=== PATIENT | male | born 1940 | race Caucasian/White ===

== ENCOUNTER 2017-09-05 21:36 | Inpatient (IN) | payer MEDICARE, MEDICAID ==
[2017-09-05] MEDS ORDERED: Haloperidol Lactate 5 mg/mL 1mL Vial IM STA (21:40)
[2017-09-05] MEDS ORDERED: Haloperidol Lactate 5 mg/mL 1mL Vial ONE (21:43)
--- NOTE | 2017-09-05 21:59 | ED Physician Chart ---
ED Chief Complaint/HPI - Patient Information Date Seen:: 09/05/17 Time Seen:: 21:56 Chief Complaint:: ABDOMINAL PAIN History of Present Illness:: THIS IS A 76 YO MALE INTERMEDIATE PATIENT SENT HIM FOR A EVALUATION BECAUSE OF ELEVATED WHITE CELL COUNT AND RESTLESSNESS. HE IS DEMENTED AND CHRONICALLY ILL. Allergies:: Allergies Allergy/AdvReac Type Severity Reaction Status Date / Time No Known Allergies Allergy Verified 09/05/17 21:58 Vitals:: Vital Signs - 8 hr 09/05/17 21:40 Temp 97.6 F RR 20 Historian:: EMS, Medical Records Review:: Nurse's Note Reviewed, Transfer documents Reviewed ED Review of Systems - Review of Systems General/Constitutional: No fever, No chills, No weight loss, No weakness, No diaphoresis, No edema, No loss of appetite, Other (THIS PATIENT IS UNABLE TO GIVE A REVIEW OF SYSYTEMS) Skin: No skin lesions, No rash, No bruising Head: No headache, No light-headedness Eyes: No loss of vision, No pain, No diplopia ENT: No earache, No nasal drainage, No sore throat, No tinnitus Neck: No neck pain, No swelling, No thyromegaly, No stiffness, No mass noted Cardio Vascular: No chest pain, No palpitations, No PND, No orthopnea, No edema Pulmonary: No SOB, No cough, No sputum, No wheezing GI: No nausea, No vomiting, No diarrhea, No pain, No melena, No hematochezia, No constipation, No hematemesis G/U: No dysuria, No frequency, No hematuria Musculoskeletal: No bone or joint pain, No back pain, No muscle pain Endocrine: No polyuria, No polydipsia Psychiatric: No prior psych history, No depression, No anxiety, No suicidal ideation Hematopoietic: No bruising, No lymphadenopathy Allergic/Immuno: No urticaria, No angioedema Neurological: No syncope, No focal symptoms, No weakness, No paresthesia, No headache, No seizure, No dizziness, No confusion, No vertigo ED Past Medical History - Past Medical History Obtainable: Yes Past Medical History: CVA/TIA, Arthritis, Dementia Family History: None Social History: Non Smoker, No Alcohol, No Drug Use, Care Facility Surgical History: PEG/GTube Psychiatricy History: Dementia ED Physical Exam - Physical Examination General/Constitutional: Awake, Well-developed, well-nourished, Alert, No distress, GCS 15, Non-toxic appearing, Ambulatory Other Gen/Cons comments:: DEMENTED RESTLESS AND UNCOOPERATIVE Head: Atraumatic Eyes: Lids, conjuctiva normal, PERRL, EOMI Skin: Nl inspection, No rash, No skin lesions, No ecchymosis, Well hydrated, No lymphadenopathy ENMT: External ears, nose nl, Nasal exam nl, Lips, teeth, gums nl Neck: Nontender, Full ROM w/o pain, No JVD, No nuchal rigidity, No bruit, No mass, No stridor Respiratory: Nl effort/Exclusion, Clear to Auscultation, No Wheeze/Rhonchi/Rales Cardio Vascular: RRR, No murmur, gallop, rubs, NL S1 S2 GI: No tenderness/rebounding/guarding, No organomegaly, No hernia, Normal BS's, Nondistended, No mass/bruits, No McBurney tenderness : No CVA tenderness Extremities: No tenderness or effusion, Full ROM, normal strength in all extremities, No edema, Normal digits & nails Neuro/Psych: Alert/oriented, DTR's symmetric, Normal sensory exam, Normal motor strength, Judgement/insight normal, Mood normal, Normal gait, No focal deficits Misc: Normal back, No paraspinal tenderness ED Labs/Radiology/EKG Results - Radiology Results Results: CHEST X-RAY= NAD - EKG Interpretations EKG Time:: 10:15 Rate & Rhythm: RATE =93, SINUS [place]: LEFT AXIS ED Assessment - Assessment General Assessment: ELECTROLYTE IMBALANCE ELEVATED WHITE COUNT DEMENTIA ED Septic Shock - . Is Septic Shock (SBP<90, OR Lactate>4 mmol\L) present?: No - <6hrs of presentation: Vital Signs: Vital Signs - 8 hr 09/05/17 21:40 Temp 97.6 F RR 20 ED Reassessment (Disposition) - Reassessment Reassessment Condition:: Unchanged - Diagnosis Diagnosis:: ELECTROLYTE IMBALANCE ELEVATED WHITE COUNT DEMENTIA SPASTIC PARALYSIS - Patient Disposition Discharge/Transfer:: Acute Care w/in this hosp Admitting Medical Physician:: Brian Asencio Condition at Disposition:: Improved ED Discharge Plan - Patient Disposition Admit/Discharge/Transfer: Acute Care w/in this hosp Condition at Disposition: Improved
[2017-09-05 22:28] LABS: % BASOPHILS 0.9 % (0.0-2.0); % EOSINOPHILS 0.1 % (0.0-5.0); % LYMPHOCYTES 15.3 % (20.0-50.0); % MONOCYTES 3.8 % (2.0-10.0); % NEUTROPHILS 79.9 % (40.0-80.0); BASOPHILE ABSOLUTE 0.1 Th/cumm (0-0.2); HEMATOCRIT 41.9 % (41.0-60); HEMOGLOBIN 13.9 gm/dL (12-16); LYMPHOCYTE ABSOLUTE 1.9 Th/cmm (1.5-3.0); MEAN CELL VOLUME 94.3 fl (80-99); MEAN CORPUSCULAR HEMOGLOBIN 31.2 pg (27.0-31.0); MEAN CORPUSCULAR HGB CONC 33.1 pg (28.0-36.0); MONOCYTE ABSOLUTE 0.5 Th/cmm (0.3-1.0); NEUTROPHILE ABSOLUTE 9.9 Th/cmm (1.8-8.0); PLATELET COUNT 317 Th/cmm (150-400); RED BLOOD COUNT 4.44 Mil/cmm (3.80-5.80); RED CELL DISTRIBUTION WIDTH 13.4 % (11.5-20.0)
[2017-09-05] MEDS ORDERED: Sodium Chloride 0.9% 1,000 ML IV ONE (22:29)
[2017-09-05 22:44] LABS: INR 1.06 (0.5-1.4)
[2017-09-05 22:48] LABS: ALBUMIN 3.9 gm/dL (4.2-5.5); ALKALINE PHOSPHATASE 56 U/L (34-104); ANION GAP 12.8 (7.0-16.0); BILIRUBIN,TOTAL 0.3 mg/dL (0.3-1.0); BUN - UREA NITROGEN 50 mg/dL (7-25); CALCIUM SERUM 10.8 mg/dL (8.6-10.3); CARBON DIOXIDE 31.9 mEq/L (21.0-31.0); CHLORIDE 111 mEq/L (98-107); CREATININE - SERUM 1.2 mg/dL (0.7-1.3); GLUCOSE 102 mg/dL (70-105); POTASSIUM SERUM 3.7 mEq/L (3.5-5.1); SGOT 29 U/L (13-39); SGPT/ALT 22 U/L (7-52); SODIUM SERUM 152 mEq/L (136-145); TOTAL PROTEIN,SERUM 7.7 gm/dL (6.0-8.3)
[2017-09-05] MEDS ORDERED: Sodium Chloride 0.45% 500 ML IV ONE (23:06)
[2017-09-05 23:12] LABS: WHITE BLOOD COUNT 12.4 Th/cmm (4.8-10.8)
[2017-09-05] MEDS ORDERED: Maalox 30 mL Cup PO PRN (23:32)
[2017-09-05] MEDS ORDERED: Ipratropium Neb 0.5 mg/2.5 mL UD IH PRN (23:32)
[2017-09-05] MEDS ORDERED: Albuterol Nebulizer 2.5mg/3mL HHN PRN (23:32)
[2017-09-06] MEDS: D5-0.45NS 1,000 ML IV SCH ×2 (02:20→20:40)
[2017-09-06] MEDS ORDERED: Pneumococcal Vaccine 0.5 mL Vial IM ONE (04:13)
--- NOTE | 2017-09-06 09:34 | Diagnostic Imaging Report ---
Chest x-ray single view History: Pneumonia Comparison: 09/05/2017 The heart size is normal. No focal pulmonary parenchymal processes. No hilar or mediastinal abnormalities. COPD changes are noted. Impression: No acute abnormalities.
--- NOTE | 2017-09-06 09:36 | Diagnostic Imaging Report ---
Chest x-ray single view History: Cough Comparison: None The heart size is normal. No focal pulmonary parenchymal processes. No hilar or mediastinal abnormalities. COPD changes are noted. The aortic arch calcified Impression: No acute abnormalities in COPD changes
[2017-09-06] MEDS: Ferrous Sulfate 300 MG/5 ML UDC GT SCH ×2 (10:32→18:23)
[2017-09-06 11:10] LABS: ANION GAP 13.6 (7.0-16.0); BUN - UREA NITROGEN 46 mg/dL (7-25); CALCIUM SERUM 10.4 mg/dL (8.6-10.3); CARBON DIOXIDE 27.9 mEq/L (21.0-31.0); CHLORIDE 113 mEq/L (98-107); CREATININE - SERUM 1.1 mg/dL (0.7-1.3); GLUCOSE 105 mg/dL (70-105); MAGNESIUM 2.8 mg/dL (1.9-2.7); PHOSPHOROUS 2.7 mg/dL (2.5-5.0); POTASSIUM SERUM 4.5 mEq/L (3.5-5.1); SODIUM SERUM 150 mEq/L (136-145)
[2017-09-06 13:24] LABS: % BASOPHILS 0.4 % (0.0-2.0); % EOSINOPHILS 1.7 % (0.0-5.0); % MONOCYTES 5.5 % (2.0-10.0); % NEUTROPHILS 83.4 % (40.0-80.0); BASOPHILE ABSOLUTE 0.1 Th/cumm (0-0.2); EOSINOPHILE ABSOLUTE 0.2 Th/cmm (0.1-0.4); HEMOGLOBIN 14.8 gm/dL (12-16); LYMPHOCYTE ABSOLUTE 1.3 Th/cmm (1.5-3.0); MEAN CELL VOLUME 98.6 fl (80-99); MEAN CORPUSCULAR HEMOGLOBIN 30.9 pg (27.0-31.0); MEAN CORPUSCULAR HGB CONC 31.4 pg (28.0-36.0); MEAN PLATELET VOLUME 10.2 fl; MONOCYTE ABSOLUTE 0.8 Th/cmm (0.3-1.0); NEUTROPHILE ABSOLUTE 11.5 Th/cmm (1.8-8.0); RED BLOOD COUNT 4.78 Mil/cmm (3.80-5.80); RED CELL DISTRIBUTION WIDTH 14.5 % (11.5-20.0); WHITE BLOOD COUNT 13.9 Th/cmm (4.8-10.8)
[2017-09-06 13:25] LABS: HEMATOCRIT 47.1 % (41.0-60); PLATELET COUNT 249 Th/cmm (150-400)
--- NOTE | 2017-09-06 14:27 | Internal Medicine Prog Note ---
Internal Medicine Subjective - Subjective Service Date: 09/06/17 ([facility] [id number]) Internal Medicine Objective - Results Result Diagrams: 09/06/17 13:19 09/06/17 10:48 Recent Labs: Laboratory Last Values WBC 13.9 Th/cmm (4.8-10.8) H 09/06/17 13:19 RBC 4.78 Mil/cmm (3.80-5.80) 09/06/17 13:19 Hgb 14.8 gm/dL (12-16) 09/06/17 13:19 Hct 47.1 % (41.0-60) D 09/06/17 13:19 MCV 98.6 fl (80-99) 09/06/17 13:19 MCH 30.9 pg (27.0-31.0) 09/06/17 13:19 MCHC Differential 31.4 pg (28.0-36.0) 09/06/17 13:19 RDW 14.5 % (11.5-20.0) 09/06/17 13:19 Plt Count 249 Th/cmm (150-400) D 09/06/17 13:19 MPV 10.2 fl 09/06/17 13:19 Neutrophils % 83.4 % (40.0-80.0) H 09/06/17 13:19 Lymphocytes % 9.0 % (20.0-50.0) L 09/06/17 13:19 Monocytes % 5.5 % (2.0-10.0) 09/06/17 13:19 Eosinophils % 1.7 % (0.0-5.0) 09/06/17 13:19 Basophils % 0.4 % (0.0-2.0) 09/06/17 13:19 PT 11.0 SECONDS (9.5-11.5) 09/05/17 22:15 INR 1.06 (0.5-1.4) 09/05/17 22:15 PTT (Actin FS) 25.9 SECONDS (26.0-38.0) L 09/05/17 22:15 Sodium 150 mEq/L (136-145) H 09/06/17 10:48 Potassium 4.5 mEq/L (3.5-5.1) 09/06/17 10:48 Chloride 113 mEq/L (98-107) H 09/06/17 10:48 Carbon Dioxide 27.9 mEq/L (21.0-31.0) 09/06/17 10:48 Anion Gap 13.6 (7.0-16.0) 09/06/17 10:48 BUN 46 mg/dL (7-25) H 09/06/17 10:48 Creatinine 1.1 mg/dL (0.7-1.3) 09/06/17 10:48 Est GFR ( Amer) TNP 09/06/17 10:48 Est GFR (Non-Af Amer) TNP 09/06/17 10:48 BUN/Creatinine Ratio 41.8 09/06/17 10:48 Glucose 105 mg/dL (70-105) 09/06/17 10:48 Whole Bld Lactic Acid 1.36 mmol/L (0.60-1.99) 09/05/17 22:15 Calcium 10.4 mg/dL (8.6-10.3) H 09/06/17 10:48 Phosphorus 2.7 mg/dL (2.5-5.0) 09/06/17 10:48 Magnesium 2.8 mg/dL (1.9-2.7) H 09/06/17 10:48 Total Bilirubin 0.3 mg/dL (0.3-1.0) 09/05/17 22:15 AST 29 U/L (13-39) 09/05/17 22:15 ALT 22 U/L (7-52) 09/05/17 22:15 Alkaline Phosphatase 56 U/L (34-104) 09/05/17 22:15 Ammonia 104 umol/L (16-53) H 09/06/17 10:48 Troponin I 0.01 ng/mL (0.01-0.05) 09/05/17 22:15 Total Protein 7.7 gm/dL (6.0-8.3) 09/05/17 22:15 Albumin 3.9 gm/dL (4.2-5.5) L 09/05/17 22:15 Globulin 3.8 gm/dL 09/05/17 22:15 Albumin/Globulin Ratio 1.0 (1.0-1.8) 09/05/17 22:15 TSH 2.18 uIU/ml (0.34-5.60) 09/05/17 22:15 Valproic Acid 80.6 ug/mL (50.0-100.0) 09/05/17 22:15 - Physical Exam Vitals and I&O: Vital Signs Temp 97.4 F 09/06/17 08:08 Pulse 70 09/06/17 08:08 Resp 17 09/06/17 08:08 BP 97/47 09/06/17 08:08 Pulse Ox 94 09/06/17 08:08 Intake & Output 09/05/17 09/06/17 09/06/17 18:59 06:59 18:59 Intake Total 300 Balance 300 Weight (lbs) 126 lb 126 lb Intake: Oral 300 Other: # Voids 3 Weight Source Bedscale Bedscale Active Medications: Current Medications Acetaminophen (Tylenol 650mg/20.3ml Suspension) 650 mg GT Q4H PRN PRN Reason: Pain or Fever >101 Stop: 11/05/17 00:11 Al Hydrox/Mg Hydrox/Simethicone (Maalox) 30 ml PO Q6H PRN PRN Reason: Dyspepsia Stop: 11/04/17 23:31 Albuterol Sulfate (Albuterol 2.5mg/3ml Neb Ud) 2.5 mg HHN Q2HRT PRN PRN Reason: Shortness of Breath or Wheeze Stop: 11/04/17 23:31 Ascorbic Acid (Vitamin C) 500 mg GT DAILY ISAIAH Stop: 11/05/17 08:59 Last Admin: 09/06/17 10:32 Dose: 500 mg Docusate Sodium (Colace) 100 mg PO DAILY ISAIAH Stop: 11/05/17 08:59 Last Admin: 09/06/17 10:33 Dose: 100 mg Donepezil HCl (Aricept) 10 mg GT HS ISAIAH Stop: 11/05/17 20:59 Ferrous Sulfate (Iron) 330 mg GT BID ISAIAH Stop: 11/05/17 08:59 Last Admin: 09/06/17 10:32 Dose: 330 mg Heparin Sodium (Porcine) (Heparin) 5,000 units SUBQ Q12HR ISAIAH Stop: 11/05/17 08:59 Last Admin: 09/06/17 10:28 Dose: 5,000 units Ceftriaxone Sodium 1 gm/ (Sodium Chloride) 50 mls @ 100 mls/hr IV Q24HR ISAIAH Stop: 11/06/17 00:00 Dextrose/Sodium Chloride (D5-0.45ns) 1,000 mls @ 80 mls/hr IV .[id number] [facility] Stop: 11/04/17 23:44 Last Admin: 09/06/17 02:20 Dose: 80 mls/hr Ipratropium [place] (Atrovent Neb 0.5mg/2.5ml) 0.5 mg IH Q2HRT PRN PRN Reason: Shortness of Breath or Wheeze Stop: 11/04/17 23:31 Ondansetron HCl (Zofran) 4 mg IV Q8H PRN PRN Reason: Nausea / Vomiting Stop: 11/04/17 23:31 Tamsulosin HCl (Flomax) 0.4 mg GT DAILY [facility] Stop: 11/05/17 08:59 Last Admin: 09/06/17 10:33 Dose: 0.4 mg Valproate Sodium (Depakene) 750 mg PO Q12HR ISAIAH PRN Reason: Protocol Stop: 11/04/17 23:44 Last Admin: 09/06/17 10:31 Dose: 750 mg Nutritional Asmnt/Malnutr-PDOC - Dietary Evaluation Malnutrition Findings (Please click <Entered> for more info): Nutritional Asmnt/Malnutrition Start: 09/06/17 11: 16 Text: Status: Complete Freq: Document 09/06/17 11:16 JODI (Rec: 09/06/17 11:24 JODI [place]- [email or web address]) Nutritional Asmnt/Malnutrition Patient General Information Nutritional Screening High Risk Diagnosis Possible Sepsis (RFV) Pertinent Medical Hx/Surgical Hx no H&P completed as of 09/06/17 @ 1100 Subjective Information Pt asleep in bed at time of visit Current Diet Order/ Nutrition Support Novasource Renal @75ml/hr Pertinent Medications Maalox, vit C, D51/2NS@80ml/hr (326kcals/day), colace, Fe, heparin, zofran Pertinent Labs 09/05: Na 152, K 3.7, Cl 111, CO2 31.9, BUN 50, Cr 1.2, Ca 10.8, Glucose 102 Nutritional Hx/Data Height 5 ft 5 in Height (Calculated Centimeters) 165.1 Current Weight (lbs) 126 lb Weight (Calculated Kilograms) 57.2 Weight (Calculated Grams) 26767.6 Body Mass Index (BMI) 20.9 Weight Status Approriate GI Symptoms Last BM none noted Cultural/Ethnic/Mandaen Belief unknown Usual diet at home unknown Skin Integrity/Comment: sheeba score 13 Estimated Nutritional Goals BEE in Kcals: Using Current wt Calories/Kcals/Kg 30-35kcals/kg Kcals Calculated 1710-1995kcals/day Protein: Using Current wt Protein g/k.3-1.5g/kg Protein Calculated 74-86g/day Fluid: ml per MD Nutritional Problem 1. Problem Problem Increased nutrient needs related to Etiology increased nutrient demand as evidenced by Signs/Symptoms: possible sepsis Intervention/Recommendation Comments Recommend Novasource Renal @ 40ml/hr to provide 1920kcals, 87g protein and 691ml free water Expected Outcomes/Goals Expected Outcomes/Goals Tolerate TF
--- NOTE | 2017-09-06 23:54 | History & Physical ---
ADMIT DATE: 09/06/2017 CHIEF COMPLAINT: Abdominal pain. HISTORY OF PRESENT ILLNESS: This is a 76-year-old male who is a resident of [facility], who is brought here to [facility] due to 1 day history of abdominal pain. The patient's WBC is also noted to be elevated. For this reason, the patient is now admitted to the med-surg unit. PAST MEDICAL HISTORY: CVA, arthritis and dementia. PAST SURGICAL HISTORY: PEG. FAMILY HISTORY: Noncontributory. SOCIAL HISTORY: The patient [facility] a [facility] MEDICATIONS: Please see medication reconciliation. REVIEW OF SYSTEMS: Unable to obtain due to the patient's mental status. PHYSICAL EXAMINATION: GENERAL: This is an elderly male, awake, not really interactive, in no apparent distress. VITAL SIGNS: Temperature 97.4, heart rate 70, blood pressure 97/47, respirations 17, and O2 94%. HEENT: Head is normocephalic and atraumatic. NECK: Supple. No mass. LUNGS: Clear bilaterally ____. ABDOMEN: Soft and nontender. LABORATORY DATA: WBC 13.9, H and H 14.8 and 47.1, platelet of 249. Sodium 150, potassium 4.5, chloride 113, BUN 46, creatinine 1.1. Ammonia level of 104. DIAGNOSTIC STUDIES: The patient had a chest x-ray done. Impression is no acute abnormalities. ASSESSMENT: Hypotension, generalized weakness, possible sepsis, abdominal pain, dementia, leukocytosis, acute renal insufficiency, history of cerebrovascular accident and arthritis. PLAN: The patient to be admitted to the med-surg unit. Keep the patient on IV fluids for hydration. We will get a CT of the abdomen and pelvis. Keep the patient on empiric IV antibiotics of Rocephin 1 gram IV q.24 hours. Also get IV fluids for hydration. We will continue to monitor this patient. [facility]# [id number]
[2017-09-07] MEDS: cefTRIAXone 1 GM in Sodium Chloride 0.9% 50 ML IV SCH (00:11)
[2017-09-07] MEDS: Ferrous Sulfate 300 MG/5 ML UDC GT SCH ×2 (09:35→18:13)
[2017-09-07 09:36] LABS: % BASOPHILS 0.6 % (0.0-2.0); % LYMPHOCYTES 9.5 % (20.0-50.0); % MONOCYTES 7.8 % (2.0-10.0); % NEUTROPHILS 78.1 % (40.0-80.0); BASOPHILE ABSOLUTE 0.1 Th/cumm (0-0.2); EOSINOPHILE ABSOLUTE 0.4 Th/cmm (0.1-0.4); HEMOGLOBIN 12.9 gm/dL (12-16); LYMPHOCYTE ABSOLUTE 0.9 Th/cmm (1.5-3.0); MEAN CELL VOLUME 95.6 fl (80-99); MEAN CORPUSCULAR HEMOGLOBIN 31.2 pg (27.0-31.0); MEAN CORPUSCULAR HGB CONC 32.6 pg (28.0-36.0); MEAN PLATELET VOLUME 9.8 fl; MONOCYTE ABSOLUTE 0.8 Th/cmm (0.3-1.0); NEUTROPHILE ABSOLUTE 7.5 Th/cmm (1.8-8.0); PLATELET COUNT 227 Th/cmm (150-400); RED BLOOD COUNT 4.14 Mil/cmm (3.80-5.80); RED CELL DISTRIBUTION WIDTH 13.7 % (11.5-20.0); WHITE BLOOD COUNT 9.7 Th/cmm (4.8-10.8)
[2017-09-07 09:39] LABS: HEMATOCRIT 39.6 % (41.0-60)
[2017-09-07 09:55] LABS: BUN - UREA NITROGEN 40 mg/dL (7-25); CALCIUM SERUM 9.6 mg/dL (8.6-10.3); CHLORIDE 114 mEq/L (98-107); CREATININE - SERUM 0.9 mg/dL (0.7-1.3); GLUCOSE 100 mg/dL (70-105); SODIUM SERUM 149 mEq/L (136-145)
--- NOTE | 2017-09-07 15:18 | Internal Medicine Prog Note ---
Internal Medicine Subjective - Subjective Service Date: 09/07/17 Patient seen and examined:: with staff Patient is:: awake, verbal, agitated, confused Per staff patient has:: agitated, combative, tolerating meds Internal Medicine Objective - Results Result Diagrams: 09/07/17 09:09/07/17: Recent Labs: Laboratory Last Values WBC 9.7 Th/cmm (4.8-10.8) 09/07/17: RBC 4.14 Mil/cmm (3.80-5.80) 09/07/17: Hgb 12.9 gm/dL (12-16) 09/07/17: Hct 39.6 % (41.0-60) L D 09/07/17: MCV 95.6 fl (80-99) 09/07/17: MCH 31.2 pg (27.0-31.0) H 09/07/17 MCHC Differential 32.6 pg (28.0-36.0) 09/07/17: RDW 13.7 % (11.5-20.0) 09/07/17: Plt Count 227 Th/cmm (150-400) 09/07/17: MPV 9.8 fl 09/07/17: Neutrophils % 78.1 % (40.0-80.0) 09/07/17: Lymphocytes % 9.5 % (20.0-50.0) L 09/07/17: Monocytes % 7.8 % (2.0-10.0) 09/07/17: Eosinophils % 4.0 % (0.0-5.0) 09/07/17: Basophils % 0.6 % (0.0-2.0) 09/07/17: PT 11.0 SECONDS (9.5-11.5) 09/05/17 22:15 INR 1.06 (0.5-1.4) 09/05/17 22:15 PTT (Actin FS) 25.9 SECONDS (26.0-38.0) L 09/05/17 22:15 Sodium 149 mEq/L (136-145) H 09/07/17:28 Potassium 4.0 mEq/L (3.5-5.1) 09/07/17 09:28 Chloride 114 mEq/L (98-107) H 09/07/17 09:28 Carbon Dioxide 31.0 mEq/L (21.0-31.0) 09/07/17 09:28 Anion Gap 8.0 (7.0-16.0) 09/07/17 09:28 BUN 40 mg/dL (7-25) H 09/07/17 09:28 Creatinine 0.9 mg/dL (0.7-1.3) 09/07/17 09:28 Est GFR ( Amer) TNP 09/07/17 09:28 Est GFR (Non-Af Amer) TNP 09/07/17 09:28 BUN/Creatinine Ratio 44.4 09/07/17 09:28 Glucose 100 mg/dL (70-105) 09/07/17 09:28 Whole Bld Lactic Acid 1.36 mmol/L (0.60-1.99) 09/05/17 22:15 Calcium 9.6 mg/dL (8.6-10.3) 09/07/17 09:28 Phosphorus 2.7 mg/dL (2.5-5.0) 09/06/17 10:48 Magnesium 2.8 mg/dL (1.9-2.7) H 09/06/17 10:48 Total Bilirubin 0.3 mg/dL (0.3-1.0) 09/05/17 22:15 AST 29 U/L (13-39) 09/05/17 22:15 ALT 22 U/L (7-52) 09/05/17 22:15 Alkaline Phosphatase 56 U/L (34-104) 09/05/17 22:15 Ammonia 104 umol/L (16-53) H 09/06/17 10:48 Troponin I 0.01 ng/mL (0.01-0.05) 09/05/17 22:15 B-Natriuretic Peptide 44.1 pg/mL (5.0-100.0) 09/06/17 13:19 Total Protein 7.7 gm/dL (6.0-8.3) 09/05/17 22:15 Albumin 3.9 gm/dL (4.2-5.5) L 03/23/18 22:15 Globulin 3.8 gm/dL 09/05/17 22:15 Albumin/Globulin Ratio 1.0 (1.0-1.8) 09/05/17 22:15 TSH 2.18 uIU/ml (0.34-5.60) 09/05/17 22:15 Valproic Acid 80.6 ug/mL (50.0-100.0) 09/05/17 22:15 - Physical Exam Vitals and I&O: Vital Signs Temp 98.2 F 09/07/17 08:00 Pulse 100 09/07/17 08:00 Resp 20 09/07/17 08:00 BP 148/79 09/07/17 08:00 Pulse Ox 96 09/07/17 08:00 Intake & Output 09/06/17 09/07/17 09/07/17 18:59 06:59 18:59 Intake Total 1000 50 Balance 1000 50 Weight (lbs) 126 lb 126 lb Intake: Intake, IV Amount 1000 50 D5-0.45NS 1,000 ml @ 80 1000 mls/hr IV .[id number] [facility] Rx #:[id number] cefTRIAXone 1 gm In 50 Sodium Chloride 0.9% 50 ml @ 100 mls/hr IV Q24HR [facility] Rx#:[id number] Other: Weight Source Bedscale Bedscale Active Medications: Current Medications Acetaminophen (Tylenol 650mg/20.3ml Suspension) 650 mg GT Q4H PRN PRN Reason: Pain or Fever >101 Stop: 11/05/17 00:11 Al Hydrox/Mg Hydrox/Simethicone (Maalox) 30 ml PO Q6H PRN PRN Reason: Dyspepsia Stop: 11/04/17 23:31 Albuterol Sulfate (Albuterol 2.5mg/3ml Neb Ud) 2.5 mg HHN Q2HRT PRN PRN Reason: Shortness of Breath or Wheeze Stop: 11/04/17 23:31 Ascorbic Acid (Vitamin C) 500 mg GT DAILY [facility] Stop: 11/05/17 08:59 Last Admin: 09/07/17 09:37 Dose: 500 mg Docusate Sodium (Colace) 100 mg PO DAILY ISAIAH Stop: 11/05/17 08:59 Last Admin: 09/07/17 09:37 Dose: 100 mg Donepezil HCl (Aricept) 10 mg GT HS [facility] Stop: 11/05/17 20:59 Last Admin: 09/06/17 22:07 Dose: 10 mg Ferrous Sulfate (Iron) 330 mg GT BID [facility] Stop: 11/05/17 08:59 Last Admin: 09/07/17 09:35 Dose: 330 mg Heparin Sodium (Porcine) (Heparin) 5,000 units SUBQ Q12HR [facility]AIA[facility] Stop: 11/05/17 08:59 Last Admin: 09/07/17 09:36 Dose: 5,000 units Ceftriaxone Sodium 1 gm/ (Sodium Chloride) 50 mls @ 100 mls/hr IV Q24HR [facility] Stop: 11/06/17 00:00 Last Infusion: 09/07/17 00:41 Dose: Infused Dextrose/Sodium Chloride (D5-0.45ns) 1,000 mls @ 80 mls/hr IV .[id number] [facility] Stop: 11/04/17 23:44 Last Admin: 09/06/17 20:40 Dose: 80 mls/hr Ipratropium [place] (Atrovent Neb 0.5mg/2.5ml) 0.5 mg IH Q2HRT PRN PRN Reason: Shortness of Breath or Wheeze Stop: 11/04/17 23:31 Lorazepam (Ativan) 0.5 mg GT Q6HR PRN; Protocol PRN Reason: Agitation Stop: 11/06/17 11:24 Ondansetron HCl (Zofran) 4 mg IV Q8H PRN PRN Reason: Nausea / Vomiting Stop: 11/04/17 23:31 Tamsulosin HCl (Flomax) 0.4 mg GT DAILY [facility] Stop: 11/05/17 08:59 Last Admin: 09/07/17 09:37 Dose: 0.4 mg Valproate Sodium (Depakene) 750 mg PO Q12HR ISAIAH PRN Reason: Protocol Stop: 11/04/17 23:44 Last Admin: 09/07/17 09:37 Dose: 750 mg General: weak, alert HEENT: NC/AT, PERRLA Neck: Supple Lungs: CTAB Cardiovascular: RRR, Normal S1, Normal S2 Abdomen: soft, non-tender, non-distended, positive bowel sound Extremities: excoriation Neurological: alert, unable to follow command Internal Medicine Assmt/Plan - Assessment Assessment: hypotension-improved generalized weakness abdominal pain possible sepsis leukocytosis - Plan Plan: continue ivf for hydration empiric ivabx follow up labs in am continue current plan of care Nutritional Asmnt/Malnutr-PDOC - Dietary Evaluation Malnutrition Findings (Please click <Entered> for more info): Nutritional Asmnt/Malnutrition Start: 09/06/17 11: 16 Text: Status: Complete Freq: Document 09/06/17 11:16 JODI (Rec: 09/06/17 11:24 VICTORINOVLADISLAV RICKETTSN- FNS1) Nutritional Asmnt/Malnutrition Patient General Information Nutritional Screening High Risk Diagnosis Possible Sepsis (RFV) Pertinent Medical Hx/Surgical Hx no H&P completed as of 09/06/17 @ 1100 Subjective Information Pt asleep in bed at time of visit Current Diet Order/ Nutrition Support Novasource Renal @75ml/hr Pertinent Medications Maalox, vit C, D51/2NS@80ml/hr (326kcals/day), colace, Fe, heparin, zofran Pertinent Labs 09/05: Na 152, K 3.7, Cl 111, CO2 31.9, BUN 50, Cr 1.2, Ca 10.8, Glucose 102 Nutritional Hx/Data Height 5 ft 5 in Height (Calculated Centimeters) 165.1 Current Weight (lbs) 126 lb Weight (Calculated Kilograms) 57.2 Weight (Calculated Grams) 65788.6 Body Mass Index (BMI) 20.9 Weight Status Approriate GI Symptoms Last BM none noted Cultural/Ethnic/Sabianism Belief unknown Usual diet at home unknown Skin Integrity/Comment: sheeba score 13 Estimated Nutritional Goals BEE in Kcals: Using Current wt Calories/Kcals/Kg 30-35kcals/kg Kcals Calculated 1710-1995kcals/day Protein: Using Current wt Protein g/k.3-1.5g/kg Protein Calculated 74-86g/day Fluid: ml per MD Nutritional Problem 1. Problem Problem Increased nutrient needs related to Etiology increased nutrient demand as evidenced by Signs/Symptoms: possible sepsis Intervention/Recommendation Comments Recommend Novasource Renal @ 40ml/hr to provide 1920kcals, 87g protein and 691ml free water Expected Outcomes/Goals Expected Outcomes/Goals Tolerate TF
[2017-09-08] MEDS: cefTRIAXone 1 GM in Sodium Chloride 0.9% 50 ML IV SCH (00:09)
[2017-09-08] MEDS: D5-0.45NS 1,000 ML IV SCH ×2 (01:58→14:48)
[2017-09-08 07:25] LABS: % BASOPHILS 0.1 % (0.0-2.0); % EOSINOPHILS 7.2 % (0.0-5.0); % MONOCYTES 11.8 % (2.0-10.0); % NEUTROPHILS 69.9 % (40.0-80.0); EOSINOPHILE ABSOLUTE 0.7 Th/cmm (0.1-0.4); HEMATOCRIT 35.4 % (41.0-60); HEMOGLOBIN 11.8 gm/dL (12-16); MEAN CELL VOLUME 95.8 fl (80-99); MEAN CORPUSCULAR HGB CONC 33.5 pg (28.0-36.0); MEAN PLATELET VOLUME 9.7 fl; MONOCYTE ABSOLUTE 1.1 Th/cmm (0.3-1.0); NEUTROPHILE ABSOLUTE 6.5 Th/cmm (1.8-8.0); PLATELET COUNT 203 Th/cmm (150-400); RED CELL DISTRIBUTION WIDTH 13.7 % (11.5-20.0); WHITE BLOOD COUNT 9.3 Th/cmm (4.8-10.8)
[2017-09-08 07:51] LABS: ANION GAP 8.3 (7.0-16.0); BUN - UREA NITROGEN 34 mg/dL (7-25); CALCIUM SERUM 9.2 mg/dL (8.6-10.3); CARBON DIOXIDE 30.4 mEq/L (21.0-31.0); CHLORIDE 115 mEq/L (98-107); CREATININE - SERUM 0.8 mg/dL (0.7-1.3); GLUCOSE 92 mg/dL (70-105); POTASSIUM SERUM 3.7 mEq/L (3.5-5.1); SODIUM SERUM 150 mEq/L (136-145)
[2017-09-08] MEDS: Ferrous Sulfate 300 MG/5 ML UDC GT SCH ×2 (09:35→17:17)
--- NOTE | 2017-09-08 12:51 | Internal Medicine Prog Note ---
Internal Medicine Subjective - Subjective Service Date: 09/08/17 Patient is:: awake, verbal, agitated, confused Per staff patient has:: agitated, combative, tolerating meds Internal Medicine Objective - Results Result Diagrams: 09/08/17 06:50 09/08/17 06:50 Recent Labs: Laboratory Last Values WBC 9.3 Th/cmm (4.8-10.8) 09/08/17 06:50 RBC 3.70 Mil/cmm (3.80-5.80) L 09/08/17 06:50 Hgb 11.8 gm/dL (12-16) L 09/08/17 06:50 Hct 35.4 % (41.0-60) L 09/08/17 06:50 MCV 95.8 fl (80-99) 09/08/17 06:50 MCH 32.0 pg (27.0-31.0) H 09/08/17 06:50 MCHC Differential 33.5 pg (28.0-36.0) 09/08/17 06:50 RDW 13.7 % (11.5-20.0) 09/08/17 06:50 Plt Count 203 Th/cmm (150-400) 09/08/17 06:50 MPV 9.7 fl 09/08/17 06:50 Neutrophils % 69.9 % (40.0-80.0) 09/08/17 06:50 Lymphocytes % 11.0 % (20.0-50.0) L 09/08/17 06:50 Monocytes % 11.8 % (2.0-10.0) H 09/08/17 06:50 Eosinophils % 7.2 % (0.0-5.0) H 09/08/17 06:50 Basophils % 0.1 % (0.0-2.0) 09/08/17 06:50 PT 11.0 SECONDS (9.5-11.5) 09/05/17 22:15 INR 1.06 (0.5-1.4) 09/05/17 22:15 PTT (Actin FS) 25.9 SECONDS (26.0-38.0) L 09/05/17 22:15 Sodium 150 mEq/L (136-145) H 09/08/17 06:50 Potassium 3.7 mEq/L (3.5-5.1) 09/08/17 06:50 Chloride 115 mEq/L (98-107) H 09/08/17 06:50 Carbon Dioxide 30.4 mEq/L (21.0-31.0) 09/08/17 06:50 Anion Gap 8.3 (7.0-16.0) 09/08/17 06:50 BUN 34 mg/dL (7-25) H 09/08/17 06:50 Creatinine 0.8 mg/dL (0.7-1.3) 09/08/17 06:50 Est GFR ( Amer) TNP 09/08/17 06:50 Est GFR (Non-Af Amer) TNP 09/08/17 06:50 BUN/Creatinine Ratio 42.5 09/08/17 06:50 Glucose 92 mg/dL (70-105) 09/08/17 06:50 Whole Bld Lactic Acid 1.36 mmol/L (0.60-1.99) 09/05/17 22:15 Calcium 9.2 mg/dL (8.6-10.3) 09/08/17 06:50 Phosphorus 2.7 mg/dL (2.5-5.0) 09/06/17 10:48 Magnesium 2.8 mg/dL (1.9-2.7) H 09/06/17 10:48 Total Bilirubin 0.3 mg/dL (0.3-1.0) 09/05/17 22:15 AST 29 U/L (13-39) 09/05/17 22:15 ALT 22 U/L (7-52) 09/05/17 22:15 Alkaline Phosphatase 56 U/L (34-104) 09/05/17 22:15 Ammonia 104 umol/L (16-53) H 09/06/17 10:48 Troponin I 0.01 ng/mL (0.01-0.05) 09/05/17 22:15 B-Natriuretic Peptide 44.1 pg/mL (5.0-100.0) 09/06/17 13:19 Total Protein 7.7 gm/dL (6.0-8.3) 09/05/17 22:15 Albumin 3.9 gm/dL (4.2-5.5) L 09/05/17 22:15 Globulin 3.8 gm/dL 09/05/17 22:15 Albumin/Globulin Ratio 1.0 (1.0-1.8) 09/05/17 22:15 TSH 2.18 uIU/ml (0.34-5.60) 09/05/17 22:15 Valproic Acid 80.6 ug/mL (50.0-100.0) 09/05/17 22:15 HIV 1&2 Antibody Screen NEGATIVE (NEG) 09/08/17 06:50 - Physical Exam Vitals and I&O: Vital Signs Temp 97.9 F 09/08/17 08:00 Pulse 89 09/08/17 08:00 Resp 20 09/08/17 08:00 BP 106/69 09/08/17 08:00 Pulse Ox 98 09/08/17 08:00 Intake & Output 09/07/17 09/08/17 09/08/17 18:59 06:59 18:59 Intake Total 2150 200 Balance 2150 200 Weight (lbs) 126 lb 126 lb Intake: Intake, IV Amount 1000 D5-0.45NS 1,000 ml @ 80 1000 mls/hr IV .[id number] [facility] Rx #:[id number] Oral 100 Tube Feeding 900 100 Blood Product 200 Other 50 Other: # Voids 3 3 # Bowel Movements 1 Weight Source Bedscale Bedscale Active Medications: Current Medications Acetaminophen (Tylenol 650mg/20.3ml Suspension) 650 mg GT Q4H PRN PRN Reason: Pain or Fever >101 Stop: 11/05/17 00:11 Al Hydrox/Mg Hydrox/Simethicone (Maalox) 30 ml PO Q6H PRN PRN Reason: Dyspepsia Stop: 11/04/17 23:31 Albuterol Sulfate (Albuterol 2.5mg/3ml Neb Ud) 2.5 mg HHN Q2HRT PRN PRN Reason: Shortness of Breath or Wheeze Stop: 11/04/17 23:31 Ascorbic Acid (Vitamin C) 500 mg GT DAILY [facility] Stop: 11/05/17 08:59 Last Admin: 09/08/17 09:36 Dose: 500 mg Docusate Sodium (Colace) 100 mg PO DAILY [facility] Stop: 11/05/17 08:59 Last Admin: 09/08/17 09:35 Dose: 100 mg Donepezil HCl (Aricept) 10 mg GT HS [facility] Stop: 11/05/17 20:59 Last Admin: 09/07/17 21:35 Dose: 10 mg Ferrous Sulfate (Iron) 330 mg GT BID [facility] Stop: 11/05/17 08:59 Last Admin: 09/08/17 09:35 Dose: 330 mg Heparin Sodium (Porcine) (Heparin) 5,000 units SUBQ Q12HR [facility] Stop: 11/05/17 08:59 Last Admin: 09/08/17 09:37 Dose: 5,000 units Ceftriaxone Sodium 1 gm/ (Sodium Chloride) 50 mls @ 100 mls/hr IV Q24HR [facility] Stop: 11/06/17 00:00 Last Admin: 09/08/17 00:09 Dose: 100 mls/hr Dextrose/Sodium Chloride (D5-0.45ns) 1,000 mls @ 80 mls/hr IV .[id number] [facility] Stop: 11/04/17 23:44 Last Admin: 09/08/17 01:58 Dose: 80 mls/hr Ipratropium [place] (Atrovent Neb 0.5mg/2.5ml) 0.5 mg IH Q2HRT PRN PRN Reason: Shortness of Breath or Wheeze Stop: 11/04/17 23:31 Lorazepam (Ativan) 0.5 mg GT Q6HR PRN; Protocol PRN Reason: Agitation Stop: 11/06/17 11:24 Last Admin: 09/08/17 01:30 Dose: 0.5 mg Ondansetron HCl (Zofran) 4 mg IV Q8H PRN PRN Reason: Nausea / Vomiting Stop: 11/04/17 23:31 Tamsulosin HCl (Flomax) 0.4 mg GT DAILY [facility] Stop: 11/05/17 08:59 Last Admin: 09/08/17 09:36 Dose: 0.4 mg Valproate Sodium (Depakene) 750 mg PO Q12HR [facility] PRN Reason: Protocol Stop: 11/04/17 23:44 Last Admin: 09/08/17 09:35 Dose: 750 mg General: weak, alert HEENT: NC/AT, PERRLA Neck: Supple Lungs: CTAB Cardiovascular: RRR, Normal S1, Normal S2 Abdomen: soft, non-tender, non-distended, positive bowel sound Extremities: excoriation Neurological: alert, unable to follow command Internal Medicine Assmt/Plan - Assessment Assessment: hypotension-improved generalized weakness abdominal pain possible sepsis leukocytosis - Plan Plan: continue ivf for hydration empiric ivabx follow up labs in am continue current plan of care Nutritional Asmnt/Malnutr-PDOC - Dietary Evaluation Malnutrition Findings (Please click <Entered> for more info): Nutritional Asmnt/Malnutrition Start: 09/06/17 11: 16 Text: Status: Complete Freq: Document 09/06/17 11:16 KENDALTOMI (Rec: 09/06/17 11:24 JODI AUSTIN- [email or web address]) Nutritional Asmnt/Malnutrition Patient General Information Nutritional Screening High Risk Diagnosis Possible Sepsis (RFV) Pertinent Medical Hx/Surgical Hx no H&P completed as of 09/06/17 @ 1100 Subjective Information Pt asleep in bed at time of visit Current Diet Order/ Nutrition Support Novasource Renal @75ml/hr Pertinent Medications Maalox, vit C, D51/2NS@80ml/hr (326kcals/day), colace, Fe, heparin, zofran Pertinent Labs 09/05: Na 152, K 3.7, Cl 111, CO2 31.9, BUN 50, Cr 1.2, Ca 10.8, Glucose 102 Nutritional Hx/Data Height 5 ft 5 in Height (Calculated Centimeters) 165.1 Current Weight (lbs) 126 lb Weight (Calculated Kilograms) 57.2 Weight (Calculated Grams) 68223.6 Body Mass Index (BMI) 20.9 Weight Status Approriate GI Symptoms Last BM none noted Cultural/Ethnic/Worship Belief unknown Usual diet at home unknown Skin Integrity/Comment: sheeba score 13 Estimated Nutritional Goals BEE in Kcals: Using Current wt Calories/Kcals/Kg 30-35kcals/kg Kcals Calculated 1710-1995kcals/day Protein: Using Current wt Protein g/k.3-1.5g/kg Protein Calculated 74-86g/day Fluid: ml per MD Nutritional Problem 1. Problem Problem Increased nutrient needs related to Etiology increased nutrient demand as evidenced by Signs/Symptoms: possible sepsis Intervention/Recommendation Comments Recommend Novasource Renal @ 40ml/hr to provide 1920kcals, 87g protein and 691ml free water Expected Outcomes/Goals Expected Outcomes/Goals Tolerate TF
[2017-09-09] MEDS: cefTRIAXone 1 GM in Sodium Chloride 0.9% 50 ML IV SCH (00:06)
[2017-09-09 07:08] LABS: HEP B CORE AB TOTAL Positive (Negative); HEP B SURFACE AB QL Reactive; HEP B SURFACE AG QL Negative (Negative); HEP C ANTIBODY 0.2 s/co ratio (0.0-0.9)
[2017-09-09 08:11] LABS: FOLIC ACID >20.0 ng/mL (>3.0)
[2017-09-09] MEDS: Ferrous Sulfate 300 MG/5 ML UDC GT SCH (08:23)
[2017-09-09 10:50] LABS: % EOSINOPHILS 10.7 % (0.0-5.0); % LYMPHOCYTES 11.9 % (20.0-50.0); % MONOCYTES 11.8 % (2.0-10.0); % NEUTROPHILS 65.6 % (40.0-80.0); EOSINOPHILE ABSOLUTE 0.7 Th/cmm (0.1-0.4); HEMATOCRIT 39.3 % (41.0-60); HEMOGLOBIN 13.1 gm/dL (12-16); LYMPHOCYTE ABSOLUTE 0.8 Th/cmm (1.5-3.0); MEAN CELL VOLUME 95.2 fl (80-99); MEAN CORPUSCULAR HEMOGLOBIN 31.8 pg (27.0-31.0); MEAN CORPUSCULAR HGB CONC 33.4 pg (28.0-36.0); MEAN PLATELET VOLUME 10.6 fl; MONOCYTE ABSOLUTE 0.8 Th/cmm (0.3-1.0); NEUTROPHILE ABSOLUTE 4.4 Th/cmm (1.8-8.0); PLATELET COUNT 222 Th/cmm (150-400); RED BLOOD COUNT 4.13 Mil/cmm (3.80-5.80); RED CELL DISTRIBUTION WIDTH 13.5 % (11.5-20.0); WHITE BLOOD COUNT 6.7 Th/cmm (4.8-10.8)
[2017-09-09 11:01] LABS: ANION GAP 10.2 (7.0-16.0); BUN - UREA NITROGEN 26 mg/dL (7-25); CALCIUM SERUM 9.4 mg/dL (8.6-10.3); CARBON DIOXIDE 23.3 mEq/L (21.0-31.0); CHLORIDE 117 mEq/L (98-107); CREATININE - SERUM 0.7 mg/dL (0.7-1.3); GLUCOSE 93 mg/dL (70-105); POTASSIUM SERUM 3.5 mEq/L (3.5-5.1); SODIUM SERUM 147 mEq/L (136-145)
--- NOTE | 2017-09-09 13:01 | Internal Medicine Prog Note ---
Internal Medicine Subjective - Subjective Service Date: 09/09/17 (dc summary dictated [id number]) Patient is:: awake, verbal, agitated, confused Per staff patient has:: agitated, combative, tolerating meds Internal Medicine Objective - Results Result Diagrams: 09/09/17 10:20 09/09/17 10:20 Recent Labs: Laboratory Last Values WBC 6.7 Th/cmm (4.8-10.8) 09/09/17 10:20 RBC 4.13 Mil/cmm (3.80-5.80) 09/09/17 10:20 Hgb 13.1 gm/dL (12-16) 09/09/17 10:20 Hct 39.3 % (41.0-60) L 09/09/17 10:20 MCV 95.2 fl (80-99) 09/09/17 10:20 MCH 31.8 pg (27.0-31.0) H 09/09/17 10:20 MCHC Differential 33.4 pg (28.0-36.0) 09/09/17 10:20 RDW 13.5 % (11.5-20.0) 09/09/17 10:20 Plt Count 222 Th/cmm (150-400) 09/09/17 10:20 MPV 10.6 fl 09/09/17 10:20 Neutrophils % 65.6 % (40.0-80.0) 09/09/17 10:20 Lymphocytes % 11.9 % (20.0-50.0) L 09/09/17 10:20 Monocytes % 11.8 % (2.0-10.0) H 09/09/17 10:20 Eosinophils % 10.7 % (0.0-5.0) H 09/09/17 10:20 Basophils % 0.0 % (0.0-2.0) 09/09/17 10:20 PT 11.0 SECONDS (9.5-11.5) 09/05/17 22:15 INR 1.06 (0.5-1.4) 09/05/17 22:15 PTT (Actin FS) 25.9 SECONDS (26.0-38.0) L 09/05/17 22:15 Sodium 147 mEq/L (136-145) H 09/09/17 10:20 Potassium 3.5 mEq/L (3.5-5.1) 09/09/17 10:20 Chloride 117 mEq/L (98-107) H 09/09/17 10:20 Carbon Dioxide 23.3 mEq/L (21.0-31.0) 09/09/17 10:20 Anion Gap 10.2 (7.0-16.0) 09/09/17 10:20 BUN 26 mg/dL (7-25) H 09/09/17 10:20 Creatinine 0.7 mg/dL (0.7-1.3) 09/09/17 10:20 Est GFR ( Amer) TNP 09/09/17 10:20 Est GFR (Non-Af Amer) TNP 09/09/17 10:20 BUN/Creatinine Ratio 37.1 09/09/17 10:20 Glucose 93 mg/dL (70-105) 09/09/17 10:20 Whole Bld Lactic Acid 1.36 mmol/L (0.60-1.99) 09/05/17 22:15 Calcium 9.4 mg/dL (8.6-10.3) 09/09/17 10:20 Phosphorus 2.7 mg/dL (2.5-5.0) 09/06/17 10:48 Magnesium 2.8 mg/dL (1.9-2.7) H 09/06/17 10:48 Total Bilirubin 0.3 mg/dL (0.3-1.0) 09/05/17 22:15 AST 29 U/L (13-39) 09/05/17 22:15 ALT 22 U/L (7-52) 09/05/17 22:15 Alkaline Phosphatase 56 U/L (34-104) 09/05/17 22:15 Ammonia 104 umol/L (16-53) H 09/06/17 10:48 Troponin I 0.01 ng/mL (0.01-0.05) 09/05/17 22:15 B-Natriuretic Peptide 44.1 pg/mL (5.0-100.0) 09/06/17 13:19 Total Protein 7.7 gm/dL (6.0-8.3) 09/05/17 22:15 Albumin 3.9 gm/dL (4.2-5.5) L 09/05/17 22:15 Globulin 3.8 gm/dL 09/05/17 22:15 Albumin/Globulin Ratio 1.0 (1.0-1.8) 09/05/17 22:15 Vitamin B12 1402 pg/mL (232-1245) H 09/05/17 22:15 Folic Acid >20.0 ng/mL (>3.0) 09/05/17 22:15 TSH 2.18 uIU/ml (0.34-5.60) 09/05/17 22:15 Valproic Acid 80.6 ug/mL (50.0-100.0) 09/05/17 22:15 Hep Bs Antigen Negative (Negative) 09/08/17 06:50 Hep Bs Antibody Reactive 09/08/17 06:50 Hep B Core Total Ab Positive (Negative) H 09/08/17 06:50 Hepatitis C Antibody 0.2 s/co ratio (0.0-0.9) 09/08/17 06:50 HIV 1&2 Antibody Screen NEGATIVE (NEG) 09/08/17 06:50 - Physical Exam Vitals and I&O: Vital Signs Temp 97.3 F 09/09/17 04:00 Pulse 87 09/09/17 11:27 Resp 18 09/09/17 11:27 BP 146/94 09/09/17 04:00 Pulse Ox 96 09/09/17 11:27 Intake & Output 09/08/17 09/09/17 09/09/17 18:59 06:59 18:59 Intake Total 1000 1600 Balance 1000 1600 Weight (lbs) 126 lb Intake: Intake, IV Amount 1000 D5-0.45NS 1,000 ml @ 80 1000 mls/hr IV .[id number] [facility] Rx #:[id number] Oral 900 Albumin 700 Other: # Voids 4 # Bowel Movements 1 Weight Source Bedscale Active Medications: Current Medications Acetaminophen (Tylenol 650mg/20.3ml Suspension) 650 mg GT Q4H PRN PRN Reason: Pain or Fever >101 Stop: 11/05/17 00:11 Al Hydrox/Mg Hydrox/Simethicone (Maalox) 30 ml PO Q6H PRN PRN Reason: Dyspepsia Stop: 11/04/17 23:31 Albuterol Sulfate (Albuterol 2.5mg/3ml Neb Ud) 2.5 mg HHN Q2HRT PRN PRN Reason: Shortness of Breath or Wheeze Stop: 11/04/17 23:31 Ascorbic Acid (Vitamin C) 500 mg GT DAILY [facility] Stop: 11/05/17 08:59 Last Admin: 09/09/17 08:23 Dose: 500 mg Docusate Sodium (Colace) 100 mg PO DAILY [facility] Stop: 11/05/17 08:59 Last Admin: 09/09/17 08:23 Dose: 100 mg Donepezil HCl (Aricept) 10 mg GT HS [facility] Stop: 11/05/17 20:59 Last Admin: 09/08/17 20:51 Dose: 10 mg Ferrous Sulfate (Iron) 330 mg GT BID [facility] Stop: 11/05/17 08:59 Last Admin: 09/09/17 08:23 Dose: 330 mg Heparin Sodium (Porcine) (Heparin) 5,000 units SUBQ Q12HR [facility] Stop: 11/05/17 08:59 Last Admin: 09/09/17 08:22 Dose: 5,000 units Ceftriaxone Sodium 1 gm/ (Sodium Chloride) 50 mls @ 100 mls/hr IV Q24HR [facility] Stop: 11/06/17 00:00 Last Admin: 09/09/17 00:06 Dose: 100 mls/hr Dextrose/Sodium Chloride (D5-0.45ns) 1,000 mls @ 80 mls/hr IV .[id number] [facility] Stop: 11/04/17 23:44 Last Admin: 09/08/17 14:48 Dose: 80 mls/hr Ipratropium [place] (Atrovent Neb 0.5mg/2.5ml) 0.5 mg IH Q2HRT PRN PRN Reason: Shortness of Breath or Wheeze Stop: 11/04/17 23:31 Lorazepam (Ativan) 0.5 mg GT Q6HR PRN; Protocol PRN Reason: Agitation Stop: 11/06/17 11:24 Last Admin: 09/09/17 05:22 Dose: 0.5 mg Ondansetron HCl (Zofran) 4 mg IV Q8H PRN PRN Reason: Nausea / Vomiting Stop: 11/04/17 23:31 Tamsulosin HCl (Flomax) 0.4 mg GT DAILY [facility] Stop: 11/05/17 08:59 Last Admin: 09/09/17 08:23 Dose: 0.4 mg Valproate Sodium (Depakene) 750 mg PO Q12HR [facility] PRN Reason: Protocol Stop: 11/04/17 23:44 Last Admin: 09/09/17 08:23 Dose: 750 mg General: weak, alert HEENT: NC/AT, PERRLA Neck: Supple Lungs: CTAB Cardiovascular: RRR, Normal S1, Normal S2 Abdomen: soft, non-tender, non-distended, positive bowel sound Extremities: excoriation Neurological: alert, unable to follow command Internal Medicine Assmt/Plan - Assessment Assessment: hypotension-improved generalized weakness abdominal pain possible sepsis leukocytosis - Plan Plan: continue ivf for hydration empiric ivabx follow up labs in am continue current plan of care Nutritional Asmnt/Malnutr-PDOC - Dietary Evaluation Malnutrition Findings (Please click <Entered> for more info): Nutritional Asmnt/Malnutrition Start: 09/06/17 11: 16 Text: Status: Complete Freq: Document 09/06/17 11:16 JODI (Rec: 09/06/17 11:24 JODI AUSTIN- FNS1) Nutritional Asmnt/Malnutrition Patient General Information Nutritional Screening High Risk Diagnosis Possible Sepsis (RFV) Pertinent Medical Hx/Surgical Hx no H&P completed as of 09/06/17 @ 1100 Subjective Information Pt asleep in bed at time of visit Current Diet Order/ Nutrition Support Novasource Renal @75ml/hr Pertinent Medications Maalox, vit C, D51/2NS@80ml/hr (326kcals/day), colace, Fe, heparin, zofran Pertinent Labs 09/05: Na 152, K 3.7, Cl 111, CO2 31.9, BUN 50, Cr 1.2, Ca 10.8, Glucose 102 Nutritional Hx/Data Height 5 ft 5 in Height (Calculated Centimeters) 165.1 Current Weight (lbs) 126 lb Weight (Calculated Kilograms) 57.2 Weight (Calculated Grams) 99009.6 Body Mass Index (BMI) 20.9 Weight Status Approriate GI Symptoms Last BM none noted Cultural/Ethnic/Taoism Belief unknown Usual diet at home unknown Skin Integrity/Comment: sheeba score 13 Estimated Nutritional Goals BEE in Kcals: Using Current wt Calories/Kcals/Kg 30-35kcals/kg Kcals Calculated 1710-1995kcals/day Protein: Using Current wt Protein g/k.3-1.5g/kg Protein Calculated 74-86g/day Fluid: ml per MD Nutritional Problem 1. Problem Problem Increased nutrient needs related to Etiology increased nutrient demand as evidenced by Signs/Symptoms: possible sepsis Intervention/Recommendation Comments Recommend Novasource Renal @ 40ml/hr to provide 1920kcals, 87g protein and 691ml free water Expected Outcomes/Goals Expected Outcomes/Goals Tolerate TF
--- NOTE | 2017-09-09 16:25 | Consultation ---
DATE OF CONSULTATION: 09/09/2017 PSYCHIATRIC CONSULTATION CHIEF COMPLAINT: Psychotic illness. HISTORY OF PRESENT ILLNESS: The patient is a 76-year-old male with multiple medical problems, a resident of [facility], has a history of schizoaffective disorder, mental retardation, possible dementia, was admitted. Currently on the medical floor, has a history of CVA and arthritis, was found to have WBC elevated. The patient has been restless, talking to himself, having some agitation, keep moving constantly in bed. Speech is irrelevant to topic. The patient appears to be confused. PAST PSYCHIATRIC HISTORY: Schizoaffective disorder and retardation and dementia, not otherwise specified. PAST MEDICAL HISTORY: As per H and P. PSYCHOSOCIAL HISTORY: The patient resides at [facility] and he requires complete care. MENTAL STATUS EXAMINATION: The patient appears to be his stated age. The patient is still restless, was squirming in bed, moving constantly, talking to himself, actively hallucinating, has some episodes of agitation and restlessness. His insight is poor and judgment is impaired. ASSESSMENT: Dementia, rule out psychosis and the ____ medical problems. PLAN: At this time, would continue Aricept and Depakote and use Seroquel 12.5 mg p.o. b.i.d., hold if sedated. We will follow closely while in the hospital. Thank you for the consultation. JOB# [id number]
--- NOTE | 2017-09-09 16:43 | Discharge Summary ---
DATE OF DISCHARGE: 09/09/2017 DATE OF DISCHARGE: 09/09/2017. DISCHARGE DIAGNOSES: 1. Hypotension, resolved. 2. Generalized weakness. 3. Possible sepsis. 4. Abdominal pain, which has resolved. 5. Dementia. 6. Leukocytosis. 7. Acute renal insufficiency. 8. History of cerebrovascular accident and arthritis. HISTORY OF PRESENT ILLNESS: A 76-year-old male who is a resident of [facility], was brought to [facility] due to 1-day history of abdominal pain. The patient's WBC was also noted to be elevated. For this reason, the patient was admitted. PHYSICAL EXAMINATION: GENERAL: Elderly male, awake, confused, in no apparent distress. VITAL SIGNS: Stable. HEENT: Normocephalic and atraumatic. NECK: Supple. No mass. LUNGS: Clear bilaterally. HEART: Regular rate and rhythm. ABDOMEN: Soft and nontender. HOSPITAL COURSE: During the hospital stay, the patient was admitted to the telemetry unit. The patient had a chest x-ray done; impression is no acute abnormalities. The patient was on IV fluids for hydration. The patient was scheduled to have a CT of the abdomen and pelvis; however, the patient refused to have the procedure done. The patient was on empiric IV antibiotics of Rocephin 1 gram IV q. 24 hours as well as IV fluids for hydration. The patient did not complain of any abdominal pain. For this reason, the patient is stable for discharge. CONDITION UPON DISCHARGE: Fair. DISPOSITION: [facility]. JOB# [id number]
== END 2017-09-09 16:00 | DRG 872 ==
LOC: ER 21:36 → MSI 23:30
PROVIDERS: ADMIT Internal Medicine; ATTEND Internal Medicine
DX: A41.9 Sepsis, unspecified organism (principal); F03.90 Unspecified dementia, unspecified severity, without behavioral disturbance, psychotic disturbance, mood disturbance, and anxiety; G83.9 Paralytic syndrome, unspecified; F25.9 Schizoaffective disorder, unspecified; N28.9 Disorder of kidney and ureter, unspecified; M19.90 Unspecified osteoarthritis, unspecified site; F29 Unspecified psychosis not due to a substance or known physiological condition; R45.1 Restlessness and agitation; Z86.73 Personal history of transient ischemic attack (TIA), and cerebral infarction without residual deficits; Z93.1 Gastrostomy status; Z23 Encounter for immunization
CPT/HCPCS: 36415-UA; 71045-TC; 80048-TC; 80053-TC; 80164-TC; 82140-TC; 82607-90; 82746-90; 83605; 83735-TC; 83880-TC; 84100-TC; 84443-TC; 84484-TC; 85025-TC; 85610-TC; 85730-TC; 86703-TC; 86704-90; 86706-90; 86803-90; 87340-90; 93005; 94760; J0696; J1630; J1644; J2060; Z7610

== ENCOUNTER 2017-09-29 15:35 | Inpatient (IN) | payer MEDICARE, MEDICAID ==
--- NOTE | 2017-09-29 16:51 | ED Physician Chart ---
ED Chief Complaint/HPI - Patient Information Date Seen:: 09/29/17 Time Seen:: 16:20 Chief Complaint:: Fever History of Present Illness:: onset x 2 days of fever, poor oral intake, and weakness; no report of trauma, H/ As, S/T, neck pain, cough, C/P, SOB, Abd. Pain, A/N/V/D/C, chills, or urinary s/ s Allergies:: Allergies Allergy/AdvReac Type Severity Reaction Status Date / Time No Known Allergies Allergy Verified 09/05/17 21:58 Vitals:: Vital Signs - 8 hr 09/29/17 16:20 Temp 99.8 F HR 85 RR 18 BP 104/69 O2 Sat % 92 Historian:: Patient, EMS Review:: Nurse's Note Reviewed, Old Chart Reviewed, EMS run form Reviewed ED Review of Systems - Review of Systems General/Constitutional: Fever, No chills, No weight loss, Weakness, No diaphoresis, No edema, No loss of appetite Skin: No skin lesions, No rash, No bruising Head: No headache, No light-headedness Eyes: No loss of vision, No pain, No diplopia ENT: No earache, No nasal drainage, No sore throat, No tinnitus Neck: No neck pain, No swelling, No thyromegaly, No stiffness, No mass noted Cardio Vascular: No chest pain, No palpitations, No PND, No orthopnea, No edema Pulmonary: No SOB, Cough, No sputum, No wheezing GI: No nausea, No vomiting, No diarrhea, No pain, No melena, No hematochezia, No constipation, No hematemesis G/U: No dysuria, No frequency, No hematuria, No nacturia Musculoskeletal: No bone or joint pain, No back pain, No muscle pain Endocrine: No polyuria, No polydipsia Psychiatric: No prior psych history, No depression, No anxiety, No suicidal ideation, No homicidal ideation, No auditory hallucination, No visual hallucination Hematopoietic: No bruising, No lymphadenopathy Allergic/Immuno: No urticaria, No angioedema Neurological: No syncope, No focal symptoms, Weakness, No paresthesia, No headache, No seizure, No dizziness, Confusion, No vertigo ED Past Medical History - Past Medical History Obtainable: Yes Past Medical History: Asthma/COPD, ESRD, Seizures, Arthritis, Dementia Family History: Diabetes Melitus, HTN Social History: Non Smoker, No Alcohol, No Drug Use, Single, Care Facility Surgical History: PEG/GTube Psychiatricy History: Dementia Medication: Reviewed Family Medical History - Family Member Mother History Unknown: Yes Ethnicity: Unknown Hx Family Cancer: (unable to assess) Hx Family Coronary Artery Disease: (unable to assess) ED Physical Exam - Physical Examination General/Constitutional: Awake, Well-developed, well-nourished, Alert, No distress, GCS 15, Non-toxic appearing, Ambulatory Head: Atraumatic Eyes: Lids, conjuctiva normal, PERRL, EOMI Skin: Nl inspection, No rash, No skin lesions, No ecchymosis, Well hydrated, No lymphadenopathy ENMT: External ears, nose nl, TM canals nl, Nasal exam nl, Lips, teeth, gums nl , Oropharynx nl, Tonsils nl Neck: Nontender, Full ROM w/o pain, No JVD, No nuchal rigidity, No bruit, No mass, No stridor Respiratory: Nl effort/Exclusion, Clear to Auscultation, No Wheeze/Rhonchi/Rales Cardio Vascular: RRR, No murmur, gallop, rubs, NL S1 S2, Carotid/Femoral/Distal pulses equal bilaterally GI: No tenderness/rebounding/guarding, No organomegaly, No hernia, Normal BS's, Nondistended, No mass/bruits, No McBurney tenderness : No CVA tenderness Extremities: No tenderness or effusion, Full ROM, normal strength in all extremities, No edema, Normal digits & nails Neuro/Psych: DTR's symmetric, Normal sensory exam, Normal motor strength, Judgement/insight normal, Mood normal, Normal gait, No focal deficits Other Neuro/Psych comments:: Disoriented and Confused Misc: Normal back, No paraspinal tenderness ED Labs/Radiology/EKG Results - Lab Results Comments:: WBC: 11.4; BUN: 88; LA: 4.2 - Radiology Results Comments:: CXR: + Infiltrate - EKG Interpretations EKG Time:: 17:04 Rate & Rhythm: 94; ST Comments:: non-specific st-t changes ED Septic Shock - . Is Septic Shock (SBP<90, OR Lactate>4 mmol\L) present?: No - <6hrs of presentation: Vital Signs: Vital Signs - 8 hr 09/29/ 16:20 Temp 99.8 F HR 85 RR 18 BP 104/69 O2 Sat % 92 ED Reassessment (Disposition) - Reassessment Reassessment Condition:: Improved - Diagnosis Diagnosis:: Dx: Fever; Weakness; Sepsis; PNA; Dehydration; Leukocytosis - Aftercare/Follow up Instructions Aftercare/Follow-Up Instructions:: Counseled pt regarding lab results/diagnosis & need follow up, Counseled pt & family regarding lab results/diagnosis & need follow up - Patient Disposition Discharge/Transfer:: Acute Care w/in this hosp Accepting Physician:: Dr. Asencio Time Called:: 1814 Time Responded:: 18:15 Admitted to:: Telemetry Spoke to:: Dr. Asencio Admitting Medical Physician:: Dr. Asencio Condition at Disposition:: Stable, Improved
[2017-09-29 17:54] LABS: HEMOGLOBIN 12.6 gm/dL (12-16); WHITE BLOOD COUNT 11.4 Th/cmm (4.8-10.8)
[2017-09-29 17:56] LABS: INR 1.18 (0.5-1.4); PROTHROMBIN TIME (TEST) 12.4 SECONDS (9.5-11.5)
[2017-09-29 17:59] LABS: HEMATOCRIT 39.1 % (41.0-60); MEAN CELL VOLUME 95.3 fl (80-99)
[2017-09-29 18:00] LABS: ALB/GLOB RATIO 0.6 (1.0-1.8); ALBUMIN 2.9 gm/dL (4.2-5.5); ALKALINE PHOSPHATASE 80 U/L (34-104); BILIRUBIN,TOTAL 0.2 mg/dL (0.3-1.0); CALCIUM SERUM 9.2 mg/dL (8.6-10.3); CARBON DIOXIDE 31.4 mEq/L (21.0-31.0); CHLORIDE 126 mEq/L (98-107); CREATININE - SERUM 1.9 mg/dL (0.7-1.3); CREATININE KINASE 1042 U/L (30-223); GLUCOSE 123 mg/dL (70-105); MANUAL DIFF REQUIRED? YES; MEAN CORPUSCULAR HEMOGLOBIN 30.6 pg (27.0-31.0); MEAN CORPUSCULAR HGB CONC 32.1 pg (28.0-36.0); MEAN PLATELET VOLUME 12.4 fl; PLATELET COUNT 248 Th/cmm (150-400); POTASSIUM SERUM 4.4 mEq/L (3.5-5.1); RED CELL DISTRIBUTION WIDTH 14.3 % (11.5-20.0); SGOT 116 U/L (13-39); SGPT/ALT 84 U/L (7-52); TOTAL PROTEIN,SERUM 7.9 gm/dL (6.0-8.3)
[2017-09-29 18:08] LABS: BUN - UREA NITROGEN 88 mg/dL (7-25); SODIUM SERUM 167 mEq/L (136-145)
[2017-09-29 19:01] LABS: BASOPHIL 0 % (0-3); LYMPHOCYTE 16 % (20-50); MONOCYTE 3 % (2-10); NEUTROPHILS 70 % (40-80); TOTAL CELLS COUNTED 100
[2017-09-29 19:02] LABS: BAND NEUTROPHILE 10 % (0-10); EOSINOPHIL 1 % (0-5)
[2017-09-29] MEDS ORDERED: Levofloxacin 500mg/100mL 500 MG/100 ML BAG IV ONE ×2 (19:07→20:13)
[2017-09-29] MEDS ORDERED: Sodium Chloride 0.9% 1,000 ML IV ONE (19:08)
[2017-09-29] MEDS ORDERED: Fleet Enema 135 mL RC PRN (21:51)
[2017-09-29] MEDS ORDERED: guaiFENesin 200 MG/10 ML UDC PO PRN (21:53)
[2017-09-29] MEDS: Dextrose 5% 1,000 ML IV SCH (22:51)
[2017-09-30 05:32] LABS: % LYMPHOCYTES 13.9 % (20.0-50.0); % MONOCYTES 3.1 % (2.0-10.0); HEMATOCRIT 35.4 % (41.0-60); HEMOGLOBIN 11.3 gm/dL (12-16); LYMPHOCYTE ABSOLUTE 1.2 Th/cmm (1.5-3.0); MEAN CELL VOLUME 95.9 fl (80-99); MEAN CORPUSCULAR HEMOGLOBIN 30.7 pg (27.0-31.0); MEAN PLATELET VOLUME 10.2 fl; MONOCYTE ABSOLUTE 0.3 Th/cmm (0.3-1.0); NEUTROPHILE ABSOLUTE 7.1 Th/cmm (1.8-8.0); RED BLOOD COUNT 3.69 Mil/cmm (3.80-5.80); RED CELL DISTRIBUTION WIDTH 14.3 % (11.5-20.0); WHITE BLOOD COUNT 8.6 Th/cmm (4.8-10.8)
[2017-09-30 05:50] LABS: ANION GAP 8.9 (7.0-16.0); CALCIUM SERUM 8.9 mg/dL (8.6-10.3); CARBON DIOXIDE 34.3 mEq/L (21.0-31.0); CHLORIDE 129 mEq/L (98-107); CREATININE - SERUM 1.9 mg/dL (0.7-1.3); GLUCOSE 113 mg/dL (70-105); POTASSIUM SERUM 4.2 mEq/L (3.5-5.1)
[2017-09-30] MEDS ORDERED: Piperacillin Sodium/Tazobact 2.25 gm Vial IV ONE (05:54)
[2017-09-30 06:03] LABS: SODIUM SERUM 168 mEq/L (136-145)
[2017-09-30 06:04] LABS: BUN - UREA NITROGEN 91 mg/dL (7-25)
[2017-09-30] MEDS: Piperacillin Sodium/Tazobact 2.25 GM in Sodium Chloride 0.9% 100 ML IV SCH ×3 (06:11→20:43)
[2017-09-30 06:53] LABS: PLATELET COUNT 193 Th/cmm (150-400)
--- NOTE | 2017-09-30 07:55 | Diagnostic Imaging Report ---
CHEST X-RAY: AP view INDICATION: pain COMPARISON: 09/06/2017 FINDINGS: There are developing bilateral interstitial infiltrates are seen most confluent along the right upper lung zone. No pleural effusions. Heart size is borderline prominent. Degenerative changes of the spine are noted. IMPRESSION: Developing multifocal infiltrates most pronounced along the right upper lobe. Clinical correlation and follow-up is recommended.
[2017-09-30] MEDS: Albuterol Nebulizer 2.5mg/3mL HHN SCH ×4 (08:20→19:21)
[2017-09-30] MEDS: Ipratropium Neb 0.5 mg/2.5 mL UD IH SCH ×4 (08:20→19:21)
[2017-09-30] MEDS ORDERED: VTE Chemical Prophylaxis Screen/Admission MC PRN (08:30)
[2017-09-30] MEDS: Ferrous Sulfate 300 MG/5 ML UDC GT SCH ×2 (09:14→18:48)
--- NOTE | 2017-09-30 09:18 | Diagnostic Imaging Report ---
Portable chest x-ray HISTORY: Pneumonia Compared with the prior exam of September 29, 2017, there remains generalized accentuation of the interstitial lung markings particularly on the right side. Somewhat more focal infiltrate noted in the right upper lobe. Changes may be associated with a chronic component. However, pneumonia cannot be excluded. Clinical correlation is needed. IMPRESSION: 1. Allowing for differences in radiographic technique, no significant change in pulmonary status. Generalized accentuation of the interstitial markings cortically in the right lung with more focal infiltrate in the right upper lobe. Findings may be chronic. However, pneumonia cannot be excluded. Clinical correlation is needed.
[2017-09-30] MEDS ORDERED: Probiotic Screen MC PRN (12:15)
--- NOTE | 2017-09-30 13:28 | Internal Medicine Prog Note ---
Internal Medicine Subjective - Subjective Service Date: 09/30/17 ([facility] [id number] dictated) Internal Medicine Objective - Results Result Diagrams: 09/30/17 05:00 09/30/17 05:00 Recent Labs: Laboratory Last Values WBC 8.6 Th/cmm (4.8-10.8) 09/30/17 05:00 RBC 3.69 Mil/cmm (3.80-5.80) L 09/30/17 05:00 Hgb 11.3 gm/dL (12-16) L 09/30/17 05:00 Hct 35.4 % (41.0-60) L 09/30/17 05:00 MCV 95.9 fl (80-99) 09/30/17 05:00 MCH 30.7 pg (27.0-31.0) 09/30/17 05:00 MCHC Differential 32.0 pg (28.0-36.0) 09/30/17 05:00 RDW 14.3 % (11.5-20.0) 09/30/17 05:00 Plt Count 193 Th/cmm (150-400) D 09/30/17 05:00 MPV 10.2 fl 09/30/17 05:00 Neutrophils % 83.0 % (40.0-80.0) H 09/30/17 05:00 Band Neutrophils % 10 % (0-10) 09/29/17 17:30 Lymphocytes % 13.9 % (20.0-50.0) L 09/30/17 05:00 Monocytes % 3.1 % (2.0-10.0) 09/30/17 05:00 Eosinophils % 0.0 % (0.0-5.0) 09/30/17 05:00 Basophils % 0.0 % (0.0-2.0) 09/30/17 05:00 Neutrophils (Manual) 70 % (40-80) 09/29/17 17:30 Lymphocytes 16 % (20-50) L 09/29/17 17:30 Monocytes 3 % (2-10) 09/29/17 17:30 Eosinophils 1 % (0-5) 09/29/17 17:30 Basophils 0 % (0-3) 09/29/17 17:30 PT 12.4 SECONDS (9.5-11.5) H 09/29/17 17:30 INR 1.18 (0.5-1.4) 09/29/17 17:30 PTT (Actin FS) 26.6 SECONDS (26.0-38.0) 09/29/17 17:30 Sodium 168 mEq/L (136-145) H* 09/30/17 05:00 Potassium 4.2 mEq/L (3.5-5.1) 09/30/17 05:00 Chloride 129 mEq/L (98-107) H 09/30/17 05:00 Carbon Dioxide 34.3 mEq/L (21.0-31.0) H 09/30/17 05:00 Anion Gap 8.9 (7.0-16.0) 09/30/17 05:00 BUN 91 mg/dL (7-25) H* 09/30/17 05:00 Creatinine 1.9 mg/dL (0.7-1.3) H 09/30/17 05:00 Est GFR ( Amer) TNP 09/30/17 05:00 Est GFR (Non-Af Amer) TNP 09/30/17 05:00 BUN/Creatinine Ratio 47.9 09/30/17 05:00 Glucose 113 mg/dL (70-105) H 09/30/17 05:00 Whole Bld Lactic Acid 3.84 mmol/L (0.60-1.99) H* 09/29/17 19:30 Calcium 8.9 mg/dL (8.6-10.3) 09/30/17 05:00 Total Bilirubin 0.2 mg/dL (0.3-1.0) L 09/29/17 17:30 AST 116 U/L (13-39) H 09/29/17 17:30 ALT 84 U/L (7-52) H 09/29/17 17:30 Alkaline Phosphatase 80 U/L (34-104) 09/29/17 17:30 Ammonia 25 umol/L (16-53) 09/30/17 05:00 Creatine Kinase 1042 U/L (30-223) H 09/29/17 17:30 CK-MB (CK-2) 2.0 ng/mL (0.6-6.3) 09/29/17 17:30 Troponin I 0.04 ng/mL (0.01-0.05) 09/29/17 17:30 B-Natriuretic Peptide 419.0 pg/mL (5.0-100.0) H 09/30/17 05:00 Total Protein 7.9 gm/dL (6.0-8.3) 09/29/17 17:30 Albumin 2.9 gm/dL (4.2-5.5) L 09/29/17 17:30 Globulin 5.0 gm/dL 09/29/17 17:30 Albumin/Globulin Ratio 0.6 (1.0-1.8) L 09/29/17 17:30 TSH 3.93 uIU/ml (0.34-5.60) 09/30/17 05:00 - Physical Exam Vitals and I&O: Vital Signs Temp 96.1 F 09/30/17 11:52 Pulse 77 09/30/17 12:05 Resp 20 09/30/17 12:05 BP 92/43 09/30/17 11:52 Pulse Ox 96 09/30/17 12:05 Intake & Output 09/29/17 09/30/17 09/30/17 18:59 06:59 18:59 Intake Total 900 Balance 900 Weight (lbs) 120 lb Intake: Oral 900 Other: # Voids 2 # Bowel Movements 1 Stool Characteristics Soft Brown Weight Source Bedscale Active Medications: Current Medications Acetaminophen (Tylenol) 650 mg PO Q4H PRN PRN Reason: Pain Or Fever above 101 Stop: 11/28/17 21:52 Albuterol Sulfate (Albuterol 2.5mg/3ml Neb Ud) 2.5 mg HHN QIDRT [facility] Stop: 11/29/17 06:59 Last Admin: 09/30/17 12:03 Dose: 2.5 mg Ascorbic Acid (Vitamin C) 500 mg GT DAILY [facility] Stop: 11/29/17 08:59 Last Admin: 09/30/17 09:14 Dose: 500 mg Bisacodyl (Dulcolax 10 Mg Supp) 10 mg RC DAILY PRN PRN Reason: IF MOM NOT EFFECTIVE Stop: 11/28/17 21:50 Docusate Sodium (Colace) 100 mg PO BID [facility] Stop: 11/29/17 08:59 Last Admin: 09/30/17 09:14 Dose: 100 mg Donepezil HCl (Aricept) 10 mg GT HS [facility] Stop: 11/29/17 20:59 Ferrous Sulfate (Iron) 330 mg GT BID [facility] Stop: 11/29/17 08:59 Last Admin: 09/30/17 09:14 Dose: 330 mg Guaifenesin (Robitussin) 200 mg PO Q4HR PRN PRN Reason: Cough or Congestion Stop: 11/28/17 21:52 Heparin Sodium (Porcine) (Heparin) 5,000 units SUBQ Q12HR [facility] Stop: 11/29/17 08:59 Last Admin: 09/30/17 09:15 Dose: 5,000 units Dextrose (D5w) 1,000 mls @ 100 mls/hr IV .Q10H [facility] Stop: 11/28/17 21:52 Last Admin: 09/29/17 22:51 Dose: 100 mls/hr Piperacillin Sod/Tazobactam (Sod 2.25 gm/ Sodium Chloride) 100 mls @ 100 mls/ hr IV Q8HR [facility] Stop: 11/29/17 04:59 Last Admin: 09/30/17 06:11 Dose: 100 mls/hr Vancomycin HCl 1 gm/ Sodium (Chloride) 250 mls @ 165 mls/hr IV Q36H [facility] Stop: 11/29/17 21:59 Ipratropium [place] (Atrovent Neb 0.5mg/2.5ml) 0.5 mg IH QIDRT [facility] Stop: 11/29/17 06:59 Last Admin: 09/30/17 12:03 Dose: 0.5 mg Lactobacillus Rhamnosus (Culturelle 15b) 1 each GT DAILY [facility] Stop: 11/30/17 08:59 Miscellaneous (Vte Chemical Prophylaxis Screen/ Admission) 1 ea PRN PRN PRN Reason: PROTOCOL Stop: 11/29/17 08:29 Miscellaneous (Vancomycin Iv Per Pharmacy) 1 ea PRN PRN PRN Reason: PROTOCOL Stop: 11/29/17 10:28 Miscellaneous (Probiotic Screen) 1 ea PRN PRN PRN Reason: PROTOCOL Stop: 11/29/17 12:14 Ondansetron HCl (Zofran) 4 mg IV Q8H PRN PRN Reason: Nausea / Vomiting Stop: 11/28/17 21:52 Sodium Phosphate (Fleet Enema) 135 ml RC DAILY PRN PRN Reason: IF DULCOLAX INEFFECTIVE Stop: 11/28/17 21:50 Tamsulosin HCl (Flomax) 0.4 mg GT DAILY [facility] Stop: 11/29/17 08:59 Last Admin: 09/30/17 09:14 Dose: 0.4 mg Valproate Sodium (Depakene) 750 mg GT BID [facility] PRN Reason: Protocol Stop: 11/29/17 08:59 Last Admin: 09/30/17 09:14 Dose: 750 mg Internal Medicine Assmt/Plan - Assessment Assessment: Lactic acidosis, sepsis Acute febrile illness Acute dehydration Acute renal failure Congestion
--- NOTE | 2017-09-30 15:45 | History & Physical ---
ADMIT DATE: 09/30/2017 CHIEF COMPLAINT: Febrile. HISTORY OF PRESENT ILLNESS: This is a 76-year-old male who is a resident of [facility] who has a 2-day history of fever and poor oral intake associated with generalized weakness. The patient was recently admitted to this hospital on 09/06/2017 for abdominal pain. PAST MEDICAL HISTORY: CVA, arthritis, dementia. PAST SURGICAL HISTORY: PEG. FAMILY HISTORY: Noncontributory. SOCIAL HISTORY: The patient is a retirement resident at [facility], requiring 24-hour nursing care. MEDICATIONS: Please see medication reconciliation. REVIEW OF SYSTEMS: Unable to obtain due to patient's mental status. PHYSICAL EXAMINATION: GENERAL: Elderly male, appears thin, in no apparent distress. VITAL SIGNS: Temperature 96.1, heart rate 93, blood pressure 92/43, respirations 20, O2 of 96%. HEENT: Head; normocephalic, atraumatic. NECK: Supple. No mass. LUNGS: Scattered rhonchi. CARDIOVASCULAR: Regular rate and rhythm. ABDOMEN: Soft, nontender. LABORATORY DATA: WBC 8.6, H and H 11.3 and 35.4, platelet of 193. Sodium 168, potassium 4.2, chloride 129, carbon dioxide 34.3, BUN 91, creatinine 1.9. BNP of 419. The patient had a chest x-ray done and the impression is allowing for differences in radiographic technique. No significant change in pulmonary status, generalized accentuation of the interstitial markings cortically and the right lung with more focal infiltrate in the right upper lobe. Findings may be chronic; however, pneumonia cannot be excluded. Clinical correlation is needed. ASSESSMENT: Lactic acidosis, sepsis, acute febrile illness, acute dehydration, acute renal insufficiency, protein-calorie malnutrition, anemia, history of CVA and arthritis. PLAN: The patient to be admitted to the telemetry unit. We will get patient aggressive IV fluids for hydration. We will monitor the patient's BUN and creatinine. We will wait for patient's urine culture. Keep patient on IV antibiotics of vancomycin and Zosyn. We will get followup labs for tomorrow morning. We will continue to monitor this patient. JOB# [id number]
[2017-09-30] MEDS: Dextrose 5% 1,000 ML IV SCH (16:26)
[2017-09-30] MEDS ORDERED: Sodium Chloride 0.9% 250 ML IV ONE (18:00)
[2017-09-30] MEDS ORDERED: Norepinephrine 4 mg/4mL Vial IV ONE (20:13)
[2017-09-30] MEDS ORDERED: Albuterol Nebulizer 2.5mg/3mL HHN PRN (23:53)
[2017-10-01] MEDS: Dextrose 5% 1,000 ML IV SCH ×2 (01:49→19:00)
[2017-10-01 02:22] LABS: pH 7.44 (7.35-7.45)
[2017-10-01 02:23] LABS: ALLEN TEST Positive
[2017-10-01] MEDS: Piperacillin Sodium/Tazobact 2.25 GM in Sodium Chloride 0.9% 100 ML IV SCH ×3 (05:32→21:19)
[2017-10-01 05:37] LABS: % BASOPHILS 0.1 % (0.0-2.0); % EOSINOPHILS 0.9 % (0.0-5.0); % LYMPHOCYTES 11.9 % (20.0-50.0); % MONOCYTES 2.5 % (2.0-10.0); % NEUTROPHILS 84.6 % (40.0-80.0); EOSINOPHILE ABSOLUTE 0.1 Th/cmm (0.1-0.4); HEMATOCRIT 36.1 % (41.0-60); HEMOGLOBIN 11.1 gm/dL (12-16); MEAN CELL VOLUME 96.8 fl (80-99); MEAN CORPUSCULAR HEMOGLOBIN 29.9 pg (27.0-31.0); MEAN CORPUSCULAR HGB CONC 30.9 pg (28.0-36.0); MEAN PLATELET VOLUME 12.4 fl; MONOCYTE ABSOLUTE 0.2 Th/cmm (0.3-1.0); NEUTROPHILE ABSOLUTE 6.8 Th/cmm (1.8-8.0); PLATELET COUNT 194 Th/cmm (150-400); RED BLOOD COUNT 3.73 Mil/cmm (3.80-5.80); RED CELL DISTRIBUTION WIDTH 14.9 % (11.5-20.0); WHITE BLOOD COUNT 8.1 Th/cmm (4.8-10.8)
[2017-10-01] MEDS ORDERED: Norepinephrine 4 mg/4mL Vial IV ONE (05:47)
[2017-10-01 05:52] LABS: ANION GAP 11.9 (7.0-16.0); CALCIUM SERUM 8.8 mg/dL (8.6-10.3); CHLORIDE 129 mEq/L (98-107); CREATININE - SERUM 1.8 mg/dL (0.7-1.3); GLUCOSE 117 mg/dL (70-105); POTASSIUM SERUM 3.9 mEq/L (3.5-5.1)
[2017-10-01 06:52] LABS: SODIUM SERUM 166 mEq/L (136-145)
[2017-10-01 06:53] LABS: BUN - UREA NITROGEN 81 mg/dL (7-25)
[2017-10-01 07:08] LABS: FOLIC ACID >20.0 ng/mL (>3.0)
[2017-10-01] MEDS: Ipratropium Neb 0.5 mg/2.5 mL UD IH SCH ×4 (08:09→19:07)
[2017-10-01] MEDS: Albuterol Nebulizer 2.5mg/3mL HHN SCH ×4 (08:10→19:07)
--- NOTE | 2017-10-01 08:47 | Diagnostic Imaging Report ---
Portable chest x-ray HISTORY: Pneumonia Compared to prior exam of September 30, 2017, there remains hazy interstitial changes throughout the right lung. Persistent focal infiltrate noted in the right upper lobe. IMPRESSION: 1. No change in the pulmonary status as described above.
[2017-10-01] MEDS: Lactobacillus Rhamnosus GG 15 Billion CFU CAP.SPRINK GT SCH (10:44)
[2017-10-01] MEDS: Ferrous Sulfate 300 MG/5 ML UDC GT SCH ×2 (10:44→17:09)
--- NOTE | 2017-10-01 12:28 | Internal Medicine Prog Note ---
<Precious Garcia - Last Filed: 10/01/17 12:25> Internal Medicine Subjective - Subjective Service Date: 10/01/17 (on bipap ) Patient seen and examined:: with staff Patient is:: awake Per staff patient has:: tolerating meds Internal Medicine Objective - Results Result Diagrams: 10/01/17 05:16 10/01/17 05:16 Recent Labs: Laboratory Last Values WBC 8.1 Th/cmm (4.8-10.8) 10/01/17 05:16 RBC 3.73 Mil/cmm (3.80-5.80) L 10/01/17 05:16 Hgb 11.1 gm/dL (12-16) L 10/01/17 05:16 Hct 36.1 % (41.0-60) L 10/01/17 05:16 MCV 96.8 fl (80-99) 10/01/17 05:16 MCH 29.9 pg (27.0-31.0) 10/01/17 05:16 MCHC Differential 30.9 pg (28.0-36.0) 10/01/17 05:16 RDW 14.9 % (11.5-20.0) 10/01/17 05:16 Plt Count 194 Th/cmm (150-400) 10/01/17 05:16 MPV 12.4 fl 10/01/17 05:16 Neutrophils % 84.6 % (40.0-80.0) H 10/01/17 05:16 Band Neutrophils % 10 % (0-10) 09/29/17 17:30 Lymphocytes % 11.9 % (20.0-50.0) L 10/01/17 05:16 Monocytes % 2.5 % (2.0-10.0) 10/01/17 05:16 Eosinophils % 0.9 % (0.0-5.0) 10/01/17 05:16 Basophils % 0.1 % (0.0-2.0) 10/01/17 05:16 Neutrophils (Manual) 70 % (40-80) 09/29/17 17:30 Lymphocytes 16 % (20-50) L 09/29/17 17:30 Monocytes 3 % (2-10) 09/29/17 17:30 Eosinophils 1 % (0-5) 09/29/17 17:30 Basophils 0 % (0-3) 09/29/17 17:30 PT 12.4 SECONDS (9.5-11.5) H 09/29/17 17:30 INR 1.18 (0.5-1.4) 09/29/17 17:30 PTT (Actin FS) 26.6 SECONDS (26.0-38.0) 09/29/17 17:30 Specimen Source Arterial 10/01/17 00:15 Sample Site LEFT BRACHIAL 10/01/17 00:15 pH 7.44 (7.35-7.45) 10/01/17 00:15 pCO2 46.0 mmHg (35.0-45.0) H 10/01/17 00:15 pO2 80.0 mmHg (80.0-100.0) 10/01/17 00:15 HCO3 29.7 mEq/L (20.0-26.0) H 10/01/17 00:15 Base Excess 6.1 mEq/L (-3.0-3.0) H 10/01/17 00:15 O2 Saturation 96.0 % (92.0-100.0) 10/01/17 00:15 Naresh Test Positive 10/01/17 00:15 Vent Rate 12 10/01/17 00:15 Inspired O2 50 10/01/17 00:15 Tidal Volume NA 10/01/17 00:15 PEEP 6 10/01/17 00:15 Pressure (ins/psv/peep) 10 10/01/17 00:15 Critical Value SC 10/01/17 00:15 Sodium 166 mEq/L (136-145) H* 10/01/17 05:16 Potassium 3.9 mEq/L (3.5-5.1) 10/01/17 05:16 Chloride 129 mEq/L (98-107) H 10/01/17 05:16 Carbon Dioxide 29.0 mEq/L (21.0-31.0) 10/01/17 05:16 Anion Gap 11.9 (7.0-16.0) 10/01/17 05:16 BUN 81 mg/dL (7-25) H* 10/01/17 05:16 Creatinine 1.8 mg/dL (0.7-1.3) H 10/01/17 05:16 Est GFR ( Amer) TNP 10/01/17 05:16 Est GFR (Non-Af Amer) TNP 10/01/17 05:16 BUN/Creatinine Ratio 45.0 10/01/17 05:16 Glucose 117 mg/dL (70-105) H 10/01/17 05:16 Whole Bld Lactic Acid 3.84 mmol/L (0.60-1.99) H* 09/29/17 19:30 Calcium 8.8 mg/dL (8.6-10.3) 10/01/17 05:16 Total Bilirubin 0.2 mg/dL (0.3-1.0) L 09/29/17 17:30 AST 116 U/L (13-39) H 09/29/17 17:30 ALT 84 U/L (7-52) H 09/29/17 17:30 Alkaline Phosphatase 80 U/L (34-104) 09/29/17 17:30 Ammonia 25 umol/L (16-53) 09/30/17 05:00 Creatine Kinase 1042 U/L (30-223) H 09/29/17 17:30 CK-MB (CK-2) 2.0 ng/mL (0.6-6.3) 09/29/17 17:30 Troponin I 0.04 ng/mL (0.01-0.05) 09/29/17 17:30 B-Natriuretic Peptide 218.0 pg/mL (5.0-100.0) H 10/01/17 05:16 Total Protein 7.9 gm/dL (6.0-8.3) 09/29/17 17:30 Albumin 2.9 gm/dL (4.2-5.5) L 09/29/17 17:30 Globulin 5.0 gm/dL 09/29/17 17:30 Albumin/Globulin Ratio 0.6 (1.0-1.8) L 09/29/17 17:30 Vitamin B12 >1999 pg/mL (232-1245) H 09/30/17 05:00 Folic Acid >20.0 ng/mL (>3.0) 09/30/17 05:00 TSH 3.93 uIU/ml (0.34-5.60) 09/30/17 05:00 - Physical Exam Vitals and I&O: Vital Signs Temp 98.0 F 10/01/17 04:00 Pulse 85 10/01/17 07:14 Resp 28 10/01/17 09:00 BP 123/70 10/01/17 07:14 Pulse Ox 99 10/01/17 09:00 Intake & Output 09/30/17 10/01/17 10/01/17 18:59 06:59 18:59 Intake Total 1200 3414.000 Output Total 400 Balance 1200 3014.000 Weight (lbs) 126 lb 9.6 oz Intake: Intake, IV Amount 1200 1664.000 Dextrose 5% 1,000 ml @ 1000 1310.000 100 mls/hr IV .Q10H [facility] Rx#:[id number] Norepinephrine 4 mg In 254.000 Dextrose 5% 250 ml @ 5 MCG/MIN 19.05 mls/hr IV TITR PRN Rx#:[id number] Piperacillin Sodium/ 200 100 Tazobact 2.25 gm In Sodium Chloride 0.9% 100 ml @ 100 mls/hr IV Q8HR [facility] Rx#:[id number] Tube Feeding 1350 Other 400 Output: Urine 400 Other: # Voids 2 # Bowel Movements 2 Stool Characteristics Soft Soft Brown Brown Weight Source Bedscale Active Medications: Current Medications Acetaminophen (Tylenol) 650 mg PO Q4H PRN PRN Reason: Pain Or Fever above 101 Stop: 11/28/17 21:52 Last Admin: 09/30/17 20:43 Dose: 650 mg Albuterol Sulfate (Albuterol 2.5mg/3ml Neb Ud) 2.5 mg HHN QIDRT [facility] Stop: 11/29/17 06:59 Last Admin: 10/01/17 08:10 Dose: 2.5 mg Albuterol Sulfate (Albuterol 2.5mg/3ml Neb Ud) 2.5 mg HHN Q2HRT PRN PRN Reason: Congestion Stop: 11/29/17 23:52 Ascorbic Acid (Vitamin C) 500 mg GT DAILY [facility] Stop: 11/29/17 08:59 Last Admin: 10/01/17 10:44 Dose: 500 mg Bisacodyl (Dulcolax 10 Mg Supp) 10 mg RC DAILY PRN PRN Reason: IF MOM NOT EFFECTIVE Stop: 11/28/17 21:50 Docusate Sodium (Colace) 100 mg PO BID [facility] Stop: 11/29/17 08:59 Last Admin: 09/30/17 18:48 Dose: 100 mg Donepezil HCl (Aricept) 10 mg GT HS [facility] Stop: 11/29/17 20:59 Last Admin: 09/30/17 21:49 Dose: 10 mg Ferrous Sulfate (Iron) 330 mg GT BID [facility] Stop: 11/29/17 08:59 Last Admin: 10/01/17 10:44 Dose: 330 mg Guaifenesin (Robitussin) 200 mg PO Q4HR PRN PRN Reason: Cough or Congestion Stop: 11/28/17 21:52 Heparin Sodium (Porcine) (Heparin) 5,000 units SUBQ Q12HR [facility] Stop: 11/29/17 08:59 Last Admin: 10/01/17 10:45 Dose: 5,000 units Dextrose (D5w) 1,000 mls @ 100 mls/hr IV .Q10H [facility] Stop: 11/28/17 21:52 Last Infusion: 10/01/17 05:32 Dose: 100 mls/hr Piperacillin Sod/Tazobactam (Sod 2.25 gm/ Sodium Chloride) 100 mls @ 100 mls/ hr IV Q8HR [facility] Stop: 11/29/17 04:59 Last Admin: 10/01/17 05:32 Dose: 100 mls/hr Vancomycin HCl 1 gm/ Sodium (Chloride) 250 mls @ 165 mls/hr IV Q36H [facility] Stop: 11/29/17 21:59 Last Admin: 09/30/17 21:49 Dose: 165 mls/hr Norepinephrine Bitartrate 4 mg (/ Dextrose) 254 mls @ 19.05 mls/hr IV TITR PRN ; Protocol; 5 MCG/MIN PRN Reason: BP MAINTENANCE (PER PROTOCOL) Stop: 11/29/17 19:54 Last Admin: 10/01/17 05:48 Dose: 2 mcg/min, 7.62 mls/hr Ipratropium Damar (Atrovent Neb 0.5mg/2.5ml) 0.5 mg IH QIDRT [facility] Stop: 11/29/17 06:59 Last Admin: 10/01/17 08:09 Dose: 0.5 mg Lactobacillus Rhamnosus (Culturelle 15b) 1 each GT DAILY [facility] Stop: 11/30/17 08:59 Last Admin: 10/01/17 10:44 Dose: 1 each Miscellaneous (Vte Chemical Prophylaxis Screen/ Admission) 1 ea PRN PRN PRN Reason: PROTOCOL Stop: 11/29/17 08:29 Miscellaneous (Vancomycin Iv Per Pharmacy) 1 ea PRN PRN PRN Reason: PROTOCOL Stop: 11/29/17 10:28 Miscellaneous (Probiotic Screen) 1 ea PRN PRN PRN Reason: PROTOCOL Stop: 11/29/17 12:14 Ondansetron HCl (Zofran) 4 mg IV Q8H PRN PRN Reason: Nausea / Vomiting Stop: 11/28/17 21:52 Sodium Phosphate (Fleet Enema) 135 ml RC DAILY PRN PRN Reason: IF DULCOLAX INEFFECTIVE Stop: 11/28/17 21:50 Tamsulosin HCl (Flomax) 0.4 mg GT DAILY [facility] Stop: 11/29/17 08:59 Last Admin: 10/01/17 10:44 Dose: 0.4 mg Valproate Sodium (Depakene) 750 mg GT BID [facility] PRN Reason: Protocol Stop: 11/29/17 08:59 Last Admin: 10/01/17 10:44 Dose: 750 mg General: weak, other (confused) HEENT: NC/AT Lungs: congested Cardiovascular: without murmur Abdomen: soft, non-tender, non-distended, positive bowel sound Extremities: excoriation Neurological: unable to follow command - Procedures Procedures: Procedures Procedure Code Date ASSISTANCE WITH RESPIRATORY VENTILATION, <24 HRS, CPAP 3B16723 09/29/17 POS AIRWAY PRESSURE CPAP 40854 09/29/17 Internal Medicine Assmt/Plan - Assessment Assessment: Lactic acidosis, sepsis Acute febrile illness Acute dehydration Acute renal failure Congestion - Plan Plan: continue with bipap continue with ivantibiotic respiratory treatments ivf for hydration continue current plan of care Nutritional Asmnt/Malnutr-PDOC - Dietary Evaluation Malnutrition Findings (Please click <Entered> for more info): Nutritional Asmnt/Malnutrition Start: 09/30/17 14: 22 Text: Status: Complete Freq: Document 09/30/17 14:22 RONEN (Rec: 09/30/17 14:42 RONEN [email or web address]) Nutritional Asmnt/Malnutrition Patient General Information Nutritional Screening High Risk Diagnosis sepsis, fever Pertinent Medical Hx/Surgical Hx asthma/COPD, ESRD, seizrues, arthritis, dementia, PEG/Gtube Subjective Information Consult received for redness on buttocks and wound on knee. Pt seen lying in bed at time of visit. Spoke with nurse, pt is getting bolus feeding. Clarified with RN about feeding regimen. Current Diet Order/ Nutrition Support Fibersource bolus feeding 250ml x 5 daily Pertinent Medications vit C, D5w, colace, iron, culturelle, piperacillin, vancomycin Pertinent Labs 09/30 Na 168, K 4.2, Cl 129, BUN 91, Cr 1.9, glucose 113 Nutritional Hx/Data Height 5 ft 9 in Height (Calculated Centimeters) 175.3 Current Weight (lbs) 120 lb Weight (Calculated Kilograms) 54.4 Weight (Calculated Grams) 75889.1 [place] Body Weight 160 Body Mass Index (BMI) 17.7 Weight Status Underweight GI Symptoms GI Symptoms None Last BM 09/30 Difficult in: None Skin Integrity/Comment: bruise to knee, pressure area to buttocks Estimated Nutritional Goals BEE in Kcals: Using Current wt Calories/Kcals/Kg 30-35 Kcals Calculated 7176-9110 Protein: Using Current wt Protein g/k-1.2 monitor renal labs Protein Calculated 56-67 Fluid: ml per MD Nutritional Problem 2. Problem Problem increased nutrition needs ( calorie and protein) Etiology increased metabolic demand Signs/Symptoms: dx of sepsis 1. Problem Problem altered nutrition related labs Etiology hx of ESRD Signs/Symptoms: Na 168, Cl 129, BUN 91, Cr 1.9 Intervention/Recommendation Comments 1. Recommend bolus feeding Fibersource HN 250ml x 5 daily . It provides 1250ml, 1500kcal , 67g protein, 1012ml free water, meeting 100% of nutritional needs. RN Matilda made aware. 2. Monitor TF tolerance, wt weekly, skin integrity and labs. 3. F/U as high risk in 2-3 days, 10/02-10/03 Expected Outcomes/Goals Expected Outcomes/Goals 1. Pt to meet at least 75% of nutritional needs via nutrition support with tolerance 2. Wt stability, skin to remain intact, labs to approach WNL. <Brian Asencio - Last Filed: 10/01/17 12:52> Internal Medicine Objective - Results Result Diagrams: 10/01/17 05:16 10/01/17 05:16 Recent Labs: Laboratory Last Values WBC 8.1 Th/cmm (4.8-10.8) 10/01/17 05:16 RBC 3.73 Mil/cmm (3.80-5.80) L 10/01/17 05:16 Hgb 11.1 gm/dL (12-16) L 10/01/17 05:16 Hct 36.1 % (41.0-60) L 10/01/17 05:16 MCV 96.8 fl (80-99) 10/01/17 05:16 MCH 29.9 pg (27.0-31.0) 10/01/17 05:16 MCHC Differential 30.9 pg (28.0-36.0) 10/01/17 05:16 RDW 14.9 % (11.5-20.0) 10/01/17 05:16 Plt Count 194 Th/cmm (150-400) 10/01/17 05:16 MPV 12.4 fl 10/01/17 05:16 Neutrophils % 84.6 % (40.0-80.0) H 10/01/17 05:16 Band Neutrophils % 10 % (0-10) 09/29/17 17:30 Lymphocytes % 11.9 % (20.0-50.0) L 10/01/17 05:16 Monocytes % 2.5 % (2.0-10.0) 10/01/17 05:16 Eosinophils % 0.9 % (0.0-5.0) 10/01/17 05:16 Basophils % 0.1 % (0.0-2.0) 10/01/17 05:16 Neutrophils (Manual) 70 % (40-80) 09/29/17 17:30 Lymphocytes 16 % (20-50) L 09/29/17 17:30 Monocytes 3 % (2-10) 09/29/17 17:30 Eosinophils 1 % (0-5) 09/29/17 17:30 Basophils 0 % (0-3) 09/29/17 17:30 PT 12.4 SECONDS (9.5-11.5) H 09/29/17 17:30 INR 1.18 (0.5-1.4) 09/29/17 17:30 PTT (Actin FS) 26.6 SECONDS (26.0-38.0) 09/29/17 17:30 Specimen Source Arterial 10/01/17 00:15 Sample Site LEFT BRACHIAL 10/01/17 00:15 pH 7.44 (7.35-7.45) 10/01/17 00:15 pCO2 46.0 mmHg (35.0-45.0) H 10/01/17 00:15 pO2 80.0 mmHg (80.0-100.0) 10/01/17 00:15 HCO3 29.7 mEq/L (20.0-26.0) H 10/01/17 00:15 Base Excess 6.1 mEq/L (-3.0-3.0) H 10/01/17 00:15 O2 Saturation 96.0 % (92.0-100.0) 10/01/17 00:15 Naresh Test Positive 10/01/17 00:15 Vent Rate 12 10/01/17 00:15 Inspired O2 50 10/01/17 00:15 Tidal Volume NA 10/01/17 00:15 PEEP 6 10/01/17 00:15 Pressure (ins/psv/peep) 10 10/01/17 00:15 Critical Value SC 10/01/17 00:15 Sodium 166 mEq/L (136-145) H* 10/01/17 05:16 Potassium 3.9 mEq/L (3.5-5.1) 10/01/17 05:16 Chloride 129 mEq/L (98-107) H 10/01/17 05:16 Carbon Dioxide 29.0 mEq/L (21.0-31.0) 10/01/17 05:16 Anion Gap 11.9 (7.0-16.0) 10/01/17 05:16 BUN 81 mg/dL (7-25) H* 10/01/17 05:16 Creatinine 1.8 mg/dL (0.7-1.3) H 10/01/17 05:16 Est GFR ( Amer) TNP 10/01/17 05:16 Est GFR (Non-Af Amer) TNP 10/01/17 05:16 BUN/Creatinine Ratio 45.0 10/01/17 05:16 Glucose 117 mg/dL (70-105) H 10/01/17 05:16 Whole Bld Lactic Acid 3.84 mmol/L (0.60-1.99) H* 09/29/17 19:30 Calcium 8.8 mg/dL (8.6-10.3) 10/01/17 05:16 Total Bilirubin 0.2 mg/dL (0.3-1.0) L 09/29/17 17:30 AST 116 U/L (13-39) H 09/29/17 17:30 ALT 84 U/L (7-52) H 09/29/17 17:30 Alkaline Phosphatase 80 U/L (34-104) 09/29/17 17:30 Ammonia 25 umol/L (16-53) 09/30/17 05:00 Creatine Kinase 1042 U/L (30-223) H 09/29/17 17:30 CK-MB (CK-2) 2.0 ng/mL (0.6-6.3) 09/29/17 17:30 Troponin I 0.04 ng/mL (0.01-0.05) 09/29/17 17:30 B-Natriuretic Peptide 218.0 pg/mL (5.0-100.0) H 10/01/17 05:16 Total Protein 7.9 gm/dL (6.0-8.3) 09/29/17 17:30 Albumin 2.9 gm/dL (4.2-5.5) L 09/29/17 17:30 Globulin 5.0 gm/dL 09/29/17 17:30 Albumin/Globulin Ratio 0.6 (1.0-1.8) L 09/29/17 17:30 Vitamin B12 >1999 pg/mL (232-1245) H 09/30/17 05:00 Folic Acid >20.0 ng/mL (>3.0) 09/30/17 05:00 TSH 3.93 uIU/ml (0.34-5.60) 09/30/17 05:00 - Physical Exam Vitals and I&O: Vital Signs Temp 98.0 F 10/01/17 04:00 Pulse 85 10/01/17 07:14 Resp 28 10/01/17 09:00 BP 123/70 10/01/17 07:14 Pulse Ox 99 10/01/17 09:00 Intake & Output 09/30/17 10/01/17 10/01/17 18:59 06:59 18:59 Intake Total 1200 3414.000 Output Total 400 Balance 1200 3014.000 Weight (lbs) 57.425 kg Intake: Intake, IV Amount 1200 1664.000 Dextrose 5% 1,000 ml @ 1000 1310.000 100 mls/hr IV .Q10H [facility] Rx#:[id number] Norepinephrine 4 mg In 254.000 Dextrose 5% 250 ml @ 5 MCG/MIN 19.05 mls/hr IV TITR PRN Rx#:[id number] Piperacillin Sodium/ 200 100 Tazobact 2.25 gm In Sodium Chloride 0.9% 100 ml @ 100 mls/hr IV Q8HR [facility] Rx#:[id number] Tube Feeding 1350 Other 400 Output: Urine 400 Other: # Voids 2 # Bowel Movements 2 Stool Characteristics Soft Soft Brown Brown Weight Source Bedscale Active Medications: Current Medications Acetaminophen (Tylenol) 650 mg PO Q4H PRN PRN Reason: Pain Or Fever above 101 Stop: 11/28/17 21:52 Last Admin: 09/30/17 20:43 Dose: 650 mg Albuterol Sulfate (Albuterol 2.5mg/3ml Neb Ud) 2.5 mg HHN QIDRT [facility] Stop: 11/29/17 06:59 Last Admin: 10/01/17 08:10 Dose: 2.5 mg Albuterol Sulfate (Albuterol 2.5mg/3ml Neb Ud) 2.5 mg HHN Q2HRT PRN PRN Reason: Congestion Stop: 11/29/17 23:52 Ascorbic Acid (Vitamin C) 500 mg GT DAILY [facility] Stop: 11/29/17 08:59 Last Admin: 10/01/17 10:44 Dose: 500 mg Bisacodyl (Dulcolax 10 Mg Supp) 10 mg RC DAILY PRN PRN Reason: IF MOM NOT EFFECTIVE Stop: 11/28/17 21:50 Docusate Sodium (Colace) 100 mg PO BID [facility] Stop: 11/29/17 08:59 Last Admin: 09/30/17 18:48 Dose: 100 mg Donepezil HCl (Aricept) 10 mg GT HS [facility] Stop: 11/29/17 20:59 Last Admin: 09/30/17 21:49 Dose: 10 mg Ferrous Sulfate (Iron) 330 mg GT BID [facility] Stop: 11/29/17 08:59 Last Admin: 10/01/17 10:44 Dose: 330 mg Guaifenesin (Robitussin) 200 mg PO Q4HR PRN PRN Reason: Cough or Congestion Stop: 11/28/17 21:52 Heparin Sodium (Porcine) (Heparin) 5,000 units SUBQ Q12HR [facility] Stop: 11/29/17 08:59 Last Admin: 10/01/17 10:45 Dose: 5,000 units Dextrose (D5w) 1,000 mls @ 100 mls/hr IV .Q10H [facility] Stop: 11/28/17 21:52 Last Infusion: 10/01/17 05:32 Dose: 100 mls/hr Piperacillin Sod/Tazobactam (Sod 2.25 gm/ Sodium Chloride) 100 mls @ 100 mls/ hr IV Q8HR [facility] Stop: 11/29/17 04:59 Last Admin: 10/01/17 05:32 Dose: 100 mls/hr Vancomycin HCl 1 gm/ Sodium (Chloride) 250 mls @ 165 mls/hr IV Q36H [facility] Stop: 11/29/17 21:59 Last Admin: 09/30/17 21:49 Dose: 165 mls/hr Norepinephrine Bitartrate 4 mg (/ Dextrose) 254 mls @ 19.05 mls/hr IV TITR PRN ; Protocol; 5 MCG/MIN PRN Reason: BP MAINTENANCE (PER PROTOCOL) Stop: 11/29/17 19:54 Last Admin: 10/01/17 05:48 Dose: 2 mcg/min, 7.62 mls/hr Ipratropium Damar (Atrovent Neb 0.5mg/2.5ml) 0.5 mg IH QIDRT [facility] Stop: 11/29/17 06:59 Last Admin: 10/01/17 08:09 Dose: 0.5 mg Lactobacillus Rhamnosus (Culturelle 15b) 1 each GT DAILY [facility] Stop: 11/30/17 08:59 Last Admin: 10/01/17 10:44 Dose: 1 each Miscellaneous (Vte Chemical Prophylaxis Screen/ Admission) 1 ea MC PRN PRN PRN Reason: PROTOCOL Stop: 11/29/17 08:29 Miscellaneous (Vancomycin Iv Per Pharmacy) 1 ea MC PRN PRN PRN Reason: PROTOCOL Stop: 11/29/17 10:28 Miscellaneous (Probiotic Screen) 1 ea PRN PRN PRN Reason: PROTOCOL Stop: 11/29/17 12:14 Ondansetron HCl (Zofran) 4 mg IV Q8H PRN PRN Reason: Nausea / Vomiting Stop: 11/28/17 21:52 Sodium Phosphate (Fleet Enema) 135 ml RC DAILY PRN PRN Reason: IF DULCOLAX INEFFECTIVE Stop: 11/28/17 21:50 Tamsulosin HCl (Flomax) 0.4 mg GT DAILY [facility] Stop: 11/29/17 08:59 Last Admin: 10/01/17 10:44 Dose: 0.4 mg Valproate Sodium (Depakene) 750 mg GT BID [facility] PRN Reason: Protocol Stop: 11/29/17 08:59 Last Admin: 10/01/17 10:44 Dose: 750 mg - Procedures Procedures: Procedures Procedure Code Date ASSISTANCE WITH RESPIRATORY VENTILATION, <24 HRS, CPAP [id number] 09/29/17 POS AIRWAY PRESSURE CPAP 56393 09/29/17 Internal Medicine Assmt/Plan - Plan Plan: stable offf levophed cont on iv abx and bronchodilator tx dw rn Nutritional Asmnt/Malnutr-PDOC - Dietary Evaluation Malnutrition Findings (Please click <Entered> for more info): Nutritional Asmnt/Malnutrition Start: 09/30/17 14: 22 Text: Status: Complete Freq: Document 09/30/17 14:22 RONEN (Rec: 09/30/17 14:42 RONEN [email or web address]) Nutritional Asmnt/Malnutrition Patient General Information Nutritional Screening High Risk Diagnosis sepsis, fever Pertinent Medical Hx/Surgical Hx asthma/COPD, ESRD, seizrues, arthritis, dementia, PEG/Gtube Subjective Information Consult received for redness on buttocks and wound on knee. Pt seen lying in bed at time of visit. Spoke with nurse, pt is getting bolus feeding. Clarified with RN about feeding regimen. Current Diet Order/ Nutrition Support Fibersource bolus feeding 250ml x 5 daily Pertinent Medications vit C, D5w, colace, iron, culturelle, piperacillin, vancomycin Pertinent Labs 09/30 Na 168, K 4.2, Cl 129, BUN 91, Cr 1.9, glucose 113 Nutritional Hx/Data Height 1.75 m Height (Calculated Centimeters) 175.3 Current Weight (lbs) 54.431 kg Weight (Calculated Kilograms) 54.4 Weight (Calculated Grams) 46472.1 [place] Body Weight 160 Body Mass Index (BMI) 17.7 Weight Status Underweight GI Symptoms GI Symptoms None Last BM 09/30 Difficult in: None Skin Integrity/Comment: bruise to knee, pressure area to buttocks Estimated Nutritional Goals BEE in Kcals: Using Current wt Calories/Kcals/Kg 30-35 Kcals Calculated 1822-4734 Protein: Using Current wt Protein g/k-1.2 monitor renal labs Protein Calculated 56-67 Fluid: ml per MD Nutritional Problem 2. Problem Problem increased nutrition needs ( calorie and protein) Etiology increased metabolic demand Signs/Symptoms: dx of sepsis 1. Problem Problem altered nutrition related labs Etiology hx of ESRD Signs/Symptoms: Na 168, Cl 129, BUN 91, Cr 1.9 Intervention/Recommendation Comments 1. Recommend bolus feeding Fibersource HN 250ml x 5 daily . It provides 1250ml, 1500kcal , 67g protein, 1012ml free water, meeting 100% of nutritional needs. AVRIL Grey made aware. 2. Monitor TF tolerance, wt weekly, skin integrity and labs. 3. F/U as high risk in 2-3 days, 10/02-10/03 Expected Outcomes/Goals Expected Outcomes/Goals 1. Pt to meet at least 75% of nutritional needs via nutrition support with tolerance 2. Wt stability, skin to remain intact, labs to approach WNL.
--- NOTE | 2017-10-01 22:24 | Consultation ---
DATE OF CONSULTATION: 10/01/[address] Asencio, for this consultation. HISTORY OF PRESENT ILLNESS: This is a 76-year-old male who was admitted with congestion, shortness of breath, fever, poor [facility] intake from [facility], has history of CVA and dementia. The patient required to be on BiPAP secondary to desaturations, appears to be doing okay with it, comfortable. Still confused and agitated at times. No other history can be obtained at this time. SOCIAL HISTORY: intermediate resident. Smoking history is not available. PHYSICAL EXAMINATION: GENERAL: On the BiPAP, not in acute distress. VITAL SIGNS: His temperature is 98.0, T-max 101.0, pulse is 85, respirations 29, blood pressure is 123/70, and saturation 98%. HEENT: Atraumatic, normocephalic. Pupils react to light and accommodation. Ears, nose and throat are normal. NECK: Supple. No JVD. CHEST: There are decreased breath sounds in bases, rhonchi bilaterally. HEART: Regular rate and rhythm. ABDOMEN: Soft. EXTREMITIES: No edema. LABORATORY DATA: WBC is 8.1, hemoglobin 11.1, hematocrit 36.1, and platelets 194. ABGs: pH 7.44, pCO2 46, pO2 80, bicarbonate is 29, saturation is 96%. Sodium is 166, potassium 3.9, BUN is 81, and creatinine 1.8. Chest x-ray showed bilateral infiltrates. IMPRESSION: This is a 76-year-old male with; 1. Respiratory failure. 2. ____. 3. Dysphagia. 4. Weakness. 5. Possible aspiration. 6. Dehydration. PLAN: 1. Continue with the BiPAP. 2. IV hydration. 3. IV fluids. 4. Antibiotics. 5. Follow up chest x-ray and ABGs. Hopefully, we can get off the BiPAP soon. We will follow the patient with you. JOB# [id number]
[2017-10-02] MEDS: Piperacillin Sodium/Tazobact 2.25 GM in Sodium Chloride 0.9% 100 ML IV SCH ×3 (04:29→20:50)
[2017-10-02 04:53] LABS: EOSINOPHILE ABSOLUTE 0.1 Th/cmm (0.1-0.4); LYMPHOCYTE ABSOLUTE 0.7 Th/cmm (1.5-3.0); MONOCYTE ABSOLUTE 0.2 Th/cmm (0.3-1.0); RED CELL DISTRIBUTION WIDTH 14.9 % (11.5-20.0)
[2017-10-02 05:04] LABS: ANION GAP 10.6 (7.0-16.0); BUN - UREA NITROGEN 64 mg/dL (7-25); CALCIUM SERUM 8.6 mg/dL (8.6-10.3); CARBON DIOXIDE 27.9 mEq/L (21.0-31.0); CHLORIDE 126 mEq/L (98-107); CREATININE - SERUM 1.5 mg/dL (0.7-1.3); GLUCOSE 125 mg/dL (70-105); POTASSIUM SERUM 3.5 mEq/L (3.5-5.1)
[2017-10-02 05:05] LABS: % BASOPHILS 0.2 % (0.0-2.0); % EOSINOPHILS 0.9 % (0.0-5.0); % LYMPHOCYTES 7.6 % (20.0-50.0); % MONOCYTES 1.7 % (2.0-10.0); % NEUTROPHILS 89.6 % (40.0-80.0); HEMATOCRIT 31.3 % (41.0-60); HEMOGLOBIN 10.1 gm/dL (12-16); MEAN CELL VOLUME 95.6 fl (80-99); MEAN CORPUSCULAR HEMOGLOBIN 30.8 pg (27.0-31.0); MEAN CORPUSCULAR HGB CONC 32.2 pg (28.0-36.0); NEUTROPHILE ABSOLUTE 7.9 Th/cmm (1.8-8.0); PLATELET COUNT 186 Th/cmm (150-400); RED BLOOD COUNT 3.27 Mil/cmm (3.80-5.80); WHITE BLOOD COUNT 8.9 Th/cmm (4.8-10.8)
[2017-10-02 05:26] LABS: SODIUM SERUM 161 mEq/L (136-145)
[2017-10-02] MEDS: Albuterol Nebulizer 2.5mg/3mL HHN SCH ×4 (07:00→19:05)
[2017-10-02] MEDS: Ipratropium Neb 0.5 mg/2.5 mL UD IH SCH ×4 (07:00→19:05)
[2017-10-02] MEDS: Ferrous Sulfate 300 MG/5 ML UDC GT SCH ×2 (08:21→16:58)
[2017-10-02] MEDS: Lactobacillus Rhamnosus GG 15 Billion CFU CAP.SPRINK GT SCH (08:21)
--- NOTE | 2017-10-02 13:39 | Internal Medicine Prog Note ---
Internal Medicine Subjective - Subjective Service Date: 10/02/17 Patient seen and examined:: with staff Patient is:: awake Per staff patient has:: tolerating meds Internal Medicine Objective - Results Result Diagrams: 10/02/17 03:15 10/02/17 03:15 Recent Labs: Laboratory Last Values WBC 8.9 Th/cmm (4.8-10.8) 10/02/17 03:15 RBC 3.27 Mil/cmm (3.80-5.80) L 10/02/17 03:15 Hgb 10.1 gm/dL (12-16) L 10/02/17 03:15 Hct 31.3 % (41.0-60) L 10/02/17 03:15 MCV 95.6 fl (80-99) 10/02/17 03:15 MCH 30.8 pg (27.0-31.0) 10/02/17 03:15 MCHC Differential 32.2 pg (28.0-36.0) 10/02/17 03:15 RDW 14.9 % (11.5-20.0) 10/02/17 03:15 Plt Count 186 Th/cmm (150-400) 10/02/17 03:15 MPV 13.0 fl 10/02/17 03:15 Neutrophils % 89.6 % (40.0-80.0) H 10/02/17 03:15 Band Neutrophils % 10 % (0-10) 09/29/17 17:30 Lymphocytes % 7.6 % (20.0-50.0) L 10/02/17 03:15 Monocytes % 1.7 % (2.0-10.0) L 10/02/17 03:15 Eosinophils % 0.9 % (0.0-5.0) 10/02/17 03:15 Basophils % 0.2 % (0.0-2.0) 10/02/17 03:15 Neutrophils (Manual) 70 % (40-80) 09/29/17 17:30 Lymphocytes 16 % (20-50) L 09/29/17 17:30 Monocytes 3 % (2-10) 09/29/17 17:30 Eosinophils 1 % (0-5) 09/29/17 17:30 Basophils 0 % (0-3) 09/29/17 17:30 PT 12.4 SECONDS (9.5-11.5) H 09/29/17 17:30 INR 1.18 (0.5-1.4) 09/29/17 17:30 PTT (Actin FS) 26.6 SECONDS (26.0-38.0) 09/29/17 17:30 Specimen Source Arterial 10/01/17 00:15 Sample Site LEFT BRACHIAL 10/01/17 00:15 pH 7.44 (7.35-7.45) 10/01/17 00:15 pCO2 46.0 mmHg (35.0-45.0) H 10/01/17 00:15 pO2 80.0 mmHg (80.0-100.0) 10/01/17 00:15 HCO3 29.7 mEq/L (20.0-26.0) H 10/01/17 00:15 Base Excess 6.1 mEq/L (-3.0-3.0) H 10/01/17 00:15 O2 Saturation 96.0 % (92.0-100.0) 10/01/17 00:15 Naresh Test Positive 10/01/17 00:15 Vent Rate 12 10/01/17 00:15 Inspired O2 50 10/01/17 00:15 Tidal Volume NA 10/01/17 00:15 PEEP 6 10/01/17 00:15 Pressure (ins/psv/peep) 10 10/01/17 00:15 Critical Value SC 10/01/17 00:15 Sodium 161 mEq/L (136-145) H* 10/02/17 03:15 Potassium 3.5 mEq/L (3.5-5.1) 10/02/17 03:15 Chloride 126 mEq/L (98-107) H 10/02/17 03:15 Carbon Dioxide 27.9 mEq/L (21.0-31.0) 10/02/17 03:15 Anion Gap 10.6 (7.0-16.0) 10/02/17 03:15 BUN 64 mg/dL (7-25) H 10/02/17 03:15 Creatinine 1.5 mg/dL (0.7-1.3) H 10/02/17 03:15 Est GFR ( Amer) TNP 10/02/17 03:15 Est GFR (Non-Af Amer) TNP 10/02/17 03:15 BUN/Creatinine Ratio 42.7 10/02/17 03:15 Glucose 125 mg/dL (70-105) H 10/02/17 03:15 Whole Bld Lactic Acid 3.84 mmol/L (0.60-1.99) H* 09/29/17 19:30 Calcium 8.6 mg/dL (8.6-10.3) 10/02/17 03:15 Total Bilirubin 0.2 mg/dL (0.3-1.0) L 09/29/17 17:30 AST 116 U/L (13-39) H 09/29/17 17:30 ALT 84 U/L (7-52) H 09/29/17 17:30 Alkaline Phosphatase 80 U/L (34-104) 09/29/17 17:30 Ammonia 25 umol/L (16-53) 09/30/17 05:00 Creatine Kinase 1042 U/L (30-223) H 09/29/17 17:30 CK-MB (CK-2) 2.0 ng/mL (0.6-6.3) 09/29/17 17:30 Troponin I 0.04 ng/mL (0.01-0.05) 09/29/17 17:30 B-Natriuretic Peptide 218.0 pg/mL (5.0-100.0) H 10/01/17 05:16 Total Protein 7.9 gm/dL (6.0-8.3) 09/29/17 17:30 Albumin 2.9 gm/dL (4.2-5.5) L 09/29/17 17:30 Globulin 5.0 gm/dL 09/29/17 17:30 Albumin/Globulin Ratio 0.6 (1.0-1.8) L 09/29/17 17:30 Vitamin B12 >1999 pg/mL (232-1245) H 09/30/17 05:00 Folic Acid >20.0 ng/mL (>3.0) 09/30/17 05:00 TSH 3.93 uIU/ml (0.34-5.60) 09/30/17 05:00 Vancomycin Trough 12.1 ug/mL (5-10) H 10/02/17 09:00 - Physical Exam Vitals and I&O: Vital Signs Temp 98 F 10/02/17 12:00 Pulse 87 10/02/17 13:00 Resp 20 10/02/17 13:00 BP 101/47 10/02/17 13:00 Pulse Ox 98 10/02/17 13:00 Intake & Output 10/01/17 10/02/17 10/02/17 18:59 06:59 18:59 Intake Total 9072.360 7879 Output Total 550 550 Balance 695.097 800 Weight (lbs) 126 lb 126 lb Intake: Intake, IV Amount 745.097 200 Dextrose 5% 1,000 ml @ 628.333 100 mls/hr IV .Q10H [facility] Rx#:[id number] Norepinephrine 4 mg In 16.764 Dextrose 5% 250 ml @ 5 MCG/MIN 19.05 mls/hr IV TITR PRN Rx#:[id number] Piperacillin Sodium/ 100 200 Tazobact 2.25 gm In Sodium Chloride 0.9% 100 ml @ 100 mls/hr IV Q8HR [facility] Rx#:[id number] Tube Feeding 500 600 Other 550 Output: Urine 550 550 Other: # Bowel Movements 2 2 Stool Characteristics Soft Soft Soft Brown Brown Brown Weight Source Bedscale Bedscale Active Medications: Current Medications Acetaminophen (Tylenol) 650 mg PO Q4H PRN PRN Reason: Pain Or Fever above 101 Stop: 11/28/17 21:52 Last Admin: 09/30/17 20:43 Dose: 650 mg Albuterol Sulfate (Albuterol 2.5mg/3ml Neb Ud) 2.5 mg HHN QIDRT [facility] Stop: 11/29/17 06:59 Last Admin: 10/02/17 07:00 Dose: 2.5 mg Albuterol Sulfate (Albuterol 2.5mg/3ml Neb Ud) 2.5 mg HHN Q2HRT PRN PRN Reason: Congestion Stop: 11/29/17 23:52 Ascorbic Acid (Vitamin C) 500 mg GT DAILY [facility] Stop: 11/29/17 08:59 Last Admin: 10/02/17 08:21 Dose: 500 mg Bisacodyl (Dulcolax 10 Mg Supp) 10 mg RC DAILY PRN PRN Reason: IF MOM NOT EFFECTIVE Stop: 11/28/17 21:50 Docusate Sodium (Colace) 100 mg PO BID [facility] Stop: 11/29/17 08:59 Last Admin: 10/02/17 08:21 Dose: 100 mg Donepezil HCl (Aricept) 10 mg GT HS [facility] Stop: 11/29/17 20:59 Last Admin: 10/01/17 21:20 Dose: 10 mg Ferrous Sulfate (Iron) 330 mg GT BID [facility] Stop: 11/29/17 08:59 Last Admin: 10/02/17 08:21 Dose: 330 mg Guaifenesin (Robitussin) 200 mg PO Q4HR PRN PRN Reason: Cough or Congestion Stop: 11/28/17 21:52 Heparin Sodium (Porcine) (Heparin) 5,000 units SUBQ Q12HR [facility] Stop: 11/29/17 08:59 Last Admin: 10/02/17 08:23 Dose: 5,000 units Dextrose (D5w) 1,000 mls @ 100 mls/hr IV .Q10H [facility] Stop: 11/28/17 21:52 Last Admin: 10/01/17 19:00 Dose: 100 mls/hr Piperacillin Sod/Tazobactam (Sod 2.25 gm/ Sodium Chloride) 100 mls @ 100 mls/ hr IV Q8HR [facility] Stop: 11/29/17 04:59 Last Admin: 10/02/17 13:02 Dose: 100 mls/hr Vancomycin HCl 1 gm/ Sodium (Chloride) 250 mls @ 165 mls/hr IV Q36H [facility] Stop: 11/29/17 21:59 Last Admin: 10/02/17 09:45 Dose: 165 mls/hr Norepinephrine Bitartrate 4 mg (/ Dextrose) 254 mls @ 19.05 mls/hr IV TITR PRN ; Protocol; 5 MCG/MIN PRN Reason: BP MAINTENANCE (PER PROTOCOL) Stop: 11/29/17 19:54 Last Titration: 10/01/17 08:00 Dose: 0 mcg/min, 0 mls/hr Ipratropium [place] (Atrovent Neb 0.5mg/2.5ml) 0.5 mg IH QIDRT [facility] Stop: 11/29/17 06:59 Last Admin: 10/02/17 07:00 Dose: 0.5 mg Lactobacillus Rhamnosus (Culturelle 15b) 1 each GT DAILY [facility] Stop: 11/30/17 08:59 Last Admin: 10/02/17 08:21 Dose: 1 each Lorazepam (Ativan) 0.5 mg IV Q6H PRN; Protocol PRN Reason: Agitation Stop: 11/30/17 19:24 Miscellaneous (Vte Chemical Prophylaxis Screen/ Admission) 1 ea PRN PRN PRN Reason: PROTOCOL Stop: 11/29/17 08:29 Miscellaneous (Vancomycin Iv Per Pharmacy) 1 ea PRN PRN PRN Reason: PROTOCOL Stop: 11/29/17 10:28 Miscellaneous (Probiotic Screen) 1 ea PRN PRN PRN Reason: PROTOCOL Stop: 11/29/17 12:14 Ondansetron HCl (Zofran) 4 mg IV Q8H PRN PRN Reason: Nausea / Vomiting Stop: 11/28/17 21:52 Sodium Phosphate (Fleet Enema) 135 ml RC DAILY PRN PRN Reason: IF DULCOLAX INEFFECTIVE Stop: 11/28/17 21:50 Tamsulosin HCl (Flomax) 0.4 mg GT DAILY [facility] Stop: 11/29/17 08:59 Last Admin: 10/02/17 08:21 Dose: 0.4 mg Valproate Sodium (Depakene) 750 mg GT BID [facility] PRN Reason: Protocol Stop: 11/29/17 08:59 Last Admin: 10/02/17 08:21 Dose: 750 mg General: weak, other (confused) HEENT: NC/AT Lungs: congested Cardiovascular: without murmur Abdomen: soft, non-tender, non-distended, positive bowel sound Extremities: excoriation Neurological: unable to follow command - Procedures Procedures: Procedures Procedure Code Date ASSISTANCE WITH RESPIRATORY VENTILATION, <24 HRS, CPAP [id number] 09/29/17 POS AIRWAY PRESSURE CPAP 35938 09/29/17 Internal Medicine Assmt/Plan - Assessment Assessment: Lactic acidosis, sepsis Acute febrile illness Acute dehydration Acute renal failure Congestion - Plan Plan: ok to downgrade to telemetry continue with iv antibiotic respiratory treatments ivf for hydration continue current plan of care Nutritional Asmnt/Malnutr-PDOC - Dietary Evaluation Malnutrition Findings (Please click <Entered> for more info): Nutritional Asmnt/Malnutrition Start: 09/30/17 14: 22 Text: Status: Complete Freq: Document 09/30/17 14:22 RONEN (Rec: 09/30/17 14:42 RONEN [email or web address]) Nutritional Asmnt/Malnutrition Patient General Information Nutritional Screening High Risk Diagnosis sepsis, fever Pertinent Medical Hx/Surgical Hx asthma/COPD, ESRD, seizrues, arthritis, dementia, PEG/Gtube Subjective Information Consult received for redness on buttocks and wound on knee. Pt seen lying in bed at time of visit. Spoke with nurse, pt is getting bolus feeding. Clarified with RN about feeding regimen. Current Diet Order/ Nutrition Support Fibersource bolus feeding 250ml x 5 daily Pertinent Medications vit C, D5w, colace, iron, culturelle, piperacillin, vancomycin Pertinent Labs 09/30 Na 168, K 4.2, Cl 129, BUN 91, Cr 1.9, glucose 113 Nutritional Hx/Data Height 5 ft 9 in Height (Calculated Centimeters) 175.3 Current Weight (lbs) 120 lb Weight (Calculated Kilograms) 54.4 Weight (Calculated Grams) 24838.1 [place] Body Weight 160 Body Mass Index (BMI) 17.7 Weight Status Underweight GI Symptoms GI Symptoms None Last BM 09/30 Difficult in: None Skin Integrity/Comment: bruise to knee, pressure area to buttocks Estimated Nutritional Goals BEE in Kcals: Using Current wt Calories/Kcals/Kg 30-35 Kcals Calculated 0244-3961 Protein: Using Current wt Protein g/k-1.2 monitor renal labs Protein Calculated 56-67 Fluid: ml per MD Nutritional Problem 2. Problem Problem increased nutrition needs ( calorie and protein) Etiology increased metabolic demand Signs/Symptoms: dx of sepsis 1. Problem Problem altered nutrition related labs Etiology hx of ESRD Signs/Symptoms: Na 168, Cl 129, BUN 91, Cr 1.9 Intervention/Recommendation Comments 1. Recommend bolus feeding Fibersource HN 250ml x 5 daily . It provides 1250ml, 1500kcal , 67g protein, 1012ml free water, meeting 100% of nutritional needs. RN Matilda made aware. 2. Monitor TF tolerance, wt weekly, skin integrity and labs. 3. F/U as high risk in 2-3 days, 10/02-10/03 Expected Outcomes/Goals Expected Outcomes/Goals 1. Pt to meet at least 75% of nutritional needs via nutrition support with tolerance 2. Wt stability, skin to remain intact, labs to approach WNL.
--- NOTE | 2017-10-02 13:39 | Diagnostic Imaging Report ---
Renal ultrasound HISTORY: Abnormal renal function tests The right kidney measures 10.0 x 4.0 x 4.4 cm. A 1.0 cm sonolucent lesion is seen in the upper cortex consistent with cysts. No hydronephrosis. The left kidney is slightly decreased in size (8.9 x 5.0 x 4.8 cm). Slight cortical irregularity suggests scarring. There are several punctate echogenic foci within the medullary region. Small calculi cannot be excluded. No hydronephrosis. The urinary bladder cannot be evaluated due to lack of distention. IMPRESSION: 1. Slightly decreased size of the left kidney with irregularity that may be associated with scarring. 2. Small echogenic foci within the medullary region of the left kidney that may be related to calculi. No hydronephrosis 3. Small right renal cyst
[2017-10-02] MEDS: Dextrose 5% 1,000 ML IV SCH (15:49)
[2017-10-02 19:20] LABS: URINE MICROSCOPIC INDICATED? YES; URINE SOURCE CATH
[2017-10-02 19:21] LABS: URINE BILIRUBIN NEGATIVE (NEGATIVE); URINE BLOOD MODERATE (NEGATIVE); URINE GLUCOSE (UA) NEGATIVE (NEGATIVE); URINE KETONE NEGATIVE (NEGATIVE); URINE LEUKOCYTE ESTERASE TRACE (NEGATIVE); URINE NITRATE NEGATIVE (NEGATIVE); URINE PH 5.5 (4.6 - 8.0); URINE PROTEIN 30 mg/dL (NEGATIVE); URINE UROBILINOGEN 0.2 E.U./dL (0.2 - 1.0)
[2017-10-02 19:25] LABS: URINE CLARITY CLEAR (CLEAR); URINE COLOR YELLOW
[2017-10-02 19:28] LABS: URINE BACTERIA FEW /hpf (NONE SEEN); URINE EPITHELIAL CELLS NONE SEEN /lpf (FEW); URINE RBC NONE SEEN /hpf (0-5)
[2017-10-02] MEDS ORDERED: Menthol/Zinc Oxide Oint 113gm Tube TP PRN (20:42)
[2017-10-03] MEDS: Piperacillin Sodium/Tazobact 2.25 GM in Sodium Chloride 0.9% 100 ML IV SCH ×2 (04:38→13:09)
[2017-10-03 05:33] LABS: HEMATOCRIT 31.3 % (41.0-60); HEMOGLOBIN 10.2 gm/dL (12-16); MEAN CELL VOLUME 95.9 fl (80-99); MEAN CORPUSCULAR HEMOGLOBIN 31.1 pg (27.0-31.0); MEAN CORPUSCULAR HGB CONC 32.5 pg (28.0-36.0); MEAN PLATELET VOLUME 13.4 fl; PLATELET COUNT 201 Th/cmm (150-400); RED BLOOD COUNT 3.26 Mil/cmm (3.80-5.80); RED CELL DISTRIBUTION WIDTH 15.1 % (11.5-20.0)
[2017-10-03 05:42] LABS: MANUAL DIFF REQUIRED? YES
[2017-10-03 05:54] LABS: ANION GAP 8.2 (7.0-16.0); BUN - UREA NITROGEN 44 mg/dL (7-25); CALCIUM SERUM 8.8 mg/dL (8.6-10.3); CARBON DIOXIDE 30.2 mEq/L (21.0-31.0); CHLORIDE 125 mEq/L (98-107); CREATININE - SERUM 1.2 mg/dL (0.7-1.3); GLUCOSE 85 mg/dL (70-105); POTASSIUM SERUM 3.4 mEq/L (3.5-5.1)
[2017-10-03 05:59] LABS: SODIUM SERUM 160 mEq/L (136-145)
[2017-10-03 06:52] LABS: TOTAL CELLS COUNTED 100
[2017-10-03 06:53] LABS: BAND NEUTROPHILE 9 % (0-10); BASOPHIL 0 % (0-3); EOSINOPHIL 0 % (0-5); LYMPHOCYTE 11 % (20-50); MONOCYTE 2 % (2-10); NEUTROPHILS 78 % (40-80)
[2017-10-03] MEDS: Albuterol Nebulizer 2.5mg/3mL HHN SCH ×4 (08:01→20:21)
[2017-10-03] MEDS: Ipratropium Neb 0.5 mg/2.5 mL UD IH SCH ×4 (08:01→20:20)
--- NOTE | 2017-10-03 08:14 | Diagnostic Imaging Report ---
CHEST X-RAY: AP view INDICATION: Shortness of breath COMPARISON: 10/01/2017 FINDINGS: Bilateral patchy infiltrates are seen involving the right midlung and left lower lobe. There may be trace left effusion. Exam is limited due to positioning. Borderline prominent heart is noted. IMPRESSION: Few bilateral patchy infiltrates greatest along the right midlung.
[2017-10-03] MEDS: Ferrous Sulfate 300 MG/5 ML UDC GT SCH ×2 (09:05→17:47)
[2017-10-03] MEDS: Lactobacillus Rhamnosus GG 15 Billion CFU CAP.SPRINK GT SCH (09:06)
[2017-10-03] MEDS ORDERED: Potassium Chloride 20 mEq ER Tab PO ONE (12:18)
[2017-10-03] MEDS ORDERED: Ipratropium Neb 0.5 mg/2.5 mL UD HHN ONE (12:44)
[2017-10-03] MEDS ORDERED: Albuterol Nebulizer 2.5mg/3mL HHN ONE (12:44)
[2017-10-03] MEDS: Dextrose 5% 1,000 ML IV SCH ×2 (13:12→22:48)
--- NOTE | 2017-10-03 15:09 | Internal Medicine Prog Note ---
Internal Medicine Subjective - Subjective Patient seen and examined:: with staff, chart reviewed Patient is:: awake, non-verbal, non-interactive, in bed Patient Complaints of:: congestion, cough Per staff patient has:: no adverse event, agitated, tolerating meds Internal Medicine Objective - Results Result Diagrams: 10/03/17 04:05 10/03/17 04:05 Recent Labs: Laboratory Last Values WBC 11.0 Th/cmm (4.8-10.8) H 10/03/17 04:05 RBC 3.26 Mil/cmm (3.80-5.80) L 10/03/17 04:05 Hgb 10.2 gm/dL (12-16) L 10/03/17 04:05 Hct 31.3 % (41.0-60) L 10/03/17 04:05 MCV 95.9 fl (80-99) 10/03/17 04:05 MCH 31.1 pg (27.0-31.0) H 10/03/17 04:05 MCHC Differential 32.5 pg (28.0-36.0) 10/03/17 04:05 RDW 15.1 % (11.5-20.0) 10/03/17 04:05 Plt Count 201 Th/cmm (150-400) 10/03/17 04:05 MPV 13.4 fl 10/03/17 04:05 Neutrophils % 89.6 % (40.0-80.0) H 10/02/17 03:15 Band Neutrophils % 9 % (0-10) 10/03/17 04:05 Lymphocytes % 7.6 % (20.0-50.0) L 10/02/17 03:15 Monocytes % 1.7 % (2.0-10.0) L 10/02/17 03:15 Eosinophils % 0.9 % (0.0-5.0) 10/02/17 03:15 Basophils % 0.2 % (0.0-2.0) 10/02/17 03:15 Neutrophils (Manual) 78 % (40-80) 10/03/17 04:05 Lymphocytes 11 % (20-50) L 10/03/17 04:05 Monocytes 2 % (2-10) 10/03/17 04:05 Eosinophils 0 % (0-5) 10/03/17 04:05 Basophils 0 % (0-3) 10/03/17 04:05 PT 12.4 SECONDS (9.5-11.5) H 09/29/17 17:30 INR 1.18 (0.5-1.4) 09/29/17 17:30 PTT (Actin FS) 26.6 SECONDS (26.0-38.0) 09/29/17 17:30 Specimen Source Arterial 10/01/17 00:15 Sample Site LEFT BRACHIAL 10/01/17 00:15 pH 7.44 (7.35-7.45) 10/01/17 00:15 pCO2 46.0 mmHg (35.0-45.0) H 10/01/17 00:15 pO2 80.0 mmHg (80.0-100.0) 10/01/17 00:15 HCO3 29.7 mEq/L (20.0-26.0) H 10/01/17 00:15 Base Excess 6.1 mEq/L (-3.0-3.0) H 10/01/17 00:15 O2 Saturation 96.0 % (92.0-100.0) 10/01/17 00:15 Naresh Test Positive 10/01/17 00:15 Vent Rate 12 10/01/17 00:15 Inspired O2 50 10/01/17 00:15 Tidal Volume NA 10/01/17 00:15 PEEP 6 10/01/17 00:15 Pressure (ins/psv/peep) 10 10/01/17 00:15 Critical Value SC 10/01/17 00:15 Sodium 160 mEq/L (136-145) H* 10/03/17 04:05 Potassium 3.4 mEq/L (3.5-5.1) L 10/03/17 04:05 Chloride 125 mEq/L (98-107) H 10/03/17 04:05 Carbon Dioxide 30.2 mEq/L (21.0-31.0) 10/03/17 04:05 Anion Gap 8.2 (7.0-16.0) 10/03/17 04:05 BUN 44 mg/dL (7-25) H 10/03/17 04:05 Creatinine 1.2 mg/dL (0.7-1.3) 10/03/17 04:05 Est GFR ( Amer) TNP 10/03/17 04:05 Est GFR (Non-Af Amer) TNP 10/03/17 04:05 BUN/Creatinine Ratio 36.7 10/03/17 04:05 Glucose 85 mg/dL (70-105) 10/03/17 04:05 Whole Bld Lactic Acid 3.84 mmol/L (0.60-1.99) H* 09/29/17 19:30 Calcium 8.8 mg/dL (8.6-10.3) 10/03/17 04:05 Total Bilirubin 0.2 mg/dL (0.3-1.0) L 09/29/17 17:30 AST 116 U/L (13-39) H 09/29/17 17:30 ALT 84 U/L (7-52) H 09/29/17 17:30 Alkaline Phosphatase 80 U/L (34-104) 09/29/17 17:30 Ammonia 25 umol/L (16-53) 09/30/17 05:00 Creatine Kinase 1042 U/L (30-223) H 09/29/17 17:30 CK-MB (CK-2) 2.0 ng/mL (0.6-6.3) 09/29/17 17:30 Troponin I 0.04 ng/mL (0.01-0.05) 09/29/17 17:30 B-Natriuretic Peptide 218.0 pg/mL (5.0-100.0) H 10/01/17 05:16 Total Protein 7.9 gm/dL (6.0-8.3) 09/29/17 17:30 Albumin 2.9 gm/dL (4.2-5.5) L 09/29/17 17:30 Globulin 5.0 gm/dL 09/29/17 17:30 Albumin/Globulin Ratio 0.6 (1.0-1.8) L 09/29/17 17:30 Vitamin B12 >1999 pg/mL (232-1245) H 09/30/17 05:00 Folic Acid >20.0 ng/mL (>3.0) 09/30/17 05:00 TSH 3.93 uIU/ml (0.34-5.60) 09/30/17 05:00 Urine Source CATH 10/02/17 18:00 Urine Color YELLOW 10/02/17 18:00 Urine Clarity CLEAR (CLEAR) 10/02/17 18:00 Urine pH 5.5 (4.6 - 8.0) 10/02/17 18:00 Ur Specific [place] 1.020 (1.005-1.030) 10/02/17 18:00 Urine Protein 30 mg/dL (NEGATIVE) H 10/02/17 18:00 Urine Glucose (UA) NEGATIVE mg/dL (NEGATIVE) 10/02/17 18:00 Urine Ketones NEGATIVE mg/dL (NEGATIVE) 10/02/17 18:00 Urine Blood MODERATE (NEGATIVE) H 10/02/17 18:00 Urine Nitrate NEGATIVE (NEGATIVE) 10/02/17 18:00 Urine Bilirubin NEGATIVE (NEGATIVE) 10/02/17 18:00 Urine Urobilinogen 0.2 E.U./dL (0.2 - 1.0) 10/02/17 18:00 Ur Leukocyte Esterase TRACE (NEGATIVE) H 10/02/17 18:00 Urine RBC NONE SEEN /hpf (0-5) 10/02/17 18:00 Urine WBC 2-5 /hpf (0-5) 10/02/17 18:00 Ur Epithelial Cells NONE SEEN /lpf (FEW) 10/02/17 18:00 Uric Acid Crystals MODERATE /hpf (NONE SEEN) 10/02/17 18:00 Urine Bacteria FEW /hpf (NONE SEEN) 10/02/17 18:00 Vancomycin Trough 12.1 ug/mL (5-10) H 10/02/17 09:00 - Physical Exam Vitals and I&O: Vital Signs Temp 97.2 F 10/03/17 12:00 Pulse 88 10/03/17 13:49 Resp 24 10/03/17 13:49 BP 117/52 10/03/17 12:00 Pulse Ox 100 10/03/17 13:49 Intake & Output 10/02/17 10/03/17 10/03/17 18:59 06:59 18:59 Intake Total 750 1200 100 Output Total 600 550 Balance 150 1200 -450 Weight (lbs) 57.153 kg 57.153 kg Intake: Intake, IV Amount 350 1200 Dextrose 5% 1,000 ml @ 80 1000 mls/hr IV .[id number] [facility] Rx#:[id number] Piperacillin Sodium/ 100 200 Tazobact 2.25 gm In Sodium Chloride 0.9% 100 ml @ 100 mls/hr IV Q8HR [facility] Rx#:[id number] Vancomycin HCl 1 gm In 250 Sodium Chloride 0.9% 250 ml @ 165 mls/hr IV Q36H [facility] Rx#:[id number] Tube Feeding 100 Other 400 Output: Urine 600 550 Stool 0 Other: # Bowel Movements 5 0 Stool Characteristics Soft Soft Mucoid Brown Brown Weight Source Bedscale Bedscale Active Medications: Current Medications Acetaminophen (Tylenol) 650 mg PO Q4H PRN PRN Reason: Pain Or Fever above 101 Stop: 11/28/17 21:52 Last Admin: 09/30/17 20:43 Dose: 650 mg Albuterol Sulfate (Albuterol 2.5mg/3ml Neb Ud) 2.5 mg HHN QIDRT [facility] Stop: 11/29/17 06:59 Last Admin: 10/03/17 12:00 Dose: 2.5 mg Albuterol Sulfate (Albuterol 2.5mg/3ml Neb Ud) 2.5 mg HHN Q2HRT PRN PRN Reason: Congestion Stop: 11/29/17 23:52 Ascorbic Acid (Vitamin C) 500 mg GT DAILY [facility] Stop: 11/29/17 08:59 Last Admin: 10/03/17 09:06 Dose: 500 mg Bisacodyl (Dulcolax 10 Mg Supp) 10 mg RC DAILY PRN PRN Reason: IF MOM NOT EFFECTIVE Stop: 11/28/17 21:50 Calamine/Phenol (Calmoseptine) 1 appl TP QID PRN PRN Reason: Skin Irritation Stop: 12/01/17 20:41 Docusate Sodium (Colace) 100 mg PO BID [facility] Stop: 11/29/17 08:59 Last Admin: 10/03/17 09:13 Dose: Not Given Donepezil HCl (Aricept) 10 mg GT HS [facility] Stop: 11/29/17 20:59 Last Admin: 10/02/17 20:42 Dose: 10 mg Ferrous Sulfate (Iron) 330 mg GT BID [facility] Stop: 11/29/17 08:59 Last Admin: 10/03/17 09:05 Dose: 330 mg Guaifenesin (Robitussin) 200 mg PO Q4HR PRN PRN Reason: Cough or Congestion Stop: 11/28/17 21:52 Heparin Sodium (Porcine) (Heparin) 5,000 units SUBQ Q12HR [facility] Stop: 11/29/17 08:59 Last Admin: 10/03/17 09:06 Dose: 5,000 units Norepinephrine Bitartrate 4 mg (/ Dextrose) 254 mls @ 19.05 mls/hr IV TITR PRN ; Protocol; 5 MCG/MIN PRN Reason: BP MAINTENANCE (PER PROTOCOL) Stop: 11/29/17 19:54 Last Titration: 10/01/17 08:00 Dose: 0 mcg/min, 0 mls/hr Dextrose (D5w) 1,000 mls @ 80 mls/hr IV .[id number] [facility] Stop: 12/01/17 14:58 Last Admin: 10/03/17 13:12 Dose: 80 mls/hr Vancomycin HCl 1 gm/ Sodium (Chloride) 250 mls @ 165 mls/hr IV Q24H [facility] Stop: 11/29/17 21:59 Piperacillin Sod/Tazobactam (Sod 3.375 gm/ Sodium Chloride) 50 mls @ 100 mls/ hr IV Q6HR [facility] Stop: 12/02/17 17:59 Ipratropium [place] (Atrovent Neb 0.5mg/2.5ml) 0.5 mg IH QIDRT [facility] Stop: 11/29/17 06:59 Last Admin: 10/03/17 12:00 Dose: 0.5 mg Lactobacillus Rhamnosus (Culturelle 15b) 1 each GT DAILY [facility] Stop: 11/30/17 08:59 Last Admin: 10/03/17 09:06 Dose: 1 each Lorazepam (Ativan) 0.5 mg IV Q6H PRN; Protocol PRN Reason: Agitation Stop: 11/30/17 19:24 Last Admin: 10/02/17 23:30 Dose: 0.5 mg Miscellaneous (Vte Chemical Prophylaxis Screen/ Admission) 1 ea PRN PRN PRN Reason: PROTOCOL Stop: 11/29/17 08:29 Miscellaneous (Vancomycin Iv Per Pharmacy) 1 ea PRN PRN PRN Reason: PROTOCOL Stop: 11/29/17 10:28 Miscellaneous (Probiotic Screen) 1 ea PRN PRN PRN Reason: PROTOCOL Stop: 11/29/17 12:14 Ondansetron HCl (Zofran) 4 mg IV Q8H PRN PRN Reason: Nausea / Vomiting Stop: 11/28/17 21:52 Sodium Phosphate (Fleet Enema) 135 ml RC DAILY PRN PRN Reason: IF DULCOLAX INEFFECTIVE Stop: 11/28/17 21:50 Tamsulosin HCl (Flomax) 0.4 mg GT DAILY [facility] Stop: 11/29/17 08:59 Last Admin: 10/03/17 09:06 Dose: 0.4 mg Valproate Sodium (Depakene) 750 mg GT BID [facility] PRN Reason: Protocol Stop: 11/29/17 08:59 Last Admin: 10/03/17 09:05 Dose: 750 mg General: weak, demented, other (confused) HEENT: NC/AT Neck: Supple, deformity Lungs: congested, rales, ronchi Cardiovascular: without murmur Abdomen: soft, non-tender, non-distended, +GT, positive bowel sound Extremities: excoriation, contracture Neurological: no change, unable to follow command - Procedures Procedures: Procedures Procedure Code Date ASSISTANCE WITH RESPIRATORY VENTILATION, <24 HRS, CPAP [id number] 09/29/17 POS AIRWAY PRESSURE CPAP 29630 09/29/17 Internal Medicine Assmt/Plan - Assessment Assessment: Assessment Assessment: pmn acute resp failure Lactic acidosis, sepsis Acute febrile illness Acute dehydration Acute renal failure Congestion - Plan Plan: ok to downgrade to telemetry continue with iv antibiotic respiratory treatments ivf for hydration continue current plan of care - Plan Plan: stable offf levophed cont on iv abx and bronchodilator tx crow rn Nutritional Asmnt/Malnutr-PDOC - Dietary Evaluation Malnutrition Findings (Please click <Entered> for more info): Nutritional Asmnt/Malnutrition Start: 09/30/17 14: 22 Text: Status: Complete Freq: Document 09/30/17 14:22 LCHENG (Rec: 09/30/17 14:42 LCHENG [email or web address]) Nutritional Asmnt/Malnutrition Patient General Information Nutritional Screening High Risk Diagnosis sepsis, fever Pertinent Medical Hx/Surgical Hx asthma/COPD, ESRD, seizrues, arthritis, dementia, PEG/Gtube Subjective Information Consult received for redness on buttocks and wound on knee. Pt seen lying in bed at time of visit. Spoke with nurse, pt is getting bolus feeding. Clarified with RN about feeding regimen. Current Diet Order/ Nutrition Support Fibersource bolus feeding 250ml x 5 daily Pertinent Medications vit C, D5w, colace, iron, culturelle, piperacillin, vancomycin Pertinent Labs 09/30 Na 168, K 4.2, Cl 129, BUN 91, Cr 1.9, glucose 113 Nutritional Hx/Data Height 1.75 m Height (Calculated Centimeters) 175.3 Current Weight (lbs) 54.431 kg Weight (Calculated Kilograms) 54.4 Weight (Calculated Grams) 96196.1 [place] Body Weight 160 Body Mass Index (BMI) 17.7 Weight Status Underweight GI Symptoms GI Symptoms None Last BM 09/30 Difficult in: None Skin Integrity/Comment: bruise to knee, pressure area to buttocks Estimated Nutritional Goals BEE in Kcals: Using Current wt Calories/Kcals/Kg 30-35 Kcals Calculated 0447-6262 Protein: Using Current wt Protein g/k-1.2 monitor renal labs Protein Calculated 56-67 Fluid: ml per MD Nutritional Problem 2. Problem Problem increased nutrition needs ( calorie and protein) Etiology increased metabolic demand Signs/Symptoms: dx of sepsis 1. Problem Problem altered nutrition related labs Etiology hx of ESRD Signs/Symptoms: Na 168, Cl 129, BUN 91, Cr 1.9 Intervention/Recommendation Comments 1. Recommend bolus feeding Fibersource HN 250ml x 5 daily . It provides 1250ml, 1500kcal , 67g protein, 1012ml free water, meeting 100% of nutritional needs. AVRIL Grey made aware. 2. Monitor TF tolerance, wt weekly, skin integrity and labs. 3. F/U as high risk in 2-3 days, 10/02-10/03 Expected Outcomes/Goals Expected Outcomes/Goals 1. Pt to meet at least 75% of nutritional needs via nutrition support with tolerance 2. Wt stability, skin to remain intact, labs to approach WNL.
[2017-10-04 06:01] LABS: % BASOPHILS 0.3 % (0.0-2.0); % EOSINOPHILS 1.6 % (0.0-5.0); % LYMPHOCYTES 9.3 % (20.0-50.0); % MONOCYTES 3.6 % (2.0-10.0); % NEUTROPHILS 85.2 % (40.0-80.0); EOSINOPHILE ABSOLUTE 0.2 Th/cmm (0.1-0.4); HEMATOCRIT 31.3 % (41.0-60); HEMOGLOBIN 10.1 gm/dL (12-16); LYMPHOCYTE ABSOLUTE 0.9 Th/cmm (1.5-3.0); MEAN CELL VOLUME 95.2 fl (80-99); MEAN CORPUSCULAR HEMOGLOBIN 30.7 pg (27.0-31.0); MEAN CORPUSCULAR HGB CONC 32.2 pg (28.0-36.0); MEAN PLATELET VOLUME 10.6 fl; MONOCYTE ABSOLUTE 0.4 Th/cmm (0.3-1.0); NEUTROPHILE ABSOLUTE 8.3 Th/cmm (1.8-8.0); PLATELET COUNT 117 Th/cmm (150-400); RED BLOOD COUNT 3.29 Mil/cmm (3.80-5.80); RED CELL DISTRIBUTION WIDTH 14.4 % (11.5-20.0); WHITE BLOOD COUNT 9.8 Th/cmm (4.8-10.8)
[2017-10-04 06:12] LABS: ANION GAP 7.7 (7.0-16.0); BUN - UREA NITROGEN 41 mg/dL (7-25); CALCIUM SERUM 8.5 mg/dL (8.6-10.3); CHLORIDE 127 mEq/L (98-107); CREATININE - SERUM 1.2 mg/dL (0.7-1.3); GLUCOSE 112 mg/dL (70-105); MAGNESIUM 2.8 mg/dL (1.9-2.7); POTASSIUM SERUM 3.7 mEq/L (3.5-5.1)
[2017-10-04 06:18] LABS: SODIUM SERUM 159 mEq/L (136-145)
[2017-10-04] MEDS: Albuterol Nebulizer 2.5mg/3mL HHN SCH ×4 (08:01→19:50)
[2017-10-04] MEDS: Ipratropium Neb 0.5 mg/2.5 mL UD IH SCH ×4 (08:01→19:50)
[2017-10-04] MEDS: Ferrous Sulfate 300 MG/5 ML UDC GT SCH ×2 (09:03→16:21)
[2017-10-04] MEDS: Lactobacillus Rhamnosus GG 15 Billion CFU CAP.SPRINK GT SCH (09:04)
[2017-10-04] MEDS ORDERED: Albumin 5% 12.5gm/250mL 12.5 GM/250 ML BTL IV ONE (11:42)
--- NOTE | 2017-10-04 11:46 | Internal Medicine Prog Note ---
Internal Medicine Subjective - Subjective Patient seen and examined:: with staff, chart reviewed, other (fever per staff, bp low) Patient is:: awake, non-verbal, non-interactive, in bed Patient Complaints of:: congestion, cough Per staff patient has:: no adverse event, agitated, tolerating meds Internal Medicine Objective - Results Result Diagrams: 10/04/17 05:05 10/04/17 05:05 Recent Labs: Laboratory Last Values WBC 9.8 Th/cmm (4.8-10.8) 10/04/17 05:05 RBC 3.29 Mil/cmm (3.80-5.80) L 10/04/17 05:05 Hgb 10.1 gm/dL (12-16) L 10/04/17 05:05 Hct 31.3 % (41.0-60) L 10/04/17 05:05 MCV 95.2 fl (80-99) 10/04/17 05:05 MCH 30.7 pg (27.0-31.0) 10/04/17 05:05 MCHC Differential 32.2 pg (28.0-36.0) 10/04/17 05:05 RDW 14.4 % (11.5-20.0) 10/04/17 05:05 Plt Count 117 Th/cmm (150-400) L 10/04/17 05:05 MPV 10.6 fl 10/04/17 05:05 Neutrophils % 85.2 % (40.0-80.0) H 10/04/17 05:05 Band Neutrophils % 9 % (0-10) 10/03/17 04:05 Lymphocytes % 9.3 % (20.0-50.0) L 10/04/17 05:05 Monocytes % 3.6 % (2.0-10.0) 10/04/17 05:05 Eosinophils % 1.6 % (0.0-5.0) 10/04/17 05:05 Basophils % 0.3 % (0.0-2.0) 10/04/17 05:05 Neutrophils (Manual) 78 % (40-80) 10/03/17 04:05 Lymphocytes 11 % (20-50) L 10/03/17 04:05 Monocytes 2 % (2-10) 10/03/17 04:05 Eosinophils 0 % (0-5) 10/03/17 04:05 Basophils 0 % (0-3) 10/03/17 04:05 PT 12.4 SECONDS (9.5-11.5) H 09/29/17 17:30 INR 1.18 (0.5-1.4) 09/29/17 17:30 PTT (Actin FS) 26.6 SECONDS (26.0-38.0) 09/29/17 17:30 Specimen Source Arterial 10/01/17 00:15 Sample Site LEFT BRACHIAL 10/01/17 00:15 pH 7.44 (7.35-7.45) 10/01/17 00:15 pCO2 46.0 mmHg (35.0-45.0) H 10/01/17 00:15 pO2 80.0 mmHg (80.0-100.0) 10/01/17 00:15 HCO3 29.7 mEq/L (20.0-26.0) H 10/01/17 00:15 Base Excess 6.1 mEq/L (-3.0-3.0) H 10/01/17 00:15 O2 Saturation 96.0 % (92.0-100.0) 10/01/17 00:15 Naresh Test Positive 10/01/17 00:15 Vent Rate 12 10/01/17 00:15 Inspired O2 50 10/01/17 00:15 Tidal Volume NA 10/01/17 00:15 PEEP 6 10/01/17 00:15 Pressure (ins/psv/peep) 10 10/01/17 00:15 Critical Value SC 10/01/17 00:15 Sodium 159 mEq/L (136-145) H* 10/04/17 05:05 Potassium 3.7 mEq/L (3.5-5.1) 10/04/17 05:05 Chloride 127 mEq/L (98-107) H 10/04/17 05:05 Carbon Dioxide 28.0 mEq/L (21.0-31.0) 10/04/17 05:05 Anion Gap 7.7 (7.0-16.0) 10/04/17 05:05 BUN 41 mg/dL (7-25) H 10/04/17 05:05 Creatinine 1.2 mg/dL (0.7-1.3) 10/04/17 05:05 Est GFR ( Amer) TNP 10/04/17 05:05 Est GFR (Non-Af Amer) TNP 10/04/17 05:05 BUN/Creatinine Ratio 34.2 10/04/17 05:05 Glucose 112 mg/dL (70-105) H 10/04/17 05:05 POC Glucose 94 MG/DL (70 - 105) 10/04/17 06:18 Whole Bld Lactic Acid 3.84 mmol/L (0.60-1.99) H* 09/29/17 19:30 Calcium 8.5 mg/dL (8.6-10.3) L 10/04/17 05:05 Magnesium 2.8 mg/dL (1.9-2.7) H 10/04/17 05:05 Total Bilirubin 0.2 mg/dL (0.3-1.0) L 09/29/17 17:30 AST 116 U/L (13-39) H 09/29/17 17:30 ALT 84 U/L (7-52) H 09/29/17 17:30 Alkaline Phosphatase 80 U/L (34-104) 09/29/17 17:30 Ammonia 51 umol/L (16-53) 10/04/17 06:10 Creatine Kinase 1042 U/L (30-223) H 09/29/17 17:30 CK-MB (CK-2) 2.0 ng/mL (0.6-6.3) 09/29/17 17:30 Troponin I 0.04 ng/mL (0.01-0.05) 09/29/17 17:30 B-Natriuretic Peptide 305.0 pg/mL (5.0-100.0) H 10/04/17 05:05 Total Protein 7.9 gm/dL (6.0-8.3) 09/29/17 17:30 Albumin 2.9 gm/dL (4.2-5.5) L 09/29/17 17:30 Globulin 5.0 gm/dL 09/29/17 17:30 Albumin/Globulin Ratio 0.6 (1.0-1.8) L 09/29/17 17:30 Vitamin B12 >1999 pg/mL (232-1245) H 09/30/17 05:00 Folic Acid >20.0 ng/mL (>3.0) 09/30/17 05:00 TSH 3.93 uIU/ml (0.34-5.60) 09/30/17 05:00 Urine Source CATH 10/02/17 18:00 Urine Color YELLOW 10/02/17 18:00 Urine Clarity CLEAR (CLEAR) 10/02/17 18:00 Urine pH 5.5 (4.6 - 8.0) 10/02/17 18:00 Ur Specific [place] 1.020 (1.005-1.030) 10/02/17 18:00 Urine Protein 30 mg/dL (NEGATIVE) H 10/02/17 18:00 Urine Glucose (UA) NEGATIVE mg/dL (NEGATIVE) 10/02/17 18:00 Urine Ketones NEGATIVE mg/dL (NEGATIVE) 10/02/17 18:00 Urine Blood MODERATE (NEGATIVE) H 10/02/17 18:00 Urine Nitrate NEGATIVE (NEGATIVE) 10/02/17 18:00 Urine Bilirubin NEGATIVE (NEGATIVE) 10/02/17 18:00 Urine Urobilinogen 0.2 E.U./dL (0.2 - 1.0) 10/02/17 18:00 Ur Leukocyte Esterase TRACE (NEGATIVE) H 10/02/17 18:00 Urine RBC NONE SEEN /hpf (0-5) 10/02/17 18:00 Urine WBC 2-5 /hpf (0-5) 10/02/17 18:00 Ur Epithelial Cells NONE SEEN /lpf (FEW) 10/02/17 18:00 Uric Acid Crystals MODERATE /hpf (NONE SEEN) 10/02/17 18:00 Urine Bacteria FEW /hpf (NONE SEEN) 10/02/17 18:00 Vancomycin Trough 12.1 ug/mL (5-10) H 10/02/17 09:00 - Physical Exam Vitals and I&O: Vital Signs Temp 99.1 F 10/04/17 08:00 Pulse 102 10/04/17 08:03 Resp 26 10/04/17 08:03 BP 84/51 10/04/17 08:00 Pulse Ox 85 10/04/17 08:03 Intake & Output 10/03/17 10/04/17 10/04/17 18:59 06:59 18:59 Intake Total 1300 818 Output Total 1050 Balance 250 818 Weight (lbs) 57.153 kg Intake: Intake, IV Amount 400 818 Dextrose 5% 1,000 ml @ 80 768 mls/hr IV .[id number] [facility] Rx#:[id number] Piperacillin Sodium/ 100 Tazobact 2.25 gm In Sodium Chloride 0.9% 100 ml @ 100 mls/hr IV Q8HR [facility] Rx#:[id number] Piperacillin Sodium/ 50 50 Tazobact 3.375 gm In Sodium Chloride 0.9% 50 ml @ 100 mls/hr IV Q6HR [facility] Rx#:[id number] Vancomycin HCl 1 gm In 250 Sodium Chloride 0.9% 250 ml @ 165 mls/hr IV Q24H [facility] Rx#:[id number] Tube Feeding 700 Other 200 Output: Urine 1050 Stool 0 Other: # Bowel Movements 0 Stool Characteristics Mucoid Weight Source Bedscale Active Medications: Current Medications Acetaminophen (Tylenol) 650 mg PO Q4H PRN PRN Reason: Pain Or Fever above 101 Stop: 11/28/17 21:52 Last Admin: 10/04/17 10:27 Dose: 650 mg Albuterol Sulfate (Albuterol 2.5mg/3ml Neb Ud) 2.5 mg HHN QIDRT [facility] Stop: 11/29/17 06:59 Last Admin: 10/04/17 08:01 Dose: 2.5 mg Albuterol Sulfate (Albuterol 2.5mg/3ml Neb Ud) 2.5 mg HHN Q2HRT PRN PRN Reason: Congestion Stop: 11/29/17 23:52 Ascorbic Acid (Vitamin C) 500 mg GT DAILY [facility] Stop: 11/29/17 08:59 Last Admin: 10/04/17 09:04 Dose: 500 mg Bisacodyl (Dulcolax 10 Mg Supp) 10 mg RC DAILY PRN PRN Reason: IF MOM NOT EFFECTIVE Stop: 11/28/17 21:50 Calamine/Phenol (Calmoseptine) 1 appl TP QID PRN PRN Reason: Skin Irritation Stop: 12/01/17 20:41 Docusate Sodium (Colace) 100 mg PO BID [facility] Stop: 11/29/17 08:59 Last Admin: 10/04/17 09:04 Dose: 100 mg Donepezil HCl (Aricept) 10 mg GT HS [facility] Stop: 11/29/17 20:59 Last Admin: 10/03/17 22:00 Dose: 10 mg Ferrous Sulfate (Iron) 330 mg GT BID [facility] Stop: 11/29/17 08:59 Last Admin: 10/04/17 09:03 Dose: 330 mg Guaifenesin (Robitussin) 200 mg PO Q4HR PRN PRN Reason: Cough or Congestion Stop: 11/28/17 21:52 Heparin Sodium (Porcine) (Heparin) 5,000 units SUBQ Q12HR [facility] Stop: 11/29/17 08:59 Last Admin: 10/04/17 09:05 Dose: Not Given Norepinephrine Bitartrate 4 mg (/ Dextrose) 254 mls @ 19.05 mls/hr IV TITR PRN ; Protocol; 5 MCG/MIN PRN Reason: BP MAINTENANCE (PER PROTOCOL) Stop: 11/29/17 19:54 Last Titration: 10/01/17 08:00 Dose: 0 mcg/min, 0 mls/hr Dextrose (D5w) 1,000 mls @ 80 mls/hr IV .[id number] [facility] Stop: 12/01/17 14:58 Last Admin: 10/03/17 22:48 Dose: 80 mls/hr Vancomycin HCl 1 gm/ Sodium (Chloride) 250 mls @ 165 mls/hr IV Q24H [facility] Stop: 11/29/17 21:59 Last Infusion: 10/03/17 17:31 Dose: Infused Piperacillin Sod/Tazobactam (Sod 3.375 gm/ Sodium Chloride) 50 mls @ 100 mls/ hr IV Q6HR [facility] Stop: 12/02/17 17:59 Last Admin: 10/04/17 05:37 Dose: 100 mls/hr Albumin Human (Albutein 5%) 12.5 gm in 250 mls @ 62.5 mls/hr IV X1 ONE Stop: 10/04/17 15:41 Ipratropium [place] (Atrovent Neb 0.5mg/2.5ml) 0.5 mg IH QIDRT [facility] Stop: 11/29/17 06:59 Last Admin: 10/04/17 08:01 Dose: 0.5 mg Lactobacillus Rhamnosus (Culturelle 15b) 1 each GT DAILY [facility] Stop: 11/30/17 08:59 Last Admin: 10/04/17 09:04 Dose: 1 each Lorazepam (Ativan) 0.5 mg IV Q6H PRN; Protocol PRN Reason: Agitation Stop: 11/30/17 19:24 Last Admin: 10/02/17 23:30 Dose: 0.5 mg Midodrine (Proamatine) 5 mg PO TID [facility] Stop: 12/03/17 13:59 Miscellaneous (Vte Chemical Prophylaxis Screen/ Admission) 1 ea PRN PRN PRN Reason: PROTOCOL Stop: 11/29/17 08:29 Miscellaneous (Vancomycin Iv Per Pharmacy) 1 ea PRN PRN PRN Reason: PROTOCOL Stop: 11/29/17 10:28 Miscellaneous (Probiotic Screen) 1 ea PRN PRN PRN Reason: PROTOCOL Stop: 11/29/17 12:14 Ondansetron HCl (Zofran) 4 mg IV Q8H PRN PRN Reason: Nausea / Vomiting Stop: 11/28/17 21:52 Sodium Phosphate (Fleet Enema) 135 ml RC DAILY PRN PRN Reason: IF DULCOLAX INEFFECTIVE Stop: 11/28/17 21:50 Tamsulosin HCl (Flomax) 0.4 mg GT DAILY [facility] Stop: 11/29/17 08:59 Last Admin: 10/04/17 09:04 Dose: 0.4 mg Valproate Sodium (Depakene) 750 mg GT BID [facility] PRN Reason: Protocol Stop: 11/29/17 08:59 Last Admin: 10/04/17 09:04 Dose: 750 mg General: weak, demented, other (confused) HEENT: NC/AT Neck: Supple, deformity Lungs: congested, rales, ronchi Cardiovascular: without murmur Abdomen: soft, non-tender, non-distended, +GT, positive bowel sound Extremities: excoriation, contracture Neurological: no change, unable to follow command - Procedures Procedures: Procedures Procedure Code Date ASSISTANCE WITH RESPIRATORY VENTILATION, <24 HRS, CPAP [id number] 09/29/17 POS AIRWAY PRESSURE CPAP 49840 09/29/17 Internal Medicine Assmt/Plan - Assessment Assessment: Assessment Assessment: pmn low bp acute resp failure Lactic acidosis, sepsis Acute febrile illness Acute dehydration Acute renal failure Congestion - Plan Plan: ok to downgrade to telemetry continue with iv antibiotic respiratory treatments ivf for hydration continue current plan of care - Plan Plan: stable offf levophed cont on iv abx and bronchodilator tx dw rn Nutritional Asmnt/Malnutr-PDOC - Dietary Evaluation Malnutrition Findings (Please click <Entered> for more info): Nutritional Asmnt/Malnutrition Start: 09/30/17 14: 22 Text: Status: Complete Freq: Document 09/30/17 14:22 RONEN (Rec: 09/30/17 14:42 RASHAWNJUAN DANIEL [id number]) Nutritional Asmnt/Malnutrition Patient General Information Nutritional Screening High Risk Diagnosis sepsis, fever Pertinent Medical Hx/Surgical Hx asthma/COPD, ESRD, seizrues, arthritis, dementia, PEG/Gtube Subjective Information Consult received for redness on buttocks and wound on knee. Pt seen lying in bed at time of visit. Spoke with nurse, pt is getting bolus feeding. Clarified with RN about feeding regimen. Current Diet Order/ Nutrition Support Fibersource bolus feeding 250ml x 5 daily Pertinent Medications vit C, D5w, colace, iron, culturelle, piperacillin, vancomycin Pertinent Labs 09/30 Na 168, K 4.2, Cl 129, BUN 91, Cr 1.9, glucose 113 Nutritional Hx/Data Height 1.75 m Height (Calculated Centimeters) 175.3 Current Weight (lbs) 54.431 kg Weight (Calculated Kilograms) 54.4 Weight (Calculated Grams) 49075.1 [place] Body Weight 160 Body Mass Index (BMI) 17.7 Weight Status Underweight GI Symptoms GI Symptoms None Last BM 09/30 Difficult in: None Skin Integrity/Comment: bruise to knee, pressure area to buttocks Estimated Nutritional Goals BEE in Kcals: Using Current wt Calories/Kcals/Kg 30-35 Kcals Calculated 2141-8550 Protein: Using Current wt Protein g/k-1.2 monitor renal labs Protein Calculated 56-67 Fluid: ml per MD Nutritional Problem 2. Problem Problem increased nutrition needs ( calorie and protein) Etiology increased metabolic demand Signs/Symptoms: dx of sepsis 1. Problem Problem altered nutrition related labs Etiology hx of ESRD Signs/Symptoms: Na 168, Cl 129, BUN 91, Cr 1.9 Intervention/Recommendation Comments 1. Recommend bolus feeding Fibersource HN 250ml x 5 daily . It provides 1250ml, 1500kcal , 67g protein, 1012ml free water, meeting 100% of nutritional needs. AVRIL Grey made aware. 2. Monitor TF tolerance, wt weekly, skin integrity and labs. 3. F/U as high risk in 2-3 days, 10/02-10/03 Expected Outcomes/Goals Expected Outcomes/Goals 1. Pt to meet at least 75% of nutritional needs via nutrition support with tolerance 2. Wt stability, skin to remain intact, labs to approach WNL.
[2017-10-04] MEDS: Linezolid 600mg/300mL 600 MG/300 ML BAG IV SCH (20:41)
[2017-10-05 05:34] LABS: EOSINOPHILE ABSOLUTE 0.5 Th/cmm (0.1-0.4); HEMOGLOBIN 11.1 gm/dL (12-16); MONOCYTE ABSOLUTE 0.5 Th/cmm (0.3-1.0); RED CELL DISTRIBUTION WIDTH 14.7 % (11.5-20.0)
[2017-10-05 05:36] LABS: % BASOPHILS 0.8 % (0.0-2.0); % EOSINOPHILS 3.6 % (0.0-5.0); % LYMPHOCYTES 7.4 % (20.0-50.0); % MONOCYTES 3.6 % (2.0-10.0); % NEUTROPHILS 84.6 % (40.0-80.0); BASOPHILE ABSOLUTE 0.1 Th/cumm (0-0.2); HEMATOCRIT 35.4 % (41.0-60); MEAN CELL VOLUME 95.8 fl (80-99); MEAN CORPUSCULAR HEMOGLOBIN 30.1 pg (27.0-31.0); MEAN CORPUSCULAR HGB CONC 31.5 pg (28.0-36.0); PLATELET COUNT 121 Th/cmm (150-400); RED BLOOD COUNT 3.69 Mil/cmm (3.80-5.80); WHITE BLOOD COUNT 14.1 Th/cmm (4.8-10.8)
[2017-10-05 06:09] LABS: ANION GAP 10.6 (7.0-16.0); CARBON DIOXIDE 27.4 mEq/L (21.0-31.0); CHLORIDE 123 mEq/L (98-107); SODIUM SERUM 157 mEq/L (136-145)
[2017-10-05 06:25] LABS: BUN - UREA NITROGEN 34 mg/dL (7-25); CALCIUM SERUM 8.6 mg/dL (8.6-10.3); GLUCOSE 73 mg/dL (70-105)
[2017-10-05] MEDS: Ipratropium Neb 0.5 mg/2.5 mL UD IH SCH ×4 (07:43→19:40)
[2017-10-05] MEDS: Albuterol Nebulizer 2.5mg/3mL HHN SCH ×4 (07:43→19:40)
[2017-10-05] MEDS: Lactobacillus Rhamnosus GG 15 Billion CFU CAP.SPRINK GT SCH (09:14)
[2017-10-05] MEDS: Ferrous Sulfate 300 MG/5 ML UDC GT SCH ×2 (09:14→16:33)
[2017-10-05] MEDS: Dextrose 5% 1,000 ML IV SCH ×2 (09:20→12:28)
--- NOTE | 2017-10-05 09:33 | Diagnostic Imaging Report ---
CHEST X-RAY: AP view INDICATION: Pneumonia COMPARISON: Chest x-ray 10/03/2017 FINDINGS: Chronic lung changes are seen with mild increase in bilateral patchy infiltrates greatest within the right upper lung. No effusions. Heart size is normal. IMPRESSION: Mild increasing bilateral patchy infiltrates, greatest within the right upper lung.
[2017-10-05] MEDS: Linezolid 600mg/300mL 600 MG/300 ML BAG IV SCH ×2 (11:02→20:37)
--- NOTE | 2017-10-05 11:43 | Internal Medicine Prog Note ---
Internal Medicine Subjective - Subjective Patient seen and examined:: with staff, chart reviewed Patient is:: awake, non-verbal, non-interactive, in bed Patient Complaints of:: congestion, cough Per staff patient has:: no adverse event, agitated, tolerating meds Internal Medicine Objective - Results Result Diagrams: 10/05/17 05:00 10/05/17 05:00 Recent Labs: Laboratory Last Values WBC 14.1 Th/cmm (4.8-10.8) H 10/05/17 05:00 RBC 3.69 Mil/cmm (3.80-5.80) L 10/05/17 05:00 Hgb 11.1 gm/dL (12-16) L 10/05/17 05:00 Hct 35.4 % (41.0-60) L 10/05/17 05:00 MCV 95.8 fl (80-99) 10/05/17 05:00 MCH 30.1 pg (27.0-31.0) 10/05/17 05:00 MCHC Differential 31.5 pg (28.0-36.0) 10/05/17 05:00 RDW 14.7 % (11.5-20.0) 10/05/17 05:00 Plt Count 121 Th/cmm (150-400) L 10/05/17 05:00 MPV 10.0 fl 10/05/17 05:00 Neutrophils % 84.6 % (40.0-80.0) H 10/05/17 05:00 Band Neutrophils % 9 % (0-10) 10/03/17 04:05 Lymphocytes % 7.4 % (20.0-50.0) L 10/05/17 05:00 Monocytes % 3.6 % (2.0-10.0) 10/05/17 05:00 Eosinophils % 3.6 % (0.0-5.0) 10/05/17 05:00 Basophils % 0.8 % (0.0-2.0) 10/05/17 05:00 Neutrophils (Manual) 78 % (40-80) 10/03/17 04:05 Lymphocytes 11 % (20-50) L 10/03/17 04:05 Monocytes 2 % (2-10) 10/03/17 04:05 Eosinophils 0 % (0-5) 10/03/17 04:05 Basophils 0 % (0-3) 10/03/17 04:05 PT 12.4 SECONDS (9.5-11.5) H 09/29/17 17:30 INR 1.18 (0.5-1.4) 09/29/17 17:30 PTT (Actin FS) 26.6 SECONDS (26.0-38.0) 09/29/17 17:30 Specimen Source Arterial 10/01/17 00:15 Sample Site LEFT BRACHIAL 10/01/17 00:15 pH 7.44 (7.35-7.45) 10/01/17 00:15 pCO2 46.0 mmHg (35.0-45.0) H 10/01/17 00:15 pO2 80.0 mmHg (80.0-100.0) 10/01/17 00:15 HCO3 29.7 mEq/L (20.0-26.0) H 10/01/17 00:15 Base Excess 6.1 mEq/L (-3.0-3.0) H 10/01/17 00:15 O2 Saturation 96.0 % (92.0-100.0) 10/01/17 00:15 Naresh Test Positive 10/01/17 00:15 Vent Rate 12 10/01/17 00:15 Inspired O2 50 10/01/17 00:15 Tidal Volume NA 10/01/17 00:15 PEEP 6 10/01/17 00:15 Pressure (ins/psv/peep) 10 10/01/17 00:15 Critical Value SC 10/01/17 00:15 Sodium 157 mEq/L (136-145) H 10/05/17 05:00 Potassium 4.0 mEq/L (3.5-5.1) 10/05/17 05:00 Chloride 123 mEq/L (98-107) H 10/05/17 05:00 Carbon Dioxide 27.4 mEq/L (21.0-31.0) 10/05/17 05:00 Anion Gap 10.6 (7.0-16.0) 10/05/17 05:00 BUN 34 mg/dL (7-25) H 10/05/17 05:00 Creatinine 1.0 mg/dL (0.7-1.3) 10/05/17 05:00 Est GFR ( Amer) TNP 10/05/17 05:00 Est GFR (Non-Af Amer) TNP 10/05/17 05:00 BUN/Creatinine Ratio 34.0 10/05/17 05:00 Glucose 73 mg/dL (70-105) 10/05/17 05:00 POC Glucose 94 MG/DL (70 - 105) 10/04/17 06:18 Whole Bld Lactic Acid 3.84 mmol/L (0.60-1.99) H* 09/29/17 19:30 Calcium 8.6 mg/dL (8.6-10.3) 10/05/17 05:00 Magnesium 2.8 mg/dL (1.9-2.7) H 10/04/17 05:05 Total Bilirubin 0.2 mg/dL (0.3-1.0) L 09/29/17 17:30 AST 116 U/L (13-39) H 09/29/17 17:30 ALT 84 U/L (7-52) H 09/29/17 17:30 Alkaline Phosphatase 80 U/L (34-104) 09/29/17 17:30 Ammonia 51 umol/L (16-53) 10/04/17 06:10 Creatine Kinase 1042 U/L (30-223) H 09/29/17 17:30 CK-MB (CK-2) 2.0 ng/mL (0.6-6.3) 09/29/17 17:30 Troponin I 0.04 ng/mL (0.01-0.05) 09/29/17 17:30 B-Natriuretic Peptide 303.0 pg/mL (5.0-100.0) H 10/05/17 05:00 Total Protein 7.9 gm/dL (6.0-8.3) 09/29/17 17:30 Albumin 2.9 gm/dL (4.2-5.5) L 09/29/17 17:30 Globulin 5.0 gm/dL 09/29/17 17:30 Albumin/Globulin Ratio 0.6 (1.0-1.8) L 09/29/17 17:30 Vitamin B12 >1999 pg/mL (232-1245) H 09/30/17 05:00 Folic Acid >20.0 ng/mL (>3.0) 09/30/17 05:00 TSH 3.93 uIU/ml (0.34-5.60) 09/30/17 05:00 Urine Source CATH 10/02/17 18:00 Urine Color YELLOW 10/02/17 18:00 Urine Clarity CLEAR (CLEAR) 10/02/17 18:00 Urine pH 5.5 (4.6 - 8.0) 10/02/17 18:00 Ur Specific [place] 1.020 (1.005-1.030) 10/02/17 18:00 Urine Protein 30 mg/dL (NEGATIVE) H 10/02/17 18:00 Urine Glucose (UA) NEGATIVE mg/dL (NEGATIVE) 10/02/17 18:00 Urine Ketones NEGATIVE mg/dL (NEGATIVE) 10/02/17 18:00 Urine Blood MODERATE (NEGATIVE) H 10/02/17 18:00 Urine Nitrate NEGATIVE (NEGATIVE) 10/02/17 18:00 Urine Bilirubin NEGATIVE (NEGATIVE) 10/02/17 18:00 Urine Urobilinogen 0.2 E.U./dL (0.2 - 1.0) 10/02/17 18:00 Ur Leukocyte Esterase TRACE (NEGATIVE) H 10/02/17 18:00 Urine RBC NONE SEEN /hpf (0-5) 10/02/17 18:00 Urine WBC 2-5 /hpf (0-5) 10/02/17 18:00 Ur Epithelial Cells NONE SEEN /lpf (FEW) 10/02/17 18:00 Uric Acid Crystals MODERATE /hpf (NONE SEEN) 10/02/17 18:00 Urine Bacteria FEW /hpf (NONE SEEN) 10/02/17 18:00 Vancomycin Trough 12.1 ug/mL (5-10) H 10/02/17 09:00 - Physical Exam Vitals and I&O: Vital Signs Temp 97.6 F 10/05/17 04:00 Pulse 75 10/05/17 11:41 Resp 18 10/05/17 11:41 BP 127/49 10/05/17 04:00 Pulse Ox 97 10/05/17 11:41 Intake & Output 10/04/17 10/05/17 10/05/17 18:59 06:59 18:59 Intake Total 2150 400 50 Output Total 600 350 Balance 1550 50 50 Weight (lbs) 57.153 kg 57.153 kg 57.153 kg Intake: Intake, IV Amount 1300 400 50 Albumin 5% 12.5gm/250mL 250 12.5 gm In 250 ml @ 62.5 mls/hr IV X1 [facility] Rx#: [id number] Dextrose 5% 1,000 ml @ 80 1000 mls/hr IV .[id number] [facility] Rx#:[id number] Linezolid 600mg/300mL 600 300 mg In 300 ml @ 300 mls/ hr IV Q12HR [facility] Rx#: [id number] Piperacillin Sodium/ 50 100 50 Tazobact 3.375 gm In Sodium Chloride 0.9% 50 ml @ 100 mls/hr IV Q6HR [facility] Rx#:[id number] Tube Feeding 600 Albumin 250 Output: Urine 600 350 Other: # Bowel Movements 2 Stool Characteristics Soft Soft Soft Brown Brown Brown Weight Source Bedscale Bedscale Bedscale Active Medications: Current Medications Acetaminophen (Tylenol) 650 mg PO Q4H PRN PRN Reason: Pain Or Fever above 101 Stop: 11/28/17 21:52 Last Admin: 10/04/17 10:27 Dose: 650 mg Albuterol Sulfate (Albuterol 2.5mg/3ml Neb Ud) 2.5 mg HHN QIDRT [facility] Stop: 11/29/17 06:59 Last Admin: 10/05/17 11:40 Dose: 2.5 mg Albuterol Sulfate (Albuterol 2.5mg/3ml Neb Ud) 2.5 mg HHN Q2HRT PRN PRN Reason: Congestion Stop: 11/29/17 23:52 Ascorbic Acid (Vitamin C) 500 mg GT DAILY [facility] Stop: 11/29/17 08:59 Last Admin: 10/05/17 09:14 Dose: 500 mg Bisacodyl (Dulcolax 10 Mg Supp) 10 mg RC DAILY PRN PRN Reason: IF MOM NOT EFFECTIVE Stop: 11/28/17 21:50 Calamine/Phenol (Calmoseptine) 1 appl TP QID PRN PRN Reason: Skin Irritation Stop: 12/01/17 20:41 Docusate Sodium (Colace) 100 mg PO BID [facility] Stop: 11/29/17 08:59 Last Admin: 10/05/17 09:15 Dose: 100 mg Donepezil HCl (Aricept) 10 mg GT HS [facility] Stop: 11/29/17 20:59 Last Admin: 10/04/17 22:02 Dose: 10 mg Ferrous Sulfate (Iron) 330 mg GT BID [facility] Stop: 11/29/17 08:59 Last Admin: 10/05/17 09:14 Dose: 330 mg Guaifenesin (Robitussin) 200 mg PO Q4HR PRN PRN Reason: Cough or Congestion Stop: 11/28/17 21:52 Heparin Sodium (Porcine) (Heparin) 5,000 units SUBQ Q12HR [facility] Stop: 11/29/17 08:59 Last Admin: 10/05/17 09:15 Dose: 5,000 units Norepinephrine Bitartrate 4 mg (/ Dextrose) 254 mls @ 19.05 mls/hr IV TITR PRN ; Protocol; 5 MCG/MIN PRN Reason: BP MAINTENANCE (PER PROTOCOL) Stop: 11/29/17 19:54 Last Titration: 10/01/17 08:00 Dose: 0 mcg/min, 0 mls/hr Dextrose (D5w) 1,000 mls @ 80 mls/hr IV .[id number] [facility] Stop: 12/01/17 14:58 Last Admin: 10/05/17 09:20 Dose: 80 mls/hr Piperacillin Sod/Tazobactam (Sod 3.375 gm/ Sodium Chloride) 50 mls @ 100 mls/ hr IV Q6HR [facility] Stop: 12/02/17 17:59 Last Infusion: 10/05/17 07:55 Dose: Infused Linezolid (Zyvox) 600 mg in 300 mls @ 300 mls/hr IV Q12HR [facility] Stop: 12/03/17 20:59 Last Admin: 10/05/17 11:02 Dose: 300 mls/hr Ipratropium [place] (Atrovent Neb 0.5mg/2.5ml) 0.5 mg IH QIDRT [facility] Stop: 11/29/17 06:59 Last Admin: 10/05/17 11:40 Dose: 0.5 mg Lactobacillus Rhamnosus (Culturelle 15b) 1 each GT DAILY ISAIAH Stop: 11/30/17 08:59 Last Admin: 10/05/17 09:14 Dose: 1 each Lorazepam (Ativan) 0.5 mg IV Q6H PRN; Protocol PRN Reason: Agitation Stop: 11/30/17 19:24 Last Admin: 10/02/17 23:30 Dose: 0.5 mg Midodrine (Proamatine) 5 mg PO TID [facility] Stop: 12/03/17 13:59 Last Admin: 10/05/17 09:14 Dose: 5 mg Miscellaneous (Vte Chemical Prophylaxis Screen/ Admission) 1 ea PRN PRN PRN Reason: PROTOCOL Stop: 11/29/17 08:29 Miscellaneous (Probiotic Screen) 1 ea PRN PRN PRN Reason: PROTOCOL Stop: 11/29/17 12:14 Ondansetron HCl (Zofran) 4 mg IV Q8H PRN PRN Reason: Nausea / Vomiting Stop: 11/28/17 21:52 Sodium Phosphate (Fleet Enema) 135 ml RC DAILY PRN PRN Reason: IF DULCOLAX INEFFECTIVE Stop: 11/28/17 21:50 Tamsulosin HCl (Flomax) 0.4 mg GT DAILY [facility] Stop: 11/29/17 08:59 Last Admin: 10/05/17 09:14 Dose: 0.4 mg Valproate Sodium (Depakene) 750 mg GT BID ISAIAH PRN Reason: Protocol Stop: 11/29/17 08:59 Last Admin: 10/05/17 09:13 Dose: 750 mg General: weak, demented, other (confused) HEENT: NC/AT Neck: Supple, deformity Lungs: congested, rales, ronchi Cardiovascular: without murmur Abdomen: soft, non-tender, non-distended, +GT, positive bowel sound Extremities: excoriation, contracture Neurological: no change, unable to follow command - Procedures Procedures: Procedures Procedure Code Date ASSISTANCE WITH RESPIRATORY VENTILATION, <24 HRS, CPAP [id number] 09/29/17 POS AIRWAY PRESSURE CPAP [id number] 09/29/17 Internal Medicine Assmt/Plan - Assessment Assessment: Assessment Assessment: pmn low bp acute resp failure Lactic acidosis, sepsis Acute febrile illness Acute dehydration Acute renal failure Congestion - Plan Plan: ok to downgrade to telemetry continue with iv antibiotic respiratory treatments ivf for hydration continue current plan of care - Plan Plan: stable offf levophed cont on iv abx and bronchodilator tx dw rn Nutritional Asmnt/Malnutr-PDOC - Dietary Evaluation Malnutrition Findings (Please click <Entered> for more info): Nutritional Asmnt/Malnutrition Start: 09/30/17 14: 22 Text: Status: Complete Freq: Document 09/30/17 14:22 LCHENG (Rec: 09/30/17 14:42 [email or web address]) Nutritional Asmnt/Malnutrition Patient General Information Nutritional Screening High Risk Diagnosis sepsis, fever Pertinent Medical Hx/Surgical Hx asthma/COPD, ESRD, seizrues, arthritis, dementia, PEG/Gtube Subjective Information Consult received for redness on buttocks and wound on knee. Pt seen lying in bed at time of visit. Spoke with nurse, pt is getting bolus feeding. Clarified with RN about feeding regimen. Current Diet Order/ Nutrition Support Fibersource bolus feeding 250ml x 5 daily Pertinent Medications vit C, D5w, colace, iron, culturelle, piperacillin, vancomycin Pertinent Labs 09/30 Na 168, K 4.2, Cl 129, BUN 91, Cr 1.9, glucose 113 Nutritional Hx/Data Height 1.75 m Height (Calculated Centimeters) 175.3 Current Weight (lbs) 54.431 kg Weight (Calculated Kilograms) 54.4 Weight (Calculated Grams) 34702.1 [place] Body Weight 160 Body Mass Index (BMI) 17.7 Weight Status Underweight GI Symptoms GI Symptoms None Last BM 09/30 Difficult in: None Skin Integrity/Comment: bruise to knee, pressure area to buttocks Estimated Nutritional Goals BEE in Kcals: Using Current wt Calories/Kcals/Kg 30-35 Kcals Calculated 2279-1789 Protein: Using Current wt Protein g/k-1.2 monitor renal labs Protein Calculated 56-67 Fluid: ml per MD Nutritional Problem 2. Problem Problem increased nutrition needs ( calorie and protein) Etiology increased metabolic demand Signs/Symptoms: dx of sepsis 1. Problem Problem altered nutrition related labs Etiology hx of ESRD Signs/Symptoms: Na 168, Cl 129, BUN 91, Cr 1.9 Intervention/Recommendation Comments 1. Recommend bolus feeding Fibersource HN 250ml x 5 daily . It provides 1250ml, 1500kcal , 67g protein, 1012ml free water, meeting 100% of nutritional needs. AVRIL Grey made aware. 2. Monitor TF tolerance, wt weekly, skin integrity and labs. 3. F/U as high risk in 2-3 days, 10/02-10/03 Expected Outcomes/Goals Expected Outcomes/Goals 1. Pt to meet at least 75% of nutritional needs via nutrition support with tolerance 2. Wt stability, skin to remain intact, labs to approach WNL.
[2017-10-06 05:58] LABS: % BASOPHILS 0.2 % (0.0-2.0); % LYMPHOCYTES 14.7 % (20.0-50.0); % MONOCYTES 6.1 % (2.0-10.0); EOSINOPHILE ABSOLUTE 0.5 Th/cmm (0.1-0.4); HEMATOCRIT 30.2 % (41.0-60); HEMOGLOBIN 10.2 gm/dL (12-16); LYMPHOCYTE ABSOLUTE 1.4 Th/cmm (1.5-3.0); MEAN CELL VOLUME 92.1 fl (80-99); MEAN CORPUSCULAR HGB CONC 33.7 pg (28.0-36.0); MEAN PLATELET VOLUME 12.5 fl; MONOCYTE ABSOLUTE 0.6 Th/cmm (0.3-1.0); NEUTROPHILE ABSOLUTE 7.1 Th/cmm (1.8-8.0); PLATELET COUNT 259 Th/cmm (150-400); RED BLOOD COUNT 3.28 Mil/cmm (3.80-5.80); RED CELL DISTRIBUTION WIDTH 13.9 % (11.5-20.0); WHITE BLOOD COUNT 9.6 Th/cmm (4.8-10.8)
[2017-10-06 06:40] LABS: ANION GAP 8.4 (7.0-16.0); BUN - UREA NITROGEN 31 mg/dL (7-25); CALCIUM SERUM 8.3 mg/dL (8.6-10.3); CARBON DIOXIDE 29.1 mEq/L (21.0-31.0); CHLORIDE 119 mEq/L (98-107); GLUCOSE 75 mg/dL (70-105); POTASSIUM SERUM 3.5 mEq/L (3.5-5.1); SODIUM SERUM 153 mEq/L (136-145)
[2017-10-06] MEDS: Albuterol Nebulizer 2.5mg/3mL HHN SCH ×4 (07:26→19:38)
[2017-10-06] MEDS: Ipratropium Neb 0.5 mg/2.5 mL UD IH SCH ×4 (07:27→19:38)
[2017-10-06] MEDS: Linezolid 600mg/300mL 600 MG/300 ML BAG IV SCH (08:21)
[2017-10-06] MEDS: Dextrose 5% 1,000 ML IV SCH (08:23)
[2017-10-06] MEDS: Ferrous Sulfate 300 MG/5 ML UDC GT SCH ×2 (08:24→17:11)
[2017-10-06] MEDS: Lactobacillus Rhamnosus GG 15 Billion CFU CAP.SPRINK GT SCH (08:24)
--- NOTE | 2017-10-07 00:31 | Discharge Summary ---
DATE OF DISCHARGE: 10/06/2017 CHIEF COMPLAINT: Fever. FINAL DIAGNOSES: Pneumonia, urinary tract infection, lactic acidosis, sepsis, acute febrile illness, acute dehydration, acute renal insufficiency, protein-calorie malnutrition, anemia, history of CVA, and arthritis. HISTORY: This is a 76-year-old male with mental retardation, cerebral palsy, brought in secondary to generalized weakness. The patient is admitted to telemetry for further management. PHYSICAL EXAMINATION: VITAL SIGNS: Blood pressure 117/86, respirations 18, pulse 91, temperature 97.3. GENERAL: An elderly male, appears chronically ill. NECK: Supple. No mass. LUNGS: Equal breath sounds, few rhonchi. HEART: Regular rate and rhythm with systolic ejection murmur. ABDOMEN: Soft, globular. EXTREMITIES: Positive excoriation. HOSPITAL COURSE: The patient was admitted to medical floor. He remained with sodium 161, BUN 65, creatinine 1.5. White count of 14. The patient grew VRE in the urine. Chest x-ray showed bilateral infiltrates. The patient was started on antibiotics of Rocephin IV. The patient did have a low blood pressure and decompensated pulmonary shea, was placed on BiPAP initially. The patient is not cleared for discharge back to the nursing facility and the patient to be referred to a long-term acute care. CONDITION ON DISCHARGE: Fair. OVERALL PROGNOSIS: Poor. DISCHARGE INSTRUCTIONS: The patient will be transferred to [place] for further management. JOB# [id number]
== END 2017-10-06 20:35 | DRG 871 ==
LOC: ER 15:35 → TELE 20:16 → ICU 09-30 19:30 → MSI 10-03 20:45 → TELE 10-04 18:57
PROVIDERS: ADMIT Internal Medicine; ATTEND Internal Medicine
PROC: 5A09457 Assistance with Respiratory Ventilation, 24-96 Consecutive Hours, Continuous Positive Airway Pressure (ICD-10-PCS; principal; 2017-10-01)
DX: A41.9 Sepsis, unspecified organism (principal); J18.9 Pneumonia, unspecified organism; N18.6 End stage renal disease; J96.00 Acute respiratory failure, unspecified whether with hypoxia or hypercapnia; N17.9 Acute kidney failure, unspecified; E46 Unspecified protein-calorie malnutrition; Z68.1 Body mass index [BMI] 19.9 or less, adult; N39.0 Urinary tract infection, site not specified; J44.9 Chronic obstructive pulmonary disease, unspecified; R56.9 Unspecified convulsions; F03.90 Unspecified dementia, unspecified severity, without behavioral disturbance, psychotic disturbance, mood disturbance, and anxiety; F79 Unspecified intellectual disabilities; E86.0 Dehydration; D64.9 Anemia, unspecified; M19.90 Unspecified osteoarthritis, unspecified site; Z86.73 Personal history of transient ischemic attack (TIA), and cerebral infarction without residual deficits; Z93.1 Gastrostomy status
CPT/HCPCS: 36415-UA; 71045-TC; 76770-TC; 80048-TC; 80053-TC; 80202-TC; 81001-TC; 82140-TC; 82550-TC; 82553; 82607-90; 82746-90; 82803-TC; 82948-90; 83605; 83735-TC; 83880-TC; 84443-TC; 84484-TC; 85007-TC; 85025-TC; 85027-TC; 85610-TC; 85730-TC; 87086-90; 90779; 94660; 94760; J1644; J1956; J2020; J2060; J2543; J3370; J7030; J7070; J7613; P9045; X6452; Z7610

== ENCOUNTER 2017-11-24 10:27 | Inpatient (IN) | payer MEDICARE, MEDICAID ==
--- NOTE | 2017-11-24 10:39 | ED Physician Chart ---
ED Chief Complaint/HPI - Patient Information Date Seen:: 11/24/17 Time Seen:: 10:25 Chief Complaint:: Dyspnea History of Present Illness:: onset x 2 days of dyspnea, fever, cough, and congestion; no report of trauma, H/ As, S/T, neck pain, C/P, Abd. Pain, A/N/V/D/C, chills, or urinary s/s Allergies:: Allergies Allergy/AdvReac Type Severity Reaction Status Date / Time No Known Allergies Allergy Verified 09/05/17 21:58 Historian:: Patient, EMS Review:: Nurse's Note Reviewed, Old Chart Reviewed, EMS run form Reviewed ED Review of Systems - Review of Systems General/Constitutional: Fever, No chills, No weight loss, No weakness, No diaphoresis, No edema, No loss of appetite Skin: No skin lesions, No rash, No bruising Head: No headache, No light-headedness Eyes: No loss of vision, No pain, No diplopia ENT: No earache, Nasal drainage, No sore throat, No tinnitus Neck: No neck pain, No swelling, No thyromegaly, No stiffness, No mass noted Cardio Vascular: No chest pain, No palpitations, No PND, No orthopnea, No edema Pulmonary: SOB, Cough, No sputum, No wheezing GI: No nausea, No vomiting, No diarrhea, No pain, No melena, No hematochezia, No constipation, No hematemesis G/U: No dysuria, No frequency, No hematuria, No nacturia Musculoskeletal: No bone or joint pain, No back pain, No muscle pain Endocrine: No polyuria, No polydipsia Psychiatric: No prior psych history, No depression, No anxiety, No suicidal ideation, No homicidal ideation, No auditory hallucination, No visual hallucination Hematopoietic: No bruising, No lymphadenopathy Allergic/Immuno: No urticaria, No angioedema Neurological: No syncope, No focal symptoms, No weakness, No paresthesia, No headache, No seizure, No dizziness, No confusion, No vertigo ED Past Medical History - Past Medical History Obtainable: Yes Past Medical History: HTN, Dyslipidemia, PUD/GERD, ESRD, Seizures, Dementia Family History: HTN Social History: Smoker, No Alcohol, No Drug Use, , Care Facility Surgical History: None Psychiatricy History: Dementia Medication: Reviewed Family Medical History - Family Member Mother History Unknown: Yes Ethnicity: Unknown Hx Family Cancer: (unable to assess) Hx Family Coronary Artery Disease: (unable to assess) ED Physical Exam - Physical Examination General/Constitutional: Awake, Well-developed, well-nourished, Alert, No distress, GCS 15, Non-toxic appearing, Ambulatory Head: Atraumatic Eyes: Lids, conjuctiva normal, PERRL, EOMI Skin: Nl inspection, No rash, No skin lesions, No ecchymosis, Well hydrated, No lymphadenopathy ENMT: External ears, nose nl, TM canals nl, Nasal exam nl, Lips, teeth, gums nl , Oropharynx nl, Tonsils nl Neck: Nontender, Full ROM w/o pain, No JVD, No nuchal rigidity, No bruit, No mass, No stridor Respiratory: Nl effort/Exclusion Other Respiratory comments:: Lungs: + Rales, Rhonchi, and Wheezes Cardio Vascular: RRR, No murmur, gallop, rubs, NL S1 S2, Carotid/Femoral/Distal pulses equal bilaterally GI: No tenderness/rebounding/guarding, No organomegaly, No hernia, Normal BS's, Nondistended, No mass/bruits, No McBurney tenderness, Rectum exam nl : No CVA tenderness Extremities: No tenderness or effusion, Full ROM, normal strength in all extremities, No edema, Normal digits & nails Neuro/Psych: DTR's symmetric, Normal sensory exam, Normal motor strength, Judgement/insight normal, Mood normal, Normal gait, No focal deficits Other Neuro/Psych comments:: Disoriented and Confused Misc: Normal back, No paraspinal tenderness ED Labs/Radiology/EKG Results - Lab Results Comments:: WBC: 23.3; NA+: 166; d-dIMER: 2440 - Radiology Results Comments:: CXR: COPD; ILD; ? Infiltrate - EKG Interpretations EKG Time:: 11:00 Rate & Rhythm: 114; ST Comments:: non-specific st-t changes ED Septic Shock - . Is Septic Shock (SBP<90, OR Lactate>4 mmol\L) present?: No ED Reassessment (Disposition) - Reassessment Reassessment Condition:: Improved - Diagnosis Diagnosis:: Dx: PNA; Dyspnea; Fever; Leukocytosis; Hypoxia; Hypernatremia; Dehydration - Aftercare/Follow up Instructions Aftercare/Follow-Up Instructions:: Counseled pt regarding lab results/diagnosis & need follow up, Counseled pt & family regarding lab results/diagnosis & need follow up - Patient Disposition Discharge/Transfer:: Acute Care w/in this hosp Accepting Physician:: Dr. Asencio Time Called:: 1130 Time Responded:: 11:30 Admitted to:: Telemetry Spoke to:: Dr. Asencio Admitting Medical Physician:: Dr. Asencio Condition at Disposition:: Stable, Improved
[2017-11-24 11:22] LABS: BASOPHILE ABSOLUTE 0.1 Th/cumm (0-0.2); HEMATOCRIT 40.2 % (41.0-60); HEMOGLOBIN 13.1 gm/dL (12-16); LYMPHOCYTE ABSOLUTE 1.1 Th/cmm (1.5-3.0); MANUAL DIFF REQUIRED? YES; MEAN CELL VOLUME 104.1 fl (80-99); MEAN CORPUSCULAR HEMOGLOBIN 33.9 pg (27.0-31.0); MEAN CORPUSCULAR HGB CONC 32.5 pg (28.0-36.0); MEAN PLATELET VOLUME 11.6 fl; MONOCYTE ABSOLUTE 0.6 Th/cmm (0.3-1.0); NEUTROPHILE ABSOLUTE 21.5 Th/cmm (1.8-8.0); PLATELET COUNT 339 Th/cmm (150-400); RED BLOOD COUNT 3.86 Mil/cmm (3.80-5.80)
[2017-11-24 11:36] LABS: WHITE BLOOD COUNT 23.3 Th/cmm (4.8-10.8)
[2017-11-24 11:46] LABS: ALB/GLOB RATIO 0.7 (1.0-1.8); ALBUMIN 3.1 gm/dL (4.2-5.5); ALKALINE PHOSPHATASE 66 U/L (34-104); ANION GAP 16.4 (7.0-16.0); BILIRUBIN,TOTAL 0.3 mg/dL (0.3-1.0); BUN - UREA NITROGEN 61 mg/dL (7-25); CALCIUM SERUM 9.4 mg/dL (8.6-10.3); CARBON DIOXIDE 30.5 mEq/L (21.0-31.0); CHLORIDE 124 mEq/L (98-107); CHOLESTEROL 70 mg/dL (<200); CREATININE - SERUM 1.6 mg/dL (0.7-1.3); CREATININE KINASE 554 U/L (30-223); GLUCOSE 114 mg/dL (70-105); HDL -HIGH DENSITY LIPOPROTEIN 12 mg/dL (23-92); POTASSIUM SERUM 4.9 mEq/L (3.5-5.1); SGOT 84 U/L (13-39); SGPT/ALT 58 U/L (7-52); TOTAL PROTEIN,SERUM 7.5 gm/dL (6.0-8.3); TRIGLYCERIDES 114 mg/dL (<150)
[2017-11-24 11:55] LABS: BAND NEUTROPHILE 14 % (0-10); LYMPHOCYTE 6 % (20-50); MONOCYTE 2 % (2-10); NEUTROPHILS 78 % (40-80); TOTAL CELLS COUNTED 100
[2017-11-24 11:57] LABS: ALLEN TEST Positive; pH 7.52 (7.35-7.45)
[2017-11-24 12:00] LABS: SODIUM SERUM 166 mEq/L (136-145)
[2017-11-24] MEDS ORDERED: Magnesium Hydroxide (MOM) 30 mL UDC PO PRN (12:03)
[2017-11-24] MEDS ORDERED: Fleet Enema 135 mL RC PRN (12:03)
[2017-11-24 12:06] LABS: DDIMER QUANT 2440 ng/mL (100-400)
[2017-11-24] MEDS ORDERED: Dextrose 5% 1,000 ML IV SCH (12:15)
[2017-11-24 12:32] LABS: INR 1.13 (0.5-1.4); PROTHROMBIN TIME (TEST) 11.9 SECONDS (9.5-11.5)
[2017-11-24] MEDS: Dextrose 5% 1,000 ML IV SCH (12:37)
--- NOTE | 2017-11-24 13:21 | Diagnostic Imaging Report ---
CHEST X-RAY: AP view INDICATION: pain COMPARISON: 10/05/2017 FINDINGS: Chronic lung changes are seen with overall improvement in bilateral infiltrates when compared to prior exam. Right upper lung zone linear density is noted. No effusions. Borderline prominent heart is noted. Atherosclerosis is noted. Degenerative changes spine are noted. IMPRESSION: Chronic lung changes with overall mild improvement in bilateral pulmonary infiltrates. Right upper lung zone linear densities probably related to subsegmental atelectasis or scarring. Note that a mild degree of pulmonary vascular congestion cannot be excluded. Clinical correlation is recommended. Atherosclerotic vascular disease.
[2017-11-24] MEDS ORDERED: Albuterol Nebulizer 2.5mg/3mL HHN SCH ×2 (15:00)
[2017-11-24] MEDS ORDERED: Ipratropium Neb 0.5 mg/2.5 mL UD IH SCH ×2 (15:00)
[2017-11-24] MEDS: Albuterol/Ipratropium Neb 3 ML AERS HHN SCH ×2 (15:31→19:25)
[2017-11-24] MEDS ORDERED: Pneumococcal Vaccine 0.5 mL Vial IM ONE (17:05)
[2017-11-24] MEDS: Ferrous Sulfate 300 MG/5 ML UDC GT SCH (17:46)
[2017-11-24] MEDS: guaiFENesin 200 MG/10 ML UDC PO PRN (21:52)
[2017-11-25] MEDS: Dextrose 5% 1,000 ML IV SCH ×2 (02:47→16:36)
[2017-11-25 05:27] LABS: HEMATOCRIT 33.8 % (41.0-60); HEMOGLOBIN 11.1 gm/dL (12-16); MANUAL DIFF REQUIRED? YES; MEAN CELL VOLUME 103.4 fl (80-99); MEAN CORPUSCULAR HEMOGLOBIN 33.8 pg (27.0-31.0); MEAN CORPUSCULAR HGB CONC 32.7 pg (28.0-36.0); MEAN PLATELET VOLUME 11.3 fl; PLATELET COUNT 345 Th/cmm (150-400); RED BLOOD COUNT 3.27 Mil/cmm (3.80-5.80); RED CELL DISTRIBUTION WIDTH 18.3 % (11.5-20.0)
[2017-11-25 05:34] LABS: WHITE BLOOD COUNT 21.6 Th/cmm (4.8-10.8)
[2017-11-25 05:45] LABS: ANION GAP 10.5 (7.0-16.0); BUN - UREA NITROGEN 55 mg/dL (7-25); CARBON DIOXIDE 31.7 mEq/L (21.0-31.0); CHLORIDE 123 mEq/L (98-107); CREATININE - SERUM 1.2 mg/dL (0.7-1.3); GLUCOSE 113 mg/dL (70-105); MAGNESIUM 3.4 mg/dL (1.9-2.7); POTASSIUM SERUM 4.2 mEq/L (3.5-5.1)
[2017-11-25 05:55] LABS: SODIUM SERUM 161 mEq/L (136-145)
[2017-11-25 06:46] LABS: BAND NEUTROPHILE 14 % (0-10); BASOPHIL 0 % (0-3); EOSINOPHIL 0 % (0-5); LYMPHOCYTE 8 % (20-50); MONOCYTE 1 % (2-10); NEUTROPHILS 77 % (40-80); TOTAL CELLS COUNTED 100
[2017-11-25] MEDS: Albuterol/Ipratropium Neb 3 ML AERS HHN SCH ×4 (07:12→19:29)
[2017-11-25] MEDS ORDERED: Probiotic Screen MC PRN (08:30)
--- NOTE | 2017-11-25 08:59 | Diagnostic Imaging Report ---
CHEST X-RAY: AP view INDICATION: Pneumonia COMPARISON: 11/24/2017 FINDINGS: Chronic lung changes are seen with superimposed interstitial infiltrates greatest in the left base. No effusions. Right midlung subsegmental atelectasis versus scarring is noted. Heart size borderline prominent. IMPRESSION: Chronic lung changes with superimposed interstitial infiltrates, greatest within left base.
[2017-11-25] MEDS: Lactobacillus Rhamnosus GG 15 Billion CFU CAP.SPRINK PO SCH (09:35)
[2017-11-25] MEDS: Ferrous Sulfate 300 MG/5 ML UDC GT SCH ×2 (09:36→16:32)
--- NOTE | 2017-11-25 12:37 | Internal Medicine Prog Note ---
Internal Medicine Subjective - Subjective Service Date: 11/25/17 ([facility] [id number]) Internal Medicine Objective - Results Result Diagrams: 11/25/17 05:00 11/25/17 05:00 Recent Labs: Laboratory Last Values WBC 21.6 Th/cmm (4.8-10.8) H* 11/25/17 05:00 RBC 3.27 Mil/cmm (3.80-5.80) L 11/25/17 05:00 Hgb 11.1 gm/dL (12-16) L 11/25/17 05:00 Hct 33.8 % (41.0-60) L D 11/25/17 05:00 MCV 103.4 fl (80-99) H 11/25/17 05:00 MCH 33.8 pg (27.0-31.0) H 11/25/17 05:00 MCHC Differential 32.7 pg (28.0-36.0) 11/25/17 05:00 RDW 18.3 % (11.5-20.0) 11/25/17 05:00 Plt Count 345 Th/cmm (150-400) 11/25/17 05:00 MPV 11.3 fl 11/25/17 05:00 Band Neutrophils % 14 % (0-10) H 11/25/17 05:00 Neutrophils (Manual) 77 % (40-80) 11/25/17 05:00 Lymphocytes 8 % (20-50) L 11/25/17 05:00 Monocytes 1 % (2-10) L 11/25/17 05:00 Eosinophils 0 % (0-5) 11/25/17 05:00 Basophils 0 % (0-3) 11/25/17 05:00 PT 11.9 SECONDS (9.5-11.5) H 11/24/17 12:10 INR 1.13 (0.5-1.4) 11/24/17 12:10 PTT (Actin FS) 25.2 SECONDS (26.0-38.0) L 11/24/17 12:10 D-Dimer 2440 ng/mL (100-400) H 11/24/17 10:15 Specimen Source Arterial 11/24/17 11:43 Sample Site Right Radial 11/24/17 11:43 pH 7.52 (7.35-7.45) H 11/24/17 11:43 pCO2 40.0 mmHg (35.0-45.0) 11/24/17 11:43 pO2 56.0 mmHg (80.0-100.0) L 11/24/17 11:43 HCO3 31.9 mEq/L (20.0-26.0) H 11/24/17 11:43 Base Excess 9.1 mEq/L (-3.0-3.0) H 11/24/17 11:43 O2 Saturation 92.0 % (92.0-100.0) 11/24/17 11:43 Naresh Test Positive 11/24/17 11:43 Vent Rate NA 11/24/17 11:43 Inspired O2 40 11/24/17 11:43 Tidal Volume NA 11/24/17 11:43 PEEP NA 11/24/17 11:43 Pressure (ins/psv/peep) NA 11/24/17 11:43 Critical Value LZHANG 11/24/17 11:43 Sodium 161 mEq/L (136-145) H* 11/25/17 05:00 Potassium 4.2 mEq/L (3.5-5.1) 11/25/17 05:00 Chloride 123 mEq/L (98-107) H 11/25/17 05:00 Carbon Dioxide 31.7 mEq/L (21.0-31.0) H 11/25/17 05:00 Anion Gap 10.5 (7.0-16.0) 11/25/17 05:00 BUN 55 mg/dL (7-25) H 11/25/17 05:00 Creatinine 1.2 mg/dL (0.7-1.3) 11/25/17 05:00 Est GFR ( Amer) TNP 11/25/17 05:00 Est GFR (Non-Af Amer) TNP 11/25/17 05:00 BUN/Creatinine Ratio 45.8 11/25/17 05:00 Glucose 113 mg/dL (70-105) H 11/25/17 05:00 Whole Bld Lactic Acid 2.45 mmol/L (0.60-1.99) H* 11/24/17 14:45 Calcium 9.0 mg/dL (8.6-10.3) 11/25/17 05:00 Magnesium 3.4 mg/dL (1.9-2.7) H 11/25/17 05:00 Total Bilirubin 0.3 mg/dL (0.3-1.0) 11/24/17 10:15 AST 84 U/L (13-39) H 11/24/17 10:15 ALT 58 U/L (7-52) H 11/24/17 10:15 Alkaline Phosphatase 66 U/L (34-104) 11/24/17 10:15 Ammonia 45 umol/L (16-53) 11/25/17 05:00 Creatine Kinase 554 U/L (30-223) H 11/24/17 10:15 CK-MB (CK-2) 12.1 ng/mL (0.6-6.3) H 11/24/17 10:15 Troponin I 0.04 ng/mL (0.01-0.05) 11/24/17 10:15 B-Natriuretic Peptide 165.0 pg/mL (5.0-100.0) H 11/24/17 10:15 Total Protein 7.5 gm/dL (6.0-8.3) 11/24/17 10:15 Albumin 3.1 gm/dL (4.2-5.5) L 11/24/17 10:15 Globulin 4.4 gm/dL 11/24/17 10:15 Albumin/Globulin Ratio 0.7 (1.0-1.8) L 11/24/17 10:15 Triglycerides 114 mg/dL (<150) 11/24/17 10:15 Cholesterol 70 mg/dL (<200) 11/24/17 10:15 LDL Cholesterol Direct 39 mg/dL (75-193) L 11/24/17 10:15 HDL Cholesterol 12 mg/dL (23-92) L 11/24/17 10:15 Urine Bilirubin [employer] 11/24/17 11:00 - Physical Exam Vitals and I&O: Vital Signs Temp 97.5 F 11/25/17 12:15 Pulse 98 11/25/17 12:15 Resp 20 11/25/17 12:15 BP 110/64 11/25/17 12:15 Pulse Ox 99 11/25/17 12:15 Intake & Output 11/24/17 11/25/17 11/25/17 18:59 06:59 18:59 Intake Total 387 1520 Balance 387 1520 Weight (lbs) 104 lb 4 oz 104 lb Intake: Intake, IV Amount 50 1000 Cefepime 1 gm In Dextrose 50 5% 50 ml @ 100 mls/hr IV Q12H [facility] Rx#:[id number] Dextrose 5% 1,000 ml @ 1000 100 mls/hr IV .Q10H [facility] Rx#:[id number] Oral 0 Tube Feeding 237 520 Other 100 Other: # Voids 2 3 # Bowel Movements 0 1 Stool Characteristics Soft Weight Source Bedscale Bedscale Active Medications: Current Medications Acetaminophen (Tylenol) 650 mg GT Q4H PRN PRN Reason: Pain (Mild) Stop: 01/23/18 12:02 Acetaminophen (Tylenol) 650 mg PO Q4H PRN PRN Reason: Pain Or Fever above 101 Stop: 01/23/18 12:04 Albuterol/Ipratropium (Duoneb Neb) 3 ml HHN QIDRT [facility] Stop: 01/23/18 14:59 Last Admin: 11/25/17 11:15 Dose: 3 ml Ascorbic Acid (Vitamin C) 500 mg GT DAILY [facility] Stop: 01/24/18 08:59 Last Admin: 11/25/17 10:00 Dose: 500 mg Bisacodyl (Dulcolax 10 Mg Supp) 10 mg RC DAILY PRN PRN Reason: IF MOM NOT EFFECTIVE Stop: 01/23/18 12:02 Docusate Sodium (Colace) 100 mg PO BID [facility] Stop: 01/23/18 16:59 Last Admin: 11/25/17 09:36 Dose: 100 mg Donepezil HCl (Aricept) 10 mg GT HS [facility] Stop: 01/23/18 20:59 Last Admin: 11/24/17 21:52 Dose: 10 mg Ferrous Sulfate (Iron) 300 mg GT BID [facility] Stop: 01/23/18 16:59 Last Admin: 11/25/17 09:36 Dose: 300 mg Guaifenesin (Robitussin) 200 mg PO Q4HR PRN PRN Reason: Cough or Congestion Stop: 01/23/18 12:04 Last Admin: 11/24/17 21:52 Dose: 200 mg Cefepime HCl 1 gm/ Dextrose 50 mls @ 100 mls/hr IV Q12H [facility] Stop: 01/23/18 13:59 Last Admin: 06/12/18 02:47 Dose: 100 mls/hr Dextrose (D5w) 1,000 mls @ 100 mls/hr IV .Q10H [facility] Stop: 01/23/18 12:59 Last Admin: 11/25/17 02:47 Dose: 100 mls/hr Vancomycin HCl 1.25 gm/ Sodium (Chloride) 250 mls @ 165 mls/hr IV Q24H [facility] Stop: 01/24/18 08:59 Last Admin: 11/25/17 10:00 Dose: 165 mls/hr Lactobacillus Rhamnosus (Culturelle 15b) 1 each PO DAILY [facility] Stop: 01/24/18 08:59 Last Admin: 11/25/17 09:35 Dose: 1 each Magnesium Hydroxide (Milk Of Magnesia) 30 ml PO Q72H PRN PRN Reason: IF NO BM Stop: 01/23/18 12:02 Miscellaneous (Vancomycin Iv Per Pharmacy) 1 ea PRN [facility] Stop: 01/23/18 12:14 Miscellaneous (Probiotic Screen) 1 [facility] PRN PRN PRN Reason: PROTOCOL Stop: 01/24/18 08:29 Ondansetron HCl (Zofran) 4 mg IV Q8H PRN PRN Reason: Nausea / Vomiting Stop: 01/23/18 12:04 Sodium Phosphate (Fleet Enema) 135 ml RC DAILY PRN PRN Reason: IF DULCOLAX INEFFECTIVE Stop: 01/23/18 12:02 Tamsulosin HCl (Flomax) 0.4 mg GT DAILY [facility] Stop: 01/24/18 08:59 Last Admin: 11/25/17 09:35 Dose: 0.4 mg Valproate Sodium (Depakene) 750 mg GT BID [facility]; Protocol Stop: 01/23/18 16:59 Last Admin: 11/25/17 09:36 Dose: 750 mg - Procedures Procedures: Procedures Procedure Code Date ASSISTANCE WITH RESPIRATORY VENTILATION, 24-96 HRS, CPAP [id number] 09/29/17 POS AIRWAY PRESSURE CPAP [id number] 09/29/17
--- NOTE | 2017-11-25 16:05 | History & Physical ---
ADMIT DATE: 11/25/2017 CHIEF COMPLAINT: Dyspnea. HISTORY OF PRESENT ILLNESS: This is a 76-year-old male who is a resident of [facility] who has a 2-day history of intermittent shortness of breath associated with fever, cough and congestion. For further management, the patient is admitted. PAST MEDICAL HISTORY: CVA, arthritis and dementia. PAST SURGICAL HISTORY: PEG. FAMILY HISTORY: Noncontributory. SOCIAL HISTORY: The patient is a care home resident, requiring 24-hour nursing care. MEDICATIONS: Please see medication list. REVIEW OF SYSTEMS: Unable to obtain due to patient's mental status. PHYSICAL EXAMINATION: GENERAL: Elderly male, appears chronically ill, in no apparent distress. VITAL SIGNS: Temperature 97.5, heart rate 98, blood pressure 110/64, respirations 20 and O2 99%. HEENT: Head; normocephalic and atraumatic. NECK: Supple. No mass. LUNGS: Scattered rhonchi. CARDIOVASCULAR: Regular rate and rhythm. ABDOMEN: Soft and nontender. LABORATORY DATA: WBC 21.6, H and H 11.1 and 33.8 and platelet of 345. Sodium 161, potassium 4.2, chloride 123, BUN 55, creatinine 1.2 and whole lactic acid of 2.45. DIAGNOSTIC DATA: The patient had a chest x-ray done, impression is chronic lung changes with superimposed interstitial infiltrates, greatest within the left base. ASSESSMENT: Acute febrile illness; pneumonia; sepsis; lactic acidosis, rule out sepsis; acute renal insufficiency, rule out dehydration; hypernatremia; mild protein-calorie malnutrition; anemia; history of cerebrovascular accident and arthritis. PLAN: Keep the patient on IV fluids for hydration, IV antibiotics of Maxipime 1 gram IV q. 12 hours. Get followup CBC, BMP for tomorrow morning. Will also get a followup chest x-ray and respiratory treatments as needed. We will also keep the patient on vancomycin per pharmacy to dose. We will continue to follow this patient. JOB# [id number]
[2017-11-25] MEDS: guaiFENesin 200 MG/10 ML UDC PO PRN (16:33)
[2017-11-26] MEDS: Dextrose 5% 1,000 ML IV SCH ×2 (06:22→16:38)
[2017-11-26 06:30] LABS: ANION GAP 8.6 (7.0-16.0); BUN - UREA NITROGEN 40 mg/dL (7-25); CALCIUM SERUM 8.9 mg/dL (8.6-10.3); CARBON DIOXIDE 31.3 mEq/L (21.0-31.0); CHLORIDE 117 mEq/L (98-107); GLUCOSE 92 mg/dL (70-105); POTASSIUM SERUM 3.9 mEq/L (3.5-5.1); SODIUM SERUM 153 mEq/L (136-145)
[2017-11-26] MEDS: Albuterol/Ipratropium Neb 3 ML AERS HHN SCH ×4 (06:58→19:05)
[2017-11-26 07:05] LABS: BASOPHILE ABSOLUTE 0.2 Th/cumm (0-0.2); HEMATOCRIT 32.7 % (41.0-60); HEMOGLOBIN 10.6 gm/dL (12-16); LYMPHOCYTE ABSOLUTE 0.8 Th/cmm (1.5-3.0); MEAN CELL VOLUME 103.2 fl (80-99); MEAN CORPUSCULAR HEMOGLOBIN 33.3 pg (27.0-31.0); MEAN CORPUSCULAR HGB CONC 32.3 pg (28.0-36.0); MEAN PLATELET VOLUME 12.7 fl; MONOCYTE ABSOLUTE 0.3 Th/cmm (0.3-1.0); NEUTROPHILE ABSOLUTE 19.2 Th/cmm (1.8-8.0); PLATELET COUNT 294 Th/cmm (150-400); RED BLOOD COUNT 3.17 Mil/cmm (3.80-5.80); RED CELL DISTRIBUTION WIDTH 18.5 % (11.5-20.0)
[2017-11-26 07:14] LABS: WHITE BLOOD COUNT 20.5 Th/cmm (4.8-10.8)
[2017-11-26 07:15] LABS: % BASOPHILS 0.9 % (0.0-2.0); % EOSINOPHILS 0.1 % (0.0-5.0); % LYMPHOCYTES 3.9 % (20.0-50.0); % MONOCYTES 1.4 % (2.0-10.0); % NEUTROPHILS 93.7 % (40.0-80.0)
[2017-11-26] MEDS: Ferrous Sulfate 300 MG/5 ML UDC GT SCH ×2 (10:17→16:39)
[2017-11-26] MEDS: Venelex 60gm Tube TP SCH (10:19)
[2017-11-26] MEDS: Lactobacillus Rhamnosus GG 15 Billion CFU CAP.SPRINK PO SCH (10:22)
[2017-11-26] MEDS ORDERED: VTE Chemical Prophylaxis Screen/Admission MC PRN (10:34)
--- NOTE | 2017-11-26 15:32 | Internal Medicine Prog Note ---
Internal Medicine Subjective - Subjective Service Date: 11/26/17 Patient seen and examined:: with staff Patient is:: awake, non-verbal Patient Complaints of:: congestion Per staff patient has:: tolerating meds Internal Medicine Objective - Results Result Diagrams: 11/26/17 05:45 11/26/17 05:45 Recent Labs: Laboratory Last Values WBC 20.5 Th/cmm (4.8-10.8) H* 11/26/17 05:45 RBC 3.17 Mil/cmm (3.80-5.80) L 11/26/17 05:45 Hgb 10.6 gm/dL (12-16) L 11/26/17 05:45 Hct 32.7 % (41.0-60) L 11/26/17 05:45 MCV 103.2 fl (80-99) H 11/26/17 05:45 MCH 33.3 pg (27.0-31.0) H 11/26/17 05:45 MCHC Differential 32.3 pg (28.0-36.0) 11/26/17 05:45 RDW 18.5 % (11.5-20.0) 11/26/17 05:45 Plt Count 294 Th/cmm (150-400) 11/26/17 05:45 MPV 12.7 fl 11/26/17 05:45 Neutrophils % 93.7 % (40.0-80.0) H 11/26/17 05:45 Band Neutrophils % 14 % (0-10) H 11/25/17 05:00 Lymphocytes % 3.9 % (20.0-50.0) L 11/26/17 05:45 Monocytes % 1.4 % (2.0-10.0) L 11/26/17 05:45 Eosinophils % 0.1 % (0.0-5.0) 11/26/17 05:45 Basophils % 0.9 % (0.0-2.0) 11/26/17 05:45 Neutrophils (Manual) 77 % (40-80) 11/25/17 05:00 Lymphocytes 8 % (20-50) L 11/25/17 05:00 Monocytes 1 % (2-10) L 11/25/17 05:00 Eosinophils 0 % (0-5) 11/25/17 05:00 Basophils 0 % (0-3) 11/25/17 05:00 PT 11.9 SECONDS (9.5-11.5) H 11/24/17 12:10 INR 1.13 (0.5-1.4) 11/24/17 12:10 PTT (Actin FS) 25.2 SECONDS (26.0-38.0) L 11/24/17 12:10 D-Dimer 2440 ng/mL (100-400) H 11/24/17 10:15 Specimen Source Arterial 11/24/17 11:43 Sample Site Right Radial 11/24/17 11:43 pH 7.52 (7.35-7.45) H 11/24/17 11:43 pCO2 40.0 mmHg (35.0-45.0) 11/24/17 11:43 pO2 56.0 mmHg (80.0-100.0) L 11/24/17 11:43 HCO3 31.9 mEq/L (20.0-26.0) H 11/24/17 11:43 Base Excess 9.1 mEq/L (-3.0-3.0) H 11/24/17 11:43 O2 Saturation 92.0 % (92.0-100.0) 11/24/17 11:43 Naresh Test Positive 11/24/17 11:43 Vent Rate NA 11/24/17 11:43 Inspired O2 40 11/24/17 11:43 Tidal Volume NA 11/24/17 11:43 PEEP NA 11/24/17 11:43 Pressure (ins/psv/peep) NA 11/24/17 11:43 Critical Value LZHANG 11/24/17 11:43 Sodium 153 mEq/L (136-145) H 11/26/17 05:45 Potassium 3.9 mEq/L (3.5-5.1) 11/26/17 05:45 Chloride 117 mEq/L (98-107) H 11/26/17 05:45 Carbon Dioxide 31.3 mEq/L (21.0-31.0) H 11/26/17 05:45 Anion Gap 8.6 (7.0-16.0) 11/26/17 05:45 BUN 40 mg/dL (7-25) H 11/26/17 05:45 Creatinine 1.0 mg/dL (0.7-1.3) 11/26/17 05:45 Est GFR ( Amer) TNP 11/26/17 05:45 Est GFR (Non-Af Amer) TNP 11/26/17 05:45 BUN/Creatinine Ratio 40.0 11/26/17 05:45 Glucose 92 mg/dL (70-105) 11/26/17 05:45 Whole Bld Lactic Acid 2.45 mmol/L (0.60-1.99) H* 11/24/17 14:45 Calcium 8.9 mg/dL (8.6-10.3) 11/26/17 05:45 Magnesium 3.4 mg/dL (1.9-2.7) H 11/25/17 05:00 Total Bilirubin 0.3 mg/dL (0.3-1.0) 11/24/17 10:15 AST 84 U/L (13-39) H 11/24/17 10:15 ALT 58 U/L (7-52) H 11/24/17 10:15 Alkaline Phosphatase 66 U/L (34-104) 11/24/17 10:15 Ammonia 45 umol/L (16-53) 11/25/17 05:00 Creatine Kinase 554 U/L (30-223) H 11/24/17 10:15 CK-MB (CK-2) 12.1 ng/mL (0.6-6.3) H 11/24/17 10:15 Troponin I 0.04 ng/mL (0.01-0.05) 11/24/17 10:15 B-Natriuretic Peptide 114.0 pg/mL (5.0-100.0) H 11/26/17 05:45 Total Protein 7.5 gm/dL (6.0-8.3) 11/24/17 10:15 Albumin 3.1 gm/dL (4.2-5.5) L 11/24/17 10:15 Globulin 4.4 gm/dL 11/24/17 10:15 Albumin/Globulin Ratio 0.7 (1.0-1.8) L 11/24/17 10:15 Triglycerides 114 mg/dL (<150) 11/24/17 10:15 Cholesterol 70 mg/dL (<200) 11/24/17 10:15 LDL Cholesterol Direct 39 mg/dL (75-193) L 11/24/17 10:15 HDL Cholesterol 12 mg/dL (23-92) L 11/24/17 10:15 Urine Bilirubin AMMONIA TECHNICIAN 11/24/17 11:00 Vancomycin Trough 17.4 ug/mL (5-10) H 11/26/17 08:00 - Physical Exam Vitals and I&O: Vital Signs Temp 99.1 F 11/26/17 12:00 Pulse 97 11/26/17 14:12 Resp 20 11/26/17 14:12 BP 108/63 11/26/17 12:00 Pulse Ox 94 11/26/17 14:12 Intake & Output 11/25/17 11/26/17 11/26/17 18:59 06:59 18:59 Intake Total 2250 1650 Balance 2250 1650 Weight (lbs) 104 lb 104 lb Intake: Intake, IV Amount 1300 1000 Cefepime 1 gm In Dextrose 50 5% 50 ml @ 100 mls/hr IV Q12H [facility] [place] Rx#:[id number] Dextrose 5% 1,000 ml @ 1000 1000 100 mls/hr IV .Q10H [facility] Rx#:[id number] Vancomycin HCl 1.25 gm In 250 Sodium Chloride 0.9% 250 ml @ 165 mls/hr IV Q24H [facility] [place] Rx#:[id number] Tube Feeding 750 650 Other 200 Other: # Voids 3 3 # Bowel Movements 1 1 Stool Characteristics Soft Soft Soft Weight Source Bedscale Bedscale Active Medications: Current Medications Acetaminophen (Tylenol) 650 mg GT Q4H PRN PRN Reason: Pain (Mild) Stop: 01/23/18 12:02 Acetaminophen (Tylenol) 650 mg PO Q4H PRN PRN Reason: Pain Or Fever above 101 Stop: 01/23/18 12:04 Albuterol/Ipratropium (Duoneb Neb) 3 ml HHN QIDRT [facility] Stop: 01/23/18 14:59 Last Admin: 11/26/17 14:12 Dose: 3 ml Ascorbic Acid (Vitamin C) 500 mg GT DAILY [facility] Stop: 01/24/18 08:59 Last Admin: 11/26/17 10:18 Dose: 500 mg Bisacodyl (Dulcolax 10 Mg Supp) 10 mg RC DAILY PRN PRN Reason: IF MOM NOT EFFECTIVE Stop: 01/23/18 12:02 [place] Oil/Austrian Balsam/Trypsin (Venelex) 1 appl TP DAILY ISAIAH Stop: 01/25/18 08:59 Last Admin: 11/26/17 10:19 Dose: 1 appl Docusate Sodium (Colace) 100 mg PO BID ISAIAH Stop: 01/23/18 16:59 Last Admin: 11/26/17 10:18 Dose: 100 mg Donepezil HCl (Aricept) 10 mg GT HS ISAIAH Stop: 01/23/18 20:59 Last Admin: 11/25/17 21:49 Dose: 10 mg Ferrous Sulfate (Iron) 300 mg GT BID ISAIAH Stop: 01/23/18 16:59 Last Admin: 11/26/17 10:17 Dose: 300 mg Guaifenesin (Robitussin) 200 mg PO Q4HR PRN PRN Reason: Cough or Congestion Stop: 01/23/18 12:04 Last Admin: 11/25/17 16:33 Dose: 200 mg Heparin Sodium (Porcine) (Heparin) 5,000 units SUBQ Q12HR [facility]AIA[facility] Stop: 01/25/18 20:59 Vancomycin HCl 1.25 gm/ Sodium (Chloride) 250 mls @ 165 mls/hr IV Q24H [facility] Stop: 01/24/18 08:59 Last Admin: 11/26/17 10:08 Dose: 165 mls/hr Piperacillin Sod/Tazobactam (Sod 4.5 gm/ Sodium Chloride) 100 mls @ 100 mls/hr IV Q8HR [facility] Stop: 01/25/18 12:59 Dextrose (D5w) 1,000 mls @ 70 mls/hr IV .[id number] [facility] Stop: 01/25/18 12:59 Lactobacillus Rhamnosus (Culturelle 15b) 1 each PO DAILY ISAIAH Stop: 01/24/18 08:59 Last Admin: 11/26/17 10:22 Dose: 1 each Magnesium Hydroxide (Milk Of Magnesia) 30 ml PO Q72H PRN PRN Reason: IF NO BM Stop: 01/23/18 12:02 Miscellaneous (Vancomycin Iv Per Pharmacy) 1 ea MC PRN ISAIAH Stop: 01/23/18 12:14 Miscellaneous (Probiotic Screen) 1 ea MC PRN PRN PRN Reason: PROTOCOL Stop: 01/24/18 08:29 Miscellaneous (Vte Chemical Prophylaxis Screen/ Admission) 1 ea MC PRN PRN PRN Reason: PROTOCOL Stop: 01/25/18 10:33 Mupirocin (Bactroban Oint) 1 appl NS BID [facility] Stop: 12/01/17 09:01 Ondansetron HCl (Zofran) 4 mg IV Q8H PRN PRN Reason: Nausea / Vomiting Stop: 01/23/18 12:04 Sodium Phosphate (Fleet Enema) 135 ml RC DAILY PRN PRN Reason: IF DULCOLAX INEFFECTIVE Stop: 01/23/18 12:02 Tamsulosin HCl (Flomax) 0.4 mg GT DAILY [facility] [place] Stop: 01/24/18 08:59 Last Admin: 11/26/17 10:22 Dose: 0.4 mg Valproate Sodium (Depakene) 750 mg GT BID [facility] [place]; Protocol Stop: 01/23/18 16:59 Last Admin: 11/26/17 10:16 Dose: 750 mg General: weak HEENT: NC/AT, PERRLA Neck: Supple Lungs: congested, ronchi Cardiovascular: RRR, without murmur Abdomen: soft, non-tender, non-distended, +GT Neurological: unable to follow command, bedbound - Procedures Procedures: Procedures Procedure Code Date ASSISTANCE WITH RESPIRATORY VENTILATION, 24-96 HRS, CPAP [id number] 09/29/17 POS AIRWAY PRESSURE CPAP 31920 09/29/17 Internal Medicine Assmt/Plan - Assessment Assessment: acute febrile illness pna sepsis acute renal insufficiency r/o dehydration mild protein calorie malnutrition anemia hx cva arthritis MRSA NARES - Plan Plan: continue ivf for hydration continue ivabx follow up labs in am frequent oral care continue current plan of care Nutritional Asmnt/Malnutr-PDOC - Dietary Evaluation Malnutrition Findings (Please click <Entered> for more info): Nutritional Asmnt/Malnutrition Start: 11/25/17 16: 03 Text: Status: Complete Freq: Protocol: Document 11/25/17 16:03 LCHENG (Rec: 11/25/17 16:23 CHIKISG [email or web address]) Nutritional Asmnt/Malnutrition Patient General Information Nutritional Screening High Risk Diagnosis fever, sepsis Pertinent Medical Hx/Surgical Hx HTN, dyslipidemia, PUD/GERD, ESRD, seizure, dementia Subjective Information Consult received for wound and gtube. Pt seen resting in bed at time of visit. Bolus feeding started this morning. Current Diet Order/ Nutrition Support Jevity 1.2 237ml q8hr Pertinent Medications vit C, D5w, colace, iron, culturelle, vancomycin Pertinent Labs 11/25 Na 161, K 4.2, Cl 276900, BUN 55, Cr 1.2, glucose 113, Mg 3.4 Nutritional Hx/Data Height 5 ft 11 in Height (Calculated Centimeters) 180.3 Current Weight (lbs) 104 lb Weight (Calculated Kilograms) 47.2 Weight (Calculated Grams) 59545.6 [place] Body Weight 172 Body Mass Index (BMI) 14.5 Weight Status Underweight GI Symptoms GI Symptoms None Last BM 11/25 Difficult in: None Skin Integrity/Comment: ulceration multiple sits. Estimated Nutritional Goals Calories/Kcals/Kg 27-32 adj wt 55kg Kcals Calculated 1485-52386 Protein g/k.2-1.4 Protein Calculated 66-77 Nutritional Problem 1. Problem Problem inadequte intake from enteral feeding Etiology TF volume inadequte Signs/Symptoms: TF only providing 60% of nutritional needs Malnutrition Alert Is there a minimum of two criteria No selected? Query Text:Check all the applicable criteria. A minimum of two criteria are recommended for diagnosis of either severe or non-severe malnutrition. Malnutrition Related to Morbid Obesity Malnutrition related to morbid obesity No Intervention/Recommendation Comments 1. Recommend Jevity 1.2 237ml x 5 daily. It provides 1422kcal, 64g protein, 960ml free water, meeting 100% of nutritional needs. AVRIL Grey notified. 2. Recommend Fox BID for wound healing. 3. Monitor TF tolerance, wt, skin integrity and labs 4. F/U as high risk in 2-3 days, 11/27-11/28 Expected Outcomes/Goals Expected Outcomes/Goals 1. Pt to meet at least 75% of nutritional needs via nutrition support with tolerance 2. Wt stability, skin integrity to improve, labs to approach WNL.
[2017-11-27 05:35] LABS: HEMATOCRIT 35.4 % (41.0-60); HEMOGLOBIN 11.2 gm/dL (12-16); MANUAL DIFF REQUIRED? YES; MEAN CORPUSCULAR HEMOGLOBIN 33.3 pg (27.0-31.0); MEAN CORPUSCULAR HGB CONC 31.7 pg (28.0-36.0); MEAN PLATELET VOLUME 11.4 fl; PLATELET COUNT 252 Th/cmm (150-400); RED BLOOD COUNT 3.37 Mil/cmm (3.80-5.80)
[2017-11-27 05:40] LABS: MEAN CELL VOLUME 105.1 fl (80-99); WHITE BLOOD COUNT 16.7 Th/cmm (4.8-10.8)
[2017-11-27 05:58] LABS: ANION GAP 12.4 (7.0-16.0); BUN - UREA NITROGEN 38 mg/dL (7-25); CALCIUM SERUM 9.2 mg/dL (8.6-10.3); CARBON DIOXIDE 26.1 mEq/L (21.0-31.0); CHLORIDE 124 mEq/L (98-107); CREATININE - SERUM 0.9 mg/dL (0.7-1.3); GLUCOSE 132 mg/dL (70-105); POTASSIUM SERUM 4.5 mEq/L (3.5-5.1)
[2017-11-27 06:03] LABS: SODIUM SERUM 158 mEq/L (136-145)
[2017-11-27] MEDS: Albuterol/Ipratropium Neb 3 ML AERS HHN SCH ×4 (07:15→19:08)
[2017-11-27 07:28] LABS: BAND NEUTROPHILE 5 % (0-10); LYMPHOCYTE 2 % (20-50); NEUTROPHILS 9 % (40-80); PLATELET ESTIMATE ADEQUATE (NORMAL); TOTAL CELLS COUNTED 84
[2017-11-27] MEDS: Dextrose 5% 1,000 ML IV SCH (07:43)
[2017-11-27] MEDS: Ferrous Sulfate 300 MG/5 ML UDC GT SCH (11:04)
[2017-11-27] MEDS: Lactobacillus Rhamnosus GG 15 Billion CFU CAP.SPRINK PO SCH (11:05)
--- NOTE | 2017-11-27 11:19 | Internal Medicine Prog Note ---
Internal Medicine Subjective - Subjective Service Date: 11/27/17 Patient seen and examined:: with staff Patient is:: awake, non-verbal Patient Complaints of:: congestion Per staff patient has:: tolerating meds Internal Medicine Objective - Results Result Diagrams: 11/27/17 05:20 11/27/17 05:20 Recent Labs: Laboratory Last Values WBC 16.7 Th/cmm (4.8-10.8) H 11/27/17 05:20 RBC 3.37 Mil/cmm (3.80-5.80) L 11/27/17 05:20 Hgb 11.2 gm/dL (12-16) L 11/27/17 05:20 Hct 35.4 % (41.0-60) L 11/27/17 05:20 MCV 105.1 fl (80-99) H 11/27/17 05:20 MCH 33.3 pg (27.0-31.0) H 11/27/17 05:20 MCHC Differential 31.7 pg (28.0-36.0) 11/27/17 05:20 RDW 18.0 % (11.5-20.0) 11/27/17 05:20 Plt Count 252 Th/cmm (150-400) 11/27/17 05:20 MPV 11.4 fl 11/27/17 05:20 Neutrophils % 93.7 % (40.0-80.0) H 11/26/17 05:45 Band Neutrophils % 5 % (0-10) 11/27/17 05:20 Lymphocytes % 3.9 % (20.0-50.0) L 11/26/17 05:45 Monocytes % 1.4 % (2.0-10.0) L 11/26/17 05:45 Eosinophils % 0.1 % (0.0-5.0) 11/26/17 05:45 Basophils % 0.9 % (0.0-2.0) 11/26/17 05:45 Neutrophils (Manual) 9 % (40-80) L 11/27/17 05:20 Lymphocytes 2 % (20-50) L 11/27/17 05:20 Monocytes 1 % (2-10) L 11/25/17 05:00 Eosinophils 0 % (0-5) 11/25/17 05:00 Basophils 0 % (0-3) 11/25/17 05:00 Platelet Estimate ADEQUATE (NORMAL) 11/27/17 05:20 PT 11.9 SECONDS (9.5-11.5) H 11/24/17 12:10 INR 1.13 (0.5-1.4) 11/24/17 12:10 PTT (Actin FS) 25.2 SECONDS (26.0-38.0) L 11/24/17 12:10 D-Dimer 2440 ng/mL (100-400) H 11/24/17 10:15 Specimen Source Arterial 11/24/17 11:43 Sample Site Right Radial 11/24/17 11:43 pH 7.52 (7.35-7.45) H 11/24/17 11:43 pCO2 40.0 mmHg (35.0-45.0) 11/24/17 11:43 pO2 56.0 mmHg (80.0-100.0) L 11/24/17 11:43 HCO3 31.9 mEq/L (20.0-26.0) H 11/24/17 11:43 Base Excess 9.1 mEq/L (-3.0-3.0) H 11/24/17 11:43 O2 Saturation 92.0 % (92.0-100.0) 11/24/17 11:43 Naresh Test Positive 11/24/17 11:43 Vent Rate NA 11/24/17 11:43 Inspired O2 40 11/24/17 11:43 Tidal Volume NA 11/24/17 11:43 PEEP NA 11/24/17 11:43 Pressure (ins/psv/peep) NA 11/24/17 11:43 Critical Value LZHANG 11/24/17 11:43 Sodium 158 mEq/L (136-145) H 11/27/17 05:20 Potassium 4.5 mEq/L (3.5-5.1) 11/27/17 05:20 Chloride 124 mEq/L (98-107) H 11/27/17 05:20 Carbon Dioxide 26.1 mEq/L (21.0-31.0) 11/27/17 05:20 Anion Gap 12.4 (7.0-16.0) 11/27/17 05:20 BUN 38 mg/dL (7-25) H 11/27/17 05:20 Creatinine 0.9 mg/dL (0.7-1.3) 11/27/17 05:20 Est GFR ( Amer) TNP 11/27/17 05:20 Est GFR (Non-Af Amer) TNP 11/27/17 05:20 BUN/Creatinine Ratio 42.2 11/27/17 05:20 Glucose 132 mg/dL (70-105) H 11/27/17 05:20 Whole Bld Lactic Acid 2.45 mmol/L (0.60-1.99) H* 11/24/17 14:45 Calcium 9.2 mg/dL (8.6-10.3) 11/27/17 05:20 Magnesium 3.4 mg/dL (1.9-2.7) H 11/25/17 05:00 Total Bilirubin 0.3 mg/dL (0.3-1.0) 11/24/17 10:15 AST 84 U/L (13-39) H 11/24/17 10:15 ALT 58 U/L (7-52) H 11/24/17 10:15 Alkaline Phosphatase 66 U/L (34-104) 11/24/17 10:15 Ammonia 45 umol/L (16-53) 11/25/17 05:00 Creatine Kinase 554 U/L (30-223) H 11/24/17 10:15 CK-MB (CK-2) 12.1 ng/mL (0.6-6.3) H 11/24/17 10:15 Troponin I 0.04 ng/mL (0.01-0.05) 11/24/17 10:15 B-Natriuretic Peptide 114.0 pg/mL (5.0-100.0) H 11/26/17 05:45 Total Protein 7.5 gm/dL (6.0-8.3) 11/24/17 10:15 Albumin 3.1 gm/dL (4.2-5.5) L 11/24/17 10:15 Globulin 4.4 gm/dL 11/24/17 10:15 Albumin/Globulin Ratio 0.7 (1.0-1.8) L 11/24/17 10:15 Triglycerides 114 mg/dL (<150) 11/24/17 10:15 Cholesterol 70 mg/dL (<200) 11/24/17 10:15 LDL Cholesterol Direct 39 mg/dL (75-193) L 11/24/17 10:15 HDL Cholesterol 12 mg/dL (23-92) L 11/24/17 10:15 Urine Bilirubin [employer] DIPPER 11/24/17 11:00 Vancomycin Trough 17.4 ug/mL (5-10) H 11/26/17 08:00 - Physical Exam Vitals and I&O: Vital Signs Temp 96.0 F 11/27/17 08:06 Pulse 96 11/27/17 08:06 Resp 19 11/27/17 08:06 BP 94/54 11/27/17 08:06 Pulse Ox 98 11/27/17 08:06 Intake & Output 11/26/17 11/27/17 11/27/17 18:59 06:59 18:59 Intake Total 250 931.667 Balance 250 931.667 Weight (lbs) 139 lb 3.2 oz Intake: Intake, IV Amount 250 81.667 Piperacillin Sodium/ 81.667 Tazobact 4.5 gm In Sodium Chloride 0.9% 100 ml @ 100 mls/hr IV Q8HR [facility] Rx #:[id number] Vancomycin HCl 1.25 gm In 250 Sodium Chloride 0.9% 250 ml @ 165 mls/hr IV Q24H [facility] Rx#:[id number] Tube Feeding 650 Other 200 Other: # Voids 3 # Bowel Movements 2 Stool Characteristics Soft Soft Weight Source Bedscale Active Medications: Current Medications Acetaminophen (Tylenol) 650 mg GT Q4H PRN PRN Reason: Pain (Mild) Stop: 01/23/18 12:02 Acetaminophen (Tylenol) 650 mg PO Q4H PRN PRN Reason: Pain Or Fever above 101 Stop: 01/23/18 12:04 Albuterol/Ipratropium (Duoneb Neb) 3 ml HHN QIDRT [facility] Stop: 01/23/18 14:59 Last Admin: 11/27/17 07:15 Dose: 3 ml Ascorbic Acid (Vitamin C) 500 mg GT DAILY [facility] Stop: 01/24/18 08:59 Last Admin: 11/27/17 11:06 Dose: 500 mg Bisacodyl (Dulcolax 10 Mg Supp) 10 mg RC DAILY PRN PRN Reason: IF MOM NOT EFFECTIVE Stop: 01/23/18 12:02 [place] Oil/[place]udian Balsam/Trypsin (Venelex) 1 appl TP DAILY ISAIAH Stop: 01/25/18 08:59 Last Admin: 11/26/17 10:19 Dose: 1 appl Docusate Sodium (Colace) 100 mg PO BID ISAIAH Stop: 01/23/18 16:59 Last Admin: 11/27/17 11:05 Dose: Not Given Donepezil HCl (Aricept) 10 mg GT HS ISAIAH Stop: 01/23/18 20:59 Last Admin: 11/26/17 22:02 Dose: 10 mg Ferrous Sulfate (Iron) 300 mg GT BID ISAIAH Stop: 01/23/18 16:59 Last Admin: 11/27/17 11:04 Dose: 300 mg Guaifenesin (Robitussin) 200 mg PO Q4HR PRN PRN Reason: Cough or Congestion Stop: 01/23/18 12:04 Last Admin: 11/25/17 16:33 Dose: 200 mg Heparin Sodium (Porcine) (Heparin) 5,000 units SUBQ Q12HR [facility] Stop: 01/25/18 20:59 Last Admin: 11/27/17 11:04 Dose: 5,000 units Vancomycin HCl 1.25 gm/ Sodium (Chloride) 250 mls @ 165 mls/hr IV Q24H [facility] Stop: 01/24/18 08:59 Last Admin: 11/27/17 11:06 Dose: 165 mls/hr Piperacillin Sod/Tazobactam (Sod 4.5 gm/ Sodium Chloride) 100 mls @ 100 mls/hr IV Q8HR [facility]H Stop: 01/25/18 12:59 Last Admin: 11/27/17 06:59 Dose: 100 mls/hr Dextrose (D5w) 1,000 mls @ 70 mls/hr IV .[id number] [facility]AIAH Stop: 01/25/18 12:59 Last Admin: 11/27/17 07:43 Dose: 70 mls/hr Lactobacillus Rhamnosus (Culturelle 15b) 1 each PO DAILY ISAIAH Stop: 01/24/18 08:59 Last Admin: 11/27/17 11:05 Dose: 1 each Magnesium Hydroxide (Milk Of Magnesia) 30 ml PO Q72H PRN PRN Reason: IF NO BM Stop: 01/23/18 12:02 Miscellaneous (Vancomycin Iv Per Pharmacy) 1 ea MC PRN ISAIAH Stop: 01/23/18 12:14 Miscellaneous (Probiotic Screen) 1 ea PRN PRN PRN Reason: PROTOCOL Stop: 01/24/18 08:29 Miscellaneous (Vte Chemical Prophylaxis Screen/ Admission) 1 ea PRN PRN PRN Reason: PROTOCOL Stop: 01/25/18 10:33 Mupirocin (Bactroban Oint) 1 appl NS BID [facility] Stop: 12/01/17 09:01 Last Admin: 11/26/17 17:02 Dose: 1 appl Ondansetron HCl (Zofran) 4 mg IV Q8H PRN PRN Reason: Nausea / Vomiting Stop: 01/23/18 12:04 Sodium Phosphate (Fleet Enema) 135 ml RC DAILY PRN PRN Reason: IF DULCOLAX INEFFECTIVE Stop: 01/23/18 12:02 Tamsulosin HCl (Flomax) 0.4 mg GT DAILY [facility] Stop: 01/24/18 08:59 Last Admin: 11/27/17 11:05 Dose: 0.4 mg Valproate Sodium (Depakene) 750 mg GT BID [facility]; Protocol Stop: 01/23/18 16:59 Last Admin: 11/27/17 11:04 Dose: 750 mg General: weak HEENT: NC/AT, PERRLA Neck: Supple Lungs: congested, ronchi Cardiovascular: RRR, without murmur Abdomen: soft, non-tender, non-distended, +GT Neurological: unable to follow command, bedbound - Procedures Procedures: Procedures Procedure Code Date ASSISTANCE WITH RESPIRATORY VENTILATION, 24-96 HRS, CPAP [id number] 09/29/17 POS AIRWAY PRESSURE CPAP [id number] 09/29/17 Internal Medicine Assmt/Plan - Assessment Assessment: acute febrile illness pna sepsis acute renal insufficiency r/o dehydration mild protein calorie malnutrition anemia hx cva arthritis MRSA NARES - Plan Plan: LTAC EVAL continue ivf for hydration continue ivabx follow up labs in am frequent oral care continue current plan of care Nutritional Asmnt/Malnutr-PDOC - Dietary Evaluation Malnutrition Findings (Please click <Entered> for more info): Nutritional Asmnt/Malnutrition Start: 11/25/17 16: 03 Text: Status: Complete Freq: Protocol: Document 11/25/17 16:03 RONEN (Rec: 11/25/17 16:23 RONEN [email or web address]) Nutritional Asmnt/Malnutrition Patient General Information Nutritional Screening High Risk Diagnosis fever, sepsis Pertinent Medical Hx/Surgical Hx HTN, dyslipidemia, PUD/GERD, ESRD, seizure, dementia Subjective Information Consult received for wound and gtube. Pt seen resting in bed at time of visit. Bolus feeding started this morning. Current Diet Order/ Nutrition Support Jevity 1.2 237ml q8hr Pertinent Medications vit C, D5w, colace, iron, culturelle, vancomycin Pertinent Labs 11/25 Na 161, K 4.2, Cl 469923, BUN 55, Cr 1.2, glucose 113, Mg 3.4 Nutritional Hx/Data Height 5 ft 11 in Height (Calculated Centimeters) 180.3 Current Weight (lbs) 104 lb Weight (Calculated Kilograms) 47.2 Weight (Calculated Grams) 84680.6 [place] Body Weight 172 Body Mass Index (BMI) 14.5 Weight Status Underweight GI Symptoms GI Symptoms None Last BM 11/25 Difficult in: None Skin Integrity/Comment: ulceration multiple sits. Estimated Nutritional Goals Calories/Kcals/Kg 27-32 adj wt 55kg Kcals Calculated [id number] Protein g/k.2-1.4 Protein Calculated 66-77 Nutritional Problem 1. Problem Problem inadequte intake from enteral feeding Etiology TF volume inadequte Signs/Symptoms: TF only providing 60% of nutritional needs Malnutrition Alert Is there a minimum of two criteria No selected? Query Text:Check all the applicable criteria. A minimum of two criteria are recommended for diagnosis of either severe or non-severe malnutrition. Malnutrition Related to Morbid Obesity Malnutrition related to morbid obesity No Intervention/Recommendation Comments 1. Recommend Jevity 1.2 237ml x 5 daily. It provides 1422kcal, 64g protein, 960ml free water, meeting 100% of nutritional needs. AVRIL Grey notified. 2. Recommend Fox BID for wound healing. 3. Monitor TF tolerance, wt, skin integrity and labs 4. F/U as high risk in 2-3 days, 11/27-11/28 Expected Outcomes/Goals Expected Outcomes/Goals 1. Pt to meet at least 75% of nutritional needs via nutrition support with tolerance 2. Wt stability, skin integrity to improve, labs to approach WNL.
--- NOTE | 2017-11-27 13:13 | Diagnostic Imaging Report ---
Portable chest x-ray HISTORY: Shortness of breath, vascular catheter placement Compared to prior exam of November 25, 2017, a right-sided vascular catheters been inserted. The tip is in the region of the superior vena cava. There is partial obscuration the right upper chest due to overlying monitor devices. Persistent bilateral interstitial infiltrates. IMPRESSION: 1. New vascular catheter placement as noted above 2. No change in pulmonary status
[2017-11-27] MEDS: Venelex 60gm Tube TP SCH (18:16)
[2017-11-28] MEDS: Dextrose 5% 1,000 ML IV SCH (06:15)
[2017-11-28 06:47] LABS: % BASOPHILS 0.3 % (0.0-2.0); % EOSINOPHILS 1.4 % (0.0-5.0); % LYMPHOCYTES 8.2 % (20.0-50.0); % MONOCYTES 2.6 % (2.0-10.0); % NEUTROPHILS 87.5 % (40.0-80.0); EOSINOPHILE ABSOLUTE 0.2 Th/cmm (0.1-0.4); LYMPHOCYTE ABSOLUTE 1.2 Th/cmm (1.5-3.0); MEAN CORPUSCULAR HEMOGLOBIN 34.2 pg (27.0-31.0); MEAN CORPUSCULAR HGB CONC 32.1 pg (28.0-36.0); MEAN PLATELET VOLUME 11.7 fl; MONOCYTE ABSOLUTE 0.4 Th/cmm (0.3-1.0); NEUTROPHILE ABSOLUTE 13.1 Th/cmm (1.8-8.0); PLATELET COUNT 260 Th/cmm (150-400); RED BLOOD COUNT 2.91 Mil/cmm (3.80-5.80); RED CELL DISTRIBUTION WIDTH 18.2 % (11.5-20.0); WHITE BLOOD COUNT 14.9 Th/cmm (4.8-10.8)
[2017-11-28 06:58] LABS: MEAN CELL VOLUME 106.5 fl (80-99)
[2017-11-28 07:35] LABS: ANION GAP 9.5 (7.0-16.0); BUN - UREA NITROGEN 31 mg/dL (7-25); CALCIUM SERUM 8.5 mg/dL (8.6-10.3); CARBON DIOXIDE 27.5 mEq/L (21.0-31.0); CHLORIDE 120 mEq/L (98-107); GLUCOSE 86 mg/dL (70-105); SODIUM SERUM 153 mEq/L (136-145)
[2017-11-28] MEDS: Albuterol/Ipratropium Neb 3 ML AERS HHN SCH ×4 (07:39→19:18)
[2017-11-28] MEDS: Ferrous Sulfate 300 MG/5 ML UDC GT SCH ×2 (09:20→16:11)
[2017-11-28] MEDS: Lactobacillus Rhamnosus GG 15 Billion CFU CAP.SPRINK PO SCH (09:20)
[2017-11-28] MEDS: Venelex 60gm Tube TP SCH (09:28)
--- NOTE | 2017-11-28 10:50 | Internal Medicine Prog Note ---
Internal Medicine Subjective - Subjective Service Date: 11/28/17 Patient is:: awake, non-verbal Patient Complaints of:: congestion Per staff patient has:: tolerating meds Internal Medicine Objective - Results Result Diagrams: 11/28/17 06:30 11/28/17 06:30 Recent Labs: Laboratory Last Values WBC 14.9 Th/cmm (4.8-10.8) H 11/28/17 06:30 RBC 2.91 Mil/cmm (3.80-5.80) L 11/28/17 06:30 Hgb 10.0 gm/dL (12-16) L 11/28/17 06:30 Hct 31.0 % (41.0-60) L 11/28/17 06:30 MCV 106.5 fl (80-99) H 11/28/17 06:30 MCH 34.2 pg (27.0-31.0) H 11/28/17 06:30 MCHC Differential 32.1 pg (28.0-36.0) 11/28/17 06:30 RDW 18.2 % (11.5-20.0) 11/28/17 06:30 Plt Count 260 Th/cmm (150-400) 11/28/17 06:30 MPV 11.7 fl 11/28/17 06:30 Neutrophils % 87.5 % (40.0-80.0) H 11/28/17 06:30 Band Neutrophils % 5 % (0-10) 11/27/17 05:20 Lymphocytes % 8.2 % (20.0-50.0) L 11/28/17 06:30 Monocytes % 2.6 % (2.0-10.0) 11/28/17 06:30 Eosinophils % 1.4 % (0.0-5.0) 11/28/17 06:30 Basophils % 0.3 % (0.0-2.0) 11/28/17 06:30 Neutrophils (Manual) 9 % (40-80) L 11/27/17 05:20 Lymphocytes 2 % (20-50) L 11/27/17 05:20 Monocytes 1 % (2-10) L 11/25/17 05:00 Eosinophils 0 % (0-5) 11/25/17 05:00 Basophils 0 % (0-3) 11/25/17 05:00 Platelet Estimate ADEQUATE (NORMAL) 11/27/17 05:20 PT 11.9 SECONDS (9.5-11.5) H 11/24/17 12:10 INR 1.13 (0.5-1.4) 11/24/17 12:10 PTT (Actin FS) 25.2 SECONDS (26.0-38.0) L 11/24/17 12:10 D-Dimer 2440 ng/mL (100-400) H 11/24/17 10:15 Specimen Source Arterial 11/24/17 11:43 Sample Site Right Radial 11/24/17 11:43 pH 7.52 (7.35-7.45) H 11/24/17 11:43 pCO2 40.0 mmHg (35.0-45.0) 11/24/17 11:43 pO2 56.0 mmHg (80.0-100.0) L 11/24/17 11:43 HCO3 31.9 mEq/L (20.0-26.0) H 11/24/17 11:43 Base Excess 9.1 mEq/L (-3.0-3.0) H 11/24/17 11:43 O2 Saturation 92.0 % (92.0-100.0) 11/24/17 11:43 Naresh Test Positive 11/24/17 11:43 Vent Rate NA 11/24/17 11:43 Inspired O2 40 11/24/17 11:43 Tidal Volume NA 11/24/17 11:43 PEEP NA 11/24/17 11:43 Pressure (ins/psv/peep) NA 11/24/17 11:43 Critical Value LZHANG 11/24/17 11:43 Sodium 153 mEq/L (136-145) H 11/28/17 06:30 Potassium 4.0 mEq/L (3.5-5.1) 11/28/17 06:30 Chloride 120 mEq/L (98-107) H 11/28/17 06:30 Carbon Dioxide 27.5 mEq/L (21.0-31.0) 11/28/17 06:30 Anion Gap 9.5 (7.0-16.0) 11/28/17 06:30 BUN 31 mg/dL (7-25) H 11/28/17 06:30 Creatinine 1.0 mg/dL (0.7-1.3) 11/28/17 06:30 Est GFR ( Amer) TNP 11/28/17 06:30 Est GFR (Non-Af Amer) TNP 11/28/17 06:30 BUN/Creatinine Ratio 31.0 11/28/17 06:30 Glucose 86 mg/dL (70-105) 11/28/17 06:30 Whole Bld Lactic Acid 2.45 mmol/L (0.60-1.99) H* 11/24/17 14:45 Calcium 8.5 mg/dL (8.6-10.3) L 11/28/17 06:30 Magnesium 3.4 mg/dL (1.9-2.7) H 11/25/17 05:00 Total Bilirubin 0.3 mg/dL (0.3-1.0) 11/24/17 10:15 AST 84 U/L (13-39) H 11/24/17 10:15 ALT 58 U/L (7-52) H 11/24/17 10:15 Alkaline Phosphatase 66 U/L (34-104) 11/24/17 10:15 Ammonia 45 umol/L (16-53) 11/25/17 05:00 Creatine Kinase 554 U/L (30-223) H 11/24/17 10:15 CK-MB (CK-2) 12.1 ng/mL (0.6-6.3) H 11/24/17 10:15 Troponin I 0.04 ng/mL (0.01-0.05) 11/24/17 10:15 B-Natriuretic Peptide 114.0 pg/mL (5.0-100.0) H 11/26/17 05:45 Total Protein 7.5 gm/dL (6.0-8.3) 11/24/17 10:15 Albumin 3.1 gm/dL (4.2-5.5) L 11/24/17 10:15 Globulin 4.4 gm/dL 11/24/17 10:15 Albumin/Globulin Ratio 0.7 (1.0-1.8) L 11/24/17 10:15 Triglycerides 114 mg/dL (<150) 11/24/17 10:15 Cholesterol 70 mg/dL (<200) 11/24/17 10:15 LDL Cholesterol Direct 39 mg/dL (75-193) L 11/24/17 10:15 HDL Cholesterol 12 mg/dL (23-92) L 11/24/17 10:15 Urine Bilirubin [employer] 11/24/17 11:00 Vancomycin Trough 17.4 ug/mL (5-10) H 11/26/17 08:00 - Physical Exam Vitals and I&O: Vital Signs Temp 97.6 F 11/28/17 08:43 Pulse 96 11/28/17 08:43 Resp 19 11/28/17 08:43 BP 104/45 11/28/17 08:43 Pulse Ox 98 11/28/17 08:43 Intake & Output 11/27/17 11/28/17 11/28/17 18:59 06:59 18:59 Intake Total 1170 1911 Output Total 3 2 Balance 1167 1909 Weight (lbs) 139 lb 110 lb 14.4 oz Intake: Intake, IV Amount 450 1100 Dextrose 5% 1,000 ml @ 70 1000 mls/hr IV .[id number] [facility] Rx#:[id number] Piperacillin Sodium/ 200 100 Tazobact 4.5 gm In Sodium Chloride 0.9% 100 ml @ 100 mls/hr IV Q8HR [facility] Rx #:[id number] Vancomycin HCl 1.25 gm In 250 Sodium Chloride 0.9% 250 ml @ 165 mls/hr IV Q24H [facility] Rx#:[id number] Tube Feeding 720 811 Output: Stool 3 2 Other: # Voids 3 3 Stool Characteristics Soft Weight Source Estimated Bedscale Active Medications: Current Medications Acetaminophen (Tylenol) 650 mg GT Q4H PRN PRN Reason: Pain (Mild) Stop: 01/23/18 12:02 Acetaminophen (Tylenol) 650 mg PO Q4H PRN PRN Reason: Pain Or Fever above 101 Stop: 01/23/18 12:04 Albuterol/Ipratropium (Duoneb Neb) 3 ml HHN QIDRT [facility] Stop: 01/23/18 14:59 Last Admin: 11/28/17 07:39 Dose: 3 ml Ascorbic Acid (Vitamin C) 500 mg GT DAILY [facility] Stop: 01/24/18 08:59 Last Admin: 11/28/17 09:20 Dose: 500 mg Bisacodyl (Dulcolax 10 Mg Supp) 10 mg RC DAILY PRN PRN Reason: IF MOM NOT EFFECTIVE Stop: 01/23/18 12:02 [place]is[place] Oil/Hungarian Balsam/Trypsin (Venelex) 1 appl TP DAILY [facility] Stop: 01/25/18 08:59 Last Admin: 11/28/17 09:28 Dose: 1 appl Docusate Sodium (Colace) 100 mg PO BID [facility] Stop: 01/23/18 16:59 Last Admin: 11/28/17 09:20 Dose: 100 mg Donepezil HCl (Aricept) 10 mg GT HS [facility] Stop: 01/23/18 20:59 Last Admin: 11/27/17 20:54 Dose: 10 mg Ferrous Sulfate (Iron) 300 mg GT BID [facility] Stop: 01/23/18 16:59 Last Admin: 11/28/17 09:20 Dose: 300 mg Guaifenesin (Robitussin) 200 mg PO Q4HR PRN PRN Reason: Cough or Congestion Stop: 01/23/18 12:04 Last Admin: 11/25/17 16:33 Dose: 200 mg Heparin Sodium (Porcine) (Heparin) 5,000 units SUBQ Q12HR [facility] Stop: 01/25/18 20:59 Last Admin: 11/28/17 09:20 Dose: 5,000 units Vancomycin HCl 1.25 gm/ Sodium (Chloride) 250 mls @ 165 mls/hr IV Q24H [facility] Stop: 01/24/18 08:59 Last Admin: 11/28/17 09:16 Dose: 165 mls/hr Piperacillin Sod/Tazobactam (Sod 4.5 gm/ Sodium Chloride) 100 mls @ 100 mls/hr IV Q8HR [facility] Stop: 01/25/18 12:59 Last Admin: 11/28/17 05:09 Dose: 100 mls/hr Dextrose (D5w) 1,000 mls @ 70 mls/hr IV .[id number] [facility] Stop: 01/25/18 12:59 Last Admin: 11/28/17 06:15 Dose: 70 mls/hr Lactobacillus Rhamnosus (Culturelle 15b) 1 each PO DAILY [facility] Stop: 01/24/18 08:59 Last Admin: 11/28/17 09:20 Dose: 1 each Magnesium Hydroxide (Milk Of Magnesia) 30 ml PO Q72H PRN PRN Reason: IF NO BM Stop: 01/23/18 12:02 Miscellaneous (Vancomycin Iv Per Pharmacy) 1 ea MC PRN [facility] Stop: 01/23/18 12:14 Miscellaneous (Probiotic Screen) 1 ea MC PRN PRN PRN Reason: PROTOCOL Stop: 01/24/18 08:29 Miscellaneous (Vte Chemical Prophylaxis Screen/ Admission) 1 ea MC PRN PRN PRN Reason: PROTOCOL Stop: 01/25/18 10:33 Mupirocin (Bactroban Oint) 1 appl NS BID [facility] Stop: 12/01/17 09:01 Last Admin: 11/26/17 17:02 Dose: 1 appl Ondansetron HCl (Zofran) 4 mg IV Q8H PRN PRN Reason: Nausea / Vomiting Stop: 01/23/18 12:04 Sodium Phosphate (Fleet Enema) 135 ml RC DAILY PRN PRN Reason: IF DULCOLAX INEFFECTIVE Stop: 01/23/18 12:02 Tamsulosin HCl (Flomax) 0.4 mg GT DAILY [facility] Stop: 01/24/18 08:59 Last Admin: 11/28/17 09:20 Dose: 0.4 mg Valproate Sodium (Depakene) 750 mg GT BID [facility]; Protocol Stop: 01/23/18 16:59 Last Admin: 11/28/17 09:17 Dose: 750 mg General: weak HEENT: NC/AT, PERRLA Neck: Supple Lungs: congested, ronchi Cardiovascular: RRR, without murmur Abdomen: soft, non-tender, non-distended, +GT Neurological: unable to follow command, bedbound - Procedures Procedures: Procedures Procedure Code Date ASSISTANCE WITH RESPIRATORY VENTILATION, 24-96 HRS, CPAP [id number] 09/29/17 POS AIRWAY PRESSURE CPAP 32962 09/29/17 Internal Medicine Assmt/Plan - Assessment Assessment: acute febrile illness pna sepsis acute renal insufficiency r/o dehydration mild protein calorie malnutrition anemia hx cva arthritis MRSA NARES - Plan Plan: LTAC EVAL continue ivf for hydration continue ivabx follow up labs in am frequent oral care continue current plan of care Nutritional Asmnt/Malnutr-PDOC - Dietary Evaluation Malnutrition Findings (Please click <Entered> for more info): Nutritional Asmnt/Malnutrition Start: 11/25/17 16: 03 Text: Status: Complete Freq: Protocol: Document 11/25/17 16:03 [facility] (Rec: 11/25/17 16:23 [facility] GEOVANNA-[id number]) Nutritional Asmnt/Malnutrition Patient General Information Nutritional Screening High Risk Diagnosis fever, sepsis Pertinent Medical Hx/Surgical Hx HTN, dyslipidemia, PUD/GERD, ESRD, seizure, dementia Subjective Information Consult received for wound and gtube. Pt seen resting in bed at time of visit. Bolus feeding started this morning. Current Diet Order/ Nutrition Support Jevity 1.2 237ml q8hr Pertinent Medications vit C, D5w, colace, iron, culturelle, vancomycin Pertinent Labs 11/25 Na 161, K 4.2, Cl 292738, BUN 55, Cr 1.2, glucose 113, Mg 3.4 Nutritional Hx/Data Height 5 ft 11 in Height (Calculated Centimeters) 180.3 Current Weight (lbs) 104 lb Weight (Calculated Kilograms) 47.2 Weight (Calculated Grams) 72107.6 [place] Body Weight 172 Body Mass Index (BMI) 14.5 Weight Status Underweight GI Symptoms GI Symptoms None Last BM 11/25 Difficult in: None Skin Integrity/Comment: ulceration multiple sits. Estimated Nutritional Goals Calories/Kcals/Kg 27-32 adj wt 55kg Kcals Calculated 1485-80205 Protein g/k.2-1.4 Protein Calculated 66-77 Nutritional Problem 1. Problem Problem inadequte intake from enteral feeding Etiology TF volume inadequte Signs/Symptoms: TF only providing 60% of nutritional needs Malnutrition Alert Is there a minimum of two criteria No selected? Query Text:Check all the applicable criteria. A minimum of two criteria are recommended for diagnosis of either severe or non-severe malnutrition. Malnutrition Related to Morbid Obesity Malnutrition related to morbid obesity No Intervention/Recommendation Comments 1. Recommend Jevity 1.2 237ml x 5 daily. It provides 1422kcal, 64g protein, 960ml free water, meeting 100% of nutritional needs. AVRIL Grey notified. 2. Recommend Fox BID for wound healing. 3. Monitor TF tolerance, wt, skin integrity and labs 4. F/U as high risk in 2-3 days, 11/27-11/28 Expected Outcomes/Goals Expected Outcomes/Goals 1. Pt to meet at least 75% of nutritional needs via nutrition support with tolerance 2. Wt stability, skin integrity to improve, labs to approach WNL.
--- NOTE | 2017-11-28 12:46 | History & Physical ---
ADMIT DATE: 11/24/2017 CHIEF COMPLAINT: Fever, not feeling well. HISTORY OF PRESENT ILLNESS: This is a 76-year-old male with history of mental retardation, history of stroke, dementia, admitted from nursing facility secondary to fever and not feeling well. The patient also with infected decubitus; however, the patient was seen in the Emergency Room and noted to have a white count of 23,000. The patient is nonverbal and not interactive. PAST MEDICAL HISTORY: As mentioned in the history present illness. PAST SURGICAL HISTORY: Unable to obtain at this time. ALLERGIES: No known drug allergies. MEDICATIONS: Albuterol, Atrovent, Tylenol, Colace, iron, Aricept, Flomax, and Depakote. FAMILY HISTORY: Noncontributory. SOCIAL HISTORY: The patient is a senior care patient requiring 24-hour total care. REVIEW OF SYSTEMS: This is limited secondary to pain, comatose state. We will try to obtain more detailed review of system at a later date by talking to family members ____ [phone], also try to get information from the staff at [facility] at [phone]. PHYSICAL EXAMINATION: VITAL SIGNS: Blood pressure 140/85, respirations 26, pulse 117, temperature 99. GENERAL: An elderly male, appears stated age, chronically ill. NECK: Supple. No mass. LUNGS: Equal breath sounds, few rhonchi. HEART: Regular rate and rhythm with systolic murmur. ABDOMEN: Soft, globular. EXTREMITIES: Positive excoriation. Positive contractures. Decubitus ulcer. LABORATORY DATA: ____, platelets 329, pO2 of 86, pCO2 of 31. Sodium 166, ____, BUN 6, creatinine 1.6, blood sugar 114. BNP 165. ASSESSMENT: Fever, sepsis, pneumonia, cerebrovascular accident, mental retardation, dementia, hypernatremia, acute renal failure, malnutrition, contracture, leukocytosis, benign prostatic hypertrophy. PLAN: We will continue the patient on aggressive IV hydration. Continue IV antibiotic. Start the patient on ____. Continue ____ treatment. We will follow the patient's culture. We will check the patient's lactic acid. We will check the patient's chest x-ray. Continue with current care. We will admit the patient to tele. [facility]# [id number]
== END 2017-11-29 01:10 | DRG 871 ==
LOC: ER 10:27 → TELE 12:10
PROVIDERS: ADMIT Internal Medicine; ATTEND Internal Medicine
DX: A41.9 Sepsis, unspecified organism (principal); J18.9 Pneumonia, unspecified organism; N18.6 End stage renal disease; N17.9 Acute kidney failure, unspecified; E44.1 Mild protein-calorie malnutrition; E87.0 Hyperosmolality and hypernatremia; I12.0 Hypertensive chronic kidney disease with stage 5 chronic kidney disease or end stage renal disease; Z68.1 Body mass index [BMI] 19.9 or less, adult; E78.5 Hyperlipidemia, unspecified; K21.9 Gastro-esophageal reflux disease without esophagitis; R56.9 Unspecified convulsions; F17.200 Nicotine dependence, unspecified, uncomplicated; E86.0 Dehydration; F79 Unspecified intellectual disabilities; N40.0 Benign prostatic hyperplasia without lower urinary tract symptoms; M19.90 Unspecified osteoarthritis, unspecified site; F03.90 Unspecified dementia, unspecified severity, without behavioral disturbance, psychotic disturbance, mood disturbance, and anxiety; Z86.73 Personal history of transient ischemic attack (TIA), and cerebral infarction without residual deficits; Z82.49 Family history of ischemic heart disease and other diseases of the circulatory system; Z82.0 Family history of epilepsy and other diseases of the nervous system
CPT/HCPCS: 36415-UA; 36600-90; 71045-TC; 80048-TC; 80053-TC; 80061-TC; 80202-TC; 81001-TC; 82140-TC; 82550-TC; 82553; 82803-TC; 83605; 83735-TC; 83880-TC; 84484-TC; 85007-TC; 85025-TC; 85027-TC; 85379-TC; 85610-TC; 85730-TC; 93005; 94760; J0692; J1644; J2543; J3370; J7030; J7070; X7704; Z7610

== ENCOUNTER 2018-01-26 10:46 | Inpatient (IN) | payer MEDICARE, MEDICAID ==
[2018-01-26] MEDS ORDERED: Pantoprazole 80 MG in Sodium Chloride 0.9% 100 ML IV ONE (11:14)
[2018-01-26] MEDS ORDERED: Pantoprazole 80 MG in Sodium Chloride 0.9% 100 ML IV SCH (11:15)
[2018-01-26] MEDS ORDERED: Lactated Ringer 1,000 ML IV ONE (11:16)
[2018-01-26 11:30] LABS: HEMOGLOBIN 12.5 gm/dL (12-16); MEAN CELL VOLUME 93.4 fl (80-99); MEAN CORPUSCULAR HEMOGLOBIN 31.7 pg (27.0-31.0); MEAN CORPUSCULAR HGB CONC 33.9 pg (28.0-36.0); PLATELET COUNT 568 Th/cmm (150-400); RED BLOOD COUNT 3.96 Mil/cmm (3.80-5.80); RED CELL DISTRIBUTION WIDTH 16.3 % (11.5-20.0)
[2018-01-26 11:35] LABS: WHITE BLOOD COUNT 22.2 Th/cmm (4.8-10.8)
[2018-01-26 11:46] LABS: ALBUMIN 3.9 gm/dL (4.2-5.5); ALKALINE PHOSPHATASE 74 U/L (34-104); ANION GAP 15.1 (7.0-16.0); BILIRUBIN,TOTAL 0.2 mg/dL (0.3-1.0); BUN - UREA NITROGEN 31 mg/dL (7-25); CALCIUM SERUM 9.7 mg/dL (8.6-10.3); CARBON DIOXIDE 30.3 mEq/L (21.0-31.0); CHLORIDE 92 mEq/L (98-107); CREATININE - SERUM 0.7 mg/dL (0.7-1.3); GLUCOSE 147 mg/dL (70-105); MAGNESIUM 2.1 mg/dL (1.9-2.7); POTASSIUM SERUM 4.4 mEq/L (3.5-5.1); SGOT 23 U/L (13-39); SGPT/ALT 16 U/L (7-52)
[2018-01-26 11:49] LABS: SODIUM SERUM 133 mEq/L (136-145)
--- NOTE | 2018-01-26 11:51 | ED Physician Chart ---
ED Chief Complaint/HPI - Patient Information Date Seen:: 01/26/18 Time Seen:: 11:05 Chief Complaint:: coffee ground emesis History of Present Illness:: coffee ground emesis Allergies:: Allergies Allergy/AdvReac Type Severity Reaction Status Date / Time No Known Allergies Allergy Verified 11/24/17 10:50 Vitals:: Vital Signs - 8 hr 01/26/18 11:05 Temp 97.8 F HR 133 RR 26 BP 144/87 O2 Sat % 88 ED Review of Systems - Review of Systems General/Constitutional: No fever, No chills, No weight loss, No weakness, No diaphoresis, No edema, No loss of appetite Skin: No skin lesions, No rash, No bruising Head: No headache, No light-headedness Eyes: No loss of vision, No pain, No diplopia ENT: No earache, No nasal drainage, No sore throat, No tinnitus Neck: No neck pain, No swelling, No thyromegaly, No stiffness, No mass noted Cardio Vascular: No chest pain, No palpitations, No PND, No orthopnea, No edema Pulmonary: SOB GI: Nausea, Vomiting, Other (coffee ground emesis) G/U: No dysuria, No frequency, No hematuria Musculoskeletal: No bone or joint pain, No back pain, No muscle pain Endocrine: No polyuria, No polydipsia Psychiatric: No prior psych history, No depression, No anxiety, No suicidal ideation Family Medical History - Family Member Mother History Unknown: Yes Ethnicity: Unknown Hx Family Cancer: (unable to assess) Hx Family Coronary Artery Disease: (unable to assess) Hx Family COPD: Yes ED Physical Exam - Physical Examination General/Constitutional: Awake, Well-developed, well-nourished, Non-toxic appearing, Ambulatory Other Gen/Cons comments:: very anxious. chronically ill appearing. Head: Atraumatic Eyes: Lids, conjuctiva normal, PERRL, EOMI Other Skin comments:: left heel breakdown. ENMT: External ears, nose nl, Nasal exam nl, Lips, teeth, gums nl Other Respiratory comments:: rales anteriorly. Other Cardio Vascular comments:: tachycardia. GI: No tenderness/rebounding/guarding, No organomegaly, No hernia, Normal BS's, Nondistended, No mass/bruits, No McBurney tenderness Other GI comments:: G tube in place with coffee grounds coming from the tube : No CVA tenderness Other Neuro/Psych comments:: contracted lower extremities. ED Labs/Radiology/EKG Results - Lab Results Results: Laboratory Tests 01/26/18 01/26/18 01/26/18 11:20 11:20 11:20 WBC 22.2 H* RBC 3.96 Hgb 12.5 Hct 37.0 L MCV 93.4 MCH 31.7 H MCHC Differential 33.9 RDW 16.3 Plt Count 568 H MPV 9.0 Add Manual Diff YES Sodium 133 L D Potassium 4.4 Chloride 92 L Carbon Dioxide 30.3 Anion Gap 15.1 BUN 31 H Creatinine 0.7 Est GFR ( Amer) TNP Est GFR (Non-Af Amer) TNP BUN/Creatinine Ratio 44.3 Glucose 147 H Calcium 9.7 Phosphorus 3.0 Magnesium 2.1 Total Bilirubin 0.2 L AST 23 ALT 16 Alkaline Phosphatase 74 Total Protein 8.0 Albumin 3.9 L Globulin 4.1 Albumin/Globulin Ratio 1.0 Valproic Acid 83.4 ED Assessment - Assessment General Assessment: EKG from 11:29:46 a.m. Sinus tachycardia with nonspecific t wave changes. ED Septic Shock - . Is Septic Shock (SBP<90, OR Lactate>4 mmol\L) present?: No - <6hrs of presentation: Vital Signs: Vital Signs - 8 hr 01/26/18 11:05 Temp 97.8 F HR 133 RR 26 BP 144/87 O2 Sat % 88 ED Reassessment (Disposition) - Reassessment Reassessment:: spoke with Dr. Asencio about admitting his patient to the hospital. He agrees to do so. Reassessment Condition:: Improved - Diagnosis Diagnosis:: Upper GI bleed with coffee ground emesis. Intellectual disability Aphasic Chronic kidney disease COPD Dementia Dysphagia, oropharyngeal phase Anemia Enlarged prostate - Patient Disposition Discharge/Transfer:: Acute Care w/in this hosp Accepting Physician:: Dr. Asencio Time Called:: 13:05 Time Responded:: 13:08 Admitted to:: Telemetry
[2018-01-26 11:59] LABS: BAND NEUTROPHILE 2 % (0-10); BASOPHIL 0 % (0-3); EOSINOPHIL 0 % (0-5); LYMPHOCYTE 4 % (20-50); MONOCYTE 2 % (2-10); NEUTROPHILS 92 % (40-80); PLATELET ESTIMATE INCREASED PLATELETS (NORMAL)
[2018-01-26 12:20] LABS: INR 1.02 (0.5-1.4); PROTHROMBIN TIME (TEST) 10.6 SECONDS (9.5-11.5)
[2018-01-26] MEDS ORDERED: Fleet Enema 135 mL RC PRN (13:11)
[2018-01-26] MEDS ORDERED: Magnesium Hydroxide (MOM) 30 mL UDC PO PRN (13:11)
[2018-01-26] MEDS ORDERED: Ipratropium Neb 0.5 mg/2.5 mL UD IH PRN (13:12)
[2018-01-26] MEDS ORDERED: guaiFENesin 200 MG/10 ML UDC PO PRN (13:12)
[2018-01-26] MEDS ORDERED: Albuterol Nebulizer 2.5mg/3mL HHN PRN (13:12)
[2018-01-26] MEDS ORDERED: PREDNISONE 10 MG GT SCH (13:15)
[2018-01-26] MEDS ORDERED: Albuterol Nebulizer 2.5mg/3mL HHN ONE (13:27)
[2018-01-26] MEDS ORDERED: Ipratropium Neb 0.5 mg/2.5 mL UD HHN ONE (13:28)
--- NOTE | 2018-01-26 14:03 | Diagnostic Imaging Report ---
Portable chest x-ray HISTORY: Shortness of breath Compared with prior exam of 11/25/2017, the heart is enlarged. There is generalized accentuation of the interstitial lung markings. Linear density that may be related to pleural reaction along the minor fissure noted within the right hemithorax. The appearance is consistent with chronic change. No definite acute focal processes. Atherosclerotic calcination seen in the aorta. IMPRESSION: 1. Cardiomegaly with atherosclerotic vascular changes 2. Chronic changes within the lungs as noted above. Little change from 11/25/2017.
--- NOTE | 2018-01-26 14:38 | History & Physical ---
ADMIT DATE: 01/26/2018 CHIEF COMPLAINT: Coffee-ground emesis. HISTORY OF PRESENT ILLNESS: This is a 77-year-old male who is a resident of [facility] who will be admitted here to the telemetry unit due to 1-day history of coffee-ground emesis. In the ER, the patient was noted with a lactic acid of 4.72, sepsis protocol was initiated. For further management, the patient will be admitted to the telemetry unit. PAST MEDICAL HISTORY: MR, stroke, dementia. PAST SURGICAL HISTORY: Unable to obtain at this time. SOCIAL HISTORY: The patient is a detention resident, requiring 24-hour nursing care. ALLERGIES: No drug allergies. REVIEW OF SYSTEMS: Unable to obtain due to patient's mental status. PHYSICAL EXAMINATION: GENERAL: Elderly male, appears chronically ill, in no apparent distress. VITAL SIGNS: Temperature 97.8, heart rate 133, blood pressure 144/87, respirations 26, O2 of 88%. HEENT: Head; normocephalic, atraumatic. NECK: Supple. No mass. LUNGS: Scattered rhonchi. HEART: Regular rhythm. ABDOMEN: Soft, nontender, nondistended. LABORATORY DATA: WBC 22.2, H and H 12.5, 37.0, platelet of 568. Sodium 132, potassium 4.4, chloride 92, BUN 31, creatinine 0.7, whole lactic acid of 4.72, BNP of 137. DIAGNOSTICS: The patient had a chest x-ray done, results are currently pending. MEDICATIONS: Please see medication list. ASSESSMENT: Sepsis, GI bleed, MR, stroke, dementia, acute renal insufficiency, rule out dehydration and mild protein-calorie malnutrition. PLAN: The patient will be admitted to the telemetry unit, IV fluids for hydration as well as Maxipime 1 gram IV every 12 hours. We will get followup labs for tomorrow in morning. We will send urine for urine culture. The patient to be n.p.o. for now. We will monitor the patient's H and H, keep the patient on Protonix 40 mg IV b.i.d. We will continue to follow this patient. JOB# [id number]
[2018-01-26] MEDS: D5-0.45NS 1,000 ML IV SCH (17:07)
[2018-01-26] MEDS: Ferrous Sulfate 300 MG/5 ML UDC GT SCH (18:35)
[2018-01-26] MEDS: Albuterol Nebulizer 2.5mg/3mL IH SCH (22:10)
[2018-01-26] MEDS: Ipratropium Neb 0.5 mg/2.5 mL UD IH SCH (22:10)
[2018-01-27] MEDS: D5-0.45NS 1,000 ML IV SCH ×2 (04:27→16:38)
[2018-01-27 05:51] LABS: ANION GAP 12.3 (7.0-16.0); BUN - UREA NITROGEN 20 mg/dL (7-25); CALCIUM SERUM 9.2 mg/dL (8.6-10.3); CHLORIDE 102 mEq/L (98-107); CREATININE - SERUM 0.7 mg/dL (0.7-1.3); GLUCOSE 85 mg/dL (70-105); POTASSIUM SERUM 5.3 mEq/L (3.5-5.1); SODIUM SERUM 134 mEq/L (136-145)
[2018-01-27 06:15] LABS: % BASOPHILS 0.9 % (0.0-2.0); % LYMPHOCYTES 11.5 % (20.0-50.0); % MONOCYTES 5.5 % (2.0-10.0); % NEUTROPHILS 81.1 % (40.0-80.0); BASOPHILE ABSOLUTE 0.1 Th/cumm (0-0.2); EOSINOPHILE ABSOLUTE 0.1 Th/cmm (0.1-0.4); HEMOGLOBIN 10.6 gm/dL (12-16); LYMPHOCYTE ABSOLUTE 1.5 Th/cmm (1.5-3.0); MEAN CELL VOLUME 94.5 fl (80-99); MEAN CORPUSCULAR HEMOGLOBIN 32.1 pg (27.0-31.0); MEAN PLATELET VOLUME 8.6 fl; MONOCYTE ABSOLUTE 0.7 Th/cmm (0.3-1.0); NEUTROPHILE ABSOLUTE 10.9 Th/cmm (1.8-8.0); RED BLOOD COUNT 3.31 Mil/cmm (3.80-5.80); RED CELL DISTRIBUTION WIDTH 16.6 % (11.5-20.0)
[2018-01-27 06:17] LABS: WHITE BLOOD COUNT 13.3 Th/cmm (4.8-10.8)
[2018-01-27 06:18] LABS: HEMATOCRIT 31.3 % (41.0-60); PLATELET COUNT 377 Th/cmm (150-400)
[2018-01-27] MEDS: Ipratropium Neb 0.5 mg/2.5 mL UD IH SCH (08:27)
[2018-01-27] MEDS: Albuterol Nebulizer 2.5mg/3mL IH SCH (08:27)
[2018-01-27] MEDS: Lactobacillus Rhamnosus GG 15 Billion CFU CAP.SPRINK PO SCH (08:45)
[2018-01-27] MEDS: Ferrous Sulfate 300 MG/5 ML UDC GT SCH ×2 (08:45→16:37)
[2018-01-27] MEDS ORDERED: LACTOBACILLUS ACIDOPHILUS GT SCH (09:00)
[2018-01-27] MEDS ORDERED: VTE Chemical Prophylaxis Screen/ICU transfer MC PRN (09:15)
--- NOTE | 2018-01-27 11:30 | Consultation ---
DATE OF CONSULTATION: 01/27/2018 REQUESTING PHYSICIAN: Dr. Asencio. REASON FOR CONSULTATION: Concern for coffee-ground emesis. Thank you for asking me to see this patient in consultation. HISTORY OF PRESENT ILLNESS: This is a 77-year-old male who is a resident of a long term who has been admitted for 1-day history of coffee-ground emesis. The patient was noted to be dehydrated and have a lactic acid of 4.72 and thus sepsis protocol was initiated in the hospital. The patient, since he has been here in the hospital has not been having any witnessed episodes of coffee-ground emesis per nursing staff. He does have a gastrostomy tube in place, which has been kept to suction and there is about 200-300 mL of bilious fluid that has been draining since this time. There is some concern that maybe some leakage of the G-tube around the edge of it and this has currently been sealed off. The patient is noncommunicative and has a history of CVA and is quite contractured at this point, but he is cooperative. PAST MEDICAL HISTORY: Stroke, dementia. SOCIAL HISTORY: Currently residing in a long term, requiring 24-hour nursing care. ALLERGIES: None known. REVIEW OF SYSTEMS: Unable to obtain due to the patient's condition. PAST SURGICAL HISTORY: Unable to obtain. FAMILY HISTORY: Unable to obtain due to patient's current condition. PHYSICAL EXAMINATION: VITAL SIGNS: Temperature is 97.8, heart rate of 100, blood pressure 144/87, respirations 20, currently satting 88-90%. GENERAL: He is an elderly male, appears chronically ill, in no apparent distress. HEENT: Normocephalic, atraumatic. PERRL positive. LUNGS: Clear bilaterally. No wheezes, rales or rhonchi. HEART: Regular rate and rhythm, normal S1, S2. ABDOMEN: Soft, nontender, nondistended. There is an intact G-tube seen in place currently to suction yielding some bilious fluid. EXTREMITIES: Show no lower extremity edema. LABORATORY DATA: White count was originally 22,000, is now 13.3, hemoglobin of 10.6, hematocrit of 31.3, BUN is 31, creatinine is 0.7. Lactic acid is 4.72. IMAGING: Chest x-ray showed cardiomegaly with atherosclerotic vascular changes, chronic changes in the lungs. ASSESSMENT AND PLAN: This is a 77-year-old elderly gentleman with history of chronic ____ who has a G-tube in place with concern for nausea, vomiting, coffee-ground emesis with some mild anemia. 1. Coffee-ground emesis. 2. Intact G-tube in place. 3. Concern for G-tube malfunction. 4. Anemia. PLAN: 1. We will plan for ____ endoscopically likely tomorrow with anesthesia. 2. At that time, we can also replace the patient's G-tube since it is leaking on the outside. 3. Okay to start with some tube feeds today. Advised the nurse to hold tube feeding as tube feeds are leaking around the site of the PEG tube. We will keep the patient n.p.o. after midnight for possible EGD tomorrow. We will obtain consent. Further recommendations to follow after procedure. Thank you for this consultation. JOB# [id number]
[2018-01-27] MEDS: Ipratropium Neb 0.5 mg/2.5 mL UD HHN SCH ×3 (11:53→19:47)
[2018-01-27] MEDS: Albuterol Nebulizer 2.5mg/3mL HHN SCH ×2 (11:53→15:05)
--- NOTE | 2018-01-27 14:21 | Internal Medicine Prog Note ---
Internal Medicine Subjective - Subjective Service Date: 01/27/18 Patient seen and examined:: with staff Patient is:: awake, verbal, confused Patient Complaints of:: congestion, cough Per staff patient has:: tolerating meds Internal Medicine Objective - Results Result Diagrams: 01/27/18 05:15 01/27/18 05:15 Recent Labs: Laboratory Last Values WBC 13.3 Th/cmm (4.8-10.8) H D 01/27/18 05:15 Corrected WBC (auto) Th/cmm 01/27/18 05:15 RBC 3.31 Mil/cmm (3.80-5.80) L 01/27/18 05:15 Hgb 10.6 gm/dL (12-16) L 01/27/18 05:15 Hct 31.3 % (41.0-60) L D 01/27/18 05:15 MCV 94.5 fl (80-99) 01/27/18 05:15 MCH 32.1 pg (27.0-31.0) H 01/27/18 05:15 MCHC Differential 34.0 pg (28.0-36.0) 01/27/18 05:15 RDW 16.6 % (11.5-20.0) 01/27/18 05:15 Plt Count 377 Th/cmm (150-400) D 01/27/18 05:15 MPV 8.6 fl 01/27/18 05:15 Add Manual Diff YES 01/26/18 11:20 Neutrophils % 81.1 % (40.0-80.0) H 01/27/18 05:15 Band Neutrophils % 2 % (0-10) 01/26/18 11:20 Lymphocytes % 11.5 % (20.0-50.0) L 01/27/18 05:15 Monocytes % 5.5 % (2.0-10.0) 01/27/18 05:15 Eosinophils % 1.0 % (0.0-5.0) 01/27/18 05:15 Basophils % 0.9 % (0.0-2.0) 01/27/18 05:15 Neutrophils (Manual) 92 % (40-80) H 01/26/18 11:20 Lymphocytes 4 % (20-50) L 01/26/18 11:20 Monocytes 2 % (2-10) 01/26/18 11:20 Eosinophils 0 % (0-5) 01/26/18 11:20 Basophils 0 % (0-3) 01/26/18 11:20 Platelet Estimate INCREASED PLATELETS (NORMAL) 01/26/18 11:20 PT 10.6 SECONDS (9.5-11.5) 01/26/18 11:20 INR 1.02 (0.5-1.4) 01/26/18 11:20 PTT (Actin FS) 23.2 SECONDS (26.0-38.0) L 01/26/18 11:20 Sodium 134 mEq/L (136-145) L 01/27/18 05:15 Potassium 5.3 mEq/L (3.5-5.1) H 01/27/18 05:15 Chloride 102 mEq/L (98-107) 01/27/18 05:15 Carbon Dioxide 25.0 mEq/L (21.0-31.0) 01/27/18 05:15 Anion Gap 12.3 (7.0-16.0) 01/27/18 05:15 BUN 20 mg/dL (7-25) 01/27/18 05:15 Creatinine 0.7 mg/dL (0.7-1.3) 01/27/18 05:15 Est GFR ( Amer) TNP 01/27/18 05:15 Est GFR (Non-Af Amer) TNP 01/27/18 05:15 BUN/Creatinine Ratio 28.6 01/27/18 05:15 Glucose 85 mg/dL (70-105) 01/27/18 05:15 Whole Bld Lactic Acid 4.72 mmol/L (0.60-1.99) H* 01/26/18 11:20 Calcium 9.2 mg/dL (8.6-10.3) 01/27/18 05:15 Phosphorus 3.0 mg/dL (2.5-5.0) 01/26/18 11:20 Magnesium 2.1 mg/dL (1.9-2.7) 01/26/18 11:20 Total Bilirubin 0.2 mg/dL (0.3-1.0) L 01/26/18 11:20 AST 23 U/L (13-39) 01/26/18 11:20 ALT 16 U/L (7-52) 01/26/18 11:20 Alkaline Phosphatase 74 U/L (34-104) 01/26/18 11:20 B-Natriuretic Peptide 137.0 pg/mL (5.0-100.0) H 01/26/18 11:20 Total Protein 8.0 gm/dL (6.0-8.3) 01/26/18 11:20 Albumin 3.9 gm/dL (4.2-5.5) L 01/26/18 11:20 Globulin 4.1 gm/dL 01/26/18 11:20 Albumin/Globulin Ratio 1.0 (1.0-1.8) 01/26/18 11:20 TSH 3.15 uIU/ml (0.34-5.60) 01/26/18 11:20 Valproic Acid 83.4 ug/mL (50.0-100.0) 01/26/18 11:20 - Physical Exam Vitals and I&O: Vital Signs Temp 98.1 F 01/27/18 12:00 Pulse 88 01/27/18 12:23 Resp 20 01/27/18 12:23 BP 92/65 01/27/18 12:00 Pulse Ox 92 01/27/18 12:23 Intake & Output 01/26/18 01/27/18 01/27/18 18:59 06:59 18:59 Intake Total 1300 Output Total 150 Balance 1150 Weight (lbs) 110 lb 107 lb Intake: Intake, IV Amount 1300 Cefepime 1 gm In Dextrose 50 5% 50 ml @ 100 mls/hr IV Q12H [facility] Rx#:[id number] D5-0.45NS 1,000 ml @ 100 1000 mls/hr IV .Q10H [facility] Rx#: [id number] Vancomycin HCl 1 gm In 250 Sodium Chloride 0.9% 250 ml @ 165 mls/hr IV Q24H [facility] Rx#:[id number] Output: Gastric Drainage 150 Other: # Voids 2 Weight Source Estimated Bedscale Active Medications: Current Medications Acetaminophen (Tylenol) 650 mg PO Q4H PRN PRN Reason: Pain Or Fever above 101 Stop: 03/27/18 13:10 Albuterol Sulfate (Albuterol 2.5mg/3ml Neb Ud) 2.5 mg HHN Q2HRT PRN PRN Reason: Shortness of Breath or Wheeze Stop: 03/27/18 13:11 Last Admin: 01/26/18 13:30 Dose: 2.5 mg Albuterol Sulfate (Albuterol 2.5mg/3ml Neb Ud) 2.5 mg HHN QIDRT [facility] Stop: 03/27/18 16:59 Last Admin: 01/27/18 11:53 Dose: 2.5 mg Ascorbic Acid (Vitamin C) 500 mg GT DAILY [facility] Stop: 03/28/18 08:59 Last Admin: 01/27/18 08:45 Dose: Not Given Bisacodyl (Dulcolax 10 Mg Supp) 10 mg RC PRN PRN PRN Reason: IF MOM NOT EFFECTIVE Stop: 03/27/18 13:10 Docusate Sodium (Colace) 100 mg PO BID [facility] Stop: 03/27/18 16:59 Last Admin: 01/27/18 08:45 Dose: Not Given Donepezil HCl (Aricept) 10 mg GT HS [facility] Stop: 03/27/18 20:59 Last Admin: 01/26/18 21:29 Dose: Not Given Ferrous Sulfate (Iron) 330 mg GT BID [facility] Stop: 03/27/18 16:59 Last Admin: 01/27/18 08:45 Dose: Not Given Guaifenesin (Robitussin) 200 mg PO Q4HR PRN PRN Reason: Cough or Congestion Stop: 03/27/18 13:11 Dextrose/Sodium Chloride (D5-0.45ns) 1,000 mls @ 100 mls/hr IV .Q10H [facility] Stop: 03/27/18 13:14 Last Admin: 01/27/18 04:27 Dose: 100 mls/hr Cefepime HCl 1 gm/ Dextrose 50 mls @ 100 mls/hr IV Q12H [facility] Stop: 03/27/18 16:59 Last Admin: 01/27/18 04:28 Dose: 100 mls/hr Vancomycin HCl 1 gm/ Sodium (Chloride) 250 mls @ 165 mls/hr IV Q24H [facility] Stop: 03/27/18 15:59 Last Infusion: 01/26/18 19:42 Dose: Infused Ipratropium [place] (Atrovent Neb 0.5mg/2.5ml) 0.5 mg IH Q2HRT PRN PRN Reason: Shortness of Breath or Wheeze Stop: 03/27/18 13:11 Last Admin: 01/26/18 13:30 Dose: 0.5 mg Ipratropium [place] (Atrovent Neb 0.5mg/2.5ml) 0.5 mg HHN QIDRT [facility] Stop: 03/27/18 16:59 Last Admin: 01/27/18 11:53 Dose: 0.5 mg Lactobacillus Rhamnosus (Culturelle 15b) 1 each PO DAILY [facility] Stop: 03/28/18 08:59 Last Admin: 01/27/18 08:45 Dose: Not Given Magnesium Hydroxide (Milk Of Magnesia) 30 ml PO Q72H PRN PRN Reason: IF NO BM Stop: 03/27/18 13:10 Miscellaneous (Vte Chemical Prophylaxis Screen/Icu Transfer) 1 ea MC PRN PRN PRN Reason: PROTOCOL Stop: 03/28/18 09:14 Ondansetron HCl (Zofran) 4 mg IV Q8H PRN PRN Reason: Nausea / Vomiting Stop: 03/27/18 13:11 Pantoprazole Sodium (Protonix) 40 mg IVP BID [facility] Stop: 03/27/18 16:59 Last Admin: 01/27/18 08:56 Dose: 40 mg Prednisone (Deltasone) 10 mg PO BID [facility] Stop: 03/27/18 16:59 Last Admin: 01/27/18 08:45 Dose: Not Given Quetiapine Fumarate (Seroquel) 75 mg GT HS [facility]; Protocol Stop: 03/27/18 20:59 Last Admin: 01/26/18 21:29 Dose: Not Given Quetiapine Fumarate (Seroquel) 37.5 mg GT QAM [facility]; Protocol Stop: 03/28/18 08:59 Last Admin: 01/27/18 08:45 Dose: Not Given Sodium Phosphate (Fleet Enema) 135 ml RC DAILY PRN PRN Reason: IF DULCOLAX INEFFECTIVE Stop: 03/27/18 13:10 Tamsulosin HCl (Flomax) 0.4 mg GT DAILY [facility] Stop: 03/28/18 08:59 Last Admin: 01/27/18 08:46 Dose: Not Given Valproate Sodium (Depakene) 750 mg GT BID [facility]; Protocol Stop: 03/27/18 16:59 Last Admin: 01/27/18 08:46 Dose: Not Given General: weak, alert, cachectic HEENT: NC/AT, PERRLA Neck: Supple Lungs: ronchi Cardiovascular: RRR, Normal S1, Normal S2, without murmur Extremities: excoriation Neurological: alert, unable to follow command - Procedures Procedures: Procedures Procedure Code Date ASSISTANCE WITH RESPIRATORY VENTILATION, 24-96 HRS, CPAP [id number] 09/29/17 POS AIRWAY PRESSURE CPAP 45894 09/29/17 Internal Medicine Assmt/Plan - Assessment Assessment: sepsis gi bleed acute renal insufficiency r/o dehydration mild protein calorie malnutrition MR hx stroke - Plan Plan: egd tomorrow monitor h/h cont with protonix pulmo consultation bronchodilators ivabx to continue follow up labs in am continue current plan of care
[2018-01-27] MEDS: Albuterol/Ipratropium Neb 3 ML AERS HHN SCH (19:52)
--- NOTE | 2018-01-27 22:12 | Consultation ---
DATE OF CONSULTATION: 01/27/2018 REFERRING PHYSICIAN: Dr. Asencio. Thank you very much Dr. Asencio for this consultation. HISTORY OF PRESENT ILLNESS: This is a 77-year-old male who was admitted with shortness of breath and congestion in addition to some coffee-ground emesis. The patient's lactic acid initially was elevated, it has improved. The patient was having some desaturation and refusing to wear his oxygen. The patient has improved with nebulizer treatment. The patient has leukocytosis. I know this patient from previous admission with history of COPD, history of pneumonias, and respiratory failure and has been intubated in the past. He is unable to give any history, very resistant to treatment or oxygen supplementation. OTHER PAST MEDICAL HISTORY: As above. In addition to dementia, psychosis as well as history of smoking in the past. REVIEW OF SYSTEMS: Unable to obtain because of the patient's condition. PHYSICAL EXAMINATION: GENERAL: The patient is awake and confused. VITAL SIGNS: Temperature 97.3, pulse 87, respiration 18, blood pressure 109/66, and saturation 98%. HEENT: Atraumatic and normocephalic. Pupils are equal and reactive to light and accommodation. Ears, nose, and throat normal. NECK: Supple. No JVD. CHEST: There are few rhonchi in bases. HEART: Regular rhythm. ABDOMEN: Soft. EXTREMITIES: No edema. LABORATORY DATA AND DIAGNOSTIC STUDIES: WBC is 13.3, down from 22.2; hemoglobin 10.6; hematocrit 31.3; platelets 377. Sodium 134, potassium is 5.3, BUN 20, and creatinine 0.7. Chest x-ray showed possible infiltrate in the right lower lobe area ____ overlying the right side of the chest. IMPRESSION: This is a 77-year-old male with: 1. Coffee-ground emesis. 2. Sepsis. 3. Possible pneumonia. 4. Chronic obstructive pulmonary disease. PLAN: 1. IV antibiotics. 2. Nebulizer treatment. 3. ____. 4. Follow up cultures. I will follow the patient with you. Thank you very much for this consultation. JOB# [id number]
[2018-01-28] MEDS: D5-0.45NS 1,000 ML IV SCH ×2 (05:54→15:19)
[2018-01-28 06:26] LABS: % BASOPHILS 1.2 % (0.0-2.0); % EOSINOPHILS 3.5 % (0.0-5.0); % LYMPHOCYTES 22.1 % (20.0-50.0); % MONOCYTES 6.7 % (2.0-10.0); % NEUTROPHILS 66.5 % (40.0-80.0); BASOPHILE ABSOLUTE 0.1 Th/cumm (0-0.2); EOSINOPHILE ABSOLUTE 0.3 Th/cmm (0.1-0.4); HEMATOCRIT 32.4 % (41.0-60); MEAN CELL VOLUME 93.4 fl (80-99); MEAN CORPUSCULAR HEMOGLOBIN 31.8 pg (27.0-31.0); MEAN PLATELET VOLUME 9.5 fl; MONOCYTE ABSOLUTE 0.6 Th/cmm (0.3-1.0); NEUTROPHILE ABSOLUTE 6.2 Th/cmm (1.8-8.0); PLATELET COUNT 387 Th/cmm (150-400); RED BLOOD COUNT 3.46 Mil/cmm (3.80-5.80); RED CELL DISTRIBUTION WIDTH 16.4 % (11.5-20.0); WHITE BLOOD COUNT 9.2 Th/cmm (4.8-10.8)
[2018-01-28 06:30] LABS: INR 1.05 (0.5-1.4); PROTHROMBIN TIME (TEST) 10.9 SECONDS (9.5-11.5)
[2018-01-28] MEDS: Albuterol/Ipratropium Neb 3 ML AERS HHN SCH ×4 (07:04→19:33)
[2018-01-28] MEDS: Ipratropium Neb 0.5 mg/2.5 mL UD HHN SCH (07:05)
[2018-01-28] MEDS: Ferrous Sulfate 300 MG/5 ML UDC GT SCH ×2 (08:38→17:37)
[2018-01-28] MEDS: Lactobacillus Rhamnosus GG 15 Billion CFU CAP.SPRINK PO SCH (08:38)
[2018-01-28 08:42] LABS: ANION GAP 10.3 (7.0-16.0); BUN - UREA NITROGEN 13 mg/dL (7-25); CALCIUM SERUM 9.5 mg/dL (8.6-10.3); CARBON DIOXIDE 27.4 mEq/L (21.0-31.0); CHLORIDE 103 mEq/L (98-107); CREATININE - SERUM 0.6 mg/dL (0.7-1.3); GLUCOSE 78 mg/dL (70-105); POTASSIUM SERUM 4.7 mEq/L (3.5-5.1); SODIUM SERUM 136 mEq/L (136-145)
--- NOTE | 2018-01-28 08:54 | Diagnostic Imaging Report ---
CHEST X-RAY: AP view INDICATION: Shortness of breath COMPARISON: 01/26/2018 FINDINGS: Right PICC line is seen with tip along the right axillary region. Chronic lung changes are seen with right mid to right upper lung linear densities. Small left effusion is noted. Heart size is at the upper limits of normal. IMPRESSION: Right mid to right upper lung linear densities which may be due to atelectasis, however, developing infiltrate in this region. Follow-up recommended Probable superimposed interstitial infiltrates.
[2018-01-28] MEDS ORDERED: Lidocaine 2% Gel 5 mL TP ONE (09:00)
[2018-01-28] MEDS ORDERED: Propofol 10 mg/mL 20mL Vial **SURGERY USE ONLY IV ONE (09:00)
[2018-01-28] MEDS ORDERED: Diatrizoate Meglumine/Diatri 30 mL Sol ONE (09:40)
--- NOTE | 2018-01-28 10:38 | Operative Report ---
DATE OF SURGERY: 01/28/2018 PROCEDURES PERFORMED: 1. Diagnostic EGD. 2. Attempt to replace G-tube. PREOPERATIVE DIAGNOSES: 1. Hematemesis. 2. History of stroke and dementia. 3. History of gastrostomy tube. POSTOPERATIVE DIAGNOSES: 1. Panulcerative esophagitis. 2. Probable surgical GJ tube placement and unsuccessful attempt to replace gastrostomy tube. INDICATIONS: This is a 77-year-old male who is a [facility] of a [facility] who has been admitted for 1-day history of coffee-ground emesis and also dehydration. The patient has a gastrostomy tube in place and nursing staff was reporting that it was leaking from the outside at the feeding port site. The patient did not have significant anemia, however his hemoglobin had dropped 2 grams when he presented to the hospital and further investigation and attempts to replace his PEG tube were chosen for procedure. CONSENT: Informed consent was obtained from proper authorities after explaining the risks, benefits and alternatives to the procedure, which were understood and so stated. SEDATION: Per anesthesia. DESCRIPTION OF PROCEDURE: EGD: While the patient was in the supine position, a GIF-H180 scope was introduced through the patient's mouth and advanced under direct visualization into the esophagus. Upon entry into the esophagus, the patient had obvious evidence of panulcerative esophagitis with some friable tissue and mucosa. The scope was then gently advanced up into the stomach where there was evidence of a gastrostomy tube that was directly feeding into the duodenal bulb. We tried to pull back on the tube; however, it was not freely mobile and was likely either surgically attached at the stomach wall or distally where the distal tip of the gastrostomy tube was. I advanced the scope beyond into the second portion of the duodenum. I then withdrew the scope carefully examining the color, texture, anatomy and mucosa. The patient's anatomy was very distorted and I was able to see the distal tip of the gastrostomy tube in the duodenal sweep; however, when we pulled out the outside of the gastrostomy tube it was not freely moving for some reason. The patient was also very difficult to sedate and every gentle manipulation of the scope in this area was causing him to have excessive gagging, coughing and desaturations as well. Decision was made that the risks were far outweigh any benefits to try and replace this tube at this point. The scope was brought back into the body of the stomach where retroflexion was then performed which was normal. The stomach otherwise appeared grossly normal except for the direct tract of the gastrostomy fistula and this tube going directly into the duodenal bulb. Again, this was not an easy tube to try to simply replace endoscopically. The scope was brought back to the GE junction, which was present at 40 cm from the incisors. Again was noted panulcerative esophagitis. The scope was then drawn out. The patient tolerated the procedure well. RECOMMENDATIONS: 1. We will keep the patient on IV PPI twice a day until definitely tolerating tube feeds. 2. Okay to restart tube feeds. 3. I would recommend an x-ray with Gastrografin study to further assess exactly placement of this gastrostomy tube and make sure that it is functioning appropriately. We will continue to follow alongside with you. JOB# [id number]
--- NOTE | 2018-01-28 12:09 | Diagnostic Imaging Report ---
Upper GI with Gastrografin HISTORY: G-tube confirmation COMPARISON: None FINDINGS: [employer] Worker view demonstrates generalized gaseous filled loops of bowel. Degenerative changes of the spine are noted with scoliosis. The second image demonstrates contrast opacification of primarily small bowel loops. IMPRESSION: Intraluminal confirmation of patient's percutaneous feeding tube with feeding tube probably at the distal stomach as there is primarily opacification of small bowel loops. Generalized gas-filled bowel possibly representing an ileus.
--- NOTE | 2018-01-28 14:29 | Internal Medicine Prog Note ---
Internal Medicine Subjective - Subjective Service Date: 01/28/18 Patient seen and examined:: with staff Patient is:: awake, verbal, confused Patient Complaints of:: congestion, cough Per staff patient has:: tolerating meds Internal Medicine Objective - Results Result Diagrams: 01/28/18 05:47 01/28/18 05:47 Recent Labs: Laboratory Last Values WBC 9.2 Th/cmm (4.8-10.8) 01/28/18 05:47 Corrected WBC (auto) Th/cmm 01/27/18 05:15 RBC 3.46 Mil/cmm (3.80-5.80) L 01/28/18 05:47 Hgb 11.0 gm/dL (12-16) L 01/28/18 05:47 Hct 32.4 % (41.0-60) L 01/28/18 05:47 MCV 93.4 fl (80-99) 01/28/18 05:47 MCH 31.8 pg (27.0-31.0) H 01/28/18 05:47 MCHC Differential 34.0 pg (28.0-36.0) 01/28/18 05:47 RDW 16.4 % (11.5-20.0) 01/28/18 05:47 Plt Count 387 Th/cmm (150-400) 01/28/18 05:47 MPV 9.5 fl 01/28/18 05:47 Add Manual Diff YES 01/26/18 11:20 Neutrophils % 66.5 % (40.0-80.0) 01/28/18 05:47 Band Neutrophils % 2 % (0-10) 01/26/18 11:20 Lymphocytes % 22.1 % (20.0-50.0) 01/28/18 05:47 Monocytes % 6.7 % (2.0-10.0) 01/28/18 05:47 Eosinophils % 3.5 % (0.0-5.0) 01/28/18 05:47 Basophils % 1.2 % (0.0-2.0) 01/28/18 05:47 Neutrophils (Manual) 92 % (40-80) H 01/26/18 11:20 Lymphocytes 4 % (20-50) L 01/26/18 11:20 Monocytes 2 % (2-10) 01/26/18 11:20 Eosinophils 0 % (0-5) 01/26/18 11:20 Basophils 0 % (0-3) 01/26/18 11:20 Platelet Estimate INCREASED PLATELETS (NORMAL) 01/26/18 11:20 PT 10.9 SECONDS (9.5-11.5) 01/28/18 05:47 INR 1.05 (0.5-1.4) 01/28/18 05:47 PTT (Actin FS) 23.2 SECONDS (26.0-38.0) L 01/26/18 11:20 Sodium 136 mEq/L (136-145) 01/28/18 05:47 Potassium 4.7 mEq/L (3.5-5.1) 01/28/18 05:47 Chloride 103 mEq/L (98-107) 01/28/18 05:47 Carbon Dioxide 27.4 mEq/L (21.0-31.0) 01/28/18 05:47 Anion Gap 10.3 (7.0-16.0) 01/28/18 05:47 BUN 13 mg/dL (7-25) 01/28/18 05:47 Creatinine 0.6 mg/dL (0.7-1.3) L 01/28/18 05:47 Est GFR ( Amer) TNP 01/28/18 05:47 Est GFR (Non-Af Amer) TNP 01/28/18 05:47 BUN/Creatinine Ratio 21.7 01/28/18 05:47 Glucose 78 mg/dL (70-105) 01/28/18 05:47 Whole Bld Lactic Acid 4.72 mmol/L (0.60-1.99) H* 01/26/18 11:20 Calcium 9.5 mg/dL (8.6-10.3) 01/28/18 05:47 Phosphorus 3.0 mg/dL (2.5-5.0) 01/26/18 11:20 Magnesium 2.1 mg/dL (1.9-2.7) 01/26/18 11:20 Total Bilirubin 0.2 mg/dL (0.3-1.0) L 01/26/18 11:20 AST 23 U/L (13-39) 01/26/18 11:20 ALT 16 U/L (7-52) 01/26/18 11:20 Alkaline Phosphatase 74 U/L (34-104) 01/26/18 11:20 B-Natriuretic Peptide 137.0 pg/mL (5.0-100.0) H 01/26/18 11:20 Total Protein 8.0 gm/dL (6.0-8.3) 01/26/18 11:20 Albumin 3.9 gm/dL (4.2-5.5) L 01/26/18 11:20 Globulin 4.1 gm/dL 01/26/18 11:20 Albumin/Globulin Ratio 1.0 (1.0-1.8) 01/26/18 11:20 TSH 3.15 uIU/ml (0.34-5.60) 01/26/18 11:20 Valproic Acid 83.4 ug/mL (50.0-100.0) 01/26/18 11:20 - Physical Exam Vitals and I&O: Vital Signs Temp 96.3 F 01/28/18 11:36 Pulse 91 01/28/18 14:01 Resp 20 01/28/18 14:01 BP 158/74 01/28/18 11:36 Pulse Ox 92 01/28/18 14:01 Intake & Output 01/27/18 01/28/18 01/28/18 18:59 06:59 18:59 Intake Total 1050 1050 Balance 1050 1050 Intake: Intake, IV Amount 1050 1050 Cefepime 1 gm In Dextrose 50 50 5% 50 ml @ 100 mls/hr IV Q12H [facility] Rx#:[id number] D5-0.45NS 1,000 ml @ 100 1000 1000 mls/hr IV .Q10H [facility] Rx#: [id number] Active Medications: Current Medications Acetaminophen (Tylenol) 650 mg PO Q4H PRN PRN Reason: Pain Or Fever above 101 Stop: 03/27/18 13:10 Albuterol/Ipratropium (Duoneb Neb) 3 ml HHN Q6HRT [facility] Stop: 03/28/18 18:59 Last Admin: 01/28/18 14:00 Dose: 3 ml Ascorbic Acid (Vitamin C) 500 mg GT DAILY [facility] Stop: 03/28/18 08:59 Last Admin: 01/28/18 08:38 Dose: Not Given Bisacodyl (Dulcolax 10 Mg Supp) 10 mg RC PRN PRN PRN Reason: IF MOM NOT EFFECTIVE Stop: 03/27/18 13:10 Docusate Sodium (Colace) 100 mg PO BID [facility] Stop: 03/27/18 16:59 Last Admin: 01/28/18 08:38 Dose: Not Given Donepezil HCl (Aricept) 10 mg GT HS [facility] Stop: 03/27/18 20:59 Last Admin: 01/27/18 20:36 Dose: 10 mg Ferrous Sulfate (Iron) 330 mg GT BID [facility] Stop: 03/27/18 16:59 Last Admin: 01/28/18 08:38 Dose: Not Given Guaifenesin (Robitussin) 200 mg PO Q4HR PRN PRN Reason: Cough or Congestion Stop: 03/27/18 13:11 Dextrose/Sodium Chloride (D5-0.45ns) 1,000 mls @ 100 mls/hr IV .Q10H [facility] Stop: 03/27/18 13:14 Last Admin: 01/28/18 05:54 Dose: 100 mls/hr Cefepime HCl 1 gm/ Dextrose 50 mls @ 100 mls/hr IV Q12H [facility] Stop: 03/27/18 16:59 Last Infusion: 01/28/18 05:31 Dose: Infused Vancomycin HCl 1 gm/ Sodium (Chloride) 250 mls @ 165 mls/hr IV Q24H [facility] Stop: 03/27/18 15:59 Last Admin: 01/27/18 16:32 Dose: 165 mls/hr Ipratropium [place] (Atrovent Neb 0.5mg/2.5ml) 0.5 mg IH Q2HRT PRN PRN Reason: Shortness of Breath or Wheeze Stop: 03/27/18 13:11 Last Admin: 01/26/18 13:30 Dose: 0.5 mg Ipratropium [place] (Atrovent Neb 0.5mg/2.5ml) 0.5 mg HHN QIDRT [facility] Stop: 03/27/18 16:59 Last Admin: 01/27/18 19:47 Dose: Not Given Lactobacillus Rhamnosus (Culturelle 15b) 1 each PO DAILY [facility] Stop: 03/28/18 08:59 Last Admin: 01/28/18 08:38 Dose: Not Given Magnesium Hydroxide (Milk Of Magnesia) 30 ml PO Q72H PRN PRN Reason: IF NO BM Stop: 03/27/18 13:10 Last Admin: 01/27/18 20:36 Dose: 30 ml Miscellaneous (Vte Chemical Prophylaxis Screen/Icu Transfer) 1 ea MC PRN PRN PRN Reason: PROTOCOL Stop: 03/28/18 09:14 Ondansetron HCl (Zofran) 4 mg IV Q8H PRN PRN Reason: Nausea / Vomiting Stop: 03/27/18 13:11 Pantoprazole Sodium (Protonix) 40 mg IVP BID [facility] Stop: 03/27/18 16:59 Last Admin: 01/28/18 08:44 Dose: Not Given Prednisone (Deltasone) 10 mg PO BID [facility] Stop: 03/27/18 16:59 Last Admin: 01/28/18 08:38 Dose: Not Given Quetiapine Fumarate (Seroquel) 75 mg GT HS [facility]; Protocol Stop: 03/27/18 20:59 Last Admin: 01/27/18 20:36 Dose: 75 mg Quetiapine Fumarate (Seroquel) 37.5 mg GT QAM [facility]; Protocol Stop: 03/28/18 08:59 Last Admin: 01/28/18 13:50 Dose: 37.5 mg Sodium Phosphate (Fleet Enema) 135 ml RC DAILY PRN PRN Reason: IF DULCOLAX INEFFECTIVE Stop: 03/27/18 13:10 Tamsulosin HCl (Flomax) 0.4 mg GT DAILY [facility] Stop: 03/28/18 08:59 Last Admin: 01/28/18 11:23 Dose: Not Given Valproate Sodium (Depakene) 750 mg GT BID [facility]; Protocol Stop: 03/27/18 16:59 Last Admin: 01/28/18 08:39 Dose: Not Given General: weak, alert, cachectic HEENT: NC/AT, PERRLA Neck: Supple Lungs: ronchi Cardiovascular: RRR, Normal S1, Normal S2, without murmur Extremities: excoriation Neurological: alert, unable to follow command - Procedures Procedures: Procedures Procedure Code Date ASSISTANCE WITH RESPIRATORY VENTILATION, 24-96 HRS, CPAP [id number] 09/29/17 POS AIRWAY PRESSURE CPAP 61992 09/29/17 Internal Medicine Assmt/Plan - Assessment Assessment: sepsis panulcerative esophagitis acute renal insufficiency r/o dehydration mild protein calorie malnutrition MR hx stroke - Plan Plan: monitor h/h cont with protonix bronchodilators ivabx to continue follow up labs in am continue current plan of care Nutritional Asmnt/Malnutr-PDOC - Dietary Evaluation Malnutrition Findings (Please click <Entered> for more info): Nutritional Asmnt/Malnutrition Start: 01/27/18 16: 52 Text: Status: Complete Freq: Protocol: Document 01/27/18 16:52 LCANNY (Rec: 01/27/18 17:23 LCHENG [email or web address]) Nutritional Asmnt/Malnutrition Patient General Information Nutritional Screening High Risk Consult Diagnosis Sepsis, gastrointestinal bleeding Pertinent Medical Hx/Surgical Hx MRelida, dementia Subjective Information Consult received for sheeba Sebastian . Pt seen lying in bed at time of visit, non-verbal. Per nurse, TF initiated today. Pt may hae EGD tommorrow, waiting for consent. Current Diet Order/ Nutrition Support Jevity 1.2 initated at 10ml, goal rate of 50ml. Pertinent Medications vit C, D5-0.45ns, colace, iron , culturelle, protonix, seroquel, vancomycin Pertinent Labs 01/27 na 134, K 5.3 Nutritional Hx/Data Height 5 ft 11 in Height (Calculated Centimeters) 180.3 Current Weight (lbs) 107 lb Weight (Calculated Kilograms) 48.5 Weight (Calculated Grams) [address]18.4 [place] Body Weight 172 Body Mass Index (BMI) 14.9 Weight Status Underweight GI Symptoms GI Symptoms None Difficult in: None Usual diet at home jevity 1.5 at 90hr x 16hr, providing 2160kcal Skin Integrity/Comment: laceration to left foot, pressure ulcer to right lower back Current %PO Good (75-100%) Estimated Nutritional Goals BEE in Kcals: Using Current wt Calories/Kcals/Kg 30-35 Kcals Calculated 8072-6628 Protein: Using Current wt Protein g/k.2-1.4 Protein Calculated 59-69 Fluid: ml 1470-1715ml (1ml/kcal) Nutritional Problem 1. Problem Problem altered nutrition related labs Etiology electrolytes imbalance Signs/Symptoms: na 134, K 5.3 Intervention/Recommendation Comments 1. Continue with current TF regimen. It provides 1440kcal, 67g protein, 968ml free water , meeting 100% of nutritional needs 2. Monitor TF rate, tolerance, wt, skin integrity and labs 3. F/U as high risk in 2-3 days, 01/29-01/30 Expected Outcomes/Goals Expected Outcomes/Goals 1. Pt to meet at least 75% of nutritional needs via nutrition support with tolerance 2. Wt stability, skin integrity to improve, labs to approach WNL.
[2018-01-29] MEDS: D5-0.45NS 1,000 ML IV SCH (00:48)
[2018-01-29] MEDS: Albuterol/Ipratropium Neb 3 ML AERS HHN SCH ×4 (01:40→19:22)
[2018-01-29 05:51] LABS: % BASOPHILS 0.7 % (0.0-2.0); % EOSINOPHILS 3.1 % (0.0-5.0); % LYMPHOCYTES 23.4 % (20.0-50.0); % MONOCYTES 7.1 % (2.0-10.0); % NEUTROPHILS 65.7 % (40.0-80.0); BASOPHILE ABSOLUTE 0.1 Th/cumm (0-0.2); EOSINOPHILE ABSOLUTE 0.2 Th/cmm (0.1-0.4); HEMATOCRIT 29.9 % (41.0-60); HEMOGLOBIN 10.1 gm/dL (12-16); LYMPHOCYTE ABSOLUTE 1.8 Th/cmm (1.5-3.0); MEAN CELL VOLUME 93.7 fl (80-99); MEAN CORPUSCULAR HEMOGLOBIN 31.6 pg (27.0-31.0); MEAN CORPUSCULAR HGB CONC 33.7 pg (28.0-36.0); MEAN PLATELET VOLUME 8.9 fl; MONOCYTE ABSOLUTE 0.5 Th/cmm (0.3-1.0); NEUTROPHILE ABSOLUTE 5.1 Th/cmm (1.8-8.0); PLATELET COUNT 402 Th/cmm (150-400); RED BLOOD COUNT 3.19 Mil/cmm (3.80-5.80); RED CELL DISTRIBUTION WIDTH 16.3 % (11.5-20.0); WHITE BLOOD COUNT 7.7 Th/cmm (4.8-10.8)
[2018-01-29 06:19] LABS: ANION GAP 12.5 (7.0-16.0); BUN - UREA NITROGEN 9 mg/dL (7-25); CALCIUM SERUM 8.8 mg/dL (8.6-10.3); CARBON DIOXIDE 20.3 mEq/L (21.0-31.0); CHLORIDE 106 mEq/L (98-107); CREATININE - SERUM 0.6 mg/dL (0.7-1.3); GLUCOSE 134 mg/dL (70-105); POTASSIUM SERUM 4.8 mEq/L (3.5-5.1); SODIUM SERUM 134 mEq/L (136-145)
[2018-01-29] MEDS: Lactobacillus Rhamnosus GG 15 Billion CFU CAP.SPRINK PO SCH (09:09)
[2018-01-29] MEDS: Ferrous Sulfate 300 MG/5 ML UDC GT SCH ×2 (09:10→17:21)
--- NOTE | 2018-01-29 09:16 | GI Progress Note ---
Subjective - Review of Systems Service Date: 01/29/18 Subjective: EVENTS NOTED. JEREMY J TUBE FEEDS JEV 1.2 40 ML/HR. Objective - Results Result Diagrams: 01/29/18 05:20 01/29/18 05:20 Recent Labs: Laboratory Last Values WBC 7.7 Th/cmm (4.8-10.8) 01/29/18 05:20 Corrected WBC (auto) Th/cmm 01/27/18 05:15 RBC 3.19 Mil/cmm (3.80-5.80) L 01/29/18 05:20 Hgb 10.1 gm/dL (12-16) L 01/29/18 05:20 Hct 29.9 % (41.0-60) L 01/29/18 05:20 MCV 93.7 fl (80-99) 01/29/18 05:20 MCH 31.6 pg (27.0-31.0) H 01/29/18 05:20 MCHC Differential 33.7 pg (28.0-36.0) 01/29/18 05:20 RDW 16.3 % (11.5-20.0) 01/29/18 05:20 Plt Count 402 Th/cmm (150-400) H 01/29/18 05:20 MPV 8.9 fl 01/29/18 05:20 Add Manual Diff YES 01/26/18 11:20 Neutrophils % 65.7 % (40.0-80.0) 01/29/18 05:20 Band Neutrophils % 2 % (0-10) 01/26/18 11:20 Lymphocytes % 23.4 % (20.0-50.0) 01/29/18 05:20 Monocytes % 7.1 % (2.0-10.0) 01/29/18 05:20 Eosinophils % 3.1 % (0.0-5.0) 01/29/18 05:20 Basophils % 0.7 % (0.0-2.0) 01/29/18 05:20 Neutrophils (Manual) 92 % (40-80) H 01/26/18 11:20 Lymphocytes 4 % (20-50) L 01/26/18 11:20 Monocytes 2 % (2-10) 01/26/18 11:20 Eosinophils 0 % (0-5) 01/26/18 11:20 Basophils 0 % (0-3) 01/26/18 11:20 Platelet Estimate INCREASED PLATELETS (NORMAL) 01/26/18 11:20 PT 10.9 SECONDS (9.5-11.5) 01/28/18 05:47 INR 1.05 (0.5-1.4) 01/28/18 05:47 PTT (Actin FS) 23.2 SECONDS (26.0-38.0) L 01/26/18 11:20 Sodium 134 mEq/L (136-145) L 01/29/18 05:20 Potassium 4.8 mEq/L (3.5-5.1) 01/29/18 05:20 Chloride 106 mEq/L (98-107) 01/29/18 05:20 Carbon Dioxide 20.3 mEq/L (21.0-31.0) L 01/29/18 05:20 Anion Gap 12.5 (7.0-16.0) 01/29/18 05:20 BUN 9 mg/dL (7-25) 01/29/18 05:20 Creatinine 0.6 mg/dL (0.7-1.3) L 01/29/18 05:20 Est GFR ( Amer) TNP 01/29/18 05:20 Est GFR (Non-Af Amer) TNP 01/29/18 05:20 BUN/Creatinine Ratio 15.0 01/29/18 05:20 Glucose 134 mg/dL (70-105) H 01/29/18 05:20 Whole Bld Lactic Acid 4.72 mmol/L (0.60-1.99) H* 01/26/18 11:20 Calcium 8.8 mg/dL (8.6-10.3) 01/29/18 05:20 Phosphorus 3.0 mg/dL (2.5-5.0) 01/26/18 11:20 Magnesium 2.1 mg/dL (1.9-2.7) 01/26/18 11:20 Total Bilirubin 0.2 mg/dL (0.3-1.0) L 01/26/18 11:20 AST 23 U/L (13-39) 01/26/18 11:20 ALT 16 U/L (7-52) 01/26/18 11:20 Alkaline Phosphatase 74 U/L (34-104) 01/26/18 11:20 B-Natriuretic Peptide 137.0 pg/mL (5.0-100.0) H 01/26/18 11:20 Total Protein 8.0 gm/dL (6.0-8.3) 01/26/18 11:20 Albumin 3.9 gm/dL (4.2-5.5) L 01/26/18 11:20 Globulin 4.1 gm/dL 01/26/18 11:20 Albumin/Globulin Ratio 1.0 (1.0-1.8) 01/26/18 11:20 TSH 3.15 uIU/ml (0.34-5.60) 01/26/18 11:20 Vancomycin Trough 10.4 ug/mL (5-10) H 01/28/18 14:50 Valproic Acid 83.4 ug/mL (50.0-100.0) 01/26/18 11:20 - Physical Exam Vitals and I&O: Vital Signs Temp 97.6 F 01/29/18 08:54 Pulse 89 01/29/18 08:54 Resp 18 01/29/18 08:54 BP 126/76 01/29/18 08:54 Pulse Ox 94 01/29/18 08:54 Intake & Output 01/28/18 01/29/18 01/29/18 18:59 06:59 18:59 Intake Total 365.727 9692.333 Output Total 3 Balance 514.651 1653.333 Weight (lbs) 48.534 kg Intake: Intake, IV Amount 991.667 948.333 Cefepime 1 gm In Dextrose 50 5% 50 ml @ 100 mls/hr IV Q12H [facility] Rx#:[id number] D5-0.45NS 1,000 ml @ 100 941.667 948.333 mls/hr IV .Q10H [facility] Rx#: [id number] Tube Feeding 460 Other 240 Output: Stool 3 Other: # Voids 3 # Bowel Movements 1 Weight Source Estimated Active Medications: Current Medications Acetaminophen (Tylenol) 650 mg PO Q4H PRN PRN Reason: Pain Or Fever above 101 Stop: 03/27/18 13:10 Albuterol/Ipratropium (Duoneb Neb) 3 ml HHN Q6HRT [facility] Stop: 03/28/18 18:59 Last Admin: 01/29/18 07:10 Dose: 3 ml Ascorbic Acid (Vitamin C) 500 mg GT DAILY [facility] Stop: 03/28/18 08:59 Last Admin: 01/29/18 09:09 Dose: 500 mg Bisacodyl (Dulcolax 10 Mg Supp) 10 mg RC PRN PRN PRN Reason: IF MOM NOT EFFECTIVE Stop: 03/27/18 13:10 [place] Oil/[place] Balsam/Trypsin (Venelex) 1 appl TP DAILY [facility] Stop: 03/30/18 08:59 Docusate Sodium (Colace) 100 mg PO BID [facility] Stop: 03/27/18 16:59 Last Admin: 01/29/18 09:09 Dose: 100 mg Donepezil HCl (Aricept) 10 mg GT HS [facility] Stop: 03/27/18 20:59 Last Admin: 01/28/18 21:44 Dose: 10 mg Ferrous Sulfate (Iron) 330 mg GT BID [facility] Stop: 03/27/18 16:59 Last Admin: 01/29/18 09:10 Dose: 330 mg Guaifenesin (Robitussin) 200 mg PO Q4HR PRN PRN Reason: Cough or Congestion Stop: 03/27/18 13:11 Dextrose/Sodium Chloride (D5-0.45ns) 1,000 mls @ 100 mls/hr IV .Q10H [facility] Stop: 03/27/18 13:14 Last Admin: 01/29/18 00:48 Dose: 100 mls/hr Cefepime HCl 1 gm/ Dextrose 50 mls @ 100 mls/hr IV Q12H [facility] Stop: 03/27/18 16:59 Last Admin: 01/29/18 04:50 Dose: 100 mls/hr Vancomycin HCl 1 gm/ Sodium (Chloride) 250 mls @ 165 mls/hr IV Q24H [facility] Stop: 03/27/18 15:59 Last Admin: 01/28/18 17:34 Dose: 165 mls/hr Ipratropium [place] (Atrovent Neb 0.5mg/2.5ml) 0.5 mg IH Q2HRT PRN PRN Reason: Shortness of Breath or Wheeze Stop: 03/27/18 13:11 Last Admin: 01/26/18 13:30 Dose: 0.5 mg Ipratropium [place] (Atrovent Neb 0.5mg/2.5ml) 0.5 mg HHN QIDRT [facility] Stop: 03/27/18 16:59 Last Admin: 01/27/18 19:47 Dose: Not Given Lactobacillus Rhamnosus (Culturelle 15b) 1 each PO DAILY [facility] Stop: 03/28/18 08:59 Last Admin: 01/29/18 09:09 Dose: 1 each Magnesium Hydroxide (Milk Of Magnesia) 30 ml PO Q72H PRN PRN Reason: IF NO BM Stop: 03/27/18 13:10 Last Admin: 01/27/18 20:36 Dose: 30 ml Miscellaneous (Vte Chemical Prophylaxis Screen/Icu Transfer) 1 ea MC PRN PRN PRN Reason: PROTOCOL Stop: 03/28/18 09:14 Ondansetron HCl (Zofran) 4 mg IV Q8H PRN PRN Reason: Nausea / Vomiting Stop: 03/27/18 13:11 Pantoprazole Sodium (Protonix) 40 mg IVP BID [facility] Stop: 03/27/18 16:59 Last Admin: 01/29/18 09:08 Dose: 40 mg Prednisone (Deltasone) 10 mg PO BID [facility] Stop: 03/27/18 16:59 Last Admin: 01/29/18 09:09 Dose: 10 mg Quetiapine Fumarate (Seroquel) 75 mg GT HS [facility]; Protocol Stop: 03/27/18 20:59 Last Admin: 01/28/18 21:44 Dose: 75 mg Quetiapine Fumarate (Seroquel) 37.5 mg GT QAM [facility]; Protocol Stop: 03/28/18 08:59 Last Admin: 01/29/18 09:09 Dose: 37.5 mg Sodium Phosphate (Fleet Enema) 135 ml RC DAILY PRN PRN Reason: IF DULCOLAX INEFFECTIVE Stop: 03/27/18 13:10 Tamsulosin HCl (Flomax) 0.4 mg GT DAILY [facility] Stop: 03/28/18 08:59 Last Admin: 01/29/18 09:09 Dose: 0.4 mg Valproate Sodium (Depakene) 750 mg GT BID [facility]; Protocol Stop: 03/27/18 16:59 Last Admin: 01/29/18 09:09 Dose: 750 mg General: No acute distress HEENT: Atraumatic Neck: Supple Cardiovascular: Regular rate Lungs: Clear to auscultation Abdomen: Bowel sounds, Soft, Other (INTACT GJ TUBE; ABD WALL BINDER), no Tender - Procedures Procedures: Procedures Procedure Code Date ASSISTANCE WITH RESPIRATORY VENTILATION, 24-96 HRS, CPAP [id number] 09/29/17 POS AIRWAY PRESSURE CPAP [id number] 09/29/17 Assessment/Plan - Assessment Assessment: IMPRESSION: 1. UPPER GI BLEED - LIKELY DUE TO REFLUX ESOPHAGITIS PER EGD. 2. DYSPHAGIA WITH POSSIBLE LEAK AT GJ TUBE INSERTION SITE - UNABLE TO REMOVE GJT VIA EGD, ?DISTAL TIP ANCHORED TO SMALL BOWEL WALL SURGICALLY. 3. ANEMIA. RECS: 1. MONITOR HGB. 2. PROTONIX. 3. JT FEEDS JEREMY. 4. NO NEED TO REPLACE GJ TUBE AT THIS TIME. IF NEEDED, THEN MAY NEED SURGICAL REPLACEMENT.
[2018-01-29] MEDS ORDERED: D5-0.45NS 1,000 ML IV SCH (13:15)
--- NOTE | 2018-01-29 14:10 | Diagnostic Imaging Report ---
Portable chest x-ray HISTORY: Pneumonia Compared with prior exam of 01/28/2018, there is question of developing infiltrate in the right lower lobe. Pneumonia cannot be excluded. Again noted are chronic changes along with pleural thickening along the right minor fissure. IMPRESSION: 1. Question developing infiltrate right lower lobe. Pneumonia cannot be excluded. Clinical correlation and follow-up recommended.
--- NOTE | 2018-01-29 14:14 | Internal Medicine Prog Note ---
Internal Medicine Subjective - Subjective Service Date: 01/29/18 Patient is:: awake, verbal, confused Patient Complaints of:: congestion, cough Per staff patient has:: tolerating meds Internal Medicine Objective - Results Result Diagrams: 01/29/18 05:20 01/29/18 05:20 Recent Labs: Laboratory Last Values WBC 7.7 Th/cmm (4.8-10.8) 01/29/18 05:20 Corrected WBC (auto) Th/cmm 01/27/18 05:15 RBC 3.19 Mil/cmm (3.80-5.80) L 01/29/18 05:20 Hgb 10.1 gm/dL (12-16) L 01/29/18 05:20 Hct 29.9 % (41.0-60) L 01/29/18 05:20 MCV 93.7 fl (80-99) 01/29/18 05:20 MCH 31.6 pg (27.0-31.0) H 01/29/18 05:20 MCHC Differential 33.7 pg (28.0-36.0) 01/29/18 05:20 RDW 16.3 % (11.5-20.0) 01/29/18 05:20 Plt Count 402 Th/cmm (150-400) H 01/29/18 05:20 MPV 8.9 fl 01/29/18 05:20 Add Manual Diff YES 01/26/18 11:20 Neutrophils % 65.7 % (40.0-80.0) 01/29/18 05:20 Band Neutrophils % 2 % (0-10) 01/26/18 11:20 Lymphocytes % 23.4 % (20.0-50.0) 01/29/18 05:20 Monocytes % 7.1 % (2.0-10.0) 01/29/18 05:20 Eosinophils % 3.1 % (0.0-5.0) 01/29/18 05:20 Basophils % 0.7 % (0.0-2.0) 01/29/18 05:20 Neutrophils (Manual) 92 % (40-80) H 01/26/18 11:20 Lymphocytes 4 % (20-50) L 01/26/18 11:20 Monocytes 2 % (2-10) 01/26/18 11:20 Eosinophils 0 % (0-5) 01/26/18 11:20 Basophils 0 % (0-3) 01/26/18 11:20 Platelet Estimate INCREASED PLATELETS (NORMAL) 01/26/18 11:20 PT 10.9 SECONDS (9.5-11.5) 01/28/18 05:47 INR 1.05 (0.5-1.4) 01/28/18 05:47 PTT (Actin FS) 23.2 SECONDS (26.0-38.0) L 01/26/18 11:20 Sodium 134 mEq/L (136-145) L 01/29/18 05:20 Potassium 4.8 mEq/L (3.5-5.1) 01/29/18 05:20 Chloride 106 mEq/L (98-107) 01/29/18 05:20 Carbon Dioxide 20.3 mEq/L (21.0-31.0) L 01/29/18 05:20 Anion Gap 12.5 (7.0-16.0) 01/29/18 05:20 BUN 9 mg/dL (7-25) 01/29/18 05:20 Creatinine 0.6 mg/dL (0.7-1.3) L 01/29/18 05:20 Est GFR ( Amer) TNP 01/29/18 05:20 Est GFR (Non-Af Amer) TNP 01/29/18 05:20 BUN/Creatinine Ratio 15.0 01/29/18 05:20 Glucose 134 mg/dL (70-105) H 01/29/18 05:20 Whole Bld Lactic Acid 4.72 mmol/L (0.60-1.99) H* 01/26/18 11:20 Calcium 8.8 mg/dL (8.6-10.3) 01/29/18 05:20 Phosphorus 3.0 mg/dL (2.5-5.0) 01/26/18 11:20 Magnesium 2.1 mg/dL (1.9-2.7) 01/26/18 11:20 Total Bilirubin 0.2 mg/dL (0.3-1.0) L 01/26/18 11:20 AST 23 U/L (13-39) 01/26/18 11:20 ALT 16 U/L (7-52) 01/26/18 11:20 Alkaline Phosphatase 74 U/L (34-104) 01/26/18 11:20 B-Natriuretic Peptide 137.0 pg/mL (5.0-100.0) H 01/26/18 11:20 Total Protein 8.0 gm/dL (6.0-8.3) 01/26/18 11:20 Albumin 3.9 gm/dL (4.2-5.5) L 01/26/18 11:20 Globulin 4.1 gm/dL 01/26/18 11:20 Albumin/Globulin Ratio 1.0 (1.0-1.8) 01/26/18 11:20 TSH 3.15 uIU/ml (0.34-5.60) 01/26/18 11:20 Vancomycin Trough 10.4 ug/mL (5-10) H 01/28/18 14:50 Valproic Acid 83.4 ug/mL (50.0-100.0) 01/26/18 11:20 - Physical Exam Vitals and I&O: Vital Signs Temp 96.7 F 01/29/18 11:59 Pulse 91 01/29/18 13:53 Resp 20 01/29/18 13:53 BP 121/70 01/29/18 11:59 Pulse Ox 90 01/29/18 13:53 Intake & Output 01/28/18 01/29/18 01/29/18 18:59 06:59 18:59 Intake Total 453.063 5764.333 Output Total 3 Balance 683.730 3081.333 Weight (lbs) 107 lb Intake: Intake, IV Amount 991.667 948.333 Cefepime 1 gm In Dextrose 50 5% 50 ml @ 100 mls/hr IV Q12H [facility] Rx#:[id number] D5-0.45NS 1,000 ml @ 100 941.667 948.333 mls/hr IV .Q10H [facility] Rx#: [id number] Tube Feeding 460 Other 240 Output: Stool 3 Other: # Voids 3 # Bowel Movements 1 Weight Source Estimated Active Medications: Current Medications Acetaminophen (Tylenol) 650 mg PO Q4H PRN PRN Reason: Pain Or Fever above 101 Stop: 03/27/18 13:10 Albuterol/Ipratropium (Duoneb Neb) 3 ml HHN Q6HRT [facility] Stop: 03/28/18 18:59 Last Admin: 01/29/18 13:53 Dose: 3 ml Ascorbic Acid (Vitamin C) 500 mg GT DAILY [facility] Stop: 03/28/18 08:59 Last Admin: 01/29/18 09:09 Dose: 500 mg Bisacodyl (Dulcolax 10 Mg Supp) 10 mg RC PRN PRN PRN Reason: IF MOM NOT EFFECTIVE Stop: 03/27/18 13:10 [place] Oil/[place] Balsam/Trypsin (Venelex) 1 appl TP DAILY [facility] Stop: 03/30/18 08:59 Docusate Sodium (Colace) 100 mg PO BID [facility] Stop: 03/27/18 16:59 Last Admin: 01/29/18 09:09 Dose: 100 mg Donepezil HCl (Aricept) 10 mg GT HS [facility] Stop: 03/27/18 20:59 Last Admin: 01/28/18 21:44 Dose: 10 mg Ferrous Sulfate (Iron) 330 mg GT BID [facility] Stop: 03/27/18 16:59 Last Admin: 01/29/18 09:10 Dose: 330 mg Guaifenesin (Robitussin) 200 mg PO Q4HR PRN PRN Reason: Cough or Congestion Stop: 03/27/18 13:11 Cefepime HCl 1 gm/ Dextrose 50 mls @ 100 mls/hr IV Q12H [facility] Stop: 03/27/18 16:59 Last Admin: 01/29/18 04:50 Dose: 100 mls/hr Vancomycin HCl 1 gm/ Sodium (Chloride) 250 mls @ 165 mls/hr IV Q24H [facility] Stop: 03/27/18 15:59 Last Admin: 01/28/18 17:34 Dose: 165 mls/hr Dextrose/Sodium Chloride (D5-0.45ns) 1,000 mls @ 60 mls/hr IV .[id number] [facility] Stop: 03/30/18 13:14 Ipratropium [place] (Atrovent Neb 0.5mg/2.5ml) 0.5 mg IH Q2HRT PRN PRN Reason: Shortness of Breath or Wheeze Stop: 03/27/18 13:11 Last Admin: 01/26/18 13:30 Dose: 0.5 mg Ipratropium [place] (Atrovent Neb 0.5mg/2.5ml) 0.5 mg HHN QIDRT [facility] Stop: 03/27/18 16:59 Last Admin: 01/27/18 19:47 Dose: Not Given Lactobacillus Rhamnosus (Culturelle 15b) 1 each PO DAILY [facility] Stop: 03/28/18 08:59 Last Admin: 01/29/18 09:09 Dose: 1 each Magnesium Hydroxide (Milk Of Magnesia) 30 ml PO Q72H PRN PRN Reason: IF NO BM Stop: 03/27/18 13:10 Last Admin: 01/27/18 20:36 Dose: 30 ml Miscellaneous (Vte Chemical Prophylaxis Screen/Icu Transfer) 1 ea PRN PRN PRN Reason: PROTOCOL Stop: 03/28/18 09:14 Ondansetron HCl (Zofran) 4 mg IV Q8H PRN PRN Reason: Nausea / Vomiting Stop: 03/27/18 13:11 Pantoprazole Sodium (Protonix) 40 mg IVP BID [facility] Stop: 03/27/18 16:59 Last Admin: 01/29/18 09:08 Dose: 40 mg Prednisone (Deltasone) 5 mg PO BID [facility] Stop: 03/30/18 16:59 Quetiapine Fumarate (Seroquel) 75 mg GT HS [facility]; Protocol Stop: 03/27/18 20:59 Last Admin: 01/28/18 21:44 Dose: 75 mg Quetiapine Fumarate (Seroquel) 37.5 mg GT QAM [facility]; Protocol Stop: 03/28/18 08:59 Last Admin: 01/29/18 09:09 Dose: 37.5 mg Sodium Phosphate (Fleet Enema) 135 ml RC DAILY PRN PRN Reason: IF DULCOLAX INEFFECTIVE Stop: 03/27/18 13:10 Tamsulosin HCl (Flomax) 0.4 mg GT DAILY [facility] Stop: 03/28/18 08:59 Last Admin: 01/29/18 09:09 Dose: 0.4 mg Valproate Sodium (Depakene) 750 mg GT BID [facility]; Protocol Stop: 03/27/18 16:59 Last Admin: 01/29/18 09:09 Dose: 750 mg General: weak, alert, cachectic HEENT: NC/AT, PERRLA Neck: Supple Lungs: ronchi Cardiovascular: RRR, Normal S1, Normal S2, without murmur Extremities: excoriation Neurological: alert, unable to follow command - Procedures Procedures: Procedures Procedure Code Date ASSISTANCE WITH RESPIRATORY VENTILATION, 24-96 HRS, CPAP [id number] 09/29/17 POS AIRWAY PRESSURE CPAP [id number] 09/29/17 Internal Medicine Assmt/Plan - Assessment Assessment: sepsis panulcerative esophagitis acute renal insufficiency r/o dehydration mild protein calorie malnutrition MR hx stroke - Plan Plan: monitor h/h cont with protonix bronchodilators ivabx to continue follow up labs in am continue current plan of care Nutritional Asmnt/Malnutr-PDOC - Dietary Evaluation Malnutrition Findings (Please click <Entered> for more info): Nutritional Asmnt/Malnutrition Start: 01/27/18 16: 52 Text: Status: Complete Freq: Protocol: Document 01/27/18 16:52 ANNY (Rec: 01/27/18 17:23 ANNYG [email or web address]) Nutritional Asmnt/Malnutrition Patient General Information Nutritional Screening High Risk Consult Diagnosis Sepsis, gastrointestinal bleeding Pertinent Medical Hx/Surgical Hx elida SALES, dementia Subjective Information Consult received for sheeba Sebastian . Pt seen lying in bed at time of visit, non-verbal. Per nurse, TF initiated today. Pt may hae EGD tommorrow, waiting for consent. Current Diet Order/ Nutrition Support Jevity 1.2 initated at 10ml, goal rate of 50ml. Pertinent Medications vit C, D5-0.45ns, colace, iron , culturelle, protonix, seroquel, vancomycin Pertinent Labs 01/27 na 134, K 5.3 Nutritional Hx/Data Height 5 ft 11 in Height (Calculated Centimeters) 180.3 Current Weight (lbs) 107 lb Weight (Calculated Kilograms) 48.5 Weight (Calculated Grams) 38443.4 [place] Body Weight 172 Body Mass Index (BMI) 14.9 Weight Status Underweight GI Symptoms GI Symptoms None Difficult in: None Usual diet at home jevity 1.5 at 90hr x 16hr, providing 2160kcal Skin Integrity/Comment: laceration to left foot, pressure ulcer to right lower back Current %PO Good (75-100%) Estimated Nutritional Goals BEE in Kcals: Using Current wt Calories/Kcals/Kg 30-35 Kcals Calculated 9206-6448 Protein: Using Current wt Protein g/k.2-1.4 Protein Calculated 59-69 Fluid: ml 1470-1715ml (1ml/kcal) Nutritional Problem 1. Problem Problem altered nutrition related labs Etiology electrolytes imbalance Signs/Symptoms: na 134, K 5.3 Intervention/Recommendation Comments 1. Continue with current TF regimen. It provides 1440kcal, 67g protein, 968ml free water , meeting 100% of nutritional needs 2. Monitor TF rate, tolerance, wt, skin integrity and labs 3. F/U as high risk in 2-3 days, 01/29-01/30 Expected Outcomes/Goals Expected Outcomes/Goals 1. Pt to meet at least 75% of nutritional needs via nutrition support with tolerance 2. Wt stability, skin integrity to improve, labs to approach WNL.
[2018-01-29] MEDS: Venelex 60gm Tube TP SCH (15:20)
[2018-01-30] MEDS: Albuterol/Ipratropium Neb 3 ML AERS HHN SCH ×3 (00:46→12:56)
[2018-01-30 06:49] LABS: ANION GAP 7.2 (7.0-16.0); BUN - UREA NITROGEN 8 mg/dL (7-25); CALCIUM SERUM 8.7 mg/dL (8.6-10.3); CARBON DIOXIDE 28.4 mEq/L (21.0-31.0); CHLORIDE 104 mEq/L (98-107); CREATININE - SERUM 0.6 mg/dL (0.7-1.3); GLUCOSE 89 mg/dL (70-105); POTASSIUM SERUM 4.6 mEq/L (3.5-5.1); SODIUM SERUM 135 mEq/L (136-145)
[2018-01-30 06:55] LABS: % BASOPHILS 0.4 % (0.0-2.0); % EOSINOPHILS 5.2 % (0.0-5.0); % NEUTROPHILS 59.4 % (40.0-80.0); EOSINOPHILE ABSOLUTE 0.3 Th/cmm (0.1-0.4); HEMATOCRIT 28.5 % (41.0-60); HEMOGLOBIN 9.4 gm/dL (12-16); LYMPHOCYTE ABSOLUTE 1.5 Th/cmm (1.5-3.0); MEAN CELL VOLUME 93.5 fl (80-99); MEAN CORPUSCULAR HGB CONC 33.2 pg (28.0-36.0); MEAN PLATELET VOLUME 8.7 fl; MONOCYTE ABSOLUTE 0.6 Th/cmm (0.3-1.0); NEUTROPHILE ABSOLUTE 3.4 Th/cmm (1.8-8.0); PLATELET COUNT 386 Th/cmm (150-400); RED BLOOD COUNT 3.04 Mil/cmm (3.80-5.80); RED CELL DISTRIBUTION WIDTH 16.4 % (11.5-20.0); WHITE BLOOD COUNT 5.8 Th/cmm (4.8-10.8)
[2018-01-30] MEDS ORDERED: Probiotic Screen MC PRN (08:30)
[2018-01-30] MEDS: Lactobacillus Rhamnosus GG 15 Billion CFU CAP.SPRINK PO SCH (09:30)
[2018-01-30] MEDS: Ferrous Sulfate 300 MG/5 ML UDC GT SCH (09:45)
[2018-01-30] MEDS: Venelex 60gm Tube TP SCH (09:45)
--- NOTE | 2018-01-30 11:29 | GI Progress Note ---
Subjective - Review of Systems Service Date: 01/30/18 Subjective: EVENTS NOTED. JEREMY J TUBE FEEDS JEV 1.2 50 ML/HR. Objective - Results Result Diagrams: 01/30/18 06:00 01/30/18 06:00 Recent Labs: Laboratory Last Values WBC 5.8 Th/cmm (4.8-10.8) 01/30/18 06:00 Corrected WBC (auto) Th/cmm 01/27/18 05:15 RBC 3.04 Mil/cmm (3.80-5.80) L 01/30/18 06:00 Hgb 9.4 gm/dL (12-16) L 01/30/18 06:00 Hct 28.5 % (41.0-60) L 01/30/18 06:00 MCV 93.5 fl (80-99) 01/30/18 06:00 MCH 31.0 pg (27.0-31.0) 01/30/18 06:00 MCHC Differential 33.2 pg (28.0-36.0) 01/30/18 06:00 RDW 16.4 % (11.5-20.0) 01/30/18 06:00 Plt Count 386 Th/cmm (150-400) 01/30/18 06:00 MPV 8.7 fl 01/30/18 06:00 Add Manual Diff YES 01/26/18 11:20 Neutrophils % 59.4 % (40.0-80.0) 01/30/18 06:00 Band Neutrophils % 2 % (0-10) 01/26/18 11:20 Lymphocytes % 25.0 % (20.0-50.0) 01/30/18 06:00 Monocytes % 10.0 % (2.0-10.0) 01/30/18 06:00 Eosinophils % 5.2 % (0.0-5.0) H 01/30/18 06:00 Basophils % 0.4 % (0.0-2.0) 01/30/18 06:00 Neutrophils (Manual) 92 % (40-80) H 01/26/18 11:20 Lymphocytes 4 % (20-50) L 01/26/18 11:20 Monocytes 2 % (2-10) 01/26/18 11:20 Eosinophils 0 % (0-5) 01/26/18 11:20 Basophils 0 % (0-3) 01/26/18 11:20 Platelet Estimate INCREASED PLATELETS (NORMAL) 01/26/18 11:20 PT 10.9 SECONDS (9.5-11.5) 01/28/18 05:47 INR 1.05 (0.5-1.4) 01/28/18 05:47 PTT (Actin FS) 23.2 SECONDS (26.0-38.0) L 01/26/18 11:20 Sodium 135 mEq/L (136-145) L 01/30/18 06:00 Potassium 4.6 mEq/L (3.5-5.1) 01/30/18 06:00 Chloride 104 mEq/L (98-107) 01/30/18 06:00 Carbon Dioxide 28.4 mEq/L (21.0-31.0) 01/30/18 06:00 Anion Gap 7.2 (7.0-16.0) 01/30/18 06:00 BUN 8 mg/dL (7-25) 01/30/18 06:00 Creatinine 0.6 mg/dL (0.7-1.3) L 01/30/18 06:00 Est GFR ( Amer) TNP 01/30/18 06:00 Est GFR (Non-Af Amer) TNP 01/30/18 06:00 BUN/Creatinine Ratio 13.3 01/30/18 06:00 Glucose 89 mg/dL (70-105) 01/30/18 06:00 Whole Bld Lactic Acid 4.72 mmol/L (0.60-1.99) H* 01/26/18 11:20 Calcium 8.7 mg/dL (8.6-10.3) 01/30/18 06:00 Phosphorus 3.0 mg/dL (2.5-5.0) 01/26/18 11:20 Magnesium 2.1 mg/dL (1.9-2.7) 01/26/18 11:20 Total Bilirubin 0.2 mg/dL (0.3-1.0) L 01/26/18 11:20 AST 23 U/L (13-39) 01/26/18 11:20 ALT 16 U/L (7-52) 01/26/18 11:20 Alkaline Phosphatase 74 U/L (34-104) 01/26/18 11:20 B-Natriuretic Peptide 137.0 pg/mL (5.0-100.0) H 01/26/18 11:20 Total Protein 8.0 gm/dL (6.0-8.3) 01/26/18 11:20 Albumin 3.9 gm/dL (4.2-5.5) L 01/26/18 11:20 Globulin 4.1 gm/dL 01/26/18 11:20 Albumin/Globulin Ratio 1.0 (1.0-1.8) 01/26/18 11:20 TSH 3.15 uIU/ml (0.34-5.60) 01/26/18 11:20 Vancomycin Trough 10.4 ug/mL (5-10) H 01/28/18 14:50 Valproic Acid 83.4 ug/mL (50.0-100.0) 01/26/18 11:20 HIV 1&2 Antibody Screen NEGATIVE (NEG) 01/30/18 06:00 - Physical Exam Vitals and I&O: Vital Signs Temp 96.8 F 01/30/18 04:00 Pulse 95 01/30/18 07:11 Resp 20 01/30/18 07:11 BP 121/69 01/30/18 04:00 Pulse Ox 97 01/30/18 07:11 Intake & Output 01/29/18 01/30/18 01/30/18 18:59 06:59 18:59 Intake Total 900 Output Total 2 Balance 898 Weight (lbs) 48.534 kg Intake: Intake, IV Amount 50 Cefepime 1 gm In Dextrose 50 5% 50 ml @ 100 mls/hr IV Q12H [facility] Rx#:[id number] Tube Feeding 550 Other 300 Output: Stool 2 Other: # Voids 4 # Bowel Movements 2 Stool Characteristics Soft Weight Source Estimated Active Medications: Current Medications Acetaminophen (Tylenol) 650 mg PO Q4H PRN PRN Reason: Pain Or Fever above 101 Stop: 03/27/18 13:10 Last Admin: 01/30/18 04:04 Dose: 650 mg Albuterol/Ipratropium (Duoneb Neb) 3 ml HHN Q6HRT [facility] Stop: 03/28/18 18:59 Last Admin: 01/30/18 07:11 Dose: 3 ml Ascorbic Acid (Vitamin C) 500 mg GT DAILY [facility] Stop: 03/28/18 08:59 Last Admin: 01/30/18 09:45 Dose: 500 mg Bisacodyl (Dulcolax 10 Mg Supp) 10 mg RC PRN PRN PRN Reason: IF MOM NOT EFFECTIVE Stop: 03/27/18 13:10 Goff Oil/[place] Balsam/Trypsin (Venelex) 1 appl TP DAILY [facility] Stop: 03/30/18 08:59 Last Admin: 01/30/18 09:45 Dose: 1 appl Docusate Sodium (Colace) 100 mg PO BID [facility] Stop: 03/27/18 16:59 Last Admin: 01/30/18 09:45 Dose: 100 mg Donepezil HCl (Aricept) 10 mg GT HS [facility] Stop: 03/27/18 20:59 Last Admin: 01/29/18 22:20 Dose: 10 mg Ferrous Sulfate (Iron) 330 mg GT BID [facility] Stop: 03/27/18 16:59 Last Admin: 01/30/18 09:45 Dose: 330 mg Guaifenesin (Robitussin) 200 mg PO Q4HR PRN PRN Reason: Cough or Congestion Stop: 03/27/18 13:11 Last Admin: 01/29/18 22:19 Dose: 200 mg Cefepime HCl 1 gm/ Dextrose 50 mls @ 100 mls/hr IV Q12H [facility] Stop: 03/27/18 16:59 Last Admin: 01/30/18 05:12 Dose: 100 mls/hr Vancomycin HCl 1 gm/ Sodium (Chloride) 250 mls @ 165 mls/hr IV Q24H [facility] Stop: 03/27/18 15:59 Last Admin: 01/29/18 17:23 Dose: 165 mls/hr Dextrose/Sodium Chloride (D5-0.45ns) 1,000 mls @ 60 mls/hr IV .[id number] [facility] Stop: 03/30/18 13:14 Last Admin: 01/29/18 15:21 Dose: 60 mls/hr Ipratropium [place] (Atrovent Neb 0.5mg/2.5ml) 0.5 mg IH Q2HRT PRN PRN Reason: Shortness of Breath or Wheeze Stop: 03/27/18 13:11 Last Admin: 01/26/18 13:30 Dose: 0.5 mg Ipratropium [place] (Atrovent Neb 0.5mg/2.5ml) 0.5 mg HHN QIDRT [facility] Stop: 03/27/18 16:59 Last Admin: 01/27/18 19:47 Dose: Not Given Lactobacillus Rhamnosus (Culturelle 15b) 1 each PO DAILY [facility] Stop: 03/28/18 08:59 Last Admin: 01/29/18 09:09 Dose: 1 each Magnesium Hydroxide (Milk Of Magnesia) 30 ml PO Q72H PRN PRN Reason: IF NO BM Stop: 03/27/18 13:10 Last Admin: 01/27/18 20:36 Dose: 30 ml Miscellaneous (Vte Chemical Prophylaxis Screen/Icu Transfer) 1 ea PRN PRN PRN Reason: PROTOCOL Stop: 03/28/18 09:14 Miscellaneous (Probiotic Screen) 1 ea PRN PRN PRN Reason: PROTOCOL Stop: 03/31/18 08:29 Ondansetron HCl (Zofran) 4 mg IV Q8H PRN PRN Reason: Nausea / Vomiting Stop: 03/27/18 13:11 Pantoprazole Sodium (Protonix) 40 mg IVP BID [facility] Stop: 03/27/18 16:59 Last Admin: 01/30/18 09:45 Dose: 40 mg Prednisone (Deltasone) 5 mg PO BID [facility] Stop: 03/30/18 16:59 Last Admin: 01/30/18 09:45 Dose: 5 mg Quetiapine Fumarate (Seroquel) 75 mg GT HS [facility]; Protocol Stop: 03/27/18 20:59 Last Admin: 01/29/18 22:20 Dose: 75 mg Quetiapine Fumarate (Seroquel) 37.5 mg GT QAM [facility]; Protocol Stop: 03/28/18 08:59 Last Admin: 01/30/18 09:45 Dose: 37.5 mg Sodium Phosphate (Fleet Enema) 135 ml RC DAILY PRN PRN Reason: IF DULCOLAX INEFFECTIVE Stop: 03/27/18 13:10 Tamsulosin HCl (Flomax) 0.4 mg GT DAILY [facility] Stop: 03/28/18 08:59 Last Admin: 01/30/18 09:45 Dose: 0.4 mg Valproate Sodium (Depakene) 750 mg GT BID [facility]; Protocol Stop: 03/27/18 16:59 Last Admin: 01/30/18 09:45 Dose: 750 mg General: No acute distress HEENT: Atraumatic Neck: Supple Cardiovascular: Regular rate Lungs: Clear to auscultation Abdomen: Bowel sounds, Soft, Other (INTACT GJ TUBE; ABD WALL BINDER), no Tender - Procedures Procedures: Procedures Procedure Code Date ASSISTANCE WITH RESPIRATORY VENTILATION, 24-96 HRS, CPAP [id number] 09/29/17 POS AIRWAY PRESSURE CPAP [id number] 09/29/17 Assessment/Plan - Assessment Assessment: IMPRESSION: 1. UPPER GI BLEED - LIKELY DUE TO REFLUX ESOPHAGITIS PER EGD. 2. DYSPHAGIA WITH POSSIBLE LEAK AT GJ TUBE INSERTION SITE - UNABLE TO REMOVE GJT VIA EGD, ?DISTAL TIP ANCHORED TO SMALL BOWEL WALL SURGICALLY. 3. ANEMIA. RECS: 1. MONITOR HGB. 2. PROTONIX. 3. JT FEEDS JEREMY. 4. NO NEED TO REPLACE GJ TUBE AT THIS TIME. IF NEEDED, THEN MAY NEED SURGICAL REPLACEMENT.
--- NOTE | 2018-01-30 13:33 | Discharge Summary ---
DATE OF DISCHARGE: 01/30/2018 CHIEF COMPLAINT: Coffee-ground emesis. FINAL DIAGNOSES: Gastrointestinal bleeding, sepsis, stroke, dementia, acute renal insufficiency, dehydration, protein-calorie malnutrition, right lower lobe pneumonia, esophagitis, dysphagia with leak in GJ tube. HISTORY OF PRESENT ILLNESS: This is a 77-year-old male with multiple medical problems including mental retardation, dementia, G-tube, secondary dysphagia, admitted through the ER secondary to coffee-ground emesis. The patient was seen by GI. The patient is also diagnosed with sepsis. PHYSICAL EXAMINATION: VITAL SIGNS: Blood pressure 132/54, respirations 20, pulse 95, temperature 98.1. GENERAL: Elderly male, chronically ill, contracted. LUNGS: Decreased breath sounds, few rhonchi. HEART: Regular rate and rhythm. Systolic ejection murmur. ABDOMEN: Soft, globular. EXTREMITIES: Positive excoriations. NEUROLOGIC: Limited. HOSPITAL COURSE: The patient was admitted to telemetry. Continue oxygen and bronchodilator treatment. Hemoglobin and hematocrit will be monitored. The patient to continue proton pump inhibitor. The patient will also continue IV Maxipime. The patient continued on vancomycin as well. Chest x-ray showed bilateral infiltrates. The patient to continue ____ to be referred to long-term acute care. CONDITION ON DISCHARGE: Fair. OVERALL PROGNOSIS: Poor. DISCHARGE INSTRUCTIONS: The patient to be discharged to a long-term acute care. JOB# [id number]
[2018-02-01 11:07] LABS: HEP B CORE AB TOTAL Positive (Negative); HEP B SURFACE AB QL Reactive; HEP B SURFACE AG QL Negative (Negative); HEP C ANTIBODY 0.3 s/co ratio (0.0-0.9)
== END 2018-01-30 17:00 | DRG 871 ==
LOC: ER 10:46 → TELE 13:04
PROVIDERS: ADMIT Internal Medicine; ATTEND Internal Medicine
PROC: 0DJ08ZZ Inspection of Upper Intestinal Tract, Via Natural or Artificial Opening Endoscopic (ICD-10-PCS; principal; 2018-01-28)
DX: A41.9 Sepsis, unspecified organism (principal); K22.11 Ulcer of esophagus with bleeding; J18.1 Lobar pneumonia, unspecified organism; E44.1 Mild protein-calorie malnutrition; R47.01 Aphasia; T85.598A Other mechanical complication of other gastrointestinal prosthetic devices, implants and grafts, initial encounter; Z68.1 Body mass index [BMI] 19.9 or less, adult; F79 Unspecified intellectual disabilities; F03.90 Unspecified dementia, unspecified severity, without behavioral disturbance, psychotic disturbance, mood disturbance, and anxiety; N18.9 Chronic kidney disease, unspecified; J44.9 Chronic obstructive pulmonary disease, unspecified; R13.10 Dysphagia, unspecified; D64.9 Anemia, unspecified; N40.0 Benign prostatic hyperplasia without lower urinary tract symptoms; E86.0 Dehydration; Z86.73 Personal history of transient ischemic attack (TIA), and cerebral infarction without residual deficits; Y83.8 Other surgical procedures as the cause of abnormal reaction of the patient, or of later complication, without mention of misadventure at the time of the procedure; Y92.89 Other specified places as the place of occurrence of the external cause
CPT/HCPCS: 36415-UA; 71045-TC; 80048-TC; 80053-TC; 80164-TC; 80202-TC; 83605; 83735-TC; 83880-TC; 84100-TC; 84443-TC; 85007-TC; 85025-TC; 85610-TC; 86703-TC; 86704-90; 86706-90; 86803-90; 87070; 87340-90; 90779; 93005; 94640; 94760; 96375; 96376; C9113; J0692; J2060; J2405; J2543; J2704; J3370; J7512; J7613; Z7506; Z7610

== ENCOUNTER 2018-03-22 19:08 | Inpatient (IN) | payer MEDICARE, MEDICAID ==
--- NOTE | 2018-03-22 19:44 | ED Physician Chart ---
ED Chief Complaint/HPI - Patient Information Date Seen:: 03/22/18 Time Seen:: 19:39 Chief Complaint:: g tube malfunction History of Present Illness:: 77 yr old male from snf for g- tube malfunction pt very agitated refusing people touching him and paramedics were unable to get vitals Allergies:: Allergies Allergy/AdvReac Type Severity Reaction Status Date / Time No Known Allergies Allergy Verified 03/22/18 19:36 ED Review of Systems - Review of Systems General/Constitutional: No fever Skin: Skin lesions Eyes: No loss of vision ENT: No earache Neck: No neck pain, No swelling Cardio Vascular: No edema Pulmonary: No cough GI: No hematemesis Musculoskeletal: No back pain Endocrine: No polyuria Psychiatric: Prior psych history Hematopoietic: Bruising Allergic/Immuno: Urticaria Neurological: No syncope ED Past Medical History - Past Medical History Past Medical History: Asthma/COPD (anemia dysphagia ), ESRD (decubiti), Other ( see list) Family Medical History - Family Member Mother History Unknown: Yes Ethnicity: Unknown Hx Family Cancer: (unable to assess) Hx Family Coronary Artery Disease: (unable to assess) Hx Family COPD: Yes ED Physical Exam - Physical Examination Head: Atraumatic Other Skin comments:: abrasions knees food on lips Other Neck comments:: difficult to assess Respiratory: Nl effort/Exclusion Cardio Vascular: No murmur, gallop, rubs GI: Normal BS's Other GI comments:: g tube with marked eythema around the site Other Extremities comments:: legs flexed at the knees Other Neuro/Psych comments:: pt moaning groaning difficult to hold down just for vitals ED Septic Shock - . Is Septic Shock (SBP<90, OR Lactate>4 mmol\L) present?: No ED Reassessment (Disposition) - Diagnosis Diagnosis:: failure to thrive g tube malfunction - Patient Disposition Discharge/Transfer:: Acute Care w/in this hosp
[2018-03-22] MEDS ORDERED: Sodium Chloride 0.9% 500 ML IV ONE (20:27)
[2018-03-22 20:31] LABS: HEMATOCRIT 42.4 % (41.0-60); HEMOGLOBIN 13.2 gm/dL (12-16); MEAN CELL VOLUME 93.2 fl (80-99); MEAN CORPUSCULAR HGB CONC 31.1 pg (28.0-36.0); MEAN PLATELET VOLUME 11.2 fl; PLATELET COUNT 423 Th/cmm (150-400); RED BLOOD COUNT 4.55 Mil/cmm (3.80-5.80); RED CELL DISTRIBUTION WIDTH 16.2 % (11.5-20.0)
[2018-03-22 20:36] LABS: WHITE BLOOD COUNT 17.9 Th/cmm (4.8-10.8)
[2018-03-22] MEDS ORDERED: Diatrizoate Meglumine/Diatri 30 mL Sol PO ONE (20:42)
[2018-03-22] MEDS ORDERED: Piperacillin Sodium/Tazobact 3.375 gm Vial IV ONE (20:42)
[2018-03-22 20:48] LABS: ALB/GLOB RATIO 0.7 (1.0-1.8); ALBUMIN 3.5 gm/dL (4.2-5.5); ALKALINE PHOSPHATASE 151 U/L (34-104); ANION GAP 15.2 (7.0-16.0); BILIRUBIN,TOTAL 0.3 mg/dL (0.3-1.0); CALCIUM SERUM 10.2 mg/dL (8.6-10.3); CARBON DIOXIDE 30.1 mEq/L (21.0-31.0); CHLORIDE 126 mEq/L (98-107); CREATININE - SERUM 1.5 mg/dL (0.7-1.3); GLUCOSE 115 mg/dL (70-105); POTASSIUM SERUM 4.3 mEq/L (3.5-5.1); SGOT 86 U/L (13-39); SGPT/ALT 163 U/L (7-52); TOTAL PROTEIN,SERUM 8.5 gm/dL (6.0-8.3)
[2018-03-22] MEDS ORDERED: Diatrizoate Meglumine/Diatri 30 mL Sol ONE (21:17)
[2018-03-22] MEDS ORDERED: Magnesium Hydroxide (MOM) 30 mL UDC PO PRN (21:30)
[2018-03-22] MEDS ORDERED: guaiFENesin 200 MG/10 ML UDC PO PRN (21:32)
[2018-03-22 21:50] LABS: URINE SOURCE CLEAN C
[2018-03-22 21:52] LABS: URINE BILIRUBIN NEGATIVE (NEGATIVE); URINE BLOOD NEGATIVE (NEGATIVE); URINE GLUCOSE (UA) NEGATIVE (NEGATIVE); URINE KETONE NEGATIVE (NEGATIVE); URINE LEUKOCYTE ESTERASE MODERATE (NEGATIVE); URINE NITRATE NEGATIVE (NEGATIVE); URINE PH 7.5 (4.6 - 8.0); URINE PROTEIN 30 mg/dL (NEGATIVE); URINE UROBILINOGEN 0.2 E.U./dL (0.2 - 1.0)
[2018-03-22 21:53] LABS: URINE COLOR YELLOW
[2018-03-22 21:59] LABS: URINE CLARITY CLEAR (CLEAR); URINE MICROSCOPIC INDICATED? YES
[2018-03-22 22:00] LABS: URINE RBC 0-2 /hpf (0-5)
[2018-03-22 22:01] LABS: URINE BACTERIA MODERATE /hpf (NONE SEEN); URINE EPITHELIAL CELLS NONE SEEN /lpf (FEW)
[2018-03-22 22:06] LABS: BAND NEUTROPHILE 2 % (0-10); LYMPHOCYTE 10 % (20-50); MONOCYTE 2 % (2-10); NEUTROPHILS 86 % (40-80)
[2018-03-22 22:07] LABS: PLATELET ESTIMATE ADEQUATE (NORMAL)
[2018-03-22] MEDS: Dextrose 5% 1,000 ML IV SCH (22:31)
[2018-03-23] MEDS ORDERED: Piperacillin Sodium/Tazobact 2.25 gm Vial IV ONE (05:03)
[2018-03-23] MEDS: Albuterol Nebulizer 2.5mg/3mL HHN SCH ×4 (06:27→18:30)
[2018-03-23] MEDS: Ipratropium Neb 0.5 mg/2.5 mL UD HHN SCH ×4 (06:27→18:34)
[2018-03-23] MEDS ORDERED: Ipratropium Neb 0.5 mg/2.5 mL UD IH SCH (07:00)
[2018-03-23 07:08] LABS: ALB/GLOB RATIO 0.8 (1.0-1.8); ALBUMIN 3.3 gm/dL (4.2-5.5); ALKALINE PHOSPHATASE 133 U/L (34-104); ANION GAP 14.7 (7.0-16.0); BILIRUBIN,TOTAL 0.6 mg/dL (0.3-1.0); BUN - UREA NITROGEN 77 mg/dL (7-25); CALCIUM SERUM 9.8 mg/dL (8.6-10.3); CARBON DIOXIDE 29.6 mEq/L (21.0-31.0); CHLORIDE 127 mEq/L (98-107); CREATININE - SERUM 1.6 mg/dL (0.7-1.3); GLUCOSE 103 mg/dL (70-105); MAGNESIUM 3.3 mg/dL (1.9-2.7); POTASSIUM SERUM 4.3 mEq/L (3.5-5.1); SGOT 69 U/L (13-39); SGPT/ALT 129 U/L (7-52); TOTAL PROTEIN,SERUM 7.7 gm/dL (6.0-8.3)
[2018-03-23 07:16] LABS: % BASOPHILS 0.1 % (0.0-2.0); % LYMPHOCYTES 11.7 % (20.0-50.0); % MONOCYTES 2.3 % (2.0-10.0); % NEUTROPHILS 83.9 % (40.0-80.0); EOSINOPHILE ABSOLUTE 0.3 Th/cmm (0.1-0.4); HEMATOCRIT 38.3 % (41.0-60); HEMOGLOBIN 12.2 gm/dL (12-16); LYMPHOCYTE ABSOLUTE 1.9 Th/cmm (1.5-3.0); MEAN CELL VOLUME 92.9 fl (80-99); MEAN CORPUSCULAR HEMOGLOBIN 29.5 pg (27.0-31.0); MEAN CORPUSCULAR HGB CONC 31.8 pg (28.0-36.0); MEAN PLATELET VOLUME 11.4 fl; MONOCYTE ABSOLUTE 0.4 Th/cmm (0.3-1.0); NEUTROPHILE ABSOLUTE 13.4 Th/cmm (1.8-8.0); PLATELET COUNT 383 Th/cmm (150-400); RED BLOOD COUNT 4.12 Mil/cmm (3.80-5.80); RED CELL DISTRIBUTION WIDTH 15.8 % (11.5-20.0)
[2018-03-23 07:29] LABS: SODIUM SERUM 167 mEq/L (136-145)
[2018-03-23] MEDS: Ferrous Sulfate 300 MG/5 ML UDC GT SCH ×2 (08:21→17:20)
[2018-03-23] MEDS: Lactobacillus Rhamnosus GG 15 Billion CFU CAP.SPRINK GT SCH (08:21)
[2018-03-23] MEDS: Pantoprazole 40 mg/Packet GT SCH (08:23)
[2018-03-23] MEDS: Multivitamin Tab GT SCH (08:23)
--- NOTE | 2018-03-23 08:23 | Diagnostic Imaging Report ---
Upper GI (Limited) HISTORY: Gastrostomy tube placement Water-soluble contrast was instilled through patient's gastrostomy tube. The exam demonstrates opacification of the gastric lumen with flow contrast into the duodenum. IMPRESSION: 1. Confirmation of gastrostomy tube within the gastric lumen.
--- NOTE | 2018-03-23 08:34 | Diagnostic Imaging Report ---
Portable chest x-ray HISTORY: Shortness of breath Exam is limited as the right upper lobe is obscured by the patient's overlying head. Heart size appears somewhat generous. There is accentuation of the interstitial lung markings. However, no acute focal processes are seen within the visualized lung areas. IMPRESSION: 1. Limited exam as the right upper lobe is obscured by the patient's overlying head 2. No acute focal processes within the visualized regions of the lungs.
[2018-03-23] MEDS ORDERED: Pneumococcal Vaccine 0.5 mL Vial IM ONE (10:00)
--- NOTE | 2018-03-23 10:36 | Internal Medicine Prog Note ---
Internal Medicine Subjective - Subjective Service Date: 03/23/18 ([facility] dictated [id number]) Internal Medicine Objective - Results Result Diagrams: 03/23/18 06:20 03/23/18 06:20 Recent Labs: Laboratory Last Values WBC 16.0 Th/cmm (4.8-10.8) H 03/23/18 06:20 RBC 4.12 Mil/cmm (3.80-5.80) 03/23/18 06:20 Hgb 12.2 gm/dL (12-16) 03/23/18 06:20 Hct 38.3 % (41.0-60) L 03/23/18 06:20 MCV 92.9 fl (80-99) 03/23/18 06:20 MCH 29.5 pg (27.0-31.0) 03/23/18 06:20 MCHC Differential 31.8 pg (28.0-36.0) 03/23/18 06:20 RDW 15.8 % (11.5-20.0) 03/23/18 06:20 Plt Count 383 Th/cmm (150-400) 03/23/18 06:20 MPV 11.4 fl 03/23/18 06:20 Add Manual Diff YES 03/22/18 20:23 Neutrophils % 83.9 % (40.0-80.0) H 03/23/18 06:20 Band Neutrophils % 2 % (0-10) 03/22/18 20:23 Lymphocytes % 11.7 % (20.0-50.0) L 03/23/18 06:20 Monocytes % 2.3 % (2.0-10.0) 03/23/18 06:20 Eosinophils % 2.0 % (0.0-5.0) 03/23/18 06:20 Basophils % 0.1 % (0.0-2.0) 03/23/18 06:20 Neutrophils (Manual) 86 % (40-80) H 03/22/18 20:23 Lymphocytes 10 % (20-50) L 03/22/18 20:23 Monocytes 2 % (2-10) 03/22/18 20:23 Platelet Estimate ADEQUATE (NORMAL) 03/22/18 20:23 Smear Path Review N 03/22/18 20:23 Sodium 167 mEq/L (136-145) H* 03/23/18 06:20 Potassium 4.3 mEq/L (3.5-5.1) 03/23/18 06:20 Chloride 127 mEq/L (98-107) H 03/23/18 06:20 Carbon Dioxide 29.6 mEq/L (21.0-31.0) 03/23/18 06:20 Anion Gap 14.7 (7.0-16.0) 03/23/18 06:20 BUN 77 mg/dL (7-25) H 03/23/18 06:20 Creatinine 1.6 mg/dL (0.7-1.3) H 03/23/18 06:20 Est GFR ( Amer) TNP 03/23/18 06:20 Est GFR (Non-Af Amer) TNP 03/23/18 06:20 BUN/Creatinine Ratio 48.1 03/23/18 06:20 Glucose 103 mg/dL (70-105) 03/23/18 06:20 Whole Bld Lactic Acid 2.89 mmol/L (0.60-1.99) H* 03/23/18 06:20 Calcium 9.8 mg/dL (8.6-10.3) 03/23/18 06:20 Magnesium 3.3 mg/dL (1.9-2.7) H 03/23/18 06:20 Total Bilirubin 0.6 mg/dL (0.3-1.0) 03/23/18 06:20 AST 69 U/L (13-39) H 03/23/18 06:20 ALT 129 U/L (7-52) H 03/23/18 06:20 Alkaline Phosphatase 133 U/L (34-104) H 03/23/18 06:20 Total Protein 7.7 gm/dL (6.0-8.3) 03/23/18 06:20 Albumin 3.3 gm/dL (4.2-5.5) L 03/23/18 06:20 Globulin 4.4 gm/dL 03/23/18 06:20 Albumin/Globulin Ratio 0.8 (1.0-1.8) L 03/23/18 06:20 Urine Source CLEAN C 03/22/18 09:49 Urine Color YELLOW 03/22/18 09:49 Urine Clarity CLEAR (CLEAR) 03/22/18 09:49 Urine pH 7.5 (4.6 - 8.0) 03/22/18 09:49 Ur Specific Sophia 1.010 (1.005-1.030) 03/22/18 09:49 Urine Protein 30 mg/dL (NEGATIVE) H 03/22/18 09:49 Urine Glucose (UA) NEGATIVE mg/dL (NEGATIVE) 03/22/18 09:49 Urine Ketones NEGATIVE mg/dL (NEGATIVE) 03/22/18 09:49 Urine Blood NEGATIVE (NEGATIVE) 03/22/18 09:49 Urine Nitrate NEGATIVE (NEGATIVE) 03/22/18 09:49 Urine Bilirubin NEGATIVE (NEGATIVE) 03/22/18 09:49 Urine Urobilinogen 0.2 E.U./dL (0.2 - 1.0) 03/22/18 09:49 Ur Leukocyte Esterase MODERATE (NEGATIVE) H 03/22/18 09:49 Urine RBC 0-2 /hpf (0-5) H 03/22/18 09:49 Urine WBC 6-10 /hpf (0-5) 03/22/18 09:49 Ur Epithelial Cells NONE SEEN /lpf (FEW) 03/22/18 09:49 Urine Bacteria MODERATE /hpf (NONE SEEN) H 03/22/18 09:49 - Physical Exam Vitals and I&O: Vital Signs Temp 97.2 F 03/23/18 08:09 Pulse 80 03/23/18 08:09 Resp 18 03/23/18 08:09 BP 97/65 03/23/18 08:09 Pulse Ox 95 03/23/18 08:09 Intake & Output 03/22/18 03/23/18 03/23/18 18:59 06:59 18:59 Intake Total 1300 Output Total 400 Balance 900 Weight (lbs) 105 lb Intake: Intake, IV Amount 1300 Piperacillin Sodium/ 50 Tazobact 2.25 gm In Sodium Chloride 0.9% 50 ml @ 100 mls/hr IV Q8HR [facility] Rx#:[id number] Sodium Chloride 0.9% 500 500 ml @ Wide Open IV .Q0M [facility] Rx#:[id number] Output: Urine 400 Other: # Bowel Movements 1 Stool Characteristics Soft Weight Source Bedscale Active Medications: Current Medications Acetaminophen (Tylenol) 650 mg GT Q4H PRN PRN Reason: Pain Or Fever above 101 Stop: 05/21/18 21:29 Albuterol Sulfate (Albuterol 2.5mg/3ml Neb Ud) 2.5 mg HHN QIDRT [facility] Stop: 05/22/18 06:59 Last Admin: 03/23/18 06:27 Dose: 2.5 mg Ascorbic Acid (Vitamin C) 500 mg GT DAILY [facility] Stop: 05/22/18 08:59 Last Admin: 03/23/18 08:23 Dose: 500 mg Bisacodyl (Dulcolax 10 Mg Supp) 10 mg RC PRN PRN PRN Reason: IF MOM NOT EFFECTIVE Stop: 05/21/18 21:29 Divalproex Sodium (Depakote Sprinkle) 750 mg GT Q12HR [facility]; Protocol Stop: 05/22/18 08:59 Last Admin: 03/23/18 08:19 Dose: 750 mg Donepezil HCl (Aricept) 10 mg GT HS [facility] Stop: 05/22/18 20:59 Ferrous Sulfate (Iron) 330 mg GT BID [facility] Stop: 05/22/18 08:59 Last Admin: 03/23/18 08:21 Dose: 330 mg Guaifenesin (Robitussin) 200 mg PO Q4HR PRN PRN Reason: Cough or Congestion Stop: 05/21/18 21:31 Vancomycin HCl 1 gm/ Sodium (Chloride) 250 mls @ 166.667 mls/hr IV Q24H [facility] Stop: 05/22/18 09:59 Dextrose (D5w) 1,000 mls @ 125 mls/hr IV .Q8H [facility] Stop: 05/21/18 21:34 Last Admin: 03/22/18 22:31 Dose: 125 mls/hr Piperacillin Sod/Tazobactam (Sod 2.25 gm/ Sodium Chloride) 50 mls @ 100 mls/hr IV Q8HR [facility] Stop: 05/22/18 04:59 Last Infusion: 03/23/18 05:47 Dose: Infused Ipratropium [place] (Atrovent Neb 0.5mg/2.5ml) 0.5 mg HHN QIDRT [facility] Stop: 05/22/18 06:59 Last Admin: 03/23/18 06:27 Dose: 0.5 mg Lactobacillus Rhamnosus (Culturelle 15b) 1 each GT DAILY [facility] Stop: 05/22/18 08:59 Last Admin: 03/23/18 08:21 Dose: 1 each Magnesium Hydroxide (Milk Of Magnesia) 30 ml PO Q72H PRN PRN Reason: IF NO BM Stop: 05/21/18 21:29 Multivitamins/Vitamin C (Theragran) 1 tab GT DAILY [facility] Stop: 05/22/18 08:59 Last Admin: 03/23/18 08:23 Dose: 1 tab Ondansetron HCl (Zofran) 4 mg IV Q8H PRN PRN Reason: Nausea / Vomiting Stop: 05/21/18 21:31 Pantoprazole Sodium (Protonix) 40 mg GT DAILY [facility] Stop: 05/22/18 08:59 Last Admin: 03/23/18 08:23 Dose: 40 mg Prednisone (Deltasone) 5 mg GT Q12HR [facility] Stop: 05/22/18 08:59 Last Admin: 03/23/18 08:23 Dose: 5 mg Zinc Sulfate (Zinc Sulfate) 220 mg GT DAILY [facility] Stop: 05/22/18 08:59 Last Admin: 03/23/18 08:23 Dose: 220 mg - Procedures Procedures: Procedures Procedure Code Date ASSISTANCE WITH RESPIRATORY VENTILATION, 24-96 HRS, CPAP [id number] 09/29/17 INSPECTION OF UPPER INTESTINAL TRACT, ENDO [id number] 01/26/18 POS AIRWAY PRESSURE CPAP [id number] 09/29/17
[2018-03-23] MEDS: Dextrose 5% 1,000 ML IV SCH ×2 (11:56→21:09)
[2018-03-23 12:08] LABS: SODIUM SERUM 167 mEq/L (136-145)
[2018-03-23 12:58] LABS: BUN - UREA NITROGEN 82 mg/dL (7-25)
--- NOTE | 2018-03-23 14:08 | History & Physical ---
ADMIT DATE: 03/23/2018 CHIEF COMPLAINT: G-tube stoma leakage and redness. HISTORY OF PRESENT ILLNESS: This is a 77-year-old male who is well known to me from [facility], admitted here to the Telemetry Unit due to 1-day history of G-tube leakage as well as noted with redness around G-tube site. No reports of any fevers at the long-term. For further management, the patient is now admitted. PAST MEDICAL HISTORY: MR, stroke, dementia. PAST SURGICAL HISTORY: PEG. SOCIAL HISTORY: The patient is a long-term resident requiring 24-hour nursing care. ALLERGIES: No known drug allergies. REVIEW OF SYSTEMS: Unable to obtain, patient is confused. PHYSICAL EXAMINATION: GENERAL: Elderly male, awake, confused, in no apparent distress. VITAL SIGNS: Temperature 97.2, heart rate 80, blood pressure 97/65, respiration 18, O2 95%. HEENT: Head; normocephalic, atraumatic. NECK: Supple. No mass. LUNGS: Clear bilaterally. CARDIOVASCULAR: Regular rhythm. ABDOMEN: Soft, nontender, nondistended. G-tube stoma noted with redness. LABORATORY DATA: WBC 16.0, H and H 12.2 and 38.3, platelet of 383. Sodium 167, potassium 4.3, chloride 127, BUN 77, creatinine 1.6, whole lactic acid of 2.89. Albumin of 3.3. The patient had a chest x-ray done, impression is no acute focal processes with the visualized regions of the lungs. The patient also had an upper GI series done, impression is confirmation gastrostomy tube within the gastric lumen. ASSESSMENT: G-tube malfunction, G-tube cellulitis, sepsis, acute renal insufficiency, rule out dehydration, acute urinary tract infection, history of stroke, MR, dementia, mild protein calorie malnutrition. PLAN: We will get GI consultation. We will get cultures of the G-tube stoma site. We will send urine for culture. We will keep the patient on IV antibiotic, vancomycin and Zosyn. We will get followup labs for tomorrow morning. We will also get a wound consultation. We will continue to follow this patient. JOB# [id number]
--- NOTE | 2018-03-23 19:22 | Operative Report ---
DATE OF SURGERY: 03/23/2018 PROCEDURE: Change of G-tube. INDICATION FOR PROCEDURE: Malfunctioning G-tube. PREOPERATIVE DIAGNOSIS: Malfunctioning G-tube. POSTOPERATIVE DIAGNOSES: Malfunctioning G-tube, status post change. DESCRIPTION OF PROCEDURE: The patient was lying on his back. The old G-tube was deflated, pulled out of the abdomen. It was a G-tube, not a gastrojejunostomy, so a new replacement one size 22. Unfortunately, we did not have size 24, was inserted through the hole and then balloon was inflated and a G-tube was secured in place. Then, water was infused to the stomach, aspirated with lethargy, was documented as good position. RECOMMENDATIONS: Resume feeding and try to switch to a bigger one later on and also try local care to help healing of the skin in the area. JOB# [id number]
[2018-03-24] MEDS: Albuterol Nebulizer 2.5mg/3mL HHN SCH ×3 (07:04→15:16)
[2018-03-24] MEDS: Ipratropium Neb 0.5 mg/2.5 mL UD HHN SCH ×4 (07:04→18:51)
--- NOTE | 2018-03-24 07:34 | Consultation ---
DATE OF CONSULTATION: 03/22/2018 REASON FOR CONSULTATION: Malfunctioning G-tube with leaking G-tube. HISTORY OF PRESENT ILLNESS: This consult obtained through the request of Dr. Asencio for this 77-year-old from long-term with recurrent admission to the hospital for malfunctioning G-tube. Apparently, the patient had a gastrojejunostomy tube somehow, it now was leaking. The patient had history of cerebrovascular accident and dementia. The patient is not able to provide any history. PAST MEDICAL HISTORY: CVA, dementia. PAST SURGICAL HISTORY: Not known. SOCIAL HISTORY: Nonsmoker, nonalcoholic, IV drug abuser. FAMILY HISTORY: Noncontributory, unobtainable. REVIEW OF SYSTEMS: Unobtainable. ALLERGIES: No known drug allergies. MEDICATIONS: Tylenol, albuterol, vitamin C, bisacodyl, castor oil, Depakote, Aricept, iron, Robitussin, Atrovent, Culturelle, milk of magnesia, Theragran, Zofran, Protonix, Zosyn, zinc. PHYSICAL EXAMINATION: GENERAL: The patient is awake, nonverbal. VITAL SIGNS: Blood pressure is 97/65, heart rate 80, respiratory rate 18, temperature 97.2. HEAD AND NECK: Pupils reactive to light. Extraocular muscles could not be tested. NECK: Supple. CHEST: Good air entry. LUNGS: Clear to auscultation. CARDIOVASCULAR SYSTEM: Regular rate and rhythm. No murmur or gallop. ABDOMEN: Soft, positive bowel sound. There is maceration around the G-tube. G-tube itself seems like a G-tube to a gastrojejunostomy. The opening is very big. There is significant erythema in the area. Bowel sounds are present. EXTREMITIES: Lower extremities, no edema. CENTRAL NERVOUS SYSTEM: Unable to evaluate the patient's all 4 extremities. LABS: White count 16, H and H stable. Sodium 167. Liver enzymes slightly elevated AST to 69, ALT to 129, alkaline phosphatase to 153. IMPRESSION: A 77-year-old with malfunctioning gastric tube, abnormal liver enzymes. ASSESSMENT AND PLAN: 1. Malfunctioning gastric tube. This needs to be changed. Apparently, the patient had a gastric tube placed before and it was negative, so this will need to be taken out and used one to be placed in its place, hopefully size 24. 2. Abnormal liver enzymes, unclear etiology. Looking back at the records, it has been elevated before. We will get an ultrasound and then further recommendations to follow. Other medical problem as per Dr. Asencio. Thank you Dr. Asencio for allowing me to participate in the care of the patient. If you have any further questions, please let me know. JOB# [id number]
[2018-03-24 09:08] LABS: ALB/GLOB RATIO 0.8 (1.0-1.8); ALBUMIN 3.3 gm/dL (4.2-5.5); ALKALINE PHOSPHATASE 132 U/L (34-104); ANION GAP 12.1 (7.0-16.0); BILIRUBIN,TOTAL 0.8 mg/dL (0.3-1.0); BUN - UREA NITROGEN 52 mg/dL (7-25); CALCIUM SERUM 9.7 mg/dL (8.6-10.3); CHLORIDE 119 mEq/L (98-107); CREATININE - SERUM 1.6 mg/dL (0.7-1.3); GLUCOSE 78 mg/dL (70-105); LIPASE 18 U/L (11-82); POTASSIUM SERUM 4.1 mEq/L (3.5-5.1); SGOT 103 U/L (13-39); SGPT/ALT 124 U/L (7-52); SODIUM SERUM 155 mEq/L (136-145); TOTAL PROTEIN,SERUM 7.4 gm/dL (6.0-8.3)
[2018-03-24 09:09] LABS: % BASOPHILS 0.1 % (0.0-2.0); % EOSINOPHILS 4.2 % (0.0-5.0); % LYMPHOCYTES 15.2 % (20.0-50.0); % MONOCYTES 3.9 % (2.0-10.0); % NEUTROPHILS 76.6 % (40.0-80.0); EOSINOPHILE ABSOLUTE 0.6 Th/cmm (0.1-0.4); HEMATOCRIT 32.7 % (41.0-60); HEMOGLOBIN 10.6 gm/dL (12-16); LYMPHOCYTE ABSOLUTE 2.1 Th/cmm (1.5-3.0); MEAN CELL VOLUME 92.1 fl (80-99); MEAN CORPUSCULAR HEMOGLOBIN 29.9 pg (27.0-31.0); MEAN CORPUSCULAR HGB CONC 32.5 pg (28.0-36.0); MEAN PLATELET VOLUME 11.1 fl; MONOCYTE ABSOLUTE 0.5 Th/cmm (0.3-1.0); NEUTROPHILE ABSOLUTE 10.8 Th/cmm (1.8-8.0); PLATELET COUNT 353 Th/cmm (150-400); RED BLOOD COUNT 3.55 Mil/cmm (3.80-5.80); RED CELL DISTRIBUTION WIDTH 15.4 % (11.5-20.0)
[2018-03-24] MEDS: Venelex 60gm Tube TP SCH (09:25)
[2018-03-24] MEDS: Lactobacillus Rhamnosus GG 15 Billion CFU CAP.SPRINK GT SCH (09:25)
[2018-03-24] MEDS: Ferrous Sulfate 300 MG/5 ML UDC GT SCH ×2 (09:25→17:28)
[2018-03-24] MEDS: Pantoprazole 40 mg/Packet GT SCH (09:25)
[2018-03-24] MEDS: Multivitamin Tab GT SCH (09:25)
--- NOTE | 2018-03-24 11:57 | Internal Medicine Prog Note ---
Internal Medicine Subjective - Subjective Service Date: 03/24/18 Patient seen and examined:: with staff Patient is:: awake, verbal Per staff patient has:: tolerating meds Internal Medicine Objective - Results Result Diagrams: 03/24/18 08:40 03/24/18 08:40 Recent Labs: Laboratory Last Values WBC 14.0 Th/cmm (4.8-10.8) H 03/24/18 08:40 RBC 3.55 Mil/cmm (3.80-5.80) L 03/24/18 08:40 Hgb 10.6 gm/dL (12-16) L 03/24/18 08:40 Hct 32.7 % (41.0-60) L 03/24/18 08:40 MCV 92.1 fl (80-99) 03/24/18 08:40 MCH 29.9 pg (27.0-31.0) 03/24/18 08:40 MCHC Differential 32.5 pg (28.0-36.0) 03/24/18 08:40 RDW 15.4 % (11.5-20.0) 03/24/18 08:40 Plt Count 353 Th/cmm (150-400) 03/24/18 08:40 MPV 11.1 fl 03/24/18 08:40 Add Manual Diff YES 03/22/18 20:23 Neutrophils % 76.6 % (40.0-80.0) 03/24/18 08:40 Band Neutrophils % 2 % (0-10) 03/22/18 20:23 Lymphocytes % 15.2 % (20.0-50.0) L 03/24/18 08:40 Monocytes % 3.9 % (2.0-10.0) 03/24/18 08:40 Eosinophils % 4.2 % (0.0-5.0) 03/24/18 08:40 Basophils % 0.1 % (0.0-2.0) 03/24/18 08:40 Neutrophils (Manual) 86 % (40-80) H 03/22/18 20:23 Lymphocytes 10 % (20-50) L 03/22/18 20:23 Monocytes 2 % (2-10) 03/22/18 20:23 Platelet Estimate ADEQUATE (NORMAL) 03/22/18 20:23 Smear Path Review N 03/22/18 20:23 Sodium 155 mEq/L (136-145) H 03/24/18 08:40 Potassium 4.1 mEq/L (3.5-5.1) 03/24/18 08:40 Chloride 119 mEq/L (98-107) H 03/24/18 08:40 Carbon Dioxide 28.0 mEq/L (21.0-31.0) 03/24/18 08:40 Anion Gap 12.1 (7.0-16.0) 03/24/18 08:40 BUN 52 mg/dL (7-25) H 03/24/18 08:40 Creatinine 1.6 mg/dL (0.7-1.3) H 03/24/18 08:40 Est GFR ( Amer) TNP 03/24/18 08:40 Est GFR (Non-Af Amer) TNP 03/24/18 08:40 BUN/Creatinine Ratio 32.5 03/24/18 08:40 Glucose 78 mg/dL (70-105) 03/24/18 08:40 Whole Bld Lactic Acid 2.89 mmol/L (0.60-1.99) H* 03/23/18 06:20 Calcium 9.7 mg/dL (8.6-10.3) 03/24/18 08:40 Magnesium 3.3 mg/dL (1.9-2.7) H 03/23/18 06:20 Total Bilirubin 0.8 mg/dL (0.3-1.0) 03/24/18 08:40 AST 103 U/L (13-39) H 03/24/18 08:40 ALT 124 U/L (7-52) H 03/24/18 08:40 Alkaline Phosphatase 132 U/L (34-104) H 03/24/18 08:40 Total Protein 7.4 gm/dL (6.0-8.3) 03/24/18 08:40 Albumin 3.3 gm/dL (4.2-5.5) L 03/24/18 08:40 Globulin 4.1 gm/dL 03/24/18 08:40 Albumin/Globulin Ratio 0.8 (1.0-1.8) L 03/24/18 08:40 Lipase 18 U/L (11-82) 03/24/18 08:40 Urine Source CLEAN C 03/22/18 09:49 Urine Color YELLOW 03/22/18 09:49 Urine Clarity CLEAR (CLEAR) 03/22/18 09:49 Urine pH 7.5 (4.6 - 8.0) 03/22/18 09:49 Ur Specific [place] 1.010 (1.005-1.030) 03/22/18 09:49 Urine Protein 30 mg/dL (NEGATIVE) H 03/22/18 09:49 Urine Glucose (UA) NEGATIVE mg/dL (NEGATIVE) 03/22/18 09:49 Urine Ketones NEGATIVE mg/dL (NEGATIVE) 03/22/18 09:49 Urine Blood NEGATIVE (NEGATIVE) 03/22/18 09:49 Urine Nitrate NEGATIVE (NEGATIVE) 03/22/18 09:49 Urine Bilirubin NEGATIVE (NEGATIVE) 03/22/18 09:49 Urine Urobilinogen 0.2 E.U./dL (0.2 - 1.0) 03/22/18 09:49 Ur Leukocyte Esterase MODERATE (NEGATIVE) H 03/22/18 09:49 Urine RBC 0-2 /hpf (0-5) H 03/22/18 09:49 Urine WBC 6-10 /hpf (0-5) 03/22/18 09:49 Ur Epithelial Cells NONE SEEN /lpf (FEW) 03/22/18 09:49 Urine Bacteria MODERATE /hpf (NONE SEEN) H 03/22/18 09:49 Vancomycin Trough 26.3 ug/mL (5-10) H 03/24/18 08:40 - Physical Exam Vitals and I&O: Vital Signs Temp 96.6 F 03/24/18 07:51 Pulse 84 03/24/18 11:03 Resp 18 03/24/18 11:03 BP 132/97 03/24/18 07:51 Pulse Ox 98 03/24/18 11:03 Intake & Output 03/23/18 03/24/18 03/24/18 18:59 06:59 18:59 Intake Total 250 1100 150 Balance 250 1100 150 Weight (lbs) 105 lb Intake: Intake, IV Amount 250 1100 Dextrose 5% 1,000 ml @ 1000 125 mls/hr IV .Q8H [facility] Rx #:[id number] Piperacillin Sodium/ 100 Tazobact 2.25 gm In Sodium Chloride 0.9% 50 ml @ 100 mls/hr IV Q8HR [facility] Rx#:[id number] Vancomycin HCl 1 gm In 250 Sodium Chloride 0.9% 250 ml @ 166.667 mls/hr IV Q24H [facility] Rx#:[id number] Tube Feeding 150 Other: Stool Characteristics Soft Weight Source Bedscale Active Medications: Current Medications Acetaminophen (Tylenol) 650 mg GT Q4H PRN PRN Reason: Pain Or Fever above 101 Stop: 05/21/18 21:29 Albuterol Sulfate (Albuterol 2.5mg/3ml Neb Ud) 2.5 mg HHN QIDRT [facility] Stop: 05/22/18 06:59 Last Admin: 03/24/18 11:03 Dose: 2.5 mg Ascorbic Acid (Vitamin C) 500 mg GT DAILY [facility] Stop: 05/22/18 08:59 Last Admin: 03/24/18 09:25 Dose: 500 mg Bisacodyl (Dulcolax 10 Mg Supp) 10 mg RC PRN PRN PRN Reason: IF MOM NOT EFFECTIVE Stop: 05/21/18 21:29 Oldhams Oil/[place]iv[place] Balsam/Trypsin (Venelex) 1 appl TP DAILY [facility] Stop: 05/22/18 14:44 Last Admin: 03/24/18 09:25 Dose: 1 appl Divalproex Sodium (Depakote Sprinkle) 750 mg GT Q12HR [facility]; Protocol Stop: 05/22/18 08:59 Last Admin: 03/24/18 09:24 Dose: 750 mg Donepezil HCl (Aricept) 10 mg GT HS [facility] Stop: 05/22/18 20:59 Last Admin: 03/23/18 22:12 Dose: Not Given Ferrous Sulfate (Iron) 330 mg GT BID [facility] Stop: 05/22/18 08:59 Last Admin: 03/24/18 09:25 Dose: 330 mg Guaifenesin (Robitussin) 200 mg PO Q4HR PRN PRN Reason: Cough or Congestion Stop: 05/21/18 21:31 Dextrose (D5w) 1,000 mls @ 125 mls/hr IV .Q8H [facility] Stop: 05/21/18 21:34 Last Admin: 03/23/18 21:09 Dose: 125 mls/hr Piperacillin Sod/Tazobactam (Sod 2.25 gm/ Sodium Chloride) 50 mls @ 100 mls/hr IV Q8HR [facility] Stop: 05/22/18 04:59 Last Infusion: 03/24/18 05:49 Dose: Infused Vancomycin HCl 1 gm/ Sodium (Chloride) 250 mls @ 165 mls/hr IV Q36H [facility] Stop: 05/23/18 20:59 Ipratropium [place] (Atrovent Neb 0.5mg/2.5ml) 0.5 mg HHN QIDRT [facility] Stop: 05/22/18 06:59 Last Admin: 03/24/18 11:03 Dose: 0.5 mg Lactobacillus Rhamnosus (Culturelle 15b) 1 each GT DAILY [facility] Stop: 05/22/18 08:59 Last Admin: 03/24/18 09:25 Dose: 1 each Magnesium Hydroxide (Milk Of Magnesia) 30 ml PO Q72H PRN PRN Reason: IF NO BM Stop: 05/21/18 21:29 Multivitamins/Vitamin C (Theragran) 1 tab GT DAILY [facility] Stop: 05/22/18 08:59 Last Admin: 03/24/18 09:25 Dose: 1 tab Ondansetron HCl (Zofran) 4 mg IV Q8H PRN PRN Reason: Nausea / Vomiting Stop: 05/21/18 21:31 Pantoprazole Sodium (Protonix) 40 mg GT DAILY [facility] Stop: 05/22/18 08:59 Last Admin: 03/24/18 09:25 Dose: 40 mg Prednisone (Deltasone) 5 mg GT Q12HR [facility] Stop: 05/22/18 08:59 Last Admin: 03/24/18 09:25 Dose: 5 mg Zinc Sulfate (Zinc Sulfate) 220 mg GT DAILY [facility] Stop: 05/22/18 08:59 Last Admin: 03/24/18 09:25 Dose: 220 mg General: alert HEENT: NC/AT, PERRLA Neck: Supple Lungs: CTAB Cardiovascular: RRR, Normal S1, Normal S2 Abdomen: soft, non-tender, non-distended, positive bowel sound Extremities: excoriation Neurological: alert, unable to follow command - Procedures Procedures: Procedures Procedure Code Date ASSISTANCE WITH RESPIRATORY VENTILATION, 24-96 HRS, CPAP [id number] 09/29/17 CHANGE FEEDING DEVICE IN UP INTEST TRACT, SOUND MIXER APPROACH [id number] 03/22/18 INSPECTION OF UPPER INTESTINAL TRACT, ENDO [id number] 01/26/18 POS AIRWAY PRESSURE CPAP 71133 09/29/17 Internal Medicine Assmt/Plan - Assessment Assessment: gt cellulitis sepsis acute renal insufficiency r/o dehydration acute uti hx stroke mr dementia mild protein jim malnutrition - Plan Plan: continue ivabx fall precautions follow up labs in am await for gt culture Nutritional Asmnt/Malnutr-PDOC - Dietary Evaluation Malnutrition Findings (Please click <Entered> for more info): Nutritional Asmnt/Malnutrition Start: 03/23/18 18: 11 Text: Status: Complete Freq: Protocol: Document 03/23/18 18:14 LCHENG (Rec: 03/23/18 18:29 ANNYG [id number]) Nutritional Asmnt/Malnutrition Patient General Information Nutritional Screening High Risk Consult Diagnosis sepsis, GT cullulitis Pertinent Medical Hx/Surgical Hx ESRD, anemia, dysphagia, asthma/COPD Subjective Information Pt seen resting in bed at time of visit, NPO status, GT clamped. Per RNMD changed GT today, stoma site still reddened with drainage. May start TF once Gtube site healed. Current Diet Order/ Nutrition Support NPO Pertinent Medications vit C, D5w, iron, culturelle, theragran, protonix, piperacillin, vancomycin, zinc Pertinent Labs 03/23 Na 167, Cl 127, BUN 77, Cr 1.6, glucose 103, Mg 3.3, Alb 3.3 03/22 Na 167, Cl 126, BUN 8, Cr 1.5, glucose 115, Alb 3.5 Nutritional Hx/Data Height 5 ft 11 in Height (Calculated Centimeters) 180.3 Current Weight (lbs) 105 lb Weight (Calculated Kilograms) 47.6 Weight (Calculated Grams) 47897.2 [place] Body Weight 172 Body Mass Index (BMI) 14.6 Weight Status Underweight GI Symptoms Last BM 03/23 Usual diet at home per chart, fibersouce HM at 75ml x 20hr daily at care facility Skin Integrity/Comment: pressure ulcer to posterior back, incision reddened to lateral abd, skiin tear ulcer to left lateral leg, pressure area reddened to left shoulder Estimated Nutritional Goals BEE in Kcals: Using Current wt Calories/Kcals/Kg 35-40 Kcals Calculated 5111-8161 Protein: Using Current wt Protein g/k.3-1.7 Protein Calculated 62-82 Fluid: ml 1440-1680ml (1ml/kcal) Nutritional Problem 1. Problem Problem inadequate energy intake Etiology Gtube site wound Signs/Symptoms: TF not initiated Malnutrition Alert Body Fat Depletion (Non-Severe) Mild Depletion Muscle Mass (Severe) Mod to Severe Depletion Is there a minimum of two criteria Yes selected? Query Text:Check all the applicable criteria. A minimum of two criteria are recommended for diagnosis of either severe or non-severe malnutrition. Malnutrition Related to Morbid Obesity Malnutrition related to morbid obesity No Intervention/Recommendation Comments 1. When medically appropriate, recommend tube feeding with Jevity 1.2 at 75ml/hr x 20hr. It will provide 1800kcal, 83g protein and 1210ml free water, meeting 100% of nutritional needs. 2. Consider adding Fox BID to help wound healing once TF initiated. 3. Monitor TF rate, tolerance, wt, skin integrity and labs 4. F/U as high risk in 2-3 days, 03/25-03/26 Expected Outcomes/Goals Expected Outcomes/Goals 1. Pt to meet at least 75% of nutritional needs via nutrition support with tolerance 2. Wt stability, skin to remain intact, labs to approach WNL.
--- NOTE | 2018-03-24 12:33 | Diagnostic Imaging Report ---
Abdominal ultrasound HISTORY: Abnormal liver function test The exam is very limited due to patient rotation, combativeness, and lack of cooperation. Incomplete visualization of the liver. No obvious focal lesions. Limited views of the gallbladder. No obvious intraluminal abnormalities. No biliary dilatation. The pancreas cannot be seen. The right kidney appears normal. The left kidney is not well seen. The spleen is not well seen. No other obvious retroperitoneal or intra-abdominal abnormalities. IMPRESSION: 1. Limited/suboptimal exam as noted above. 2. No obvious abnormalities
--- NOTE | 2018-03-24 16:01 | GI Progress Note ---
Subjective - Review of Systems Service Date: 03/24/18 Events since last encounter: no events Subjective: non communicating Objective - Results Result Diagrams: 03/24/18 08:40 03/24/18 08:40 Recent Labs: Laboratory Last Values WBC 14.0 Th/cmm (4.8-10.8) H 03/24/18 08:40 RBC 3.55 Mil/cmm (3.80-5.80) L 03/24/18 08:40 Hgb 10.6 gm/dL (12-16) L 03/24/18 08:40 Hct 32.7 % (41.0-60) L 03/24/18 08:40 MCV 92.1 fl (80-99) 03/24/18 08:40 MCH 29.9 pg (27.0-31.0) 03/24/18 08:40 MCHC Differential 32.5 pg (28.0-36.0) 03/24/18 08:40 RDW 15.4 % (11.5-20.0) 03/24/18 08:40 Plt Count 353 Th/cmm (150-400) 03/24/18 08:40 MPV 11.1 fl 03/24/18 08:40 Add Manual Diff YES 03/22/18 20:23 Neutrophils % 76.6 % (40.0-80.0) 03/24/18 08:40 Band Neutrophils % 2 % (0-10) 03/22/18 20:23 Lymphocytes % 15.2 % (20.0-50.0) L 03/24/18 08:40 Monocytes % 3.9 % (2.0-10.0) 03/24/18 08:40 Eosinophils % 4.2 % (0.0-5.0) 03/24/18 08:40 Basophils % 0.1 % (0.0-2.0) 03/24/18 08:40 Neutrophils (Manual) 86 % (40-80) H 03/22/18 20:23 Lymphocytes 10 % (20-50) L 03/22/18 20:23 Monocytes 2 % (2-10) 03/22/18 20:23 Platelet Estimate ADEQUATE (NORMAL) 03/22/18 20:23 Smear Path Review N 03/22/18 20:23 Sodium 155 mEq/L (136-145) H 03/24/18 08:40 Potassium 4.1 mEq/L (3.5-5.1) 03/24/18 08:40 Chloride 119 mEq/L (98-107) H 03/24/18 08:40 Carbon Dioxide 28.0 mEq/L (21.0-31.0) 03/24/18 08:40 Anion Gap 12.1 (7.0-16.0) 03/24/18 08:40 BUN 52 mg/dL (7-25) H 03/24/18 08:40 Creatinine 1.6 mg/dL (0.7-1.3) H 03/24/18 08:40 Est GFR ( Amer) TNP 03/24/18 08:40 Est GFR (Non-Af Amer) TNP 03/24/18 08:40 BUN/Creatinine Ratio 32.5 03/24/18 08:40 Glucose 78 mg/dL (70-105) 03/24/18 08:40 Whole Bld Lactic Acid 2.89 mmol/L (0.60-1.99) H* 03/23/18 06:20 Calcium 9.7 mg/dL (8.6-10.3) 03/24/18 08:40 Magnesium 3.3 mg/dL (1.9-2.7) H 03/23/18 06:20 Total Bilirubin 0.8 mg/dL (0.3-1.0) 03/24/18 08:40 AST 103 U/L (13-39) H 03/24/18 08:40 ALT 124 U/L (7-52) H 03/24/18 08:40 Alkaline Phosphatase 132 U/L (34-104) H 03/24/18 08:40 Total Protein 7.4 gm/dL (6.0-8.3) 03/24/18 08:40 Albumin 3.3 gm/dL (4.2-5.5) L 03/24/18 08:40 Globulin 4.1 gm/dL 03/24/18 08:40 Albumin/Globulin Ratio 0.8 (1.0-1.8) L 03/24/18 08:40 Lipase 18 U/L (11-82) 03/24/18 08:40 Urine Source CLEAN C 03/22/18 09:49 Urine Color YELLOW 03/22/18 09:49 Urine Clarity CLEAR (CLEAR) 03/22/18 09:49 Urine pH 7.5 (4.6 - 8.0) 03/22/18 09:49 Ur Specific [place] 1.010 (1.005-1.030) 03/22/18 09:49 Urine Protein 30 mg/dL (NEGATIVE) H 03/22/18 09:49 Urine Glucose (UA) NEGATIVE mg/dL (NEGATIVE) 03/22/18 09:49 Urine Ketones NEGATIVE mg/dL (NEGATIVE) 03/22/18 09:49 Urine Blood NEGATIVE (NEGATIVE) 03/22/18 09:49 Urine Nitrate NEGATIVE (NEGATIVE) 03/22/18 09:49 Urine Bilirubin NEGATIVE (NEGATIVE) 03/22/18 09:49 Urine Urobilinogen 0.2 E.U./dL (0.2 - 1.0) 03/22/18 09:49 Ur Leukocyte Esterase MODERATE (NEGATIVE) H 03/22/18 09:49 Urine RBC 0-2 /hpf (0-5) H 03/22/18 09:49 Urine WBC 6-10 /hpf (0-5) 03/22/18 09:49 Ur Epithelial Cells NONE SEEN /lpf (FEW) 03/22/18 09:49 Urine Bacteria MODERATE /hpf (NONE SEEN) H 03/22/18 09:49 Vancomycin Trough 26.3 ug/mL (5-10) H 03/24/18 08:40 - Physical Exam Vitals and I&O: Vital Signs Temp 96.3 F 03/24/18 12:09 Pulse 82 03/24/18 15:16 Resp 18 03/24/18 15:16 BP 101/64 03/24/18 12:09 Pulse Ox 97 03/24/18 15:16 Intake & Output 03/23/18 03/24/18 03/24/18 18:59 06:59 18:59 Intake Total 250 1100 150 Balance 250 1100 150 Weight (lbs) 47.627 kg Intake: Intake, IV Amount 250 1100 Dextrose 5% 1,000 ml @ 1000 125 mls/hr IV .Q8H [facility] Rx #:[id number] Piperacillin Sodium/ 100 Tazobact 2.25 gm In Sodium Chloride 0.9% 50 ml @ 100 mls/hr IV Q8HR [facility] Rx#:[id number] Vancomycin HCl 1 gm In 250 Sodium Chloride 0.9% 250 ml @ 166.667 mls/hr IV Q24H [facility] Rx#:[id number] Tube Feeding 150 Other: Stool Characteristics Soft Weight Source Bedscale Active Medications: Current Medications Acetaminophen (Tylenol) 650 mg GT Q4H PRN PRN Reason: Pain Or Fever above 101 Stop: 05/21/18 21:29 Albuterol Sulfate (Albuterol 2.5mg/3ml Neb Ud) 2.5 mg HHN QIDRT [facility] Stop: 05/22/18 06:59 Last Admin: 03/24/18 15:16 Dose: 2.5 mg Ascorbic Acid (Vitamin C) 500 mg GT DAILY [facility] Stop: 05/22/18 08:59 Last Admin: 03/24/18 09:25 Dose: 500 mg Bisacodyl (Dulcolax 10 Mg Supp) 10 mg RC PRN PRN PRN Reason: IF MOM NOT EFFECTIVE Stop: 05/21/18 21:29 [place] Oil/[place] Balsam/Trypsin (Venelex) 1 appl TP DAILY [facility] Stop: 05/22/18 14:44 Last Admin: 03/24/18 09:25 Dose: 1 appl Divalproex Sodium (Depakote Sprinkle) 750 mg GT Q12HR [facility]; Protocol Stop: 05/22/18 08:59 Last Admin: 03/24/18 09:24 Dose: 750 mg Donepezil HCl (Aricept) 10 mg GT HS [facility] Stop: 05/22/18 20:59 Last Admin: 03/23/18 22:12 Dose: Not Given Ferrous Sulfate (Iron) 330 mg GT BID [facility] Stop: 05/22/18 08:59 Last Admin: 03/24/18 09:25 Dose: 330 mg Guaifenesin (Robitussin) 200 mg PO Q4HR PRN PRN Reason: Cough or Congestion Stop: 05/21/18 21:31 Piperacillin Sod/Tazobactam (Sod 2.25 gm/ Sodium Chloride) 50 mls @ 100 mls/hr IV Q8HR [facility] Stop: 05/22/18 04:59 Last Admin: 03/24/18 12:37 Dose: Not Given Vancomycin HCl 1 gm/ Sodium (Chloride) 250 mls @ 165 mls/hr IV Q36H [facility] Stop: 12/08/18 20:59 Dextrose (D5w) 1,000 mls @ 80 mls/hr IV .[id number] [facility] Stop: 05/23/18 15:14 Ipratropium [place] (Atrovent Neb 0.5mg/2.5ml) 0.5 mg HHN QIDRT [facility] Stop: 05/22/18 06:59 Last Admin: 03/24/18 15:16 Dose: 0.5 mg Lactobacillus Rhamnosus (Culturelle 15b) 1 each GT DAILY [facility] Stop: 05/22/18 08:59 Last Admin: 03/24/18 09:25 Dose: 1 each Magnesium Hydroxide (Milk Of Magnesia) 30 ml PO Q72H PRN PRN Reason: IF NO BM Stop: 05/21/18 21:29 Multivitamins/Vitamin C (Theragran) 1 tab GT DAILY [facility] Stop: 05/22/18 08:59 Last Admin: 03/24/18 09:25 Dose: 1 tab Ondansetron HCl (Zofran) 4 mg IV Q8H PRN PRN Reason: Nausea / Vomiting Stop: 05/21/18 21:31 Pantoprazole Sodium (Protonix) 40 mg GT DAILY [facility] Stop: 05/22/18 08:59 Last Admin: 03/24/18 09:25 Dose: 40 mg Prednisone (Deltasone) 5 mg GT Q12HR [facility] Stop: 05/22/18 08:59 Last Admin: 03/24/18 09:25 Dose: 5 mg Zinc Sulfate (Zinc Sulfate) 220 mg GT DAILY [facility] Stop: 05/22/18 08:59 Last Admin: 03/24/18 09:25 Dose: 220 mg General: Alert, No acute distress, no Oriented x3, no Cooperative, no Mild distress, no Moderate distress, no Severe distress, no Other Cardiovascular: Regular rate, Normal S1, Normal S2 Lungs: Clear to auscultation Abdomen: Bowel sounds, Soft, Hepatomegaly, Obese, Other (G tube), no Tender, no Distended - Procedures Procedures: Procedures Procedure Code Date ASSISTANCE WITH RESPIRATORY VENTILATION, 24-96 HRS, CPAP [id number] 09/29/17 CHANGE FEEDING DEVICE IN UP INTEST TRACT, RN QUALITY APPROACH [id number] 03/22/18 INSPECTION OF UPPER INTESTINAL TRACT, ENDO [id number] 01/26/18 POS AIRWAY PRESSURE CPAP [id number] 09/29/17 Assessment/Plan - Assessment Assessment: 1. Malfunctioning G tube 2. abnormal LFTs 3. Dysphagia - Plan Plan: 1. Malfunctioning G tube S/P change. If needed change to a larger one. 2. abnormal LFTs US was not helpfull Possible sepsis Doubt that he will tolerate MRCP Re check labs in AM 3. Dysphagia Advance feeding gradually
[2018-03-25] MEDS: Dextrose 5% 1,000 ML IV SCH ×2 (03:42→16:41)
[2018-03-25] MEDS: Ipratropium Neb 0.5 mg/2.5 mL UD HHN SCH ×4 (06:57→19:30)
[2018-03-25] MEDS: Albuterol Nebulizer 2.5mg/3mL HHN SCH ×4 (06:57→19:30)
[2018-03-25 07:05] LABS: % EOSINOPHILS 0.9 % (0.0-5.0); % MONOCYTES 2.9 % (2.0-10.0); % NEUTROPHILS 86.2 % (40.0-80.0); EOSINOPHILE ABSOLUTE 0.1 Th/cmm (0.1-0.4); HEMATOCRIT 32.4 % (41.0-60); HEMOGLOBIN 10.5 gm/dL (12-16); MEAN CELL VOLUME 91.7 fl (80-99); MEAN CORPUSCULAR HEMOGLOBIN 29.6 pg (27.0-31.0); MEAN CORPUSCULAR HGB CONC 32.3 pg (28.0-36.0); MEAN PLATELET VOLUME 11.4 fl; MONOCYTE ABSOLUTE 0.3 Th/cmm (0.3-1.0); NEUTROPHILE ABSOLUTE 8.8 Th/cmm (1.8-8.0); PLATELET COUNT 360 Th/cmm (150-400); RED BLOOD COUNT 3.53 Mil/cmm (3.80-5.80); RED CELL DISTRIBUTION WIDTH 15.2 % (11.5-20.0); WHITE BLOOD COUNT 10.2 Th/cmm (4.8-10.8)
[2018-03-25 07:12] LABS: ALB/GLOB RATIO 0.7 (1.0-1.8); ALBUMIN 2.9 gm/dL (4.2-5.5); BILIRUBIN,DIRECT 0.16 mg/dL (0.0-0.2); BILIRUBIN,TOTAL 0.4 mg/dL (0.3-1.0); TOTAL PROTEIN,SERUM 6.8 gm/dL (6.0-8.3)
[2018-03-25 07:13] LABS: ANION GAP 12.6 (7.0-16.0); BUN - UREA NITROGEN 45 mg/dL (7-25); CALCIUM SERUM 9.3 mg/dL (8.6-10.3); CARBON DIOXIDE 26.4 mEq/L (21.0-31.0); CHLORIDE 116 mEq/L (98-107); CREATININE - SERUM 1.5 mg/dL (0.7-1.3); GLUCOSE 125 mg/dL (70-105); SODIUM SERUM 151 mEq/L (136-145)
[2018-03-25] MEDS: Ferrous Sulfate 300 MG/5 ML UDC GT SCH ×2 (09:24→16:36)
[2018-03-25] MEDS: Venelex 60gm Tube TP SCH (09:24)
[2018-03-25] MEDS: Lactobacillus Rhamnosus GG 15 Billion CFU CAP.SPRINK GT SCH (09:25)
[2018-03-25] MEDS: Pantoprazole 40 mg/Packet GT SCH (09:25)
[2018-03-25] MEDS: Multivitamin Tab GT SCH (09:25)
--- NOTE | 2018-03-25 11:05 | Internal Medicine Prog Note ---
Internal Medicine Subjective - Subjective Service Date: 03/25/18 Patient is:: awake, verbal Per staff patient has:: tolerating meds Internal Medicine Objective - Results Result Diagrams: 03/25/18 06:30 03/25/18 06:30 Recent Labs: Laboratory Last Values WBC 10.2 Th/cmm (4.8-10.8) 03/25/18 06:30 RBC 3.53 Mil/cmm (3.80-5.80) L 03/25/18 06:30 Hgb 10.5 gm/dL (12-16) L 03/25/18 06:30 Hct 32.4 % (41.0-60) L 03/25/18 06:30 MCV 91.7 fl (80-99) 03/25/18 06:30 MCH 29.6 pg (27.0-31.0) 03/25/18 06:30 MCHC Differential 32.3 pg (28.0-36.0) 03/25/18 06:30 RDW 15.2 % (11.5-20.0) 03/25/18 06:30 Plt Count 360 Th/cmm (150-400) 03/25/18 06:30 MPV 11.4 fl 03/25/18 06:30 Add Manual Diff YES 03/22/18 20:23 Neutrophils % 86.2 % (40.0-80.0) H 03/25/18 06:30 Band Neutrophils % 2 % (0-10) 03/22/18 20:23 Lymphocytes % 10.0 % (20.0-50.0) L 03/25/18 06:30 Monocytes % 2.9 % (2.0-10.0) 03/25/18 06:30 Eosinophils % 0.9 % (0.0-5.0) 03/25/18 06:30 Basophils % 0.0 % (0.0-2.0) 03/25/18 06:30 Neutrophils (Manual) 86 % (40-80) H 03/22/18 20:23 Lymphocytes 10 % (20-50) L 03/22/18 20:23 Monocytes 2 % (2-10) 03/22/18 20:23 Platelet Estimate ADEQUATE (NORMAL) 03/22/18 20:23 Smear Path Review N 03/22/18 20:23 Sodium 151 mEq/L (136-145) H 03/25/18 06:30 Potassium 4.0 mEq/L (3.5-5.1) 03/25/18 06:30 Chloride 116 mEq/L (98-107) H 03/25/18 06:30 Carbon Dioxide 26.4 mEq/L (21.0-31.0) 03/25/18 06:30 Anion Gap 12.6 (7.0-16.0) 03/25/18 06:30 BUN 45 mg/dL (7-25) H 03/25/18 06:30 Creatinine 1.5 mg/dL (0.7-1.3) H 03/25/18 06:30 Est GFR ( Amer) TNP 03/25/18 06:30 Est GFR (Non-Af Amer) TNP 03/25/18 06:30 BUN/Creatinine Ratio 30.0 03/25/18 06:30 Glucose 125 mg/dL (70-105) H 03/25/18 06:30 Whole Bld Lactic Acid 2.89 mmol/L (0.60-1.99) H* 03/23/18 06:20 Calcium 9.3 mg/dL (8.6-10.3) 03/25/18 06:30 Magnesium 3.3 mg/dL (1.9-2.7) H 03/23/18 06:20 Total Bilirubin 0.4 mg/dL (0.3-1.0) 03/25/18 06:30 Direct Bilirubin 0.16 mg/dL (0.0-0.2) 03/25/18 06:30 AST 53 U/L (13-39) H 03/25/18 06:30 ALT 85 U/L (7-52) H 03/25/18 06:30 Alkaline Phosphatase 116 U/L (34-104) H 03/25/18 06:30 Total Protein 6.8 gm/dL (6.0-8.3) 03/25/18 06:30 Albumin 2.9 gm/dL (4.2-5.5) L 03/25/18 06:30 Globulin 3.9 gm/dL 03/25/18 06:30 Albumin/Globulin Ratio 0.7 (1.0-1.8) L 03/25/18 06:30 Lipase 18 U/L (11-82) 03/24/18 08:40 Urine Source CLEAN C 03/22/18 09:49 Urine Color YELLOW 03/22/18 09:49 Urine Clarity CLEAR (CLEAR) 03/22/18 09:49 Urine pH 7.5 (4.6 - 8.0) 03/22/18 09:49 Ur Specific [place] 1.010 (1.005-1.030) 03/22/18 09:49 Urine Protein 30 mg/dL (NEGATIVE) H 03/22/18 09:49 Urine Glucose (UA) NEGATIVE mg/dL (NEGATIVE) 03/22/18 09:49 Urine Ketones NEGATIVE mg/dL (NEGATIVE) 03/22/18 09:49 Urine Blood NEGATIVE (NEGATIVE) 03/22/18 09:49 Urine Nitrate NEGATIVE (NEGATIVE) 03/22/18 09:49 Urine Bilirubin NEGATIVE (NEGATIVE) 03/22/18 09:49 Urine Urobilinogen 0.2 E.U./dL (0.2 - 1.0) 03/22/18 09:49 Ur Leukocyte Esterase MODERATE (NEGATIVE) H 03/22/18 09:49 Urine RBC 0-2 /hpf (0-5) H 03/22/18 09:49 Urine WBC 6-10 /hpf (0-5) 03/22/18 09:49 Ur Epithelial Cells NONE SEEN /lpf (FEW) 03/22/18 09:49 Urine Bacteria MODERATE /hpf (NONE SEEN) H 03/22/18 09:49 Vancomycin Trough 26.3 ug/mL (5-10) H 03/24/18 08:40 - Physical Exam Vitals and I&O: Vital Signs Temp 98.0 F 03/25/18 07:53 Pulse 69 03/25/18 07:53 Resp 18 03/25/18 08:00 BP 130/81 03/25/18 07:53 Pulse Ox 97 03/25/18 07:53 Intake & Output 03/24/18 03/25/18 03/25/18 18:59 06:59 18:59 Intake Total 150 50 Balance 150 50 Weight (lbs) 105 lb Intake: Intake, IV Amount 50 Piperacillin Sodium/ 50 Tazobact 2.25 gm In Sodium Chloride 0.9% 50 ml @ 100 mls/hr IV Q8HR [facility] Rx#:[id number] Tube Feeding 150 Other: Stool Characteristics Soft Soft Formed Formed Brown Brown Weight Source Bedscale Active Medications: Current Medications Acetaminophen (Tylenol) 650 mg GT Q4H PRN PRN Reason: Pain Or Fever above 101 Stop: 05/21/18 21:29 Last Admin: 03/25/18 00:39 Dose: 650 mg Albuterol Sulfate (Albuterol 2.5mg/3ml Neb Ud) 2.5 mg HHN QIDRT [facility] Stop: 05/22/18 06:59 Last Admin: 03/25/18 06:57 Dose: 2.5 mg Ascorbic Acid (Vitamin C) 500 mg GT DAILY [facility] Stop: 05/22/18 08:59 Last Admin: 03/25/18 09:25 Dose: 500 mg Bisacodyl (Dulcolax 10 Mg Supp) 10 mg RC PRN PRN PRN Reason: IF MOM NOT EFFECTIVE Stop: 05/21/18 21:29 [place] Oil/[place] Balsam/Trypsin (Venelex) 1 appl TP DAILY [facility] Stop: 05/22/18 14:44 Last Admin: 03/25/18 09:24 Dose: 1 appl Divalproex Sodium (Depakote Sprinkle) 750 mg GT Q12HR [facility]; Protocol Stop: 05/22/18 08:59 Last Admin: 03/25/18 09:24 Dose: 750 mg Donepezil HCl (Aricept) 10 mg GT HS [facility] Stop: 05/22/18 20:59 Last Admin: 03/24/18 21:12 Dose: 10 mg Ferrous Sulfate (Iron) 330 mg GT BID [facility] Stop: 05/22/18 08:59 Last Admin: 03/25/18 09:24 Dose: 330 mg Guaifenesin (Robitussin) 200 mg PO Q4HR PRN PRN Reason: Cough or Congestion Stop: 05/21/18 21:31 Piperacillin Sod/Tazobactam (Sod 2.25 gm/ Sodium Chloride) 50 mls @ 100 mls/hr IV Q8HR [facility] Stop: 05/22/18 04:59 Last Admin: 03/25/18 04:51 Dose: 100 mls/hr Vancomycin HCl 1 gm/ Sodium (Chloride) 250 mls @ 165 mls/hr IV Q36H [facility] Stop: 05/23/18 20:59 Last Admin: 03/24/18 23:03 Dose: 165 mls/hr Dextrose (D5w) 1,000 mls @ 80 mls/hr IV .[id number] [facility] Stop: 05/23/18 15:14 Last Admin: 03/25/18 03:42 Dose: 80 mls/hr Ipratropium [place] (Atrovent Neb 0.5mg/2.5ml) 0.5 mg HHN QIDRT [facility] Stop: 05/22/18 06:59 Last Admin: 03/25/18 06:57 Dose: 0.5 mg Lactobacillus Rhamnosus (Culturelle 15b) 1 each GT DAILY [facility] Stop: 05/22/18 08:59 Last Admin: 03/25/18 09:25 Dose: 1 each Magnesium Hydroxide (Milk Of Magnesia) 30 ml PO Q72H PRN PRN Reason: IF NO BM Stop: 05/21/18 21:29 Multivitamins/Vitamin C (Theragran) 1 tab GT DAILY [facility] Stop: 05/22/18 08:59 Last Admin: 03/25/18 09:25 Dose: 1 tab Ondansetron HCl (Zofran) 4 mg IV Q8H PRN PRN Reason: Nausea / Vomiting Stop: 05/21/18 21:31 Pantoprazole Sodium (Protonix) 40 mg GT DAILY [facility] Stop: 05/22/18 08:59 Last Admin: 03/25/18 09:25 Dose: 40 mg Prednisone (Deltasone) 5 mg GT Q12HR [facility] Stop: 05/22/18 08:59 Last Admin: 03/25/18 09:25 Dose: 5 mg Zinc Sulfate (Zinc Sulfate) 220 mg GT DAILY [facility] Stop: 05/22/18 08:59 Last Admin: 03/25/18 09:25 Dose: 220 mg General: alert HEENT: NC/AT, PERRLA Neck: Supple Lungs: CTAB Cardiovascular: RRR, Normal S1, Normal S2 Abdomen: soft, non-tender, non-distended, positive bowel sound Extremities: excoriation Neurological: alert, unable to follow command - Procedures Procedures: Procedures Procedure Code Date ASSISTANCE WITH RESPIRATORY VENTILATION, 24-96 HRS, CPAP 4C37299 09/29/17 CHANGE FEEDING DEVICE IN UP INTEST TRACT, 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 03/22/18 INSPECTION OF UPPER INTESTINAL TRACT, ENDO [id number] 01/26/18 POS AIRWAY PRESSURE CPAP 83271 09/29/17 Internal Medicine Assmt/Plan - Assessment Assessment: gt cellulitis sepsis acute renal insufficiency r/o dehydration acute uti hx stroke mr dementia mild protein jim malnutrition - Plan Plan: continue ivabx fall precautions follow up labs in am Nutritional Asmnt/Malnutr-PDOC - Dietary Evaluation Malnutrition Findings (Please click <Entered> for more info): Nutritional Asmnt/Malnutrition Start: 03/23/18 18: 11 Text: Status: Complete Freq: Protocol: Document 03/23/18 18:14 [facility] (Rec: 03/23/18 18:29 HEN [email or web address]) Nutritional Asmnt/Malnutrition Patient General Information Nutritional Screening High Risk Consult Diagnosis sepsis, GT cullulitis Pertinent Medical Hx/Surgical Hx ESRD, anemia, dysphagia, asthma/COPD Subjective Information Pt seen resting in bed at time of visit, NPO status, GT clamped. Per RNMD changed GT today, stoma site still reddened with drainage. May start TF once Gtube site healed. Current Diet Order/ Nutrition Support NPO Pertinent Medications vit C, D5w, iron, culturelle, theragran, protonix, piperacillin, vancomycin, zinc Pertinent Labs 03/23 Na 167, Cl 127, BUN 77, Cr 1.6, glucose 103, Mg 3.3, Alb 3.3 03/22 Na 167, Cl 126, BUN 8, Cr 1.5, glucose 115, Alb 3.5 Nutritional Hx/Data Height 5 ft 11 in Height (Calculated Centimeters) 180.3 Current Weight (lbs) 105 lb Weight (Calculated Kilograms) 47.6 Weight (Calculated Grams) 71434.2 [place] Body Weight 172 Body Mass Index (BMI) 14.6 Weight Status Underweight GI Symptoms Last BM 03/23 Usual diet at home per chart, fibersouce HM at 75ml x 20hr daily at care facility Skin Integrity/Comment: pressure ulcer to posterior back, incision reddened to lateral abd, skiin tear ulcer to left lateral leg, pressure area reddened to left shoulder Estimated Nutritional Goals BEE in Kcals: Using Current wt Calories/Kcals/Kg 35-40 Kcals Calculated 9427-5054 Protein: Using Current wt Protein g/k.3-1.7 Protein Calculated 62-82 Fluid: ml 1440-1680ml (1ml/kcal) Nutritional Problem 1. Problem Problem inadequate energy intake Etiology Gtube site wound Signs/Symptoms: TF not initiated Malnutrition Alert Body Fat Depletion (Non-Severe) Mild Depletion Muscle Mass (Severe) Mod to Severe Depletion Is there a minimum of two criteria Yes selected? Query Text:Check all the applicable criteria. A minimum of two criteria are recommended for diagnosis of either severe or non-severe malnutrition. Malnutrition Related to Morbid Obesity Malnutrition related to morbid obesity No Intervention/Recommendation Comments 1. When medically appropriate, recommend tube feeding with Jevity 1.2 at 75ml/hr x 20hr. It will provide 1800kcal, 83g protein and 1210ml free water, meeting 100% of nutritional needs. 2. Consider adding Fox BID to help wound healing once TF initiated. 3. Monitor TF rate, tolerance, wt, skin integrity and labs 4. F/U as high risk in 2-3 days, 03/25-03/26 Expected Outcomes/Goals Expected Outcomes/Goals 1. Pt to meet at least 75% of nutritional needs via nutrition support with tolerance 2. Wt stability, skin to remain intact, labs to approach WNL.
--- NOTE | 2018-03-25 17:08 | GI Progress Note ---
Subjective - Review of Systems Service Date: 03/25/18 Events since last encounter: Minimal leak when flushing Subjective: No abd pain Objective - Results Result Diagrams: 03/25/18 06:30 03/25/18 06:30 Recent Labs: Laboratory Last Values WBC 10.2 Th/cmm (4.8-10.8) 03/25/18 06:30 RBC 3.53 Mil/cmm (3.80-5.80) L 03/25/18 06:30 Hgb 10.5 gm/dL (12-16) L 03/25/18 06:30 Hct 32.4 % (41.0-60) L 03/25/18 06:30 MCV 91.7 fl (80-99) 03/25/18 06:30 MCH 29.6 pg (27.0-31.0) 03/25/18 06:30 MCHC Differential 32.3 pg (28.0-36.0) 03/25/18 06:30 RDW 15.2 % (11.5-20.0) 03/25/18 06:30 Plt Count 360 Th/cmm (150-400) 03/25/18 06:30 MPV 11.4 fl 03/25/18 06:30 Add Manual Diff YES 03/22/18 20:23 Neutrophils % 86.2 % (40.0-80.0) H 03/25/18 06:30 Band Neutrophils % 2 % (0-10) 03/22/18 20:23 Lymphocytes % 10.0 % (20.0-50.0) L 03/25/18 06:30 Monocytes % 2.9 % (2.0-10.0) 03/25/18 06:30 Eosinophils % 0.9 % (0.0-5.0) 03/25/18 06:30 Basophils % 0.0 % (0.0-2.0) 03/25/18 06:30 Neutrophils (Manual) 86 % (40-80) H 03/22/18 20:23 Lymphocytes 10 % (20-50) L 03/22/18 20:23 Monocytes 2 % (2-10) 03/22/18 20:23 Platelet Estimate ADEQUATE (NORMAL) 03/22/18 20:23 Smear Path Review N 03/22/18 20:23 Sodium 151 mEq/L (136-145) H 03/25/18 06:30 Potassium 4.0 mEq/L (3.5-5.1) 03/25/18 06:30 Chloride 116 mEq/L (98-107) H 03/25/18 06:30 Carbon Dioxide 26.4 mEq/L (21.0-31.0) 03/25/18 06:30 Anion Gap 12.6 (7.0-16.0) 03/25/18 06:30 BUN 45 mg/dL (7-25) H 03/25/18 06:30 Creatinine 1.5 mg/dL (0.7-1.3) H 03/25/18 06:30 Est GFR ( Amer) TNP 03/25/18 06:30 Est GFR (Non-Af Amer) TNP 03/25/18 06:30 BUN/Creatinine Ratio 30.0 03/25/18 06:30 Glucose 125 mg/dL (70-105) H 03/25/18 06:30 Whole Bld Lactic Acid 2.89 mmol/L (0.60-1.99) H* 03/23/18 06:20 Calcium 9.3 mg/dL (8.6-10.3) 03/25/18 06:30 Magnesium 3.3 mg/dL (1.9-2.7) H 03/23/18 06:20 Total Bilirubin 0.4 mg/dL (0.3-1.0) 03/25/18 06:30 Direct Bilirubin 0.16 mg/dL (0.0-0.2) 03/25/18 06:30 AST 53 U/L (13-39) H 03/25/18 06:30 ALT 85 U/L (7-52) H 03/25/18 06:30 Alkaline Phosphatase 116 U/L (34-104) H 03/25/18 06:30 Total Protein 6.8 gm/dL (6.0-8.3) 03/25/18 06:30 Albumin 2.9 gm/dL (4.2-5.5) L 03/25/18 06:30 Globulin 3.9 gm/dL 03/25/18 06:30 Albumin/Globulin Ratio 0.7 (1.0-1.8) L 03/25/18 06:30 Lipase 18 U/L (11-82) 03/24/18 08:40 Urine Source CLEAN C 03/22/18 09:49 Urine Color YELLOW 03/22/18 09:49 Urine Clarity CLEAR (CLEAR) 03/22/18 09:49 Urine pH 7.5 (4.6 - 8.0) 03/22/18 09:49 Ur Specific [place] 1.010 (1.005-1.030) 03/22/18 09:49 Urine Protein 30 mg/dL (NEGATIVE) H 03/22/18 09:49 Urine Glucose (UA) NEGATIVE mg/dL (NEGATIVE) 03/22/18 09:49 Urine Ketones NEGATIVE mg/dL (NEGATIVE) 03/22/18 09:49 Urine Blood NEGATIVE (NEGATIVE) 03/22/18 09:49 Urine Nitrate NEGATIVE (NEGATIVE) 03/22/18 09:49 Urine Bilirubin NEGATIVE (NEGATIVE) 03/22/18 09:49 Urine Urobilinogen 0.2 E.U./dL (0.2 - 1.0) 03/22/18 09:49 Ur Leukocyte Esterase MODERATE (NEGATIVE) H 03/22/18 09:49 Urine RBC 0-2 /hpf (0-5) H 03/22/18 09:49 Urine WBC 6-10 /hpf (0-5) 03/22/18 09:49 Ur Epithelial Cells NONE SEEN /lpf (FEW) 03/22/18 09:49 Urine Bacteria MODERATE /hpf (NONE SEEN) H 03/22/18 09:49 Vancomycin Trough 26.3 ug/mL (5-10) H 03/24/18 08:40 - Physical Exam Vitals and I&O: Vital Signs Temp 98.0 F 03/25/18 15:27 Pulse 82 03/25/18 15:49 Resp 18 03/25/18 16:00 BP 124/80 03/25/18 15:27 Pulse Ox 97 03/25/18 15:49 Intake & Output 03/24/18 03/25/18 03/25/18 18:59 06:59 18:59 Intake Total 587 731 6483 Balance 773 720 8876 Weight (lbs) 47.627 kg Intake: Intake, IV Amount 100 1000 Dextrose 5% 1,000 ml @ 80 1000 mls/hr IV .[id number] [facility] Rx#:[id number] Piperacillin Sodium/ 100 Tazobact 2.25 gm In Sodium Chloride 0.9% 50 ml @ 100 mls/hr IV Q8HR [facility] Rx#:[id number] Tube Feeding 150 Other: Stool Characteristics Soft Soft Formed Formed Brown Brown Weight Source Bedscale Active Medications: Current Medications Acetaminophen (Tylenol) 650 mg GT Q4H PRN PRN Reason: Pain Or Fever above 101 Stop: 05/21/18 21:29 Last Admin: 03/25/18 00:39 Dose: 650 mg Albuterol Sulfate (Albuterol 2.5mg/3ml Neb Ud) 2.5 mg HHN QIDRT [facility] Stop: 05/22/18 06:59 Last Admin: 03/25/18 15:49 Dose: 2.5 mg Ascorbic Acid (Vitamin C) 500 mg GT DAILY [facility] Stop: 05/22/18 08:59 Last Admin: 03/25/18 09:25 Dose: 500 mg Bisacodyl (Dulcolax 10 Mg Supp) 10 mg RC PRN PRN PRN Reason: IF MOM NOT EFFECTIVE Stop: 05/21/18 21:29 [place] Oil/[place] Balsam/Trypsin (Venelex) 1 appl TP DAILY [facility] Stop: 05/22/18 14:44 Last Admin: 03/25/18 09:24 Dose: 1 appl Divalproex Sodium (Depakote Sprinkle) 750 mg GT Q12HR [facility]; Protocol Stop: 05/22/18 08:59 Last Admin: 03/25/18 09:24 Dose: 750 mg Donepezil HCl (Aricept) 10 mg GT HS [facility] Stop: 05/22/18 20:59 Last Admin: 03/24/18 21:12 Dose: 10 mg Ferrous Sulfate (Iron) 330 mg GT BID [facility] Stop: 05/22/18 08:59 Last Admin: 03/25/18 16:36 Dose: 330 mg Guaifenesin (Robitussin) 200 mg PO Q4HR PRN PRN Reason: Cough or Congestion Stop: 05/21/18 21:31 Piperacillin Sod/Tazobactam (Sod 2.25 gm/ Sodium Chloride) 50 mls @ 100 mls/hr IV Q8HR [facility] Stop: 05/22/18 04:59 Last Admin: 03/25/18 12:23 Dose: 100 mls/hr Vancomycin HCl 1 gm/ Sodium (Chloride) 250 mls @ 165 mls/hr IV Q36H [facility] Stop: 05/23/18 20:59 Last Admin: 03/24/18 23:03 Dose: 165 mls/hr Dextrose (D5w) 1,000 mls @ 80 mls/hr IV .[id number] [facility] Stop: 05/23/18 15:14 Last Admin: 03/25/18 16:41 Dose: 80 mls/hr Ipratropium [place] (Atrovent Neb 0.5mg/2.5ml) 0.5 mg HHN QIDRT [facility] Stop: 05/22/18 06:59 Last Admin: 03/25/18 15:49 Dose: 0.5 mg Lactobacillus Rhamnosus (Culturelle 15b) 1 each GT DAILY [facility] Stop: 05/22/18 08:59 Last Admin: 03/25/18 09:25 Dose: 1 each Magnesium Hydroxide (Milk Of Magnesia) 30 ml PO Q72H PRN PRN Reason: IF NO BM Stop: 05/21/18 21:29 Miscellaneous (Vancomycin Iv Per Pharmacy) 1 ea [facility] DAILY [facility] Stop: 05/24/18 08:59 Multivitamins/Vitamin C (Theragran) 1 tab GT DAILY [facility] Stop: 05/22/18 08:59 Last Admin: 03/25/18 09:25 Dose: 1 tab Ondansetron HCl (Zofran) 4 mg IV Q8H PRN PRN Reason: Nausea / Vomiting Stop: 05/21/18 21:31 Pantoprazole Sodium (Protonix) 40 mg GT DAILY [facility] Stop: 05/22/18 08:59 Last Admin: 03/25/18 09:25 Dose: 40 mg Prednisone (Deltasone) 5 mg GT Q12HR [facility] Stop: 05/22/18 08:59 Last Admin: 03/25/18 09:25 Dose: 5 mg Zinc Sulfate (Zinc Sulfate) 220 mg GT DAILY [facility] Stop: 05/22/18 08:59 Last Admin: 03/25/18 09:25 Dose: 220 mg General: Alert, No acute distress, no Oriented x3, no Cooperative, no Mild distress, no Moderate distress, no Severe distress, no Other Cardiovascular: Regular rate, Normal S1, Normal S2 Lungs: Clear to auscultation Abdomen: Bowel sounds, Soft, Hepatomegaly, Other (G tube), no Tender, no Distended - Procedures Procedures: Procedures Procedure Code Date ASSISTANCE WITH RESPIRATORY VENTILATION, 24-96 HRS, CPAP [id number] 09/29/17 CHANGE FEEDING DEVICE IN UP INTEST TRACT, 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 Malfunctioning G tube 2. abnormal LFTs 3. Dysphagia - Plan Plan: 1. Malfunctioning G tube S/P change. If needed change to a larger one. 2. abnormal LFTs US was not helpfull Possible sepsis Doubt that he will tolerate MRCP 3. Dysphagia Advance feeding gradually
[2018-03-26] MEDS: Dextrose 5% 1,000 ML IV SCH (06:07)
[2018-03-26 06:19] LABS: % BASOPHILS 0.1 % (0.0-2.0); % EOSINOPHILS 1.6 % (0.0-5.0); % LYMPHOCYTES 12.7 % (20.0-50.0); % MONOCYTES 4.2 % (2.0-10.0); % NEUTROPHILS 81.4 % (40.0-80.0); EOSINOPHILE ABSOLUTE 0.1 Th/cmm (0.1-0.4); HEMOGLOBIN 9.4 gm/dL (12-16); LYMPHOCYTE ABSOLUTE 1.1 Th/cmm (1.5-3.0); MEAN CELL VOLUME 91.6 fl (80-99); MEAN CORPUSCULAR HEMOGLOBIN 29.8 pg (27.0-31.0); MEAN CORPUSCULAR HGB CONC 32.5 pg (28.0-36.0); MEAN PLATELET VOLUME 10.9 fl; MONOCYTE ABSOLUTE 0.4 Th/cmm (0.3-1.0); NEUTROPHILE ABSOLUTE 7.2 Th/cmm (1.8-8.0); PLATELET COUNT 317 Th/cmm (150-400); RED BLOOD COUNT 3.16 Mil/cmm (3.80-5.80); RED CELL DISTRIBUTION WIDTH 14.8 % (11.5-20.0); WHITE BLOOD COUNT 8.8 Th/cmm (4.8-10.8)
[2018-03-26 06:30] LABS: ANION GAP 10.5 (7.0-16.0); BUN - UREA NITROGEN 32 mg/dL (7-25); CALCIUM SERUM 8.4 mg/dL (8.6-10.3); CARBON DIOXIDE 26.3 mEq/L (21.0-31.0); CHLORIDE 112 mEq/L (98-107); GLUCOSE 124 mg/dL (70-105); POTASSIUM SERUM 3.8 mEq/L (3.5-5.1); SODIUM SERUM 145 mEq/L (136-145)
[2018-03-26] MEDS: Albuterol Nebulizer 2.5mg/3mL HHN SCH ×4 (07:15→19:19)
[2018-03-26] MEDS: Ipratropium Neb 0.5 mg/2.5 mL UD HHN SCH ×4 (07:15→19:18)
[2018-03-26] MEDS: Multivitamin Tab GT SCH (08:38)
[2018-03-26] MEDS: Ferrous Sulfate 300 MG/5 ML UDC GT SCH ×2 (08:38→17:36)
[2018-03-26] MEDS: Pantoprazole 40 mg/Packet GT SCH (08:39)
[2018-03-26] MEDS: Lactobacillus Rhamnosus GG 15 Billion CFU CAP.SPRINK GT SCH (08:41)
--- NOTE | 2018-03-26 09:37 | Internal Medicine Prog Note ---
Internal Medicine Subjective - Subjective Service Date: 03/26/18 Patient seen and examined:: with staff Patient is:: awake, verbal Per staff patient has:: tolerating meds Internal Medicine Objective - Results Result Diagrams: 03/26/18 05:55 03/26/18 05:55 Recent Labs: Laboratory Last Values WBC 8.8 Th/cmm (4.8-10.8) 03/26/18 05:55 RBC 3.16 Mil/cmm (3.80-5.80) L 03/26/18 05:55 Hgb 9.4 gm/dL (12-16) L 03/26/18 05:55 Hct 29.0 % (41.0-60) L 03/26/18 05:55 MCV 91.6 fl (80-99) 03/26/18 05:55 MCH 29.8 pg (27.0-31.0) 03/26/18 05:55 MCHC Differential 32.5 pg (28.0-36.0) 03/26/18 05:55 RDW 14.8 % (11.5-20.0) 03/26/18 05:55 Plt Count 317 Th/cmm (150-400) 03/26/18 05:55 MPV 10.9 fl 03/26/18 05:55 Add Manual Diff YES 03/22/18 20:23 Neutrophils % 81.4 % (40.0-80.0) H 03/26/18 05:55 Band Neutrophils % 2 % (0-10) 03/22/18 20:23 Lymphocytes % 12.7 % (20.0-50.0) L 03/26/18 05:55 Monocytes % 4.2 % (2.0-10.0) 03/26/18 05:55 Eosinophils % 1.6 % (0.0-5.0) 03/26/18 05:55 Basophils % 0.1 % (0.0-2.0) 03/26/18 05:55 Neutrophils (Manual) 86 % (40-80) H 03/22/18 20:23 Lymphocytes 10 % (20-50) L 03/22/18 20:23 Monocytes 2 % (2-10) 03/22/18 20:23 Platelet Estimate ADEQUATE (NORMAL) 03/22/18 20:23 Smear Path Review N 03/22/18 20:23 Sodium 145 mEq/L (136-145) 03/26/18 05:55 Potassium 3.8 mEq/L (3.5-5.1) 03/26/18 05:55 Chloride 112 mEq/L (98-107) H 03/26/18 05:55 Carbon Dioxide 26.3 mEq/L (21.0-31.0) 03/26/18 05:55 Anion Gap 10.5 (7.0-16.0) 03/26/18 05:55 BUN 32 mg/dL (7-25) H 03/26/18 05:55 Creatinine 1.0 mg/dL (0.7-1.3) 03/26/18 05:55 Est GFR ( Amer) TNP 03/26/18 05:55 Est GFR (Non-Af Amer) TNP 03/26/18 05:55 BUN/Creatinine Ratio 32.0 03/26/18 05:55 Glucose 124 mg/dL (70-105) H 03/26/18 05:55 Whole Bld Lactic Acid 2.89 mmol/L (0.60-1.99) H* 03/23/18 06:20 Calcium 8.4 mg/dL (8.6-10.3) L 03/26/18 05:55 Magnesium 3.3 mg/dL (1.9-2.7) H 03/23/18 06:20 Total Bilirubin 0.4 mg/dL (0.3-1.0) 03/25/18 06:30 Direct Bilirubin 0.16 mg/dL (0.0-0.2) 03/25/18 06:30 AST 53 U/L (13-39) H 03/25/18 06:30 ALT 85 U/L (7-52) H 03/25/18 06:30 Alkaline Phosphatase 116 U/L (34-104) H 03/25/18 06:30 Total Protein 6.8 gm/dL (6.0-8.3) 03/25/18 06:30 Albumin 2.9 gm/dL (4.2-5.5) L 03/25/18 06:30 Globulin 3.9 gm/dL 03/25/18 06:30 Albumin/Globulin Ratio 0.7 (1.0-1.8) L 03/25/18 06:30 Lipase 18 U/L (11-82) 03/24/18 08:40 Urine Source CLEAN C 03/22/18 09:49 Urine Color YELLOW 03/22/18 09:49 Urine Clarity CLEAR (CLEAR) 03/22/18 09:49 Urine pH 7.5 (4.6 - 8.0) 03/22/18 09:49 Ur Specific [place] 1.010 (1.005-1.030) 03/22/18 09:49 Urine Protein 30 mg/dL (NEGATIVE) H 03/22/18 09:49 Urine Glucose (UA) NEGATIVE mg/dL (NEGATIVE) 03/22/18 09:49 Urine Ketones NEGATIVE mg/dL (NEGATIVE) 03/22/18 09:49 Urine Blood NEGATIVE (NEGATIVE) 03/22/18 09:49 Urine Nitrate NEGATIVE (NEGATIVE) 03/22/18 09:49 Urine Bilirubin NEGATIVE (NEGATIVE) 03/22/18 09:49 Urine Urobilinogen 0.2 E.U./dL (0.2 - 1.0) 03/22/18 09:49 Ur Leukocyte Esterase MODERATE (NEGATIVE) H 03/22/18 09:49 Urine RBC 0-2 /hpf (0-5) H 03/22/18 09:49 Urine WBC 6-10 /hpf (0-5) 03/22/18 09:49 Ur Epithelial Cells NONE SEEN /lpf (FEW) 03/22/18 09:49 Urine Bacteria MODERATE /hpf (NONE SEEN) H 03/22/18 09:49 Vancomycin Trough 20.9 ug/mL (5-10) H 03/26/18 08:20 - Physical Exam Vitals and I&O: Vital Signs Temp 98.1 F 03/26/18 08:00 Pulse 69 03/26/18 08:00 Resp 18 03/26/18 08:00 BP 113/47 03/26/18 08:00 Pulse Ox 100 03/26/18 08:00 Intake & Output 03/25/18 03/26/18 03/26/18 18:59 06:59 18:59 Intake Total 1940 1350 Output Total 350 300 Balance 1590 1050 Weight (lbs) 105 lb 106 lb 6 oz Intake: Intake, IV Amount 1050 1050 Dextrose 5% 1,000 ml @ 80 1000 1000 mls/hr IV .[id number] [facility] Rx#:[id number] Piperacillin Sodium/ 50 50 Tazobact 2.25 gm In Sodium Chloride 0.9% 50 ml @ 100 mls/hr IV Q8HR [facility] Rx#:[id number] Oral 0 Tube Feeding 690 Other 200 300 Output: Urine 350 300 Other: # Bowel Movements 1 2 Stool Characteristics Soft Soft Formed Formed Brown Brown Weight Source Bedscale Bedscale Active Medications: Current Medications Acetaminophen (Tylenol) 650 mg GT Q4H PRN PRN Reason: Pain Or Fever above 101 Stop: 05/21/18 21:29 Last Admin: 03/25/18 22:14 Dose: 650 mg Albuterol Sulfate (Albuterol 2.5mg/3ml Neb Ud) 2.5 mg HHN QIDRT [facility] Stop: 05/22/18 06:59 Last Admin: 03/26/18 07:15 Dose: 2.5 mg Ascorbic Acid (Vitamin C) 500 mg GT DAILY [facility] Stop: 05/22/18 08:59 Last Admin: 03/26/18 08:38 Dose: 500 mg Bisacodyl (Dulcolax 10 Mg Supp) 10 mg RC PRN PRN PRN Reason: IF MOM NOT EFFECTIVE Stop: 05/21/18 21:29 [place] Oil/[place] Balsam/Trypsin (Venelex) 1 appl TP DAILY [facility] Stop: 05/22/18 14:44 Last Admin: 03/25/18 09:24 Dose: 1 appl Divalproex Sodium (Depakote Sprinkle) 750 mg GT Q12HR [facility]; Protocol Stop: 05/22/18 08:59 Last Admin: 03/26/18 08:37 Dose: 750 mg Donepezil HCl (Aricept) 10 mg GT HS [facility] Stop: 05/22/18 20:59 Last Admin: 03/25/18 20:47 Dose: 10 mg Ferrous Sulfate (Iron) 330 mg GT BID [facility] Stop: 05/22/18 08:59 Last Admin: 03/26/18 08:38 Dose: 330 mg Guaifenesin (Robitussin) 200 mg PO Q4HR PRN PRN Reason: Cough or Congestion Stop: 05/21/18 21:31 Piperacillin Sod/Tazobactam (Sod 2.25 gm/ Sodium Chloride) 50 mls @ 100 mls/hr IV Q8HR [facility] Stop: 05/22/18 04:59 Last Admin: 03/26/18 04:32 Dose: 100 mls/hr Vancomycin HCl 1 gm/ Sodium (Chloride) 250 mls @ 165 mls/hr IV Q36H [facility] Stop: 05/23/18 20:59 Last Admin: 03/26/18 08:32 Dose: 165 mls/hr Dextrose (D5w) 1,000 mls @ 80 mls/hr IV .[id number] [facility] Stop: 05/23/18 15:14 Last Admin: 03/26/18 06:07 Dose: 80 mls/hr Ipratropium [place] (Atrovent Neb 0.5mg/2.5ml) 0.5 mg HHN QIDRT [facility] Stop: 05/22/18 06:59 Last Admin: 03/26/18 07:15 Dose: 0.5 mg Lactobacillus Rhamnosus (Culturelle 15b) 1 each GT DAILY [facility] Stop: 05/22/18 08:59 Last Admin: 03/26/18 08:41 Dose: 1 each Magnesium Hydroxide (Milk Of Magnesia) 30 ml PO Q72H PRN PRN Reason: IF NO BM Stop: 05/21/18 21:29 Miscellaneous (Vancomycin Iv Per Pharmacy) 1 ea [facility] DAILY [facility] Stop: 05/24/18 08:59 Multivitamins/Vitamin C (Theragran) 1 tab GT DAILY [facility] Stop: 05/22/18 08:59 Last Admin: 03/26/18 08:38 Dose: 1 tab Ondansetron HCl (Zofran) 4 mg IV Q8H PRN PRN Reason: Nausea / Vomiting Stop: 05/21/18 21:31 Pantoprazole Sodium (Protonix) 40 mg GT DAILY [facility] Stop: 05/22/18 08:59 Last Admin: 03/26/18 08:39 Dose: 40 mg Prednisone (Deltasone) 5 mg GT Q12HR [facility] Stop: 05/22/18 08:59 Last Admin: 03/26/18 08:39 Dose: 5 mg Zinc Sulfate (Zinc Sulfate) 220 mg GT DAILY [facility] Stop: 05/22/18 08:59 Last Admin: 03/26/18 08:39 Dose: 220 mg General: alert HEENT: NC/AT, PERRLA Neck: Supple Lungs: CTAB Cardiovascular: RRR, Normal S1, Normal S2 Abdomen: soft, non-tender, non-distended, positive bowel sound Extremities: excoriation Neurological: alert, unable to follow command - Procedures Procedures: Procedures Procedure Code Date ASSISTANCE WITH RESPIRATORY VENTILATION, 24-96 HRS, CPAP [id number] 09/29/17 CHANGE FEEDING DEVICE IN UP INTEST TRACT, POPCORN CANDY MAKER APPROACH [id number] 03/22/18 INSPECTION OF UPPER INTESTINAL TRACT, ENDO [id number] 01/26/18 POS AIRWAY PRESSURE CPAP 24412 09/29/17 Internal Medicine Assmt/Plan - Assessment Assessment: gt cellulitis sepsis acute renal insufficiency r/o dehydration acute uti hx stroke mr dementia mild protein jim malnutrition - Plan Plan: continue ivabx fall precautions follow up labs in am Nutritional Asmnt/Malnutr-PDOC - Dietary Evaluation Malnutrition Findings (Please click <Entered> for more info): Nutritional Asmnt/Malnutrition Start: 03/23/18 18: 11 Text: Status: Complete Freq: Protocol: Document 03/23/18 18:14 RONEN (Rec: 03/23/18 18:29 ANNY [email or web address]) Nutritional Asmnt/Malnutrition Patient General Information Nutritional Screening High Risk Consult Diagnosis sepsis, GT cullulitis Pertinent Medical Hx/Surgical Hx ESRD, anemia, dysphagia, asthma/COPD Subjective Information Pt seen resting in bed at time of visit, NPO status, GT clamped. Per RNMD changed GT today, stoma site still reddened with drainage. May start TF once Gtube site healed. Current Diet Order/ Nutrition Support NPO Pertinent Medications vit C, D5w, iron, culturelle, theragran, protonix, piperacillin, vancomycin, zinc Pertinent Labs 03/23 Na 167, Cl 127, BUN 77, Cr 1.6, glucose 103, Mg 3.3, Alb 3.3 03/22 Na 167, Cl 126, BUN 8, Cr 1.5, glucose 115, Alb 3.5 Nutritional Hx/Data Height 5 ft 11 in Height (Calculated Centimeters) 180.3 Current Weight (lbs) 105 lb Weight (Calculated Kilograms) 47.6 Weight (Calculated Grams) 47172.2 [place] Body Weight 172 Body Mass Index (BMI) 14.6 Weight Status Underweight GI Symptoms Last BM 03/23 Usual diet at home per chart, fibersouce HM at 75ml x 20hr daily at care facility Skin Integrity/Comment: pressure ulcer to posterior back, incision reddened to lateral abd, skiin tear ulcer to left lateral leg, pressure area reddened to left shoulder Estimated Nutritional Goals BEE in Kcals: Using Current wt Calories/Kcals/Kg 35-40 Kcals Calculated 5189-1254 Protein: Using Current wt Protein g/k.3-1.7 Protein Calculated 62-82 Fluid: ml 1440-1680ml (1ml/kcal) Nutritional Problem 1. Problem Problem inadequate energy intake Etiology Gtube site wound Signs/Symptoms: TF not initiated Malnutrition Alert Body Fat Depletion (Non-Severe) Mild Depletion Muscle Mass (Severe) Mod to Severe Depletion Is there a minimum of two criteria Yes selected? Query Text:Check all the applicable criteria. A minimum of two criteria are recommended for diagnosis of either severe or non-severe malnutrition. Malnutrition Related to Morbid Obesity Malnutrition related to morbid obesity No Intervention/Recommendation Comments 1. When medically appropriate, recommend tube feeding with Jevity 1.2 at 75ml/hr x 20hr. It will provide 1800kcal, 83g protein and 1210ml free water, meeting 100% of nutritional needs. 2. Consider adding Fox BID to help wound healing once TF initiated. 3. Monitor TF rate, tolerance, wt, skin integrity and labs 4. F/U as high risk in 2-3 days, 03/25-03/26 Expected Outcomes/Goals Expected Outcomes/Goals 1. Pt to meet at least 75% of nutritional needs via nutrition support with tolerance 2. Wt stability, skin to remain intact, labs to approach WNL.
[2018-03-26] MEDS: Venelex 60gm Tube TP SCH (10:11)
--- NOTE | 2018-03-26 20:02 | Operative Report ---
DATE OF SURGERY: 03/26/2018 PROCEDURE: Change of G-tube. INDICATION FOR PROCEDURE: Leaking G-tube. PREOPERATIVE DIAGNOSIS: Malfunctioning G-tube. POSTOPERATIVE DIAGNOSIS: Malfunctioning G-tube, status post change. DESCRIPTION OF PROCEDURE: The old G-tube, which was size 20 was deflated, pulled out of the patient's abdomen. A new replacement was tested outside, then inserted through the same hole. G-tube was inflated. Balloon was secured in place. The patient tolerated the procedure well and there were no immediate postoperative complications. RECOMMENDATIONS: Resume feeding once the patient go back resident home. JOB# [id number]
== END 2018-03-26 20:36 | DRG 393 ==
LOC: ER 19:08 → TELE 21:06
PROVIDERS: ADMIT Internal Medicine; ATTEND Internal Medicine
PROC: 0D20XUZ Change Feeding Device in Upper Intestinal Tract, External Approach (ICD-10-PCS; principal; 2018-03-23)
PROC: 0D20XUZ Change Feeding Device in Upper Intestinal Tract, External Approach (ICD-10-PCS; 2018-03-26)
DX: K94.23 Gastrostomy malfunction (principal); A41.9 Sepsis, unspecified organism; L03.311 Cellulitis of abdominal wall; N39.0 Urinary tract infection, site not specified; E44.1 Mild protein-calorie malnutrition; Z68.1 Body mass index [BMI] 19.9 or less, adult; F79 Unspecified intellectual disabilities; J44.9 Chronic obstructive pulmonary disease, unspecified; N18.9 Chronic kidney disease, unspecified; R62.7 Adult failure to thrive; Y83.8 Other surgical procedures as the cause of abnormal reaction of the patient, or of later complication, without mention of misadventure at the time of the procedure; Y92.89 Other specified places as the place of occurrence of the external cause; F03.90 Unspecified dementia, unspecified severity, without behavioral disturbance, psychotic disturbance, mood disturbance, and anxiety; K94.22 Gastrostomy infection; R13.10 Dysphagia, unspecified; Z86.73 Personal history of transient ischemic attack (TIA), and cerebral infarction without residual deficits
CPT/HCPCS: 36415-UA; 71045-TC; 76700-TC; 80048-TC; 80053-TC; 80076-TC; 80202-TC; 81001-TC; 83605; 83690-TC; 83735-TC; 85007-TC; 85025-TC; 87070-90; 87075-90; 87086-90; 87205-90; 90779; 94640; 94760; A4217; J2543; J3370; J7040; J7042; J7070; J7512; J7613; Z7610